=== PATIENT | female | born 1945 | race Two or more races ===

== ENCOUNTER 2018-03-06 02:01 | Emergency (ER) | payer OTHER ==
[~2018-03-06] VITALS: Ht 149.9 cm; Wt 125.6 kg
[2018-03-06] MEDS ORDERED: methylPREDNISolone SOD SUCC 125 MG/2 ML VL IV ONE (02:45)
[2018-03-06 04:08] LABS: Hematocrit 28.1 % (36.0-46.0); Hemoglobin 9.5 g/dL (12.2-16.2); Mean Corpuscular Hemoglobin 33.8 pg (28.0-32.0); Mean Corpuscular Hgb Conc. 33.9 g/dL (32.0-36.0); Mean Corpuscular Volume 99.7 fL (80.0-100.0); Platelet Count (auto) 49 10^3/uL (140-450); Red Blood Cells 2.82 10^6/uL (4.0-5.20); Red Cell Distribution Width 13.8 % (11.8-14.3)
[2018-03-06 04:20] LABS: White Blood Cell 1.6 10^3/uL (4.4-10.8)
[2018-03-06 04:21] LABS: Band Neutrophils % (manual) 0; Basophils % (manual) 0 (0.0-2.0); Blast Cells 0; Metamyelocytes % 0; Monocytes % (manual) 0 (0-12); Myelocytes % 0; Promyelocytes % 0; Reactive Lymphocytes 0
[2018-03-06 04:30] LABS: Albumin 3.2 g/dL (3.4-5.0); Potassium 4.5 mmol/L (3.5-5.1)
[2018-03-06 04:33] LABS: BUN/Creatinine Ratio 22.9; Bilirubin, Total 0.5 mg/dL (0.2-1.0); Total Protein 6.4 g/dL (6.4-8.2)
[2018-03-06 05:47] VITALS: BP 160/60
[2018-03-06 06:51] LABS: Eosinophils % (manual) 4 (0-7); Lymphocytes % (manual) 85 (10.0-50.0)
== END 2018-03-06 05:34 | disposition home or self-care (01) ==
LOC: ER 02:01
DX: K12.0 Recurrent oral aphthae (principal); B37.9 Candidiasis, unspecified; Z88.6 Allergy status to analgesic agent
CPT/HCPCS: 36415; 80053; 85007; 85027; 96374; 99283; J2930

== ENCOUNTER → 2019-10-23 | Emergency (ER) | payer OTHER ==
[~2019-10-23] VITALS: Ht 157.5 cm; Wt 81.6 kg
[~2019-10-23] MED LIST: CYANOCOBALAMIN (B-12) 1000 MCG/1 ML VIAL IM ONE; DEXTROSE (25%) 10 ML SYRG IV ONE; LORazepam 2MG/ML-1ML VIAL IV ONE
[2019-10-23 14:34] LABS: Eosinophils # (auto) 0.2 10 ^3/uL (0-0.8); Hemoglobin 12.3 g/dL (12.2-16.2); Lymphocytes # (auto) 2.3 10 ^3/uL (0.4-5.4); Monocytes # (auto) 0.7 10 ^3/uL (0-1.3); Red Blood Cells 3.67 10^6/uL (4.0-5.20); White Blood Cell 8.6 10^3/uL (4.4-10.8)
[2019-10-23 14:36] LABS: Basophils # (auto) 0 10 ^3/uL (0-0.2); Basophils % (auto) 0.6 % (0.0-2.0); Eosinophils % (auto) 2.6 % (0.0-7.0); Hematocrit 38.1 % (36.0-46.0); Lymphocytes % (auto) 26.6 % (10.0-50.0); Mean Corpuscular Hemoglobin 33.5 pg (28.0-32.0); Mean Corpuscular Hgb Conc. 32.2 g/dL (32.0-36.0); Monocytes % (auto) 8.7 % (0.0-12.0); Neutrophils # (auto) 5.3 10 ^3/uL (1.6-8.6); Neutrophils % (auto) 61.5 % (37.0-80.0); Platelet Count (auto) 234 10^3/uL (140-450); Red Cell Distribution Width 16.5 % (11.8-14.3)
[2019-10-23 14:48] LABS: Albumin 3.1 g/dL (3.4-5.0); Anion Gap 8 (5-15); BUN/Creatinine Ratio 8.9; Blood Urea Nitrogen 51 mg/dL (7-18); Carbon Dioxide 26 mmol/L (21-32); Chloride 105 mmol/L (98-107); GFR African American 9 mL/min; GFR Non-African American 8 mL/min; Glucose 73 mg/dL (74-106); Magnesium 2.5 mg/dL (1.6-2.6); Potassium 4.1 mmol/L (3.5-5.1); Sodium 139 mmol/L (136-145)
[2019-10-23 14:50] LABS: INR 1.05 (0.9-1.15); Partial Thromboplastin Time 29.6 sec (23.0-31.2)
[2019-10-23 14:52] LABS: Calcium 8.6 mg/dL (8.5-10.1)
[2019-10-23 14:54] LABS: Alanine Aminotransferase 9 U/L (13-56); Alkaline Phosphatase 95 U/L (45-117); Aspartate Aminotransferase 18 U/L (15-37); Bilirubin, Total 0.2 mg/dL (0.2-1.0); Total Protein 6.4 g/dL (6.4-8.2)
[2019-10-23 17:22] VITALS: BP 138/71
[2019-10-23 17:24] LABS: Urine Bacteria NONE SEEN /hpf (None Seen); Urine Blood Negative /uL (Negative); Urine Specific Gravity 1.005 (1.001-1.035); Urine WBC 2 /hpf (0 - 5)
[2019-10-23 17:30] LABS: Alcohol, Urine < 3.0 mg/dL (0-10); Amphetamine Screen, Urine NEGATIVE (NEGATIVE); Barbiturate Scree,Urine NEGATIVE (NEGATIVE); Benzodiazephine Screen, Urine NEGATIVE (NEGATIVE); Cannabinoid Screen, Urine POSITIVE (NEGATIVE); Cocaine Screen, Urine NEGATIVE (NEGATIVE); Opiate Scree,Urine NEGATIVE (NEGATIVE); Phencyclidine Screen, Urine NEGATIVE (NEGATIVE)
== END | disposition home or self-care (01) ==
LOC: EDUNIT# 12:22 → ER 12:23 → EDBD 12:23
DX: I12.0 Hypertensive chronic kidney disease with stage 5 chronic kidney disease or end stage renal disease (principal); N18.6 End stage renal disease; Z99.2 Dependence on renal dialysis; D75.89 Other specified diseases of blood and blood-forming organs; G25.9 Extrapyramidal and movement disorder, unspecified; E44.1 Mild protein-calorie malnutrition; F41.9 Anxiety disorder, unspecified; N39.0 Urinary tract infection, site not specified; Z88.5 Allergy status to narcotic agent
CPT/HCPCS: 36415; 70450; 71045; 80053; 80307; 80320; 81001; 82962; 83605; 83735; 84484; 85025; 85610; 85730; 87040; 93005; 96374; 96375; 99285; J2060

== ENCOUNTER 2020-03-07 19:07 | Inpatient (IN) | payer OTHER ==
[~2020-03-07] VITALS: Ht 144.8 cm; Wt 76.2 kg
[2020-03-07] MEDS ORDERED: PIPERACILLIN-TAZOB 3.375GM 100 ML IV ONE (20:15)
[2020-03-07] MEDS ORDERED: VANCOMYCIN 1GM/250ML 250 ML IV ONE (20:15)
[2020-03-07 22:27] LABS: Platelet Count (auto) 187 10^3/uL (140-450)
[2020-03-07 22:29] LABS: Hematocrit 31.1 % (36.0-46.0); Hemoglobin 10.9 g/dL (12.2-16.2); Mean Corpuscular Hemoglobin 37.1 pg (28.0-32.0); Mean Corpuscular Hgb Conc. 34.9 g/dL (32.0-36.0); Mean Corpuscular Volume 106.3 fL (80.0-100.0); Red Blood Cells 2.93 10^6/uL (4.0-5.20); White Blood Cell 8.4 10^3/uL (4.4-10.8)
[2020-03-07 22:41] LABS: Basophils % (manual) 0 (0.0-2.0); Blast Cells 0; Metamyelocytes % 0; Myelocytes % 0; Promyelocytes % 0; Reactive Lymphocytes 0
[2020-03-07 22:46] LABS: Albumin 2.4 g/dL (3.4-5.0); Calcium 7.1 mg/dL (8.5-10.1); Potassium 4.2 mmol/L (3.5-5.1)
[2020-03-07 22:54] LABS: INR 1.09 (0.9-1.15); Partial Thromboplastin Time 32.4 sec (23.0-31.2)
[2020-03-07 22:56] LABS: BUN/Creatinine Ratio 8.4; Bilirubin, Total 0.3 mg/dL (0.2-1.0); Total Protein 6.5 g/dL (6.4-8.2)
[2020-03-08] VITALS (7 sets, daily range): BP systolic 106–127; BP diastolic 51–60
[2020-03-08 00:49] LABS: Band Neutrophils % (manual) 3; Eosinophils % (manual) 2 (0-7); Lymphocytes % (manual) 14 (10.0-50.0); Monocytes % (manual) 6 (0-12)
[2020-03-08] MEDS ORDERED: ACETAMINOPHEN 325 MG TAB PO PRN (02:30)
[2020-03-08] MEDS ORDERED: MORPHINE SULF INJ 2 MG/ML SYRINGE 1ML IV PRN (02:30)
[2020-03-08] MEDS ORDERED: cloNIDine HCL 0.1 MG TAB PO PRN (02:30)
[2020-03-08] MEDS ORDERED: ONDANSETRON HCL 4 MG/2 ML VIAL IV PRN (02:30)
[2020-03-08] MEDS ORDERED: NITROGLYCERIN 0.4 MG SL TAB SL PRN (02:30)
[2020-03-08] MEDS: DexAMETHasone SOD PHOS 10MG/1ML VIAL INJ IV SCH (04:02)
[2020-03-08] MEDS: GABAPENTIN 100 MG CAP PO SCH ×3 (06:20→22:20)
[2020-03-08] MEDS: ENOXAPARIN SOD 40 MG/0.4 ML SYRINGE SC SCH (09:10)
[2020-03-08] MEDS: ZINC SULFATE 220mg CAP or TAB PO SCH (09:10)
[2020-03-08] MEDS: CHOLECALCIFEROL (VITD3) 2,000 UNIT CAP PO SCH (09:10)
[2020-03-08] MEDS: ASCORBIC ACID 1,000 MG TAB PO SCH (09:11)
[2020-03-08] MEDS: amLODIPine BESYLATE 5 MG TAB PO SCH (09:11)
[2020-03-08] MEDS: cefTRIAXone 1GM/50ML D5W 50 ML IV SCH (09:11)
[2020-03-08 09:51] LABS: Magnesium 2.4 mg/dL (1.6-2.6)
[2020-03-08 09:59] LABS: Lactate Dehydrogenase 428 U/L (84-246)
[2020-03-08 10:00] LABS: CRP High Sensitivity > 19.0 mg/dL (< 0.3)
[2020-03-08] MEDS ORDERED: ZINC SULFATE 220mg CAP or TAB PO SCH (10:00)
[2020-03-08] MEDS ORDERED: REMDESIVIR PER PHARMACY 0 ML IV SCH (11:45)
[2020-03-08] MEDS ORDERED: AMLO-496 PO (12:19)
[2020-03-08] MEDS ORDERED: ROPI0.254 PO (12:19)
[2020-03-08] MEDS ORDERED: ALBU108A5 INH (12:19)
[2020-03-08 12:22] LABS: Albumin 2.3 g/dL (3.4-5.0); Calcium 7.4 mg/dL (8.5-10.1); Potassium 4.5 mmol/L (3.5-5.1)
[2020-03-08] MEDS: AZITHROMYCIN 500MG/ 250ML 250 ML IV SCH (12:24)
[2020-03-08 12:25] LABS: BUN/Creatinine Ratio 8.8; Bilirubin, Total 0.4 mg/dL (0.2-1.0); Total Protein 6.3 g/dL (6.4-8.2)
[2020-03-08] MEDS ORDERED: REMDESIVIR 200 MG in NS 210ml LOADING DOSE ADULT IV ONE (15:00)
[2020-03-08] MEDS: ATORVASTATIN 20 MG TAB PO SCH (22:20)
[2020-03-09] VITALS: BP 124/64
[2020-03-09] MEDS: GABAPENTIN 100 MG CAP PO SCH ×3 (06:28→23:05)
[2020-03-09 08:00] VITALS: BP 127/62
[2020-03-09 08:08] LABS: Basophils # (auto) 0 10 ^3/uL (0-0.2); Basophils % (auto) 0.1 % (0.0-2.0); Eosinophils # (auto) 0 10 ^3/uL (0-0.8); Hemoglobin 10.4 g/dL (12.2-16.2); Monocytes # (auto) 0.4 10 ^3/uL (0-1.3); Neutrophils # (auto) 7.6 10 ^3/uL (1.6-8.6); White Blood Cell 8.6 10^3/uL (4.4-10.8)
[2020-03-09 08:10] LABS: Hematocrit 29.8 % (36.0-46.0); Lymphocytes # (auto) 0.7 10 ^3/uL (0.4-5.4); Lymphocytes % (auto) 8.1 % (10.0-50.0); Mean Corpuscular Hemoglobin 35.9 pg (28.0-32.0); Mean Corpuscular Hgb Conc. 34.8 g/dL (32.0-36.0); Mean Corpuscular Volume 103.3 fL (80.0-100.0); Monocytes % (auto) 4.1 % (0.0-12.0); Neutrophils % (auto) 87.7 % (37.0-80.0); Nucleated Red Blood Cells % 0.2 %; Platelet Count (auto) 218 10^3/uL (140-450); Red Blood Cells 2.88 10^6/uL (4.0-5.20); Red Cell Distribution Width 12.7 % (11.8-14.3)
[2020-03-09 08:14] LABS: Albumin 2.4 g/dL (3.4-5.0); Calcium 7.4 mg/dL (8.5-10.1); Potassium 4.5 mmol/L (3.5-5.1)
[2020-03-09 08:19] LABS: BUN/Creatinine Ratio 10.3; Bilirubin, Total 0.3 mg/dL (0.2-1.0); Total Protein 6.7 g/dL (6.4-8.2)
[2020-03-09] MEDS: cefTRIAXone 1GM/50ML D5W 50 ML IV SCH (09:15)
[2020-03-09] MEDS: ENOXAPARIN SOD 40 MG/0.4 ML SYRINGE SC SCH (09:15)
[2020-03-09] MEDS: CHOLECALCIFEROL (VITD3) 2,000 UNIT CAP PO SCH (09:16)
[2020-03-09] MEDS: ZINC SULFATE 220mg CAP or TAB PO SCH (09:16)
[2020-03-09] MEDS: DexAMETHasone SOD PHOS 10MG/1ML VIAL INJ IV SCH (09:16)
[2020-03-09] MEDS: ASCORBIC ACID 1,000 MG TAB PO SCH (09:16)
[2020-03-09 09:37] LABS: Urine Bacteria FEW /hpf (None Seen); Urine Blood Negative /uL (Negative); Urine Specific Gravity 1.014 (1.001-1.035); Urine WBC 5 /hpf (0 - 5)
[2020-03-09] MEDS: amLODIPine BESYLATE 5 MG TAB PO SCH (10:00)
[2020-03-09] MEDS: AZITHROMYCIN 500MG/ 250ML 250 ML IV SCH (10:46)
[2020-03-09] MEDS ORDERED: DOCUSATE SOD 100 MG CAP PO PRN (12:15)
[2020-03-09] MEDS ORDERED: SODIUM CHL 0.9% 1000 ML BAG XX ONE (12:45)
[2020-03-09 16:12] VITALS: BP 124/76
[2020-03-09] MEDS: REMDESIVIR 100mg 100 MG in SODIUM CHL 0.9% 230 ML IV SCH (16:57)
[2020-03-09] MEDS: ALBUTEROL SULF HFA 90MCG INH 200DOSE IN PRN (20:22)
[2020-03-09] MEDS: DOCUSATE SOD 100 MG CAP PO PRN (23:04)
[2020-03-09] MEDS: ATORVASTATIN 20 MG TAB PO SCH (23:05)
[2020-03-10 00:26] VITALS: BP 141/61
[2020-03-10] MEDS: TEMAZEPAM 15 MG CAP PO PRN (01:16)
[2020-03-10] MEDS: GABAPENTIN 100 MG CAP PO SCH ×2 (06:00→13:51)
[2020-03-10 08:00] VITALS: BP 135/63
[2020-03-10 08:25] LABS: Albumin 2.3 g/dL (3.4-5.0); Calcium 7.1 mg/dL (8.5-10.1); Potassium 3.8 mmol/L (3.5-5.1)
[2020-03-10 08:28] LABS: BUN/Creatinine Ratio 10.5; Bilirubin, Total 0.2 mg/dL (0.2-1.0)
[2020-03-10] MEDS: cefTRIAXone 1GM/50ML D5W 50 ML IV SCH (10:09)
[2020-03-10] MEDS: ZINC SULFATE 220mg CAP or TAB PO SCH (10:09)
[2020-03-10] MEDS: DexAMETHasone SOD PHOS 10MG/1ML VIAL INJ IV SCH (10:09)
[2020-03-10] MEDS: amLODIPine BESYLATE 5 MG TAB PO SCH (10:10)
[2020-03-10] MEDS: CHOLECALCIFEROL (VITD3) 2,000 UNIT CAP PO SCH (10:10)
[2020-03-10] MEDS: ASCORBIC ACID 1,000 MG TAB PO SCH (10:10)
[2020-03-10] MEDS: DOCUSATE SOD 100 MG CAP PO PRN ×2 (10:11→23:34)
[2020-03-10] MEDS: ENOXAPARIN SOD 40 MG/0.4 ML SYRINGE SC SCH (10:11)
[2020-03-10] MEDS: AZITHROMYCIN 500MG/ 250ML 250 ML IV SCH (10:32)
[2020-03-10] MEDS: REMDESIVIR 100mg 100 MG in SODIUM CHL 0.9% 230 ML IV SCH (15:42)
[2020-03-10 16:00] VITALS: BP 125/58
[2020-03-10] MEDS: ALBUTEROL SULF HFA 90MCG INH 200DOSE IN PRN (19:18)
[2020-03-11] VITALS: BP 118/59
[2020-03-11] MEDS: ATORVASTATIN 20 MG TAB PO SCH ×2 (01:06→22:12)
[2020-03-11] MEDS: GABAPENTIN 100 MG CAP PO SCH ×4 (01:06→22:12)
[2020-03-11] MEDS: TEMAZEPAM 15 MG CAP PO PRN (01:07)
[2020-03-11 07:23] LABS: Potassium 3.8 mmol/L (3.5-5.1)
[2020-03-11 07:35] LABS: Albumin 2.3 g/dL (3.4-5.0); BUN/Creatinine Ratio 12.5; Bilirubin, Total 0.2 mg/dL (0.2-1.0); Calcium 6.8 mg/dL (8.5-10.1); Total Protein 5.8 g/dL (6.4-8.2)
[2020-03-11 08:00] VITALS: BP 126/47
[2020-03-11] MEDS: ALBUTEROL SULF HFA 90MCG INH 200DOSE IN PRN ×2 (10:18→22:53)
[2020-03-11] MEDS: DexAMETHasone SOD PHOS 10MG/1ML VIAL INJ IV SCH (10:32)
[2020-03-11] MEDS: DOCUSATE SOD 100 MG CAP PO PRN (10:32)
[2020-03-11] MEDS: amLODIPine BESYLATE 5 MG TAB PO SCH (10:33)
[2020-03-11] MEDS: ASCORBIC ACID 1,000 MG TAB PO SCH (10:33)
[2020-03-11] MEDS: cefTRIAXone 1GM/50ML D5W 50 ML IV SCH (10:33)
[2020-03-11] MEDS: ZINC SULFATE 220mg CAP or TAB PO SCH (10:33)
[2020-03-11] MEDS: ENOXAPARIN SOD 40 MG/0.4 ML SYRINGE SC SCH (10:34)
[2020-03-11] MEDS: CHOLECALCIFEROL (VITD3) 2,000 UNIT CAP PO SCH (10:34)
[2020-03-11] MEDS ORDERED: LACTULOSE 20Gm/30ML SOLN PO ONE (11:15)
[2020-03-11] MEDS: AZITHROMYCIN 500MG/ 250ML 250 ML IV SCH (12:09)
[2020-03-11] MEDS: SODIUM CHLORIDE 0.9% 1,000 ML IV SCH (12:19)
[2020-03-11] MEDS: REMDESIVIR 100mg 100 MG in SODIUM CHL 0.9% 230 ML IV SCH (15:48)
[2020-03-11 16:00] VITALS: BP 137/56
[2020-03-11] MEDS: LACTULOSE 20Gm/30ML SOLN PO SCH (22:11)
[2020-03-12] VITALS: BP 141/68
[2020-03-12] MEDS: TEMAZEPAM 15 MG CAP PO PRN ×2 (00:45→22:29)
[2020-03-12] MEDS: GABAPENTIN 100 MG CAP PO SCH ×3 (05:17→22:29)
[2020-03-12 06:26] LABS: Basophils # (auto) 0 10 ^3/uL (0-0.2); Basophils % (auto) 0.1 % (0.0-2.0); Eosinophils # (auto) 0 10 ^3/uL (0-0.8); Hemoglobin 9.7 g/dL (12.2-16.2)
[2020-03-12 06:27] LABS: Hematocrit 27.9 % (36.0-46.0); Lymphocytes # (auto) 0.8 10 ^3/uL (0.4-5.4); Lymphocytes % (auto) 7.7 % (10.0-50.0); Mean Corpuscular Hemoglobin 36.2 pg (28.0-32.0); Mean Corpuscular Hgb Conc. 34.7 g/dL (32.0-36.0); Mean Corpuscular Volume 104.3 fL (80.0-100.0); Monocytes # (auto) 0.6 10 ^3/uL (0-1.3); Monocytes % (auto) 5.6 % (0.0-12.0); Neutrophils # (auto) 8.6 10 ^3/uL (1.6-8.6); Neutrophils % (auto) 86.6 % (37.0-80.0); Platelet Count (auto) 229 10^3/uL (140-450); Red Blood Cells 2.68 10^6/uL (4.0-5.20); Red Cell Distribution Width 13.3 % (11.8-14.3)
[2020-03-12 06:37] LABS: Potassium 4.1 mmol/L (3.5-5.1)
[2020-03-12 06:52] LABS: Albumin 2.4 g/dL (3.4-5.0); BUN/Creatinine Ratio 14.3; Bilirubin, Total 0.2 mg/dL (0.2-1.0); CRP High Sensitivity 5.09 mg/dL (< 0.3); Calcium 6.7 mg/dL (8.5-10.1); Total Protein 5.9 g/dL (6.4-8.2)
[2020-03-12] MEDS ORDERED: SODIUM CHL 0.9% 1000 ML BAG XX ONE (07:00)
[2020-03-12] MEDS: SODIUM CHLORIDE 0.9% 1,000 ML IV SCH (07:15)
[2020-03-12 08:00] VITALS: BP 122/59
[2020-03-12] MEDS: ENOXAPARIN SOD 40 MG/0.4 ML SYRINGE SC SCH (10:13)
[2020-03-12] MEDS: LACTULOSE 20Gm/30ML SOLN PO SCH ×3 (10:13→22:00)
[2020-03-12] MEDS: amLODIPine BESYLATE 5 MG TAB PO SCH (10:14)
[2020-03-12] MEDS: ZINC SULFATE 220mg CAP or TAB PO SCH (10:14)
[2020-03-12] MEDS: DOCUSATE SOD 100 MG CAP PO PRN ×2 (10:14→22:29)
[2020-03-12] MEDS: cefTRIAXone 1GM/50ML D5W 50 ML IV SCH (10:14)
[2020-03-12] MEDS: ASCORBIC ACID 1,000 MG TAB PO SCH (10:14)
[2020-03-12] MEDS: DexAMETHasone SOD PHOS 10MG/1ML VIAL INJ IV SCH (10:14)
[2020-03-12] MEDS: CHOLECALCIFEROL (VITD3) 2,000 UNIT CAP PO SCH (10:15)
[2020-03-12] MEDS: ALBUTEROL SULF HFA 90MCG INH 200DOSE IN PRN ×2 (10:29→19:18)
[2020-03-12] MEDS: AZITHROMYCIN 500MG/ 250ML 250 ML IV SCH (11:38)
[2020-03-12] MEDS ORDERED: ERGOCALCIFEROL 50,000 UNIT(1.25MG) CAP PO SCH (15:15)
[2020-03-12] MEDS ORDERED: ASPirin 81 mg TAB PO ONE (15:30)
[2020-03-12 16:00] VITALS: BP 119/44
[2020-03-12] MEDS: REMDESIVIR 100mg 100 MG in SODIUM CHL 0.9% 230 ML IV SCH (16:44)
[2020-03-12] MEDS: ATORVASTATIN 20 MG TAB PO SCH (22:28)
[2020-03-12] MEDS: AMOXICILLIN TRIHYDRATE 250 MG CAP PO SCH (22:28)
[2020-03-13] VITALS: BP 135/59
[2020-03-13] MEDS: GABAPENTIN 100 MG CAP PO SCH ×3 (06:19→22:22)
[2020-03-13] MEDS: AMOXICILLIN TRIHYDRATE 250 MG CAP PO SCH ×3 (06:19→22:22)
[2020-03-13] MEDS ORDERED: SODIUM CHL 0.9% 1000 ML BAG XX ONE (07:00)
[2020-03-13 07:12] LABS: Basophils # (auto) 0 10 ^3/uL (0-0.2); Eosinophils # (auto) 0 10 ^3/uL (0-0.8); Hematocrit 26.5 % (36.0-46.0); Hemoglobin 9.3 g/dL (12.2-16.2); Lymphocytes # (auto) 0.8 10 ^3/uL (0.4-5.4); Lymphocytes % (auto) 9.4 % (10.0-50.0)
[2020-03-13 07:15] LABS: Mean Corpuscular Hemoglobin 36.2 pg (28.0-32.0); Mean Corpuscular Volume 103.3 fL (80.0-100.0); Monocytes # (auto) 0.5 10 ^3/uL (0-1.3); Monocytes % (auto) 5.9 % (0.0-12.0); Neutrophils # (auto) 6.8 10 ^3/uL (1.6-8.6); Neutrophils % (auto) 84.7 % (37.0-80.0); Platelet Count (auto) 207 10^3/uL (140-450); Red Blood Cells 2.57 10^6/uL (4.0-5.20)
[2020-03-13 07:29] LABS: Potassium 4.1 mmol/L (3.5-5.1)
[2020-03-13 07:46] LABS: Albumin 2.2 g/dL (3.4-5.0); BUN/Creatinine Ratio 16.4; Bilirubin, Total 0.2 mg/dL (0.2-1.0); CRP High Sensitivity 4.2 mg/dL (< 0.3); Calcium 7.2 mg/dL (8.5-10.1); Total Protein 5.5 g/dL (6.4-8.2)
[2020-03-13 08:00] VITALS: BP 146/77
[2020-03-13] MEDS ORDERED: levoFLOXacin 250 MG TAB PO SCH (10:00)
[2020-03-13] MEDS: ENOXAPARIN SOD 40 MG/0.4 ML SYRINGE SC SCH (10:04)
[2020-03-13] MEDS: ASPirin 81 mg TAB PO SCH (10:04)
[2020-03-13] MEDS: DOCUSATE SOD 100 MG CAP PO PRN ×2 (10:04→22:23)
[2020-03-13] MEDS: ASCORBIC ACID 1,000 MG TAB PO SCH (10:04)
[2020-03-13] MEDS: ZINC SULFATE 220mg CAP or TAB PO SCH (10:04)
[2020-03-13] MEDS: DexAMETHasone SOD PHOS 10MG/1ML VIAL INJ IV SCH (10:04)
[2020-03-13] MEDS: CHOLECALCIFEROL (VITD3) 2,000 UNIT CAP PO SCH (10:05)
[2020-03-13] MEDS: amLODIPine BESYLATE 5 MG TAB PO SCH (10:05)
[2020-03-13 12:52] VITALS: BP 139/63
[2020-03-13 16:00] VITALS: BP 132/56
[2020-03-13] MEDS: LACTULOSE 20Gm/30ML SOLN PO SCH ×2 (17:40→22:00)
[2020-03-13] MEDS ORDERED: EPOETIN ALFA 4,000 UNIT/ML VL SC ONE (21:00)
[2020-03-13] MEDS: ATORVASTATIN 20 MG TAB PO SCH (22:22)
[2020-03-13] MEDS: TEMAZEPAM 15 MG CAP PO PRN (22:23)
[2020-03-13] MEDS ORDERED: LORazepam 0.5 MG TAB PO PRN (22:45)
[2020-03-14] VITALS: BP 153/56
[2020-03-14] MEDS: AMOXICILLIN TRIHYDRATE 250 MG CAP PO SCH ×2 (06:25→14:33)
[2020-03-14] MEDS: GABAPENTIN 100 MG CAP PO SCH ×2 (06:25→14:00)
[2020-03-14 08:00] VITALS: BP 121/54
[2020-03-14] MEDS: amLODIPine BESYLATE 5 MG TAB PO SCH (10:00)
[2020-03-14] MEDS: ZINC SULFATE 220mg CAP or TAB PO SCH (10:00)
[2020-03-14] MEDS: DexAMETHasone SOD PHOS 10MG/1ML VIAL INJ IV SCH (10:26)
[2020-03-14] MEDS: ENOXAPARIN SOD 40 MG/0.4 ML SYRINGE SC SCH (10:27)
[2020-03-14] MEDS: ASPirin 81 mg TAB PO SCH (10:27)
[2020-03-14] MEDS: LACTULOSE 20Gm/30ML SOLN PO SCH (10:27)
[2020-03-14] MEDS: CHOLECALCIFEROL (VITD3) 2,000 UNIT CAP PO SCH (10:30)
[2020-03-14] MEDS: ASCORBIC ACID 1,000 MG TAB PO SCH (10:30)
[2020-03-14] MEDS ORDERED: AMOX250C3 PO (15:33)
[2020-03-14] MEDS ORDERED: ATOR20TA50 PO (15:33)
[2020-03-14] MEDS ORDERED: CHOL1CAP47 PO (15:33)
[2020-03-14 16:00] VITALS: BP 150/58
[2020-03-14] MEDS: ALBUTEROL SULF HFA 90MCG INH 200DOSE IN PRN (19:43)
[2020-03-15] MEDS ORDERED: SODIUM CHL 0.9% 1000 ML BAG XX ONE (07:00)
[2020-03-15] MEDS ORDERED: EPOETIN ALFA 4,000 UNIT/ML VL SC ONE (21:00)
== END 2020-03-14 21:00 | disposition home or self-care (01) | DRG 871 ==
LOC: EDSEX 19:07 → EDBD 19:07 → ER 19:08 → TELE 19:09 → TELE-WESTW 03-08 05:35
PROVIDERS: ADMIT Nurse Practitioner; ATTEND Internal Medicine Nephrology
PROC: XW13325 Transfusion of Convalescent Plasma (Nonautologous) into Peripheral Vein, Percutaneous Approach, New Technology Group 5 (ICD-10-PCS; principal; 2020-03-08)
PROC: XW033E5 Introduction of Remdesivir Anti-infective into Peripheral Vein, Percutaneous Approach, New Technology Group 5 (ICD-10-PCS; 2020-03-08)
PROC: 5A1D70Z Performance of Urinary Filtration, Intermittent, Less than 6 Hours Per Day (ICD-10-PCS; 2020-03-08)
PROC: 5A1D70Z Performance of Urinary Filtration, Intermittent, Less than 6 Hours Per Day (ICD-10-PCS; 2020-03-13)
DX: A41.89 Other specified sepsis (principal); U07.1 COVID-19; J12.82 Pneumonia due to coronavirus disease 2019; J96.01 Acute respiratory failure with hypoxia; N18.6 End stage renal disease; E43 Unspecified severe protein-calorie malnutrition; I12.0 Hypertensive chronic kidney disease with stage 5 chronic kidney disease or end stage renal disease; J98.11 Atelectasis; F03.90 Unspecified dementia, unspecified severity, without behavioral disturbance, psychotic disturbance, mood disturbance, and anxiety; I25.10 Atherosclerotic heart disease of native coronary artery without angina pectoris; D63.8 Anemia in other chronic diseases classified elsewhere; Z99.2 Dependence on renal dialysis; E78.5 Hyperlipidemia, unspecified; K57.30 Diverticulosis of large intestine without perforation or abscess without bleeding; Z68.36 Body mass index [BMI] 36.0-36.9, adult; D63.1 Anemia in chronic kidney disease; E11.22 Type 2 diabetes mellitus with diabetic chronic kidney disease; E11.65 Type 2 diabetes mellitus with hyperglycemia; E55.9 Vitamin D deficiency, unspecified; E66.9 Obesity, unspecified; F17.200 Nicotine dependence, unspecified, uncomplicated; F41.9 Anxiety disorder, unspecified; K59.00 Constipation, unspecified; R56.9 Unspecified convulsions; R65.20 Severe sepsis without septic shock; Z79.4 Long term (current) use of insulin; Z79.82 Long term (current) use of aspirin; Z79.899 Other long term (current) drug therapy; Z83.3 Family history of diabetes mellitus; Z86.73 Personal history of transient ischemic attack (TIA), and cerebral infarction without residual deficits; Z88.5 Allergy status to narcotic agent
CPT/HCPCS: 36415; 36600; 70450; 71045; 71250; 74176; 80053; 80320; 81001; 82306; 82550; 82728; 82805; 82962; 83605; 83615; 83735; 84443; 84484; 85007; 85025; 85027; 85379; 85384; 85610; 85730; 86141; 86850; 86900; 86901; 87040; 87086; 87088; 87186; 87426; 90935; 93005; 94640; 96365; 96366; 96367; 96375; G0378; J0696; J1100; J1642; J2543

== ENCOUNTER → 2020-04-19 | Outpatient (CLI) | payer OTHER ==
[~2020-04-19] MED LIST changes: +ALBU108A5 INH; +AMLO-496 PO; +AMOX250C3 PO; +ATOR20TA50 PO; +CHOL1CAP47 PO; -CYANOCOBALAMIN (B-12) 1000 MCG/1 ML VIAL IM ONE; -DEXTROSE (25%) 10 ML SYRG IV ONE; -LORazepam 2MG/ML-1ML VIAL IV ONE; +ROPI0.254 PO
[2020-04-19 11:02] LABS: Eosinophils # (auto) 0.2 10 ^3/uL (0-0.8); Hemoglobin 10.8 g/dL (12.2-16.2); Lymphocytes # (auto) 1.4 10 ^3/uL (0.4-5.4); Neutrophils # (auto) 4.1 10 ^3/uL (1.6-8.6)
[2020-04-19 11:04] LABS: Basophils # (auto) 0.1 10 ^3/uL (0-0.2); Basophils % (auto) 1.3 % (0.0-2.0); Eosinophils % (auto) 3.9 % (0.0-7.0); Hematocrit 31.2 % (36.0-46.0); Lymphocytes % (auto) 21.4 % (10.0-50.0); Mean Corpuscular Hemoglobin 36.6 pg (28.0-32.0); Mean Corpuscular Hgb Conc. 34.5 g/dL (32.0-36.0); Mean Corpuscular Volume 106.2 fL (80.0-100.0); Monocytes # (auto) 0.5 10 ^3/uL (0-1.3); Monocytes % (auto) 8.4 % (0.0-12.0); Platelet Count (auto) 226 10^3/uL (140-450); Red Blood Cells 2.94 10^6/uL (4.0-5.20); Red Cell Distribution Width 14.3 % (11.8-14.3); White Blood Cell 6.4 10^3/uL (4.4-10.8)
[2020-04-19 11:34] LABS: Albumin 3.3 g/dL (3.4-5.0); Potassium 3.9 mmol/L (3.5-5.1)
[2020-04-19 11:41] LABS: Bilirubin, Total 0.4 mg/dL (0.2-1.0); Calcium 8.7 mg/dL (8.5-10.1)
== END | disposition home or self-care (01) ==
LOC: LAB 10:49
PROVIDERS: ATTEND Student in an Organized Health Care Education/Training Program
DX: I12.0 Hypertensive chronic kidney disease with stage 5 chronic kidney disease or end stage renal disease (principal); N18.6 End stage renal disease; R73.9 Hyperglycemia, unspecified
CPT/HCPCS: 36415; 80053; 80061; 83036; 84443; 85025

== ENCOUNTER 2020-05-04 13:20 | Emergency (ER) | payer OTHER ==
[~2020-05-04] VITALS: Ht 149.9 cm; Wt 70.3 kg
[2020-05-04] MEDS ORDERED: LORazepam 2MG/ML-1ML VIAL IV ONE (14:30)
[2020-05-04 14:32] LABS: Basophils # (auto) 0.1 10 ^3/uL (0-0.2); Eosinophils # (auto) 0.2 10 ^3/uL (0-0.8)
[2020-05-04 14:34] LABS: Basophils % (auto) 1.2 % (0.0-2.0); Eosinophils % (auto) 2.7 % (0.0-7.0); Hematocrit 31.4 % (36.0-46.0); Hemoglobin 10.7 g/dL (12.2-16.2); Lymphocytes # (auto) 1.7 10 ^3/uL (0.4-5.4); Lymphocytes % (auto) 25.1 % (10.0-50.0); Mean Corpuscular Hemoglobin 36.9 pg (28.0-32.0); Mean Corpuscular Hgb Conc. 34.1 g/dL (32.0-36.0); Mean Corpuscular Volume 108.4 fL (80.0-100.0); Monocytes # (auto) 0.6 10 ^3/uL (0-1.3); Monocytes % (auto) 8.9 % (0.0-12.0); Neutrophils # (auto) 4.1 10 ^3/uL (1.6-8.6); Neutrophils % (auto) 62.1 % (37.0-80.0); Platelet Count (auto) 224 10^3/uL (140-450); Red Cell Distribution Width 14.3 % (11.8-14.3); White Blood Cell 6.6 10^3/uL (4.4-10.8)
[2020-05-04 14:48] LABS: Albumin 3.4 g/dL (3.4-5.0); Anion Gap 11 (5-15); Blood Urea Nitrogen 32 mg/dL (7-18); Calcium 8.2 mg/dL (8.5-10.1); Carbon Dioxide 24 mmol/L (21-32); Chloride 106 mmol/L (98-107); Glucose 103 mg/dL (74-106); Potassium 4.1 mmol/L (3.5-5.1); Sodium 141 mmol/L (136-145)
[2020-05-04 14:50] LABS: GFR African American 14 mL/min; GFR Non-African American 12 mL/min
[2020-05-04 14:55] LABS: Alanine Aminotransferase 14 U/L (13-56); Alkaline Phosphatase 94 U/L (45-117); Aspartate Aminotransferase 17 U/L (15-37); Bilirubin, Total 0.3 mg/dL (0.2-1.0)
[2020-05-04 17:23] VITALS: BP 139/54
== END 2020-05-04 17:49 | disposition home or self-care (01) ==
LOC: ER 13:20
DX: F41.9 Anxiety disorder, unspecified (principal); R42 Dizziness and giddiness
CPT/HCPCS: 36415; 70450; 80053; 84484; 85025; 96374; 99284; J2060; 93005

== ENCOUNTER → 2020-06-14 | Outpatient (CLI) | payer OTHER | END | disposition home or self-care (01) | LOC: XYW 10:14 | PROVIDERS: ATTEND Student in an Organized Health Care Education/Training Program | DX: I67.82 Cerebral ischemia (principal); R42 Dizziness and giddiness; R41.0 Disorientation, unspecified; F98.4 Stereotyped movement disorders | CPT/HCPCS: 70551 ==

== ENCOUNTER → 2020-06-26 | Outpatient (CLI) | payer OTHER | END | disposition home or self-care (01) | LOC: XY 09:11 | PROVIDERS: ATTEND Student in an Organized Health Care Education/Training Program | DX: I77.0 Arteriovenous fistula, acquired (principal) ==

== ENCOUNTER 2020-08-23 07:13 | Day surgery (SDC) | payer OTHER ==
[2020-08-22 15:11] LABS: Basophils # (auto) 0.1 10 ^3/uL (0-0.2); Eosinophils # (auto) 0.2 10 ^3/uL (0-0.8); Hemoglobin 10.8 g/dL (12.2-16.2); Mean Corpuscular Volume 101.3 fL (80.0-100.0); Monocytes # (auto) 0.7 10 ^3/uL (0-1.3); Monocytes % (auto) 8.7 % (0.0-12.0); Neutrophils # (auto) 3.9 10 ^3/uL (1.6-8.6)
[2020-08-22 15:12] LABS: Basophils % (auto) 0.7 % (0.0-2.0); Eosinophils % (auto) 2.6 % (0.0-7.0); Hematocrit 30.4 % (36.0-46.0); Lymphocytes # (auto) 2.7 10 ^3/uL (0.4-5.4); Lymphocytes % (auto) 36.2 % (10.0-50.0); Mean Corpuscular Hemoglobin 35.9 pg (28.0-32.0); Mean Corpuscular Hgb Conc. 35.4 g/dL (32.0-36.0); Neutrophils % (auto) 51.8 % (37.0-80.0); Red Cell Distribution Width 13.9 % (11.8-14.3); White Blood Cell 7.5 10^3/uL (4.4-10.8)
[2020-08-22 15:20] LABS: Urine Bacteria NONE SEEN /hpf (None Seen); Urine Blood Negative /uL (Negative); Urine Specific Gravity 1.008 (1.001-1.035); Urine WBC 52 /hpf (0 - 5)
[2020-08-22 16:01] LABS: Albumin 3.3 g/dL (3.4-5.0); Calcium 7.7 mg/dL (8.5-10.1); Potassium 3.5 mmol/L (3.5-5.1)
[2020-08-22 16:03] LABS: BUN/Creatinine Ratio 8.2
[2020-08-22 16:05] LABS: Bilirubin, Total 0.2 mg/dL (0.2-1.0); Total Protein 6.7 g/dL (6.4-8.2)
[~2020-08-23] VITALS: Ht 149.9 cm; Wt 72.1 kg
[~2020-08-23 07:13] MED LIST changes: -ALBU108A5 INH; +GABA100C9 PO; +LEVO25TA6 PO; +OMEP-434 PO; -ROPI0.254 PO; +SEVE800T8 PO; +TRAZ100T3 PO
[2020-08-23] MEDS ORDERED: METOCLOPRAMIDE HCL 5MG/ml INJ 2ml VIAL IV PRN ×2 (07:30→09:30)
[2020-08-23] MEDS ORDERED: MORPHINE SULFATE 4 MG/ML SYR/VIAL IV PRN ×2 (07:30→09:30)
[2020-08-23] MEDS ORDERED: HYDROmorphone HCL 2 MG/ML VL IV PRN ×2 (07:30→09:30)
[2020-08-23] MEDS ORDERED: fentaNYL CITRATE 100 MCG/2 ML VL ONE (08:50)
[2020-08-23] MEDS ORDERED: SODIUM CHLORIDE LOCK 10 ML ONE (08:50)
[2020-08-23] MEDS ORDERED: ONDANSETRON HCL 4 MG/2 ML VIAL ONE (08:50)
[2020-08-23] MEDS ORDERED: MIDAZOLAM HCL 1MG/1ML-2 ML VIAL ONE (08:50)
[2020-08-23] MEDS ORDERED: PROPOFOL 10 MG/ML 20 ML IV ONE (08:50)
[2020-08-23] MEDS ORDERED: diphenhdrAMINE HCL 50 MG/1 ML VL IV ONE (11:15)
[2020-08-23] MEDS ORDERED: diphenhdrAMINE HCL 50 MG/1 ML VL ONE (11:16)
[2020-08-23 11:30] VITALS: BP 143/48
== END 2020-08-23 12:00 | disposition home or self-care (01) ==
LOC: SUR 07:13
PROVIDERS: ATTEND Otolaryngology
DX: H65.91 Unspecified nonsuppurative otitis media, right ear (principal); E66.01 Morbid (severe) obesity due to excess calories; I25.10 Atherosclerotic heart disease of native coronary artery without angina pectoris; D64.9 Anemia, unspecified; E78.00 Pure hypercholesterolemia, unspecified; E11.22 Type 2 diabetes mellitus with diabetic chronic kidney disease; I12.0 Hypertensive chronic kidney disease with stage 5 chronic kidney disease or end stage renal disease; N18.6 End stage renal disease; Z20.822 Contact with and (suspected) exposure to COVID-19; Z88.5 Allergy status to narcotic agent; Z90.710 Acquired absence of both cervix and uterus; Z68.37 Body mass index [BMI] 37.0-37.9, adult; Z99.2 Dependence on renal dialysis
CPT/HCPCS: 36415; 69436; 80053; 81001; 85025; 85049; 88300; J1200; J2250; J2405; J2704; J3010; U0003

== ENCOUNTER 2020-11-23 15:01 | Inpatient (IN) | payer OTHER ==
[~2020-11-23] VITALS: Ht 149.9 cm; Wt 78.9 kg
[2020-11-23] MEDS: SODIUM CHLOR 0.9% PF (SALINE LOCK) 10ML VIAL/SYR IV SCH (03:30)
[2020-11-23 15:59] LABS: Basophils # (auto) 0 10 ^3/uL (0-0.2); Eosinophils # (auto) 0.1 10 ^3/uL (0-0.8); Hemoglobin 11.5 g/dL (12.2-16.2); Lymphocytes # (auto) 1.9 10 ^3/uL (0.4-5.4); Monocytes # (auto) 0.8 10 ^3/uL (0-1.3); White Blood Cell 6.8 10^3/uL (4.4-10.8)
[2020-11-23 16:02] LABS: Basophils % (auto) 0.5 % (0.0-2.0); Eosinophils % (auto) 2.1 % (0.0-7.0); Hematocrit 34.1 % (36.0-46.0); INR 1.12 (0.9-1.15); Lymphocytes % (auto) 27.8 % (10.0-50.0); Mean Corpuscular Hemoglobin 34.4 pg (28.0-32.0); Mean Corpuscular Hgb Conc. 33.7 g/dL (32.0-36.0); Mean Corpuscular Volume 102.2 fL (80.0-100.0); Neutrophils # (auto) 3.9 10 ^3/uL (1.6-8.6); Neutrophils % (auto) 57.6 % (37.0-80.0); Partial Thromboplastin Time 30.5 sec (23.6-33.0); Red Blood Cells 3.33 10^6/uL (4.0-5.20); Red Cell Distribution Width 13.8 % (11.8-14.3)
[2020-11-23 16:06] LABS: Albumin 3.2 g/dL (3.4-5.0); Anion Gap 7 (5-15); Blood Urea Nitrogen 11 mg/dL (7-18); Carbon Dioxide 31 mmol/L (21-32); Chloride 103 mmol/L (98-107); Glucose 113 mg/dL (74-106); Potassium 3.2 mmol/L (3.5-5.1); Sodium 141 mmol/L (136-145)
[2020-11-23 16:10] LABS: Alanine Aminotransferase 17 U/L (13-56); Aspartate Aminotransferase 18 U/L (15-37); BUN/Creatinine Ratio 4.7; GFR African American 26 mL/min; GFR Non-African American 22 mL/min
[2020-11-23 16:25] LABS: Alkaline Phosphatase 150 U/L (45-117); Bilirubin, Total 0.3 mg/dL (0.2-1.0)
[2020-11-23 18:38] LABS: Urine Bacteria FEW /hpf (None Seen); Urine Blood TRACE /uL (Negative); Urine Budding Yeast MODERATE /hpf (None Seen); Urine Specific Gravity 1.013 (1.001-1.035); Urine WBC 42 /hpf (0 - 5); Urine WBC Clumps PRESENT /hpf (None Seen)
[2020-11-23] MEDS ORDERED: hydrALAZINE HCL 20 MG/ML VL IV PRN (21:15)
[2020-11-23] MEDS ORDERED: ACETAMINOPHEN 325 MG TAB PO PRN (21:15)
[2020-11-23] MEDS ORDERED: ONDANSETRON HCL 4 MG/2 ML VIAL IV PRN (21:15)
[2020-11-23] MEDS ORDERED: POTASSIUM CHL 20MEQ/100ML 100 ML IV ONE (21:15)
[2020-11-24] MEDS ORDERED: MORPHINE SULFATE INJECTION 2 MG/ML SYRG IV PRN (00:45)
[2020-11-24] MEDS ORDERED: NITROGLYCERIN 0.4 MG SL TAB SL PRN (00:45)
[2020-11-24] MEDS: FAMOTIDINE (10MG/ML) 2ML VL IV SCH ×2 (03:30→10:01)
[2020-11-24] MEDS: cefTRIAXone 1GM/50ML D5W 50 ML IV SCH ×2 (03:30→04:30)
[2020-11-24] MEDS: SODIUM CHLOR 0.9% PF (SALINE LOCK) 10ML VIAL/SYR IV SCH ×3 (06:27→22:34)
[2020-11-24 07:34] LABS: Basophils # (auto) 0.1 10 ^3/uL (0-0.2); Basophils % (auto) 0.9 % (0.0-2.0); Eosinophils # (auto) 0.1 10 ^3/uL (0-0.8); Eosinophils % (auto) 2.5 % (0.0-7.0); Hematocrit 31.8 % (36.0-46.0); Hemoglobin 10.8 g/dL (12.2-16.2); Lymphocytes # (auto) 2.3 10 ^3/uL (0.4-5.4); Lymphocytes % (auto) 37.3 % (10.0-50.0); Mean Corpuscular Volume 102.9 fL (80.0-100.0); Monocytes # (auto) 0.5 10 ^3/uL (0-1.3); Monocytes % (auto) 8.7 % (0.0-12.0); Neutrophils % (auto) 50.6 % (37.0-80.0); Nucleated Red Blood Cells % 0.1 %; Red Blood Cells 3.09 10^6/uL (4.0-5.20); Red Cell Distribution Width 13.9 % (11.8-14.3)
[2020-11-24 07:45] LABS: Albumin 2.9 g/dL (3.4-5.0); Potassium 3.5 mmol/L (3.5-5.1)
[2020-11-24 07:49] LABS: BUN/Creatinine Ratio 6.2; Bilirubin, Total 0.3 mg/dL (0.2-1.0)
[2020-11-24] MEDS: AZITHROMYCIN 500MG/ 250ML 250 ML IV SCH (10:05)
[2020-11-24 12:04] LABS: Hematocrit 34.5 % (36.0-46.0); Hemoglobin 11.6 g/dL (12.2-16.2)
[2020-11-24 17:00] VITALS: BP 137/59
[2020-11-24 17:55] LABS: Hematocrit 32.6 % (36.0-46.0); Hemoglobin 11.3 g/dL (12.2-16.2)
[2020-11-24] MEDS ORDERED: LINA145C PO (18:32)
[2020-11-24] MEDS ORDERED: GABA300C10 PO (18:32)
[2020-11-24] MEDS ORDERED: ONDA-155 PO (18:32)
[2020-11-24] MEDS ORDERED: ESCI-28 PO (18:32)
[2020-11-24] MEDS ORDERED: [UNRECOGNIZED DRUG - CODE] PO (18:32)
[2020-11-24] MEDS ORDERED: DOCU1CAP46 PO (18:32)
[2020-11-24 22:00] VITALS: BP 142/57
[2020-11-24 23:33] LABS: Hematocrit 31.3 % (36.0-46.0); Hemoglobin 10.7 g/dL (12.2-16.2)
[2020-11-25 05:00] VITALS: BP 143/57
[2020-11-25] MEDS: SODIUM CHLOR 0.9% PF (SALINE LOCK) 10ML VIAL/SYR IV SCH ×3 (06:25→22:00)
[2020-11-25 06:29] LABS: Basophils # (auto) 0.1 10 ^3/uL (0-0.2); Eosinophils # (auto) 0.3 10 ^3/uL (0-0.8); Hemoglobin 11.5 g/dL (12.2-16.2); Lymphocytes # (auto) 1.9 10 ^3/uL (0.4-5.4); Monocytes # (auto) 0.5 10 ^3/uL (0-1.3); Neutrophils # (auto) 3.8 10 ^3/uL (1.6-8.6); White Blood Cell 6.6 10^3/uL (4.4-10.8)
[2020-11-25 06:31] LABS: Basophils % (auto) 0.8 % (0.0-2.0); Eosinophils % (auto) 4.5 % (0.0-7.0); Hematocrit 34.3 % (36.0-46.0); Lymphocytes % (auto) 29.1 % (10.0-50.0); Mean Corpuscular Hemoglobin 34.6 pg (28.0-32.0); Mean Corpuscular Hgb Conc. 33.5 g/dL (32.0-36.0); Mean Corpuscular Volume 103.3 fL (80.0-100.0); Monocytes % (auto) 7.7 % (0.0-12.0); Neutrophils % (auto) 57.9 % (37.0-80.0); Red Blood Cells 3.32 10^6/uL (4.0-5.20)
[2020-11-25 09:00] VITALS: BP 131/58
[2020-11-25] MEDS ORDERED: SODIUM CHLORIDE LOCK 10 ML ONE (09:39)
[2020-11-25] MEDS ORDERED: diphenhdrAMINE HCL 50 MG/1 ML VL ONE (09:40)
[2020-11-25] MEDS ORDERED: LIDOCAINE VISCOUS 2% 15ML UD ONE (09:40)
[2020-11-25] MEDS: fentaNYL CITRATE 100 MCG/2 ML VL ONE ×2 (13:36→13:39)
[2020-11-25] MEDS: MIDAZOLAM HCL 5 MG/ML-1ML VIAL ONE ×2 (13:36→13:39)
[2020-11-25] MEDS: AZITHROMYCIN 500MG/ 250ML 250 ML IV SCH (17:45)
[2020-11-25 22:00] VITALS: BP 133/48
[2020-11-26 05:35] VITALS: BP 130/50
[2020-11-26] MEDS: SODIUM CHLOR 0.9% PF (SALINE LOCK) 10ML VIAL/SYR IV SCH ×2 (05:42→13:51)
[2020-11-26 09:00] VITALS: BP 145/73
[2020-11-26] MEDS ORDERED: cefTRIAXone 1GM/50ML D5W 50 ML IV SCH (09:00)
[2020-11-26] MEDS: AZITHROMYCIN 500MG/ 250ML 250 ML IV SCH (09:47)
[2020-11-26] MEDS ORDERED: FAMOTIDINE (10MG/ML) 2ML VL IV SCH (10:00)
[2020-11-26 10:08] LABS: Basophils # (auto) 0.1 10 ^3/uL (0-0.2); Basophils % (auto) 0.9 % (0.0-2.0); Eosinophils # (auto) 0.3 10 ^3/uL (0-0.8); Hematocrit 35.4 % (36.0-46.0); Hemoglobin 11.8 g/dL (12.2-16.2); Lymphocytes # (auto) 1.7 10 ^3/uL (0.4-5.4); Lymphocytes % (auto) 23.8 % (10.0-50.0); Mean Corpuscular Hemoglobin 34.2 pg (28.0-32.0); Mean Corpuscular Hgb Conc. 33.4 g/dL (32.0-36.0); Mean Corpuscular Volume 102.5 fL (80.0-100.0); Monocytes # (auto) 0.4 10 ^3/uL (0-1.3); Monocytes % (auto) 5.4 % (0.0-12.0); Neutrophils # (auto) 4.7 10 ^3/uL (1.6-8.6); Neutrophils % (auto) 65.9 % (37.0-80.0); Red Blood Cells 3.46 10^6/uL (4.0-5.20); Red Cell Distribution Width 13.9 % (11.8-14.3); White Blood Cell 7.1 10^3/uL (4.4-10.8)
[2020-11-26 10:09] LABS: Folate (Folic Acid) 16.29 ng/mL (5.38-24)
[2020-11-26 10:29] LABS: Potassium 3.9 mmol/L (3.5-5.1)
[2020-11-26 10:38] LABS: Albumin 3.4 g/dL (3.4-5.0); BUN/Creatinine Ratio 8.4; Bilirubin, Total 0.3 mg/dL (0.2-1.0); Calcium 8.6 mg/dL (8.5-10.1); Total Protein 6.8 g/dL (6.4-8.2)
[2020-11-26] MEDS ORDERED: CYANOCOBALAMIN (B-12) 1000 MCG/1 ML VIAL SUBCUT ONE (12:00)
[2020-11-26 13:00] VITALS: BP 144/58
== END 2020-11-26 15:00 | disposition home or self-care (01) | DRG 377 ==
LOC: ER 15:01 → OVERFLOW 11-24 00:35 → WEST WING 11-24 14:34
PROVIDERS: ADMIT Nurse Practitioner Family; ATTEND Internal Medicine
PROC: 0DB68ZX Excision of Stomach, Via Natural or Artificial Opening Endoscopic, Diagnostic (ICD-10-PCS; 2020-11-25)
PROC: 0DB98ZX Excision of Duodenum, Via Natural or Artificial Opening Endoscopic, Diagnostic (ICD-10-PCS; principal; 2020-11-25 13:30)
DX: K57.31 Diverticulosis of large intestine without perforation or abscess with bleeding (principal); N18.6 End stage renal disease; N39.0 Urinary tract infection, site not specified; I13.11 Hypertensive heart and chronic kidney disease without heart failure, with stage 5 chronic kidney disease, or end stage renal disease; K22.11 Ulcer of esophagus with bleeding; K29.71 Gastritis, unspecified, with bleeding; E78.5 Hyperlipidemia, unspecified; D75.89 Other specified diseases of blood and blood-forming organs; F41.9 Anxiety disorder, unspecified; M10.9 Gout, unspecified; R55 Syncope and collapse; K22.2 Esophageal obstruction; E53.8 Deficiency of other specified B group vitamins; I70.90 Unspecified atherosclerosis; Z20.822 Contact with and (suspected) exposure to COVID-19; K44.9 Diaphragmatic hernia without obstruction or gangrene; Z88.5 Allergy status to narcotic agent; Z83.3 Family history of diabetes mellitus; Z86.73 Personal history of transient ischemic attack (TIA), and cerebral infarction without residual deficits; Z90.49 Acquired absence of other specified parts of digestive tract; Z99.2 Dependence on renal dialysis
CPT/HCPCS: 36415; 43239; 71045; 74176; 80053; 81001; 82607; 82746; 83036; 84443; 84484; 85014; 85018; 85025; 85610; 85730; 87081; 87086; 87426; 93005; 96361; 96365; 96375; 96376; G0378; J0696; J2250; J3480; J3490

== ENCOUNTER → 2021-02-06 | Day surgery (SDC) | payer OTHER ==
[2021-02-05 09:04] LABS: Basophils # (auto) 0.1 10 ^3/uL (0-0.2); Eosinophils # (auto) 0.2 10 ^3/uL (0-0.8); Eosinophils % (auto) 3.1 % (0.0-7.0); Hematocrit 30.6 % (36.0-46.0); Hemoglobin 10.1 g/dL (12.2-16.2); Lymphocytes # (auto) 2.2 10 ^3/uL (0.4-5.4); Lymphocytes % (auto) 31.8 % (10.0-50.0); Mean Corpuscular Hemoglobin 33.4 pg (28.0-32.0); Mean Corpuscular Hgb Conc. 33.1 g/dL (32.0-36.0); Mean Corpuscular Volume 100.9 fL (80.0-100.0); Monocytes # (auto) 0.5 10 ^3/uL (0-1.3); Monocytes % (auto) 7.5 % (0.0-12.0); Neutrophils # (auto) 3.9 10 ^3/uL (1.6-8.6); Neutrophils % (auto) 56.6 % (37.0-80.0); Red Blood Cells 3.03 10^6/uL (4.0-5.20); Red Cell Distribution Width 14.1 % (11.8-14.3); White Blood Cell 6.9 10^3/uL (4.4-10.8)
[2021-02-05 09:11] LABS: Urine Bacteria FEW /hpf (None Seen); Urine Blood TRACE /uL (Negative); Urine Specific Gravity 1.007 (1.001-1.035); Urine WBC 4 /hpf (0 - 5)
[2021-02-05 09:13] LABS: Potassium 4.9 mmol/L (3.5-5.1)
[2021-02-05 09:20] LABS: Albumin 3.6 g/dL (3.4-5.0); BUN/Creatinine Ratio 14.7; Bilirubin, Total 0.3 mg/dL (0.2-1.0); Calcium 8.7 mg/dL (8.5-10.1); Total Protein 6.5 g/dL (6.4-8.2)
[~2021-02-06] VITALS: Ht 152.4 cm; Wt 72.6 kg
[~2021-02-06] MED LIST changes: +BUPIVACAINE W/ EPINEPH 0.25% INJ 50ML MDV ONE; +DOCU1CAP46 PO; +DexAMETHasone SOD PHOS 10MG/1ML VIAL INJ ONE; +ESCI-28 PO; -GABA100C9 PO; +GABA300C10 PO; +HYDR-3682 PO; +HYDROmorphone HCL 2 MG/ML VL IV PRN; +LABETALOL HCL 5 MG/ML 4ML SYRINGE IV PRN; -LEVO25TA6 PO; +LINA145C PO; +MIDAZOLAM HCL 2MG/2ML 2ml VIAL (1mg/ml) IV PRN; +MIDAZOLAM HCL 2MG/2ML 2ml VIAL (1mg/ml) ONE; +MORPHINE SULFATE 4 MG/ML SYR/VIAL IV PRN; +ONDA-155 PO; +ONDANSETRON HCL 4 MG/2 ML VIAL IV PRN; +PROPOFOL 10 MG/ML 20 ML IV ONE; +[UNRECOGNIZED DRUG - CODE] PO; +ceFAZolin 1GM/50ML 0 ML IV ONE; +ePHEDrine SULFATE 50 MG/ML AMP IV PRN; +fentaNYL CITRATE 100 MCG/2 ML VL ONE
[2021-02-06 12:50] VITALS: BP 165/53
== END | disposition home or self-care (01) ==
LOC: SUR 09:58
PROVIDERS: ATTEND Surgery
DX: Z49.01 Encounter for fitting and adjustment of extracorporeal dialysis catheter (principal); T82.41XA Breakdown (mechanical) of vascular dialysis catheter, initial encounter; I12.9 Hypertensive chronic kidney disease with stage 1 through stage 4 chronic kidney disease, or unspecified chronic kidney disease; N18.6 End stage renal disease; E03.9 Hypothyroidism, unspecified; F41.9 Anxiety disorder, unspecified; E78.5 Hyperlipidemia, unspecified; Z90.49 Acquired absence of other specified parts of digestive tract; Z86.2 Personal history of diseases of the blood and blood-forming organs and certain disorders involving the immune mechanism; Z83.3 Family history of diabetes mellitus; Z86.73 Personal history of transient ischemic attack (TIA), and cerebral infarction without residual deficits; Z88.5 Allergy status to narcotic agent; Z20.822 Contact with and (suspected) exposure to COVID-19; Y82.8 Other medical devices associated with adverse incidents
CPT/HCPCS: 36415; 36589; 80053; 81001; 85025; J1100; J2250; J2704; J3010; U0003; J0690

== ENCOUNTER → 2021-06-04 | Outpatient (CLI) | payer OTHER ==
[~2021-06-04] MED LIST changes: +ALPR0.5T PO; -BUPIVACAINE W/ EPINEPH 0.25% INJ 50ML MDV ONE; -DexAMETHasone SOD PHOS 10MG/1ML VIAL INJ ONE; -HYDROmorphone HCL 2 MG/ML VL IV PRN; -LABETALOL HCL 5 MG/ML 4ML SYRINGE IV PRN; -MIDAZOLAM HCL 2MG/2ML 2ml VIAL (1mg/ml) IV PRN; -MIDAZOLAM HCL 2MG/2ML 2ml VIAL (1mg/ml) ONE; -MORPHINE SULFATE 4 MG/ML SYR/VIAL IV PRN; -ONDANSETRON HCL 4 MG/2 ML VIAL IV PRN; -PROPOFOL 10 MG/ML 20 ML IV ONE; -ceFAZolin 1GM/50ML 0 ML IV ONE; -ePHEDrine SULFATE 50 MG/ML AMP IV PRN; -fentaNYL CITRATE 100 MCG/2 ML VL ONE
== END | disposition home or self-care (01) ==
LOC: Rad HDHVI 14:59
PROVIDERS: ATTEND Internal Medicine Cardiovascular Disease
DX: I34.0 Nonrheumatic mitral (valve) insufficiency (principal); I10 Essential (primary) hypertension; R42 Dizziness and giddiness
CPT/HCPCS: 93306

== ENCOUNTER 2021-06-06 13:48 | Emergency (ER) | payer OTHER ==
[~2021-06-06] VITALS: Ht 149.9 cm; Wt 72.6 kg
[~2021-06-06 13:48] MED LIST changes: -ALPR0.5T PO
[2021-06-06 14:28] LABS: Basophils # (auto) 0.1 10 ^3/uL (0-0.2); Basophils % (auto) 0.9 % (0.0-2.0); Eosinophils # (auto) 0.2 10 ^3/uL (0-0.8); Eosinophils % (auto) 2.5 % (0.0-7.0); Hematocrit 36.3 % (36.0-46.0); Lymphocytes # (auto) 1.9 10 ^3/uL (0.4-5.4); Lymphocytes % (auto) 27.3 % (10.0-50.0); Mean Corpuscular Hemoglobin 33.3 pg (28.0-32.0); Mean Corpuscular Hgb Conc. 33.1 g/dL (32.0-36.0); Mean Corpuscular Volume 100.6 fL (80.0-100.0); Monocytes # (auto) 0.6 10 ^3/uL (0-1.3); Monocytes % (auto) 8.2 % (0.0-12.0); Neutrophils # (auto) 4.2 10 ^3/uL (1.6-8.6); Neutrophils % (auto) 61.1 % (37.0-80.0); Nucleated Red Blood Cells % 0.1 %; Red Blood Cells 3.61 10^6/uL (4.0-5.20); Red Cell Distribution Width 14.2 % (11.8-14.3); White Blood Cell 6.8 10^3/uL (4.4-10.8)
[2021-06-06 14:41] LABS: Albumin 3.8 g/dL (3.4-5.0); BUN/Creatinine Ratio 8.6; Calcium 8.6 mg/dL (8.5-10.1); Potassium 4.3 mmol/L (3.5-5.1)
[2021-06-06 14:44] LABS: Bilirubin, Total 0.2 mg/dL (0.2-1.0); Total Protein 6.6 g/dL (6.4-8.2)
[2021-06-06] MEDS ORDERED: ALPR0.5T PO (15:43)
[2021-06-06] MEDS ORDERED: ALPRAZolam 0.5 MG TAB PO ONE (15:45)
[2021-06-06 16:01] VITALS: BP 158/57
== END 2021-06-06 16:26 | disposition home or self-care (01) ==
LOC: ER 13:48
DX: F41.1 Generalized anxiety disorder (principal); E78.5 Hyperlipidemia, unspecified; I12.0 Hypertensive chronic kidney disease with stage 5 chronic kidney disease or end stage renal disease; N18.6 End stage renal disease; Z88.6 Allergy status to analgesic agent
CPT/HCPCS: 36415; 70450; 71045; 80053; 84443; 84484; 85025

== ENCOUNTER → 2021-06-06 | Outpatient (CLI) | payer OTHER ==
[2021-06-06 14:19] LABS: Albumin 3.5 g/dL (3.4-5.0); Calcium 8.7 mg/dL (8.5-10.1); Potassium 4.3 mmol/L (3.5-5.1)
[2021-06-06 14:23] LABS: Bilirubin, Total 0.2 mg/dL (0.2-1.0); Total Protein 6.8 g/dL (6.4-8.2)
== END | disposition home or self-care (01) ==
LOC: LAB 13:26
PROVIDERS: ATTEND Student in an Organized Health Care Education/Training Program
DX: I10 Essential (primary) hypertension (principal); E07.81 Sick-euthyroid syndrome
CPT/HCPCS: 36415; 80053; 80061

== ENCOUNTER 2021-09-11 19:31 | Inpatient (IN) | payer OTHER ==
[~2021-09-11] VITALS: Ht 152.4 cm; Wt 77.0 kg
[~2021-09-11 19:31] MED LIST changes: +ALPR0.5T PO
[2021-09-11 22:02] LABS: Hemoglobin 10.8 g/dL (12.2-16.2)
[2021-09-11 22:06] LABS: Basophils # (auto) 0 10 ^3/uL (0-0.2); Basophils % (auto) 0.3 % (0.0-2.0); Eosinophils # (auto) 0.1 10 ^3/uL (0-0.8); Eosinophils % (auto) 1.2 % (0.0-7.0); Hematocrit 32.8 % (36.0-46.0); Lymphocytes # (auto) 2.6 10 ^3/uL (0.4-5.4); Mean Corpuscular Hemoglobin 33.8 pg (28.0-32.0); Mean Corpuscular Hgb Conc. 33.1 g/dL (32.0-36.0); Mean Corpuscular Volume 102.1 fL (80.0-100.0); Monocytes # (auto) 0.6 10 ^3/uL (0-1.3); Monocytes % (auto) 6.4 % (0.0-12.0); Neutrophils % (auto) 64.1 % (37.0-80.0); Red Blood Cells 3.21 10^6/uL (4.0-5.20); Red Cell Distribution Width 14.3 % (11.8-14.3); White Blood Cell 9.4 10^3/uL (4.4-10.8)
[2021-09-11 22:25] LABS: Albumin 3.9 g/dL (3.4-5.0); Calcium 8.9 mg/dL (8.5-10.1); Magnesium 1.9 mg/dL (1.6-2.6); Potassium 4.3 mmol/L (3.5-5.1)
[2021-09-11 22:28] LABS: BUN/Creatinine Ratio 5.8; Bilirubin, Total 0.5 mg/dL (0.2-1.0); Total Protein 6.6 g/dL (6.4-8.2)
[2021-09-12] MEDS ORDERED: ONDANSETRON HCL 4 MG/2 ML VIAL IV PRN (03:00)
[2021-09-12] MEDS ORDERED: NITROGLYCERIN 0.4 MG SL TAB SL PRN (03:00)
[2021-09-12] MEDS ORDERED: MORPHINE SULFATE INJ 2 MG/ml SYRG IV PRN (03:00)
[2021-09-12] MEDS ORDERED: ACETAMINOPHEN 325 MG TAB PO PRN (03:00)
[2021-09-12 06:08] LABS: Urine Bacteria NONE SEEN /hpf (None Seen); Urine Blood 1+ /uL (Negative); Urine Specific Gravity 1.006 (1.001-1.035); Urine WBC 2 /hpf (0 - 5)
[2021-09-12] MEDS ORDERED: LEVOTHYROXINE SODIUM 50 MCG TAB PO SCH (07:00)
[2021-09-12] MEDS ORDERED: cefTRIAXone 1GM/50ML D5W 50 ML IV ONE (07:30)
[2021-09-12] MEDS ORDERED: SEVELAMER 800 MG TAB PO SCH (08:00)
[2021-09-12] MEDS ORDERED: SACUBITRIL-VALSARTAN 24mg/26mg TAB PO SCH (10:00)
[2021-09-12] MEDS ORDERED: PANTOPRAZOLE 40 MG TAB PO SCH (10:00)
[2021-09-12] MEDS ORDERED: amLODIPine BESYLATE 5 MG TAB PO SCH (10:00)
[2021-09-12] MEDS ORDERED: AZITHROMYCIN 500MG/ 250ML 250 ML IV SCH (10:00)
[2021-09-12] MEDS ORDERED: LEVO500T31 PO (10:30)
[2021-09-12 17:00] VITALS: BP 165/60
[2021-09-12] MEDS ORDERED: ATORVASTATIN 20 MG TAB PO SCH (22:00)
[2021-09-13] MEDS ORDERED: cefTRIAXone 1GM/50ML D5W 50 ML IV SCH (09:00)
== END 2021-09-12 17:20 | disposition home or self-care (01) | DRG 70 ==
LOC: EDBD 19:31 → ER 19:31 → TELE 09-12 03:00
PROVIDERS: ADMIT Nurse Practitioner; ATTEND Internal Medicine
DX: G93.41 Metabolic encephalopathy (principal); N18.6 End stage renal disease; I12.0 Hypertensive chronic kidney disease with stage 5 chronic kidney disease or end stage renal disease; N39.0 Urinary tract infection, site not specified; D63.1 Anemia in chronic kidney disease; Z20.822 Contact with and (suspected) exposure to COVID-19; E78.5 Hyperlipidemia, unspecified; Z99.2 Dependence on renal dialysis; Z88.5 Allergy status to narcotic agent
CPT/HCPCS: 36415; 70450; 71045; 80053; 80320; 81001; 82140; 82306; 82607; 83605; 83735; 84443; 84484; 85025; 96365; 96367; G0378; J0696

== ENCOUNTER → 2021-10-01 | Outpatient (CLI) | payer OTHER ==
[~2021-10-01] MED LIST changes: +LEVO500T31 PO; +SACU1TAB7 PO
[2021-10-01 11:33] VITALS: BP 137/76
[2021-10-01 12:01] VITALS: BP 145/65
[2021-10-01 12:19] LABS: Basophils # (auto) 0 10 ^3/uL (0-0.2); Eosinophils # (auto) 0.1 10 ^3/uL (0-0.8); Hemoglobin 9.8 g/dL (12.2-16.2); Lymphocytes # (auto) 1.4 10 ^3/uL (0.4-5.4); Mean Corpuscular Volume 104.8 fL (80.0-100.0)
[2021-10-01 12:25] LABS: Basophils % (auto) 0.6 % (0.0-2.0); Eosinophils % (auto) 1.8 % (0.0-7.0); Hematocrit 29.7 % (36.0-46.0); Lymphocytes % (auto) 21.3 % (10.0-50.0); Mean Corpuscular Hemoglobin 34.7 pg (28.0-32.0); Mean Corpuscular Hgb Conc. 33.1 g/dL (32.0-36.0); Monocytes # (auto) 0.4 10 ^3/uL (0-1.3); Monocytes % (auto) 6.3 % (0.0-12.0); Neutrophils # (auto) 4.5 10 ^3/uL (1.6-8.6); Red Blood Cells 2.83 10^6/uL (4.0-5.20); Red Cell Distribution Width 14.4 % (11.8-14.3); White Blood Cell 6.5 10^3/uL (4.4-10.8)
[2021-10-01 12:26] LABS: Calcium 8.5 mg/dL (8.5-10.1); Potassium 4.4 mmol/L (3.5-5.1)
[2021-10-01 12:29] LABS: BUN/Creatinine Ratio 8.1
[2021-10-01 12:37] LABS: INR 1.04 (0.9-1.15); Partial Thromboplastin Time 35.8 sec (24.6-33.4)
== END | disposition home or self-care (01) ==
LOC: Rad HDHVI 11:13
PROVIDERS: ATTEND Internal Medicine Cardiovascular Disease
DX: Z01.812 Encounter for preprocedural laboratory examination (principal); I34.1 Nonrheumatic mitral (valve) prolapse; R00.1 Bradycardia, unspecified; R42 Dizziness and giddiness; R06.02 Shortness of breath
CPT/HCPCS: 36415; 71046; 80048; 85025; 85610; 85730; 93005; G0463

== ENCOUNTER 2021-10-03 08:52 | Day surgery (SDC) | payer OTHER ==
[~2021-10-03] VITALS: Ht 149.9 cm; Wt 70.8 kg
[~2021-10-03 08:52] MED LIST changes: -ALPR0.5T PO; -AMLO-496 PO; -AMOX250C3 PO; -CHOL1CAP47 PO; -ESCI-28 PO; -GABA300C10 PO; -HYDR-3682 PO; -LEVO500T31 PO; -OMEP-434 PO; -TRAZ100T3 PO
[2021-10-03] MEDS ORDERED: LIDOCAINE 2%HCL (LOCAL ANESTH.) INJ 20ML MDV ONE ×2 (10:31→11:13)
[2021-10-03] MEDS ORDERED: IOHEXOL 350 MG/ML 100ML IJ ONE (10:34)
[2021-10-03] MEDS ORDERED: VANCOMYCIN HCL 1000 MG VL ONE (10:45)
[2021-10-03] MEDS ORDERED: fentaNYL CITRATE 100 MCG/2 ML VL ONE (10:45)
[2021-10-03] MEDS ORDERED: VANCOMYCIN 1GM/250ML 250 ML IV ONE (10:46)
[2021-10-03] MEDS ORDERED: MIDAZOLAM HCL 2MG/2ML 2ml VIAL (1mg/ml) ONE (10:46)
[2021-10-03] MEDS ORDERED: ATROPINE SULF 1 MG/10ml SYR ONE (11:21)
[2021-10-03] MEDS ORDERED: cloNIDine HCL 0.1 MG TAB PO ONE (12:15)
== END 2021-10-03 14:14 | disposition home or self-care (01) ==
LOC: CATH 08:52
PROVIDERS: ATTEND Internal Medicine Cardiovascular Disease
DX: I44.7 Left bundle-branch block, unspecified (principal); I49.5 Sick sinus syndrome; F41.9 Anxiety disorder, unspecified; Z83.3 Family history of diabetes mellitus; Z20.822 Contact with and (suspected) exposure to COVID-19
CPT/HCPCS: 33208; 71045; 93005; C1769; C1785; C1892; C1898; J2250; J3010; J3370; Q9967; U0003; 99152; 99153

== ENCOUNTER → 2021-10-04 | Outpatient (CLI) | payer OTHER | END | disposition home or self-care (01) | LOC: Rad HDHVI 08:25 | PROVIDERS: ATTEND Internal Medicine Cardiovascular Disease | DX: R09.89 Other specified symptoms and signs involving the circulatory and respiratory systems (principal); I70.0 Atherosclerosis of aorta; M47.814 Spondylosis without myelopathy or radiculopathy, thoracic region; Z95.0 Presence of cardiac pacemaker | CPT/HCPCS: 71046 ==

== ENCOUNTER → 2021-12-03 | Outpatient (CLI) | payer OTHER | END | disposition home or self-care (01) | LOC: Rad HDHVI 12:53 | PROVIDERS: ATTEND Internal Medicine Cardiovascular Disease | DX: I08.3 Combined rheumatic disorders of mitral, aortic and tricuspid valves (principal); I11.9 Hypertensive heart disease without heart failure; E78.2 Mixed hyperlipidemia | CPT/HCPCS: 93306 ==

== ENCOUNTER → 2022-02-24 | Outpatient (CLI) | payer OTHER ==
[2022-02-24 09:22] LABS: Basophils # (auto) 0.1 10 ^3/uL (0-0.2); Eosinophils # (auto) 0.2 10 ^3/uL (0-0.8); Eosinophils % (auto) 2.8 % (0.0-7.0); Neutrophils # (auto) 3.5 10 ^3/uL (1.6-8.6)
[2022-02-24 09:24] LABS: Basophils % (auto) 1.3 % (0.0-2.0); Hematocrit 31.7 % (36.0-46.0); Lymphocytes % (auto) 32.1 % (10.0-50.0); Mean Corpuscular Hemoglobin 34.7 pg (28.0-32.0); Mean Corpuscular Hgb Conc. 34.6 g/dL (32.0-36.0); Mean Corpuscular Volume 100.2 fL (80.0-100.0); Monocytes # (auto) 0.5 10 ^3/uL (0-1.3); Monocytes % (auto) 7.4 % (0.0-12.0); Neutrophils % (auto) 56.4 % (37.0-80.0); Nucleated Red Blood Cells % 0.1 %; Red Blood Cells 3.16 10^6/uL (4.0-5.20); White Blood Cell 6.2 10^3/uL (4.4-10.8)
[2022-02-24 09:50] LABS: Albumin 3.7 g/dL (3.4-5.0); Calcium 8.5 mg/dL (8.5-10.1); Potassium 4.3 mmol/L (3.5-5.1)
[2022-02-24 09:58] LABS: BUN/Creatinine Ratio 7.3; Bilirubin, Total 0.6 mg/dL (0.2-1.0); Total Protein 6.5 g/dL (6.4-8.2)
[2022-02-24 10:50] LABS: Urine Bacteria FEW /hpf (None Seen); Urine Blood TRACE /uL (Negative); Urine Specific Gravity 1.011 (1.001-1.035); Urine WBC 22 /hpf (0 - 5)
== END | disposition home or self-care (01) ==
LOC: LAB 08:37
PROVIDERS: ATTEND Student in an Organized Health Care Education/Training Program
DX: I10 Essential (primary) hypertension (principal); R73.9 Hyperglycemia, unspecified; N39.0 Urinary tract infection, site not specified; R03.0 Elevated blood-pressure reading, without diagnosis of hypertension; E03.8 Other specified hypothyroidism
CPT/HCPCS: 36415; 80053; 80061; 81001; 83036; 84439; 84443; 85025; 87086

== ENCOUNTER 2023-04-07 15:04 | Inpatient (IN) | payer OTHER ==
[~2023-04-07] VITALS: Ht 149.9 cm; Wt 71.8 kg
[2023-04-07 16:47] LABS: Basophils # (auto) 0 10 ^3/uL (0-0.2); Basophils % (auto) 0.6 % (0.0-2.0); Eosinophils # (auto) 0.1 10 ^3/uL (0-0.8); Eosinophils % (auto) 1.5 % (0.0-7.0); Hematocrit 35.4 % (36.0-46.0); Hemoglobin 11.2 g/dL (12.2-16.2); Lymphocytes # (auto) 1.8 10 ^3/uL (0.4-5.4); Lymphocytes % (auto) 24.9 % (10.0-50.0); Mean Corpuscular Hemoglobin 32.5 pg (28.0-32.0); Mean Corpuscular Hgb Conc. 31.7 g/dL (32.0-36.0); Mean Corpuscular Volume 102.4 fL (80.0-100.0); Monocytes # (auto) 0.5 10 ^3/uL (0-1.3); Monocytes % (auto) 6.6 % (0.0-12.0); Neutrophils # (auto) 4.7 10 ^3/uL (1.6-8.6); Neutrophils % (auto) 66.4 % (37.0-80.0); Red Blood Cells 3.46 10^6/uL (4.0-5.20); Red Cell Distribution Width 16.3 % (11.8-14.3); White Blood Cell 7.1 10^3/uL (4.4-10.8)
[2023-04-07 17:02] LABS: INR 1.12 (0.9-1.15); Prothrombin Time 11.7 sec (9.3-11.8)
[2023-04-07 17:06] LABS: Chloride 112 mmol/L (98-107); Sodium 143 mmol/L (136-145)
[2023-04-07 17:07] LABS: Anion Gap 11 (5-15); Calcium 8.6 mg/dL (8.7-10.4); Carbon Dioxide 20 mmol/L (20-30)
[2023-04-07 17:12] LABS: BUN/Creatinine Ratio 16.2 (10.0-20.0); Glucose 65 mg/dL (74-106)
[2023-04-07 17:20] LABS: Blood Urea Nitrogen 102 mg/dL (9-23); Potassium 5.6 mmol/L (3.5-5.1)
[2023-04-07] MEDS: CALCIUM GLUC 1,000mg/50ml-NS 50 ML IV ONE ×2 (17:30→20:52)
[2023-04-07] MEDS: DEXTROSE (50%) 50ML SYRG IV ONE ×2 (17:30→20:52)
[2023-04-07] MEDS: InsuLIN REG 1unit/0.01ml Soln (100units/ml) IV ONE ×2 (17:30→20:51)
[2023-04-07] MEDS: FUROSEMIDE 40 MG/4 ML VIAL IV ONE (17:30)
[2023-04-07] MEDS: ALBUTEROL SULF 2.5 MG/0.5ML(0.5%) NEB SOLN ONE (17:49)
[2023-04-07] MEDS: ALBUTEROL SULF 2.5 MG/0.5ML(0.5%) NEB SOLN NEB ONE (18:04)
[2023-04-07] MEDS: SODIUM ZIRCONIUM CYCL 10 GM PAK PO ONE ×2 (18:15→20:51)
[2023-04-07] MEDS: SODIUM BICARB 8.4% 50Meq/50ml SYR INJ IV ONE (18:30)
[2023-04-07] MEDS ORDERED: MORPHINE SULFATE INJ 2 MG/ml SYRG IV PRN (18:45)
[2023-04-07] MEDS ORDERED: DOCUSATE SOD 100 MG CAP PO PRN (18:45)
[2023-04-07] MEDS ORDERED: NITROGLYCERIN 0.4 MG SL TAB SL PRN (18:45)
[2023-04-07] MEDS ORDERED: ONDANSETRON HCL 4 MG/2 ML VIAL IV PRN (18:45)
[2023-04-07] MEDS ORDERED: LOS25T PO (18:46)
[2023-04-07] MEDS ORDERED: LEVO50TA7 PO (18:46)
[2023-04-07] MEDS ORDERED: SEVE800T10 PO (18:46)
[2023-04-07 19:08] LABS: Magnesium 2.5 mg/dL (1.6-2.6)
[2023-04-07 19:09] LABS: Phosphorus 8.3 mg/dL (2.4-5.1)
[2023-04-07 19:35] VITALS: PULSE 81; RESP 16; O2SAT 96
[2023-04-07 19:47] LABS: Urine Bacteria FEW /hpf (None Seen); Urine Blood 1+ /uL (Negative); Urine Clarity Clear (Clear); Urine Color Colorless (Yellow); Urine Protein, UAD 1+ (Negative); Urine Specific Gravity 1.011 (1.001-1.035); Urine Urobilinogen Normal (Negative); Urine WBC 2 /hpf (0 - 5); Urine pH 6.5 (5.0-8.0)
[2023-04-07] MEDS: FUROSEMIDE 100 MG/10ML VIAL IV ONE (20:44)
[2023-04-07] MEDS: SODIUM BICARB 8.4% 50Meq/50ml SYR Vial IV ONE (20:45)
[2023-04-07] MEDS: Sacubitril-Valsartan (Entresto 49-51 mg) 1 TAB PO SCH (22:00)
[2023-04-07] MEDS: SEVELAMER 800 MG TAB PO SCH (22:06)
[2023-04-07] MEDS: ATORVASTATIN 20 MG TAB PO SCH (22:06)
[2023-04-07] MEDS: LORazepam 0.5 MG TAB PO ONE ×2 (23:29→23:30)
[2023-04-08] VITALS (12 sets, daily range): BP systolic 119–171; BP diastolic 28–81; PULSE 65–95; RESP 12–20; TEMP 98.1–98.5; O2SAT 91–100
[2023-04-08 06:36] LABS: Albumin 3.8 g/dL (3.2-4.8); Alkaline Phosphatase 90 U/L (46-116); Aspartate Aminotransferase 15 U/L (13-40); BUN/Creatinine Ratio 14.8 (10.0-20.0); Calcium 8.5 mg/dL (8.5-10.1); Chloride 110 mmol/L (98-107); Glucose 73 mg/dL (74-106); Sodium 142 mmol/L (136-145)
[2023-04-08 06:37] LABS: Bilirubin, Total 0.3 mg/dL (0.2-1.0); Total Protein 5.6 g/dL (5.7-8.2)
[2023-04-08 06:43] LABS: Carbon Dioxide 17 mmol/L (20-30)
[2023-04-08 06:50] LABS: Alanine Aminotransferase < 9 U/L (7-40)
[2023-04-08 06:52] LABS: Blood Urea Nitrogen 94 mg/dL (9-23)
[2023-04-08 06:56] LABS: Basophils # (auto) 0 10 ^3/uL (0-0.2); Basophils % (auto) 0.4 % (0.0-2.0); Eosinophils # (auto) 0 10 ^3/uL (0-0.8); Eosinophils % (auto) 0.5 % (0.0-7.0); Hematocrit 29.5 % (36.0-46.0); Hemoglobin 9.4 g/dL (12.2-16.2); Lymphocytes # (auto) 1.8 10 ^3/uL (0.4-5.4); Lymphocytes % (auto) 21.2 % (10.0-50.0); Mean Corpuscular Hemoglobin 32.8 pg (28.0-32.0); Mean Corpuscular Hgb Conc. 31.9 g/dL (32.0-36.0); Mean Corpuscular Volume 102.6 fL (80.0-100.0); Monocytes # (auto) 0.4 10 ^3/uL (0-1.3); Monocytes % (auto) 5.2 % (0.0-12.0); Neutrophils # (auto) 6.1 10 ^3/uL (1.6-8.6); Neutrophils % (auto) 72.7 % (37.0-80.0); Red Blood Cells 2.87 10^6/uL (4.0-5.20); Red Cell Distribution Width 16.4 % (11.8-14.3); White Blood Cell 8.4 10^3/uL (4.4-10.8)
[2023-04-08] MEDS ORDERED: SODIUM CHL 0.9% 1000 ML BAG XX ONE (07:00)
[2023-04-08] MEDS: LEVOTHYROXINE SODIUM 50 MCG TAB PO SCH (07:00)
[2023-04-08 07:21] LABS: Anion Gap 15 (5-15)
[2023-04-08] MEDS ORDERED: NYS15PW TOP (11:08)
[2023-04-08] MEDS ORDERED: DIGO0.12 PO (11:08)
[2023-04-08] MEDS: MIDAZOLAM HCL 2MG/2ML 2ml VIAL (1mg/ml) ONE ×2 (15:13→17:14)
[2023-04-08] MEDS: fentaNYL CITRATE 100 MCG/2 ML VL ONE ×2 (15:13→17:13)
[2023-04-08] MEDS: IODIXANOL 320MG/ML 100ML BTL IV ONE (15:18)
[2023-04-08] MEDS: LIDOCAINE 2%HCL (LOCAL ANESTH.) INJ 20ML MDV ONE (15:19)
[2023-04-08] MEDS: ceFAZolin 1GM/50ML 50 ML IV ONE (16:40)
[2023-04-08] MEDS: HEPARIN SODIUM (PORCINE) 5000 UNITS/ML 1ML VIAL ONE (17:20)
[2023-04-08] MEDS: ACETAMINOPHEN 325 MG TAB PO PRN (18:17)
[2023-04-08] MEDS ORDERED: HYDROcodone-ACET 7.5/325MG TAB PO ONE (22:15)
[2023-04-09 05:13] VITALS: BP 162/74; PULSE 71; RESP 18; TEMP 98.2; O2SAT 96
[2023-04-09] MEDS ORDERED: cloNIDine HCL 0.1 MG TAB PO ONE (06:00)
[2023-04-09 06:33] LABS: Chloride 113 mmol/L (98-107); Potassium 5.5 mmol/L (3.5-5.1); Sodium 141 mmol/L (136-145)
[2023-04-09 06:34] LABS: Anion Gap 14 (5-15); Carbon Dioxide 14 mmol/L (20-30)
[2023-04-09 06:35] LABS: Calcium 8.6 mg/dL (8.5-10.1)
[2023-04-09 06:39] LABS: BUN/Creatinine Ratio 12.8 (10.0-20.0); Glucose 61 mg/dL (74-106)
[2023-04-09 06:49] LABS: Blood Urea Nitrogen 77 mg/dL (9-23)
[2023-04-09 08:00] VITALS: PULSE 70; PULSE 76; RESP 18
[2023-04-09] MEDS: FUROSEMIDE 40 MG/4 ML VIAL IV SCH (08:58)
[2023-04-09 09:02] VITALS: BP 170/64; PULSE 72; RESP 16; TEMP 97.6; O2SAT 95
[2023-04-09] MEDS ORDERED: SODIUM CHL 0.9% 1000 ML BAG XX ONE (09:30)
[2023-04-09 13:02] VITALS: BP 174/79; PULSE 66; RESP 16; TEMP 97.9; O2SAT 99
[2023-04-09] MEDS: diphenhdrAMINE HCL 50 MG/1 ML VL IV ONE (13:15)
[2023-04-09 17:09] VITALS: BP 115/73; PULSE 73; RESP 16; TEMP 98.3; O2SAT 98
[2023-04-09] MEDS ORDERED: EPOETIN ALFA-EPBX 10,000 UNIT/1ML VIAL SC ONE (21:00)
== END 2023-04-09 18:30 | disposition home or self-care (01) | DRG 314 ==
LOC: ER 15:04 → TELE 18:44 → TELE-WESTW 22:44
PROVIDERS: ADMIT Nurse Practitioner Family; ATTEND Internal Medicine
PROC: B549ZZA Ultrasonography of Inferior Vena Cava, Guidance (ICD-10-PCS; principal; 2023-04-09)
PROC: B5191ZA Fluoroscopy of Inferior Vena Cava using Low Osmolar Contrast, Guidance (ICD-10-PCS; 2023-04-09)
PROC: 5A1D70Z Performance of Urinary Filtration, Intermittent, Less than 6 Hours Per Day (ICD-10-PCS; 2023-04-09)
DX: T82.818A Embolism due to vascular prosthetic devices, implants and grafts, initial encounter (principal); I50.23 Acute on chronic systolic (congestive) heart failure; N18.6 End stage renal disease; I13.2 Hypertensive heart and chronic kidney disease with heart failure and with stage 5 chronic kidney disease, or end stage renal disease; D63.1 Anemia in chronic kidney disease; E87.5 Hyperkalemia; E03.9 Hypothyroidism, unspecified; E11.22 Type 2 diabetes mellitus with diabetic chronic kidney disease; Y83.8 Other surgical procedures as the cause of abnormal reaction of the patient, or of later complication, without mention of misadventure at the time of the procedure; Z95.0 Presence of cardiac pacemaker; Z99.2 Dependence on renal dialysis; Z88.5 Allergy status to narcotic agent; Z79.899 Other long term (current) drug therapy; Y92.89 Other specified places as the place of occurrence of the external cause
CPT/HCPCS: 36415; 71045; 76942; 80048; 80053; 81001; 82306; 82962; 83735; 83880; 83970; 84100; 84484; 85025; 85610; 87340; 90935; 93005; 94640; 96365; 96375; 99152; 99153; 99291; C1894; G0378; J1815; J2250; Q9967

== ENCOUNTER → 2023-06-04 | Outpatient (CLI) | payer OTHER ==
[~2023-06-04] MED LIST changes: +DIGO0.12 PO; +LOS25T PO; +NYS15PW TOP; +SEVE800T10 PO; -SEVE800T8 PO
== END | disposition home or self-care (01) ==
LOC: Rad HDHVI 13:01
PROVIDERS: ATTEND Internal Medicine Cardiovascular Disease
DX: I08.3 Combined rheumatic disorders of mitral, aortic and tricuspid valves (principal); R06.02 Shortness of breath; I10 Essential (primary) hypertension
CPT/HCPCS: 93306

== ENCOUNTER → 2023-06-05 | Outpatient (CLI) | payer OTHER ==
[2023-06-05 08:20] LABS: Basophils # (auto) 0.1 10 ^3/uL (0-0.2); Eosinophils # (auto) 0.2 10 ^3/uL (0-0.8); Hemoglobin 11.2 g/dL (12.2-16.2)
[2023-06-05 08:24] LABS: Basophils % (auto) 0.8 % (0.0-2.0); Eosinophils % (auto) 1.9 % (0.0-7.0); Lymphocytes # (auto) 2.4 10 ^3/uL (0.4-5.4); Lymphocytes % (auto) 27.8 % (10.0-50.0); Mean Corpuscular Hemoglobin 33.9 pg (28.0-32.0); Mean Corpuscular Volume 102.5 fL (80.0-100.0); Monocytes # (auto) 0.7 10 ^3/uL (0-1.3); Monocytes % (auto) 7.6 % (0.0-12.0); Neutrophils # (auto) 5.3 10 ^3/uL (1.6-8.6); Neutrophils % (auto) 61.9 % (37.0-80.0); Red Blood Cells 3.31 10^6/uL (4.0-5.20); Red Cell Distribution Width 14.4 % (11.8-14.3); White Blood Cell 8.6 10^3/uL (4.4-10.8)
[2023-06-05 08:36] LABS: Urine Bacteria FEW /hpf (None Seen); Urine Blood TRACE /uL (Negative); Urine Clarity Clear (Clear); Urine Protein, UAD 1+ (Negative); Urine Specific Gravity 1.007 (1.001-1.035); Urine Urobilinogen Normal (Negative); Urine WBC 7 /hpf (0 - 5); Urine pH 7.5 (5.0-9.0)
[2023-06-05 08:37] LABS: Urine Color Yellow (Yellow)
[2023-06-05 09:04] LABS: Albumin 4.3 g/dL (3.2-4.8); Alkaline Phosphatase 120 U/L (46-116); Anion Gap 14 (5-15); Aspartate Aminotransferase 17 U/L (13-40); Blood Urea Nitrogen 45 mg/dL (9-23); Calcium 9.2 mg/dL (8.5-10.1); Carbon Dioxide 21 mmol/L (20-30); Chloride 105 mmol/L (98-107); Glucose 82 mg/dL (74-106); LDL Cholesterol 54 mg/dL (< 100); Potassium 4.5 mmol/L (3.5-5.1); Sodium 140 mmol/L (136-145); Triglycerides 78 mg/dL (< 150)
[2023-06-05 09:05] LABS: Alanine Aminotransferase < 9 U/L (7-40); Bilirubin, Total 0.3 mg/dL (0.2-1.0); Cholesterol 124 mg/dL (< 200); HDL Cholesterol 51 mg/dL (40-59)
[2023-06-05 09:06] LABS: Total Protein 6.3 g/dL (5.7-8.2)
== END | disposition home or self-care (01) ==
LOC: LAB 07:36
PROVIDERS: ATTEND Student in an Organized Health Care Education/Training Program
DX: I10 Essential (primary) hypertension (principal); E11.9 Type 2 diabetes mellitus without complications
CPT/HCPCS: 36415; 80053; 80061; 81001; 83036; 84443; 85025

== ENCOUNTER → 2023-07-07 | Outpatient (CLI) | payer OTHER ==
[~2023-07-07] VITALS: Ht 149.9 cm; Wt 69.4 kg
[~2023-07-07] MED LIST changes: +ADENOSINE 58 MG in GIVE UN-DILUTED 0 ML IV ONE; +ADENOSINE 90 MG/30 ML INJ IV ONE; +ONDANSETRON HCL 4 MG/2 ML VIAL ONE
== END | disposition home or self-care (01) ==
LOC: Rad HDHVI 14:16
PROVIDERS: ATTEND Internal Medicine Cardiovascular Disease
DX: Z01.810 Encounter for preprocedural cardiovascular examination (principal); I42.9 Cardiomyopathy, unspecified; E78.5 Hyperlipidemia, unspecified; I49.5 Sick sinus syndrome; I12.0 Hypertensive chronic kidney disease with stage 5 chronic kidney disease or end stage renal disease; E11.21 Type 2 diabetes mellitus with diabetic nephropathy; N18.6 End stage renal disease; Z95.0 Presence of cardiac pacemaker
CPT/HCPCS: 78452; 93005; 96374; 96375; A9500; J0153; J2405

== ENCOUNTER → 2023-08-11 | Outpatient (CLI) | payer OTHER ==
[~2023-08-11] MED LIST changes: -ADENOSINE 58 MG in GIVE UN-DILUTED 0 ML IV ONE; -ADENOSINE 90 MG/30 ML INJ IV ONE; +CLON0.5T3 PO; -ONDANSETRON HCL 4 MG/2 ML VIAL ONE
[2023-08-11 10:30] VITALS: BP 122/84; PULSE 76; RESP 18; O2SAT 96
[2023-08-11 10:40] VITALS: BP 148/66; PULSE 69; RESP 18; O2SAT 96
== END | disposition home or self-care (01) ==
LOC: Rad HDHVI 10:10
PROVIDERS: ATTEND Internal Medicine Cardiovascular Disease
DX: Z01.818 Encounter for other preprocedural examination (principal); I42.0 Dilated cardiomyopathy; I44.7 Left bundle-branch block, unspecified
CPT/HCPCS: 71046; 93005; G0463

== ENCOUNTER 2023-08-18 11:05 | Day surgery (SDC) | payer OTHER ==
[2023-08-11 13:17] LABS: Basophils # (auto) 0 10 ^3/uL (0-0.2); Eosinophils # (auto) 0.1 10 ^3/uL (0-0.8); Hemoglobin 11.2 g/dL (12.2-16.2); Lymphocytes # (auto) 1.9 10 ^3/uL (0.4-5.4); Red Cell Distribution Width 15.2 % (11.8-14.3)
[2023-08-11 13:19] LABS: Basophils % (auto) 0.6 % (0.0-2.0); Eosinophils % (auto) 1.5 % (0.0-7.0); Hematocrit 33.8 % (36.0-46.0); Lymphocytes % (auto) 25.3 % (10.0-50.0); Mean Corpuscular Hgb Conc. 33.3 g/dL (32.0-36.0); Mean Corpuscular Volume 102.3 fL (80.0-100.0); Monocytes # (auto) 0.6 10 ^3/uL (0-1.3); Monocytes % (auto) 7.4 % (0.0-12.0); Neutrophils % (auto) 65.2 % (37.0-80.0); White Blood Cell 7.7 10^3/uL (4.4-10.8)
[2023-08-11 13:36] LABS: Chloride 106 mmol/L (98-107); Potassium 5.2 mmol/L (3.5-5.1); Sodium 139 mmol/L (136-145)
[2023-08-11 13:37] LABS: Anion Gap 8 (5-15); Carbon Dioxide 25 mmol/L (20-30)
[2023-08-11 13:38] LABS: Calcium 9.4 mg/dL (8.5-10.1)
[2023-08-11 13:42] LABS: BUN/Creatinine Ratio 7.7 (10.0-20.0); Blood Urea Nitrogen 42 mg/dL (9-23); Glucose 70 mg/dL (74-106)
[2023-08-11 13:43] LABS: INR 1.1 (0.9-1.15); Partial Thromboplastin Time 32.5 SEC (24.5-34.5); Prothrombin Time 11.6 sec (9.3-11.8)
[~2023-08-18] VITALS: Ht 149.9 cm; Wt 68.0 kg
[2023-08-18] VITALS (7 sets, daily range): BP systolic 153–175; BP diastolic 59–83; PULSE 74–82; RESP 15–19; TEMP 98.2; O2SAT 95–100
[~2023-08-18 11:05] MED LIST changes: -DIGO0.12 PO; -SACU1TAB7 PO
[2023-08-18] MEDS ORDERED: ANGIOMAX 250 MG VIAL IV ONE (12:20)
[2023-08-18] MEDS ORDERED: fentaNYL CITRATE 100 MCG/2 ML VL ONE (12:21)
[2023-08-18] MEDS ORDERED: LIDOCAINE 2%HCL (LOCAL ANESTH.) INJ 20ML MDV ONE (12:21)
[2023-08-18] MEDS ORDERED: MIDAZOLAM HCL 2MG/2ML 2ml VIAL (1mg/ml) ONE (12:21)
[2023-08-18] MEDS ORDERED: SODIUM CHL 0.9% 50 ML ONE (12:21)
[2023-08-18] MEDS ORDERED: IODIXANOL 320MG/ML 100ML BTL IV ONE (12:49)
[2023-08-18] MEDS ORDERED: CLOPIDOGREL BISULFATE 75 MG TAB ONE (13:02)
[2023-08-18] MEDS ORDERED: ASPirin 325 MG TAB ONE (13:02)
[2023-08-18] MEDS ORDERED: ATOR20TA PO (14:08)
[2023-08-18] MEDS ORDERED: CLOP75TA28 PO (15:52)
== END 2023-08-18 15:45 | disposition home or self-care (01) ==
LOC: CATH 11:05
PROVIDERS: ATTEND Internal Medicine Cardiovascular Disease
DX: I42.0 Dilated cardiomyopathy (principal); I25.10 Atherosclerotic heart disease of native coronary artery without angina pectoris; N18.6 End stage renal disease; Z99.2 Dependence on renal dialysis
CPT/HCPCS: 36415; 80048; 85025; 85610; 85730; 92978; 93458; 93571; C1760; C1769; C1874; C1887; C1894; C9600; J0583; J1644; J2250; J3010; J7030; Q9967; 99152; 99153

== ENCOUNTER → 2023-09-28 | Outpatient (CLI) | payer OTHER ==
[~2023-09-28] MED LIST changes: +ATOR20TA PO; -ATOR20TA50 PO; +CLOP75TA28 PO
[2023-09-28 12:09] LABS: Basophils # (auto) 0.1 10 ^3/uL (0-0.2); Hemoglobin 10.5 g/dL (12.2-16.2); Lymphocytes # (auto) 1.6 10 ^3/uL (0.4-5.4); Monocytes # (auto) 0.5 10 ^3/uL (0-1.3)
[2023-09-28 12:11] LABS: Basophils % (auto) 0.7 % (0.0-2.0); Eosinophils # (auto) 0.3 10 ^3/uL (0-0.8); Eosinophils % (auto) 3.3 % (0.0-7.0); Hematocrit 32.6 % (36.0-46.0); Lymphocytes % (auto) 20.9 % (10.0-50.0); Mean Corpuscular Hgb Conc. 32.2 g/dL (32.0-36.0); Mean Corpuscular Volume 102.6 fL (80.0-100.0); Monocytes % (auto) 6.7 % (0.0-12.0); Neutrophils # (auto) 5.2 10 ^3/uL (1.6-8.6); Neutrophils % (auto) 68.4 % (37.0-80.0); Red Blood Cells 3.18 10^6/uL (4.0-5.20); Red Cell Distribution Width 15.8 % (11.8-14.3); White Blood Cell 7.7 10^3/uL (4.4-10.8)
[2023-09-28 12:34] LABS: Alkaline Phosphatase 107 U/L (46-116); Anion Gap 9 (5-15); Aspartate Aminotransferase 9 U/L (13-40); Blood Urea Nitrogen 76 mg/dL (9-23); Calcium 8.9 mg/dL (8.7-10.4); Carbon Dioxide 23 mmol/L (20-30); Chloride 109 mmol/L (98-107); Glucose 77 mg/dL (74-106); Sodium 141 mmol/L (136-145)
[2023-09-28 12:35] LABS: Bilirubin, Total 0.5 mg/dL (0.2-1.0); Total Protein 6.1 g/dL (5.7-8.2)
[2023-09-28 13:08] LABS: Alanine Aminotransferase < 9 U/L (7-40)
[2023-09-28 13:10] LABS: Potassium 5.9 mmol/L (3.5-5.1)
== END | disposition home or self-care (01) ==
LOC: LAB 11:53
PROVIDERS: ATTEND Student in an Organized Health Care Education/Training Program
DX: I10 Essential (primary) hypertension (principal); E11.9 Type 2 diabetes mellitus without complications; E03.8 Other specified hypothyroidism; E55.9 Vitamin D deficiency, unspecified
CPT/HCPCS: 36415; 80053; 82306; 83036; 84439; 84443; 85025

== ENCOUNTER 2023-10-08 14:37 | Inpatient (IN) | payer OTHER ==
[~2023-10-08] VITALS: Ht 149.9 cm; Wt 71.2 kg
[2023-10-08 15:52] LABS: Basophils # (auto) 0 10 ^3/uL (0-0.2); Eosinophils # (auto) 0.3 10 ^3/uL (0-0.8); Lymphocytes # (auto) 1.6 10 ^3/uL (0.4-5.4); Mean Corpuscular Hemoglobin 33.1 pg (28.0-32.0); Monocytes # (auto) 0.5 10 ^3/uL (0-1.3); Monocytes % (auto) 7.8 % (0.0-12.0); Red Cell Distribution Width 15.4 % (11.8-14.3); White Blood Cell 6.5 10^3/uL (4.4-10.8)
[2023-10-08 15:53] LABS: Chloride 107 mmol/L (98-107); Potassium 5.2 mmol/L (3.5-5.1); Sodium 140 mmol/L (136-145)
[2023-10-08 15:54] LABS: Anion Gap 6 (5-15); Basophils % (auto) 0.7 % (0.0-2.0); Calcium 9.2 mg/dL (8.7-10.4); Carbon Dioxide 27 mmol/L (20-30); Eosinophils % (auto) 4.5 % (0.0-7.0); Hematocrit 31.3 % (36.0-46.0); Hemoglobin 10.1 g/dL (12.2-16.2); Lymphocytes % (auto) 24.4 % (10.0-50.0); Mean Corpuscular Hgb Conc. 32.3 g/dL (32.0-36.0); Mean Corpuscular Volume 102.4 fL (80.0-100.0); Neutrophils # (auto) 4.1 10 ^3/uL (1.6-8.6); Neutrophils % (auto) 62.6 % (37.0-80.0); Platelet Count (auto) 148 10^3/uL (140-450); Red Blood Cells 3.06 10^6/uL (4.0-5.20)
[2023-10-08 15:59] LABS: BUN/Creatinine Ratio 7.4 (10.0-20.0); Blood Urea Nitrogen 40 mg/dL (9-23); Glucose 89 mg/dL (74-106)
[2023-10-08 16:18] LABS: INR 1.13 (0.9-1.15); Partial Thromboplastin Time 31.6 SEC (24.5-34.5); Prothrombin Time 11.9 sec (9.3-11.8)
[2023-10-08] MEDS: SODIUM ZIRCONIUM CYCL 10 GM PAK PO ONE (17:22)
[2023-10-08 17:23] VITALS: PULSE 87; RESP 19; O2SAT 97
[2023-10-08] MEDS ORDERED: HYDROmorphone HCL 2 MG/ML VL/or syr IV PRN (18:45)
[2023-10-08] MEDS ORDERED: ONDANSETRON HCL 4 MG/2 ML VIAL IV PRN (18:45)
[2023-10-08] MEDS ORDERED: HYDROcodone-ACET 5/325MG TAB PO PRN (18:45)
[2023-10-08 19:30] VITALS: PULSE 85; RESP 11; O2SAT 96
[2023-10-08 22:41] VITALS: PULSE 79; RESP 18; O2SAT 97
[2023-10-08] MEDS: SODIUM CHLOR 0.9% PF (SALINE LOCK) 10ML VIAL/SYR IV SCH (22:57)
[2023-10-08 23:41] VITALS: PULSE 79; RESP 18; O2SAT 97
[2023-10-09] VITALS (8 sets, daily range): BP systolic 139–165; BP diastolic 55–76; PULSE 71–85; RESP 13–18; TEMP 96.9–97.9; O2SAT 94–98
[2023-10-09] MEDS: ACETAMINOPHEN 325 MG TAB PO PRN (00:53)
[2023-10-09] MEDS ORDERED: SODIUM CHL 0.9% 1000 ML BAG XX ONE (07:00)
[2023-10-09 07:17] LABS: Basophils # (auto) 0 10 ^3/uL (0-0.2); Lymphocytes # (auto) 2.2 10 ^3/uL (0.4-5.4); Neutrophils # (auto) 3.3 10 ^3/uL (1.6-8.6); Nucleated Red Blood Cells % 0.1 %
[2023-10-09 07:20] LABS: Albumin 3.6 g/dL (3.2-4.8); Alkaline Phosphatase 105 U/L (46-116); Calcium 8.9 mg/dL (8.7-10.4); Carbon Dioxide 21 mmol/L (20-30); Chloride 107 mmol/L (98-107)
[2023-10-09 07:21] LABS: Alanine Aminotransferase < 9 U/L (7-40); Anion Gap 11 (5-15); Aspartate Aminotransferase 12 U/L (13-40); BUN/Creatinine Ratio 8.8 (10.0-20.0); Basophils % (auto) 0.6 % (0.0-2.0); Bilirubin, Total 0.3 mg/dL (0.2-1.0); Blood Urea Nitrogen 52 mg/dL (9-23); Eosinophils # (auto) 0.3 10 ^3/uL (0-0.8); Eosinophils % (auto) 5.3 % (0.0-7.0); Glucose 66 mg/dL (74-106); Hematocrit 30.1 % (36.0-46.0); Lymphocytes % (auto) 34.2 % (10.0-50.0); Mean Corpuscular Hemoglobin 33.9 pg (28.0-32.0); Mean Corpuscular Hgb Conc. 33.1 g/dL (32.0-36.0); Mean Corpuscular Volume 102.4 fL (80.0-100.0); Monocytes # (auto) 0.5 10 ^3/uL (0-1.3); Monocytes % (auto) 8.1 % (0.0-12.0); Neutrophils % (auto) 51.8 % (37.0-80.0); Platelet Count (auto) 169 10^3/uL (140-450); Potassium 5.1 mmol/L (3.5-5.1); Red Blood Cells 2.94 10^6/uL (4.0-5.20); Red Cell Distribution Width 15.4 % (11.8-14.3); Sodium 139 mmol/L (136-145); Total Protein 5.9 g/dL (5.7-8.2); White Blood Cell 6.4 10^3/uL (4.4-10.8)
[2023-10-09] MEDS ORDERED: DOCUSATE SOD 100 MG CAP PO PRN (09:30)
[2023-10-09] MEDS: LACTULOSE 20Gm/30ML SOLN PO SCH (10:00)
[2023-10-09] MEDS: LORazepam 0.5 MG TAB PO PRN (11:49)
[2023-10-09] MEDS: HEPARIN SODIUM (PORCINE) 5000 UNITS/ML 1ML VIAL ONE ×2 (11:58→13:15)
[2023-10-09] MEDS: LIDOCAINE 2%HCL (LOCAL ANESTH.) INJ 20ML MDV ONE ×2 (11:59→13:16)
[2023-10-09] MEDS: MIDAZOLAM HCL 2MG/2ML 2ml VIAL (1mg/ml) ONE ×2 (11:59→13:16)
[2023-10-09] MEDS: fentaNYL CITRATE 100 MCG/2 ML VL ONE ×2 (11:59→13:15)
[2023-10-09] MEDS ORDERED: TRAZ-227 PO (17:33)
[2023-10-09] MEDS ORDERED: OMEP-448 PO (17:33)
[2023-10-09] MEDS: EPOETIN ALFA-EPBX 10,000 UNIT/1ML VIAL SC ONE (20:31)
[2023-10-09] MEDS ORDERED: EPOETIN ALFA-EPBX 10,000 UNIT/1ML VIAL SC ONE (21:00)
== END 2023-10-09 20:23 | disposition home or self-care (01) | DRG 673 ==
LOC: ER 14:37 → EAST 18:34 → OVERFLOW 18:34 → EAST 22:20
PROVIDERS: ADMIT Internal Medicine; ATTEND Internal Medicine
PROC: 0JPTXXZ Removal of Tunneled Vascular Access Device from Trunk Subcutaneous Tissue and Fascia, External Approach (ICD-10-PCS; principal; 2023-10-09)
PROC: 0JH63XZ Insertion of Tunneled Vascular Access Device into Chest Subcutaneous Tissue and Fascia, Percutaneous Approach (ICD-10-PCS; 2023-10-09)
PROC: 06PYX3Z Removal of Infusion Device from Lower Vein, External Approach (ICD-10-PCS; 2023-10-09)
PROC: 02H633Z Insertion of Infusion Device into Right Atrium, Percutaneous Approach (ICD-10-PCS; 2023-10-09)
PROC: B5181ZA Fluoroscopy of Superior Vena Cava using Low Osmolar Contrast, Guidance (ICD-10-PCS; 2023-10-09)
DX: T82.42XA Displacement of vascular dialysis catheter, initial encounter (principal); N18.6 End stage renal disease; I12.0 Hypertensive chronic kidney disease with stage 5 chronic kidney disease or end stage renal disease; E87.5 Hyperkalemia; D63.1 Anemia in chronic kidney disease; Y83.8 Other surgical procedures as the cause of abnormal reaction of the patient, or of later complication, without mention of misadventure at the time of the procedure; E78.5 Hyperlipidemia, unspecified; E11.22 Type 2 diabetes mellitus with diabetic chronic kidney disease; Z88.5 Allergy status to narcotic agent; Y92.89 Other specified places as the place of occurrence of the external cause; Z83.3 Family history of diabetes mellitus; Z99.2 Dependence on renal dialysis
CPT/HCPCS: 36415; 36558; 71045; 77001; 80048; 80053; 85025; 85610; 85730; 99152; G0378; J2250

== ENCOUNTER 2023-10-26 23:16 | Emergency (ER) | payer OTHER ==
[~2023-10-26] VITALS: Ht 149.9 cm; Wt 68.8 kg
[~2023-10-26 23:16] MED LIST changes: -LINA145C PO; +OMEP-448 PO; -ONDA-155 PO; +TRAZ-227 PO
[2023-10-26 23:47] LABS: Basophils # (auto) 0 10 ^3/uL (0-0.2); Basophils % (auto) 0.8 % (0.0-2.0); Eosinophils # (auto) 0.3 10 ^3/uL (0-0.8); Eosinophils % (auto) 4.6 % (0.0-7.0); Hematocrit 31.5 % (36.0-46.0); Hemoglobin 10.5 g/dL (12.2-16.2); Lymphocytes # (auto) 1.5 10 ^3/uL (0.4-5.4); Mean Corpuscular Hemoglobin 33.6 pg (28.0-32.0); Mean Corpuscular Hgb Conc. 33.4 g/dL (32.0-36.0); Mean Corpuscular Volume 100.4 fL (80.0-100.0); Monocytes # (auto) 0.6 10 ^3/uL (0-1.3); Monocytes % (auto) 9.2 % (0.0-12.0); Neutrophils # (auto) 3.7 10 ^3/uL (1.6-8.6); Neutrophils % (auto) 60.4 % (37.0-80.0); Platelet Count (auto) 200 10^3/uL (140-450); Red Blood Cells 3.14 10^6/uL (4.0-5.20); Red Cell Distribution Width 15.5 % (11.8-14.3); White Blood Cell 6.2 10^3/uL (4.4-10.8)
[2023-10-27 00:02] LABS: Alanine Aminotransferase 12 U/L (7-40); Albumin 4.4 g/dL (3.2-4.8); Alkaline Phosphatase 169 U/L (46-116); Anion Gap 9 (5-15); Aspartate Aminotransferase 15 U/L (13-40); BUN/Creatinine Ratio 9.2 (10.0-20.0); Bilirubin, Total 0.2 mg/dL (0.2-1.0); Blood Urea Nitrogen 43 mg/dL (9-23); Calcium 9.1 mg/dL (8.7-10.4); Carbon Dioxide 25 mmol/L (20-30); Chloride 106 mmol/L (98-107); Glucose 98 mg/dL (74-106); Potassium 4.4 mmol/L (3.5-5.1); Sodium 140 mmol/L (136-145); Total Protein 6.7 g/dL (5.7-8.2)
[2023-10-27] MEDS: ALBUTEROL SULF 2.5 MG/0.5ML(0.5%) NEB SOLN NEB ONE (01:28)
[2023-10-27] MEDS: IPRATROPIUM BROM 0.5 MG/2.5ML INH SOL NEB ONE (01:29)
[2023-10-27] MEDS: MAALOX PLUS or MAALOX 30 ML PO ONE (02:55)
[2023-10-27 03:21] LABS: COVID19 ANTIGEN SOFIA FIA NEGATIVE (NEGATIVE)
[2023-10-27 03:39] VITALS: TEMP 97.6
[2023-10-27 04:00] VITALS: BP 134/65; PULSE 88; RESP 14; O2SAT 97
== END 2023-10-27 04:00 | disposition home or self-care (01) ==
LOC: ER 23:16
DX: F41.9 Anxiety disorder, unspecified (principal); E78.5 Hyperlipidemia, unspecified; I10 Essential (primary) hypertension; Z79.899 Other long term (current) drug therapy; Z88.5 Allergy status to narcotic agent; Z98.890 Other specified postprocedural states; Z20.822 Contact with and (suspected) exposure to COVID-19
CPT/HCPCS: 36415; 71045; 80053; 83880; 84484; 85025; 87426; 93005; 94640

== ENCOUNTER → 2023-12-31 | Outpatient (CLI) | payer OTHER | END | disposition home or self-care (01) | LOC: Rad HDHVI 14:29 | PROVIDERS: ATTEND Internal Medicine Cardiovascular Disease | DX: I10 Essential (primary) hypertension (principal); I25.5 Ischemic cardiomyopathy | CPT/HCPCS: 93306 ==

== ENCOUNTER 2024-03-01 14:25 | Emergency (ER) | payer OTHER ==
[~2024-03-01] VITALS: Ht 149.9 cm; Wt 69.4 kg
--- NOTE | 2024-03-01 15:22 | ED.PDOC ---
History of Present Illness HPI Comments 78 year old female presents to the ED with chief complaint of catheter replacement. Patient reports that she has a tunnel catheter to her chest that she uses for dialysis, however, when being dialyzed yesterday, it was malfunctioning. Patient relays that she is here today to have her catheter changed, being advised by her Director Of Pediatric Rehabilitation Dr. Martin to do so. Patient is dialyzed M/W/F. Patient denies any chest pain, SOB, N/V/D, abdominal pain, weakness, dizziness, or headache. Chief Complaint: Tube Replacement Time Seen by MD: 15:16 Primary Care Provider: unknown Reviewed Notes: Nurses Notes, Medications, Allergies Allergies: Coded Allergies: Codeine (Verified Allergy, Unknown, 10/01/21) Home Meds Reported Medications Trazodone Hcl (Trazodone Hcl) 50 Mg Tab, 50 MG PO HS, MG 10/09/23 Omeprazole (Omeprazole Dr) 40 Mg Cap, 40 MG PO DAILY, CAP 10/09/23 Clopidogrel Bisulfate (Plavix) 75 Mg Tab, 1 TAB PO DAILY for CAD, #90 TAB 1 Refill Start taking TOMORROW 08/19/23. 08/18/23 Atorvastatin Calcium (Lipitor) 20 Mg Tab, 1 TAB PO HS for HIGH CHOLESTEROL 08/18/23 Clonazepam (KlonoPIN TABLET) 0.5 Mg Tb, 1 TAB PO DAILY for SEIZURES 08/11/23 Nystatin (Mycostatin) 1 Applic Ap, 1 APPLIC TOP BID PRN for RASH Apply powder topically to affected area twice daily 04/08/23 Sevelamer Carbonate (Sevelamer Carbonate) 800 Mg Tab, 1 TAB PO TID for RENAL SUPPLEMENT 04/07/23 Losartan Potassium (Losartan Potassium) 25 Mg Tab, 1 TAB PO DAILY for HYPERTENSION 04/07/23 Docusate Sodium (DOCQLACE) 100 Mg Cap, 1 CAP PO BID PRN for FOR CONSTIPATION 11/24/20 Levothyroxine Sodium (Euthyrox) 50 Mcg Tab, 1 TAB PO DAILY for HYPOTHYROIDISM 11/24/20 Information Source: Patient Mode of Arrival: Ambulatory Severity: Moderate Timing: Hours Duration: Since onset Prehospital treatment: None Past Medical History PAST MEDICAL HISTORY: Anxiety, ESRD, High Lipids, HTN Surgical History: Pacemaker, PTCA GAS DISPATCHER History: Denies all GAS DISPATCHER Hx Family History Family History: Reviewed,noncontributory to illness Social History Smoker: Non-Smoker Alcohol: Denies ETOH Use Drugs: Denies Drug Use Lives In: Home Constitutional: denies: chills, diaphoresis, fatigue, fever, malaise, sweats, weakness, others EENTM: denies: blurred vision, double vision, ear bleeding, ear discharge, ear drainage, ear pain, ear ringing, eye pain, eye redness, hearing loss, mouth pain, mouth swelling, nasal discharge, nose bleeding, nose congestion, nose pain, photophobia, tearing, throat pain, throat swelling, voice changes, others Respiratory: denies: cough, hemoptysis, orthopnea, SOB at rest, shortness of breath, SOB with excertion, stridor, wheezing, others Cardiovascular: denies: chest pain, dizzy spells, diaphoresis, Dyspnea on exertion, edema, irregular heart beat, left arm pain, lightheadedness, palpitations, PND, syncope, others Gastrointestinal: denies: abdomen distended, abdominal pain, blood streaked bowels, constipated, diarrhea, dysphagia, difficulty swallowing, hematemesis, melena, nausea, poor appetite, poor fluid intake, rectal bleeding, rectal pain, vomiting, others Genitourinary: denies: abnormal vagina bleeding, burning, dyspareunia, dysuria, flank pain, frequency, hematuria, incontinence, pain, , vagina discharge, urgency, others Neurological: denies: dizziness, fainting, headache, left sided numbness, left sided weakness, numbness, paresthesia, pre-existing deficit, right sided numbness, right sided weakness, seizure, speech problems, tingling, tremors, wea kness, others Musculoskeletal: denies: back pain, gout, joint pain, joint swelling, muscle pain, muscle stiffness, neck pain, others Integumetry: denies: bruises, change in color, change in hair/nails, dryness, l aceration, lesions, lumps, rash, wounds, others Allergic/Immunocompromised: denies: Difficulty Healing, Frequent Infections, Hives, Itching, others Hematologic/Lymphatic: denies: anemia, blood clots, easy bleeding, easy bruising, swollen glands, others Endocrine: denies: excessive hunger, excessive sweating, excessive thirst, excessive urination, flushing, intolerance to cold, intolerance to heat, unexplained weight gain, unexplained weight loss, others Psychiatric: denies: anxiety, bipolar disorder, depression, hopeless, panic disorder, schizophrenia, sleepless, suicidal, others All Other Systems: Reviewed and Negative Physical Exam General Appearance: Moderate Distress, Normal HEENT: Normal ENT Inspection, PERRL/EOMI Neck: Full Range of Motion, Non-Tender, Normal, Normal Inspection Respiratory: Chest Non-Tender, Lungs Clear, No Accessory Muscle Use, No Respiratory Distress, Normal Breath Sounds Cardiovascular: No Edema, No JVD, No Murmur, No Gallop, Normal Peripheral Pulses, Regular Rate/Rhythm Breast Exam: Deferred Gastrointestinal: No Organomegaly, Non Tender, No Pulsatile Mass, Normal Bowel Sounds, Soft Genitalia: Deferred Pelvic: Deferred Rectal: Deferred Extremities: No calf tenderness, Normal capillary refill, Normal inspection, Normal range of motion, Non-tender, No pedal edema Musculoskeletal : Apperance: Normal Neurologic: Alert, surgical sales representative II-XII nml as Tested, No Motor Deficits, Normal Affect, Normal Mood, No Sensory Deficits Cerebellar Function: NOT DONE Reflexes: NOT DONE Skin: Dry, Pallor, Warm Peripheral Pulses: 3+ Radial (R), 3+ Radial (L) Lymphatic: No Adenopathy Was a procedure done? Was a procedure done?: No Differential Dx Considerations may include: Anemia Chronic kidney disease X-Ray, Labs, Meds, VS Vital Signs Date Time Temp Pulse Resp B/P (MAP) Pulse Ox O2 Delivery O2 Flow Rate FiO2 03/01/24 14:56 99.0 73 16 156/58 (90) 96 Lab Test 03/01/24 15:15 Range/Units White Blood Count 5.9 4.4-10.8 10^3/uL Red Blood Count 2.81 L 4.0-5.20 10^6/uL Hemoglobin 9.6 L 12.2-16.2 g/dL Hematocrit 29.0 L 36.0-46.0 % Mean Corpuscular Volume 103.0 H 80.0-100.0 fL Mean Corpuscular Hemoglobin 34.1 H 28.0-32.0 pg Mean Corpuscular Hemoglobin Concent 33.1 32.0-36.0 g/dL Red Cell Distribution Width 14.2 11.8-14.3 % Platelet Count 171 140-450 10^3/uL Mean Platelet Volume 8.7 6.9-10.8 fL Neutrophils (%) (Auto) 66.5 37.0-80.0 % Lymphocytes (%) (Auto) 20.6 10.0-50.0 % Monocytes (%) (Auto) 10.4 0.0-12.0 % Eosinophils (%) (Auto) 1.9 0.0-7.0 % Basophils (%) (Auto) 0.6 0.0-2.0 % Neutrophils # (Auto) 3.9 1.6-8.6 10 ^3/uL Lymphocytes # (Auto) 1.2 0.4-5.4 10 ^3/uL Monocytes # (Auto) 0.6 0-1.3 10 ^3/uL Eosinophils # (Auto) 0.1 0-0.8 10 ^3/uL Basophils # (Auto) 0 0-0.2 10 ^3/uL Nucleated Red Blood Cells 0.0 % Prothrombin Time 11.8 9.3-11.8 sec Prothrombin Time INR 1.13 0.9-1.15 Activated Partial Thromboplast Time 34.9 H 24.5-34.5 SEC Sodium Level 143 136-145 mmol/L Potassium Level 5.0 3.5-5.1 mmol/L Chloride Level 108 H 98-107 mmol/L Carbon Dioxide Level 24 20-31 mmol/L Anion Gap 11 5-15 Blood Urea Nitrogen 62 H 9-23 mg/dL Creatinine 5.70 H 0.550-1.02 mg/dL Glomerular Filtration Rate Calc 7 >90 mL/min BUN/Creatinine Ratio 10.9 10.0-20.0 Serum Glucose 91 74-106 mg/dL Calcium Level 9.0 8.7-10.4 mg/dL Patient alert. She is on dialysis. Her dialysis catheter is not working. Vitals stable. Director Of Pediatric Rehabilitation has sent the patient for new catheter. Reviewed her previous visit. Explained to the patient. Has anemia. Explained to the patient. Time of 1ST Reevaluation: 16:16 Reevaluation 1ST: Unchanged Patient Education/Counseling: Diagnosis, Treatment Family Education/Counseling: No Family Present Additional Information I reviewed the following notes from patient's past medical encounters: 12/26/23 for anxiety The following tests were ordered, and results were reviewed by me: BMP, CBC, PTPTT Additional Information was gathered from interviewing the following independent historians: None I reviewed and agreed with the following test results read by other providers: None I discussed treatment and results with medical personnel. Departure 1 Departure Time of Disposition: 16:27 Impression: Primary Impression: End stage renal disease Additional Impression: Severe anemia Disposition: ADMITTED INPATIENT Admit to: Med Surg Condition: Guarded Critical Care Note Critical Care Time?: No Stability Stability form required: No Heart Score Heart Score: Heart Score Response (Comments) Value History N/A 0 EKG N/A 0 Age N/A 0 Risk Factors N/A 0 Troponin N/A 0 Total 0 I personally scribed for ERROL MONTES DE OCA MD ([email or web address]) on 03/01/24 at 15:22. Electronically submitted by Donavon Rust ([email or web address]). ERROL MONTES DE OCA MD Mar 01, 2024 15:22
[2024-03-01 15:35] LABS: Basophils # (auto) 0 10 ^3/uL (0-0.2); Eosinophils # (auto) 0.1 10 ^3/uL (0-0.8); Eosinophils % (auto) 1.9 % (0.0-7.0); Lymphocytes # (auto) 1.2 10 ^3/uL (0.4-5.4); Monocytes # (auto) 0.6 10 ^3/uL (0-1.3); Neutrophils # (auto) 3.9 10 ^3/uL (1.6-8.6); White Blood Cell 5.9 10^3/uL (4.4-10.8)
[2024-03-01 15:37] LABS: Basophils % (auto) 0.6 % (0.0-2.0); Hemoglobin 9.6 g/dL (12.2-16.2); Lymphocytes % (auto) 20.6 % (10.0-50.0); Mean Corpuscular Hemoglobin 34.1 pg (28.0-32.0); Mean Corpuscular Hgb Conc. 33.1 g/dL (32.0-36.0); Monocytes % (auto) 10.4 % (0.0-12.0); Neutrophils % (auto) 66.5 % (37.0-80.0); Platelet Count (auto) 171 10^3/uL (140-450); Red Blood Cells 2.81 10^6/uL (4.0-5.20); Red Cell Distribution Width 14.2 % (11.8-14.3)
[2024-03-01 15:45] LABS: Sodium 143 mmol/L (136-145)
[2024-03-01 15:46] LABS: Anion Gap 11 (5-15); Carbon Dioxide 24 mmol/L (20-31)
[2024-03-01 15:52] LABS: BUN/Creatinine Ratio 10.9 (10.0-20.0); Glucose 91 mg/dL (74-106); INR 1.13 (0.9-1.15); Partial Thromboplastin Time 34.9 SEC (24.5-34.5); Prothrombin Time 11.8 sec (9.3-11.8)
[2024-03-01 16:04] LABS: Blood Urea Nitrogen 62 mg/dL (9-23); Chloride 108 mmol/L (98-107)
[2024-03-01 17:39] VITALS: BP 166/75; PULSE 90; RESP 20; TEMP 98.5; O2SAT 98
[2024-03-02] MEDS ORDERED: ACET1CAP14 PO ×2 (14:57)
== END 2024-03-01 21:45 | disposition left against medical advice (07) ==
LOC: ER 14:25
DX: N18.6 End stage renal disease (principal); D64.9 Anemia, unspecified; F41.9 Anxiety disorder, unspecified; I10 Essential (primary) hypertension; Z79.899 Other long term (current) drug therapy; Z46.6 Encounter for fitting and adjustment of urinary device; Z88.5 Allergy status to narcotic agent; Z95.0 Presence of cardiac pacemaker; Z99.2 Dependence on renal dialysis
CPT/HCPCS: 36415; 80048; 85025; 85610; 85730

== ENCOUNTER 2024-03-02 08:25 | Inpatient (IN) | payer OTHER ==
[~2024-03-02] VITALS: Ht 149.9 cm; Wt 69.4 kg
[2024-03-02] VITALS (12 sets, daily range): BP systolic 136–179; BP diastolic 50–77; PULSE 65–88; RESP 12–23; TEMP 98–98.4; O2SAT 93–100
--- NOTE | 2024-03-02 08:50 | ED.PDOC ---
History of Present Illness HPI Comments 78 year old female presents to the ED with chief complaint of catheter replacement. Patient reports that she was seen yesterday for the same complaint and was advised to come in today for her catheter replacement by Dr. Martin. Patient notes that she has a tunnel catheter to her chest that she uses for dial ysis, however, when being dialyzed two days ago, it was malfunctioning. Patient is dialyzed M/W/F. Patient denies any N/V/D, chest pain, dizziness, SOB, fever, or chills. Chief Complaint: Tube Replacement Time Seen by MD: 08:47 [place] [facility] [place] Notes: Nurses Notes, Medications, Allergies Allergies: Coded Allergies: Codeine (Verified Allergy, Unknown, 10/01/21) Home Meds Reported Medications Trazodone Hcl (Trazodone Hcl) 50 Mg Tab, 50 MG PO HS, MG 10/09/23 Omeprazole (Omeprazole Dr) 40 Mg Cap, 40 MG PO DAILY, CAP 10/09/23 Clopidogrel Bisulfate (Plavix) 75 Mg Tab, 1 TAB PO DAILY for CAD, #90 TAB 1 Refill Start taking TOMORROW 08/19/23. 08/18/23 Atorvastatin Calcium (Lipitor) 20 Mg Tab, 1 TAB PO HS for HIGH CHOLESTEROL 08/18/23 Clonazepam (KlonoPIN TABLET) 0.5 Mg Tb, 1 TAB PO DAILY for SEIZURES 08/11/23 Nystatin (Mycostatin) 1 Applic Ap, 1 APPLIC TOP BID PRN for RASH Apply powder topically to affected area twice daily 04/08/23 Sevelamer Carbonate (Sevelamer Carbonate) 800 Mg Tab, 1 TAB PO TID for RENAL SUPPLEMENT 04/07/23 Losartan Potassium (Losartan Potassium) 25 Mg Tab, 1 TAB PO DAILY for HYPERTENSION 04/07/23 Docusate Sodium (DOCQLACE) 100 Mg Cap, 1 CAP PO BID PRN for FOR CONSTIPATION 11/24/20 Levothyroxine Sodium (Euthyrox) 50 Mcg Tab, 1 TAB PO DAILY for HYPOTHYROIDISM 11/24/20 Information Source: Patient Mode of Arrival: Ambulatory Severity: Moderate Timing: Days Duration: Since onset Prehospital treatment: None Past Medical History PAST MEDICAL HISTORY: Anxiety, ESRD, High Lipids, HTN Surgical History: Pacemaker, PTCA CHARTING CLERK History: Denies all CHARTING CLERK Hx Family History Family History: Reviewed,noncontributory to illness Social History Smoker: Non-Smoker Alcohol: Denies ETOH Use Drugs: Denies Drug Use Lives In: Home Constitutional: denies: chills, diaphoresis, fatigue, fever, malaise, sweats, weakness, others EENTM: denies: blurred vision, double vision, ear bleeding, ear discharge, ear drainage, ear pain, ear ringing, eye pain, eye redness, hearing loss, mouth pain, mouth swelling, nasal discharge, nose bleeding, nose congestion, nose pain , photophobia, tearing, throat pain, throat swelling, voice changes, others Respiratory: denies: cough, hemoptysis, orthopnea, SOB at rest, shortness of breath, SOB with excertion, stridor, wheezing, others Cardiovascular: denies: chest pain, dizzy spells, diaphoresis, Dyspnea on exertion, edema, irregular heart beat, left arm pain, lightheadedness, palpitations, PND, syncope, others Gastrointestinal: denies: abdomen distended, abdominal pain, blood streaked bowels, constipated, diarrhea, dysphagia, difficulty swallowing, hematemesis, melena, nausea, poor appetite, poor fluid intake, rectal bleeding, rectal pain, vomiting, others Genitourinary: denies: abnormal vagina bleeding, burning, dyspareunia, dysuria, flank pain, frequency, hematuria, incontinence, pain, , vagina discharge, urgency, others Neurological: denies: dizziness, fainting, headache, left sided numbness, left sided weakness, numbness, paresthesia, pre-existing deficit, right sided numbness, right sided weakness, seizure, speech problems, tingling, tremors, weakness, others Musculoskeletal: denies: back pain, gout, joint pain, joint swelling, muscle pain, muscle stiffness, neck pain, others Integumetry: denies: bruises, change in color, change in hair/nails, dryness, laceration, lesions, lumps, rash, wounds, others Allergic/Immunocompromised: denies: Difficulty Healing, Frequent Infections, Hives, Itching, others Hematologic/Lymphatic: denies: anemia, blood clots, easy bleeding, easy bruising, swollen glands, others Endocrine: denies: excessive hunger, excessive sweating, excessive thirst, excessive urination, flushing, intolerance to cold, intolerance to heat, unexplained weight gain, unexplained weight loss, others Psychiatric: denies: anxiety, bipolar disorder, depression, hopeless, panic disorder, schizophrenia, sleepless, suicidal, others All Other Systems: Reviewed and Negative Physical Exam General Appearance: Moderate Distress, Normal HEENT: Normal ENT Inspection, PERRL/EOMI Neck: Full Range of Motion, Non-Tender, Normal, Normal Inspection Respiratory: Chest Non-Tender, Lungs Clear, No Accessory Muscle Use, No Respiratory Distress, Normal Breath Sounds Cardiovascular: No Edema, No JVD, No Murmur, No Gallop, Normal Peripheral Pulses, Regular Rate/Rhythm Breast Exam: Deferred Gastrointestinal: No Organomegaly, Non Tender, No Pulsatile Mass, Normal Bowel Sounds, Soft Genitalia: Deferred Pelvic: Deferred Rectal: Deferred Extremities: No calf tenderness, Normal capillary refill, Normal inspection, Normal range of motion, Non-tender, No pedal edema Musculoskeletal : Apperance: Normal Neurologic: Alert, insulation applicator II-XII nml as Tested, No Motor Deficits, Normal Affect, Normal Mood, No Sensory Deficits Cerebellar Function: Normal Reflexes: Normal Skin: Dry, Normal Color, Warm Peripheral Pulses: 3+ Radial (R), 3+ Radial (L) Lymphatic: No Adenopathy Was a procedure done? Was a procedure done?: No Differential Dx Considerations may include: Chronic kidney disease Electrolyte imbalance X-Ray, Labs, Meds, VS Vital Signs Date Time Temp Pulse Resp B/P (MAP) Pulse Ox O2 Delivery O2 Flow Rate FiO2 03/02/24 08:30 98.1 74 18 156/92 (113) 97 Patient alert. Chronic kidney disease. Her tunneled catheter is not working. Vitals stable. Sent from her chief of production. She was here yesterday. Reviewed her previous visit. Explained to the patient. Continue cardiac monitoring. Time of 1ST Reevaluation: 09:47 Reevaluation 1ST: Unchanged Patient Education/Counseling: Diagnosis, Treatment Family Education/Counseling: No Family Present Additional Information I reviewed the following notes from patient's past medical encounters: 03/01/24 for tube replacement The following tests were ordered, and results were reviewed by me: None Additional Information was gathered from interviewing the following independent historians: None I reviewed and agreed with the following test results read by other providers: None I discussed treatment and results with medical personnel. Departure 1 Departure Time of Disposition: 08:58 Impression: Primary Impression: End stage renal disease on dialysis Additional Impression: HTN (hypertension) Qualified Codes: I10 - Essential (primary) hypertension Disposition: ADMITTED INPATIENT Admit to: Med Surg Condition: Guarded Critical Care Note Critical Care Time?: No Stability Stability form required: No Heart Score Heart Score: Heart Score Response (Comments) Value History N/A 0 EKG N/A 0 Age N/A 0 Risk Factors N/A 0 Troponin N/A 0 Total 0 I personally scribed for ERROL MONTES DE OCA MD ([email or web address]) on 03/02/24 at 08:50. Electronically submitted by Miguelito Alanis ([email or web address]). ERROL MONTES DE OCA MD Mar 02, 2024 08:50
[2024-03-02] MEDS: fentaNYL CITRATE 100 MCG/2 ML VL ONE (12:40)
[2024-03-02] MEDS: HEPARIN SODIUM (PORCINE) 5000 UNITS/ML 1ML VIAL ONE (12:40)
[2024-03-02] MEDS: MIDAZOLAM HCL 2MG/2ML 2ml VIAL (1mg/ml) ONE (12:41)
[2024-03-02] MEDS: LIDOCAINE 2%HCL (LOCAL ANESTH.) INJ 20ML MDV ONE (12:41)
[2024-03-02] MEDS: IODIXANOL 320MG/ML 100ML BTL IV ONE ×2 (12:41→13:34)
[2024-03-02] MEDS: ceFAZolin 1GM/50ML 50 ML IV ONE (13:34)
--- NOTE | 2024-03-02 14:03 | DVH ---
XY Insertion of Venous Cath, HISTORY: HD CATH PL PROCEDURE: Informed consent was obtained. The patient was placed supine on the interventional table. 1 gram of Ancef was given. The left upper chest and neck base were prepped with chlorhexidine which was allowed to dry and draped in the usual sterile fashion. Time out was performed. Contrast was inje cted into the catheter. A stiff glide wire was placed through the old tunneled hemodialysis catheter into the IVC. 1% lidocaine injected into skin site at the tunneled hemodialysis catheter . It was hung ed with blunt dissection and the cuff was free. The old catheter was removed. A new 14.5 Fr x 23 cm t unneled hemodialysis catheter was advanced over the wire in the right atrium. Good flow was shown wit h aspiration. It was sutured to the skin. Then sterile dressings applied. A post procedure image was obtained. No immediate complication was identified. DAP 72 FLUOROSCOPY TIME: 1.2 minutes. SEDATION: Dr. Ian Martinez was personally responsible for the administration of moderate sedation during the procedure performed, including the use of an independent trained observer who had no other duties during the procedure. The drugs utilized were IV fentanyl and versed (see nursing log for details). The total time of supervision by the attending physician was approximately 30 minutes. FINDINGS: Contrast injection shows the old tunneled hemodialysis catheter was retracted into the SVC . New tunneled hemodialysis catheter placed into the right atrium. IMPRESSION: Exchange and repositioning of the left 14.5 Fr x 23 cm tunneled hemodialysis catheter into the right atrium.
[2024-03-02] MEDS ORDERED: HYDROcodone-ACET 5/325MG TAB PO PRN (14:45)
[2024-03-02] MEDS ORDERED: ACET1CAP14 PO ×2 (14:57)
--- NOTE | 2024-03-02 14:58 | DVHDSRES ---
Discharge Summary Date of Admission Mar 02, 2024 at 14:09 Date of Discharge: Mar 02, 2024 Final Diagnosis/Problems List s/p dialysis cath replacement ESRD Discharge Disposition: Home Discharge Instruct/Medications Diet: Cardiac 2g Na,low cholest, Renal Activity: Light activity Follow Up/Referral: patient had appt with [facility] at 11: 45 am 03/03/[address] Rodriguez Medications: resume home meds except plavix, confirm tomorrow when to restart Discharge Statement: "Patient was advised to return to the ER or call 911 if any headaches, dizziness, shortness of breath, chest pain, abdominal pain, bleeding, fevers, or worsening of medical condition. Patient was counseled about treatment plan, medications, possible side effects, patientverbalized understanding. All questions were answered to the best of my ability. This discharge took greater then 30 minutes in planning, reviewing docu mentation, counseling the patient, and discussing with other team members." ASSESSMENT ASSESSMENT Assessment s/p dialysis cath replacement ESRD CHACE KING RESIDENT Mar 02, 2024 14:58
--- NOTE | 2024-03-02 14:58 | DVHHPRES ---
History of Present Illness Resident Creating Document: CHACE KING RESIDENT Reason for Visit: malfunction dialysis cath History of Present Illness A 78 year old female presents to the ED with chief complaint of catheter replacement. Patient reports that she was seen yesterday for the same complaint and was advised to come in today for her catheter replacement by Dr. Martin. Patient notes that she has a tunnel catheter to her chest that she uses for dialysis, however, when being dialyzed two days ago, it was malfunctioning. Patient is dialyzed M/W/F. Patient denies any N/V/D, chest pain, dizziness, SOB, fever, or chills. Patient underwent for change of the perm cath and after the recovery of the procedure, the puncture site bled. Patient is admitted for observation of the bleeding. Patient has a chair time tomorrow at [facility] at 11 45 am Pt has history of CAD s/p stent Aug 2023 on plavix, ramus, CHF EF 35%, clotted previous AVF, HTN, Hyperkalemia, previous stroke Cardiovascular: CAD, CHF Renal/: Chronic renal insuff Review of Systems Constitutional: No: Fever, Chills, Sweats, Weakness, Malaise, Other Eyes: No: Pain, Vision change, Conjunctivae inflammation, Eyelid inflammation, Other, Redness ENT: No: Ear pain, Ear discharge, Nose pain, Nose discharge, Nose congestion, Mouth pain, Mouth swelling, Throat pain, Throat swelling, Other Respiratory: No: Cough, Dry, Shortness of breath, SOB with excertion, Wheezing, Hemoptysis, Pleuritic Pain, Sputum, Wheezing, Other Cardiovascular: No: Chest Pain, Palpitations, Orthopnea, Paroxysmal Noc. Dyspnea, Edema, Lt Headedness, Other Gastrointestinal: No: Nausea, Vomiting, Abdominal Pain, Diarrhea, Constipation, Melena, Hematochezia, Other Genitourinary: No Dysuria, No Frequency, No Incontinence, No Hematuria, No Retention, No Other Musculoskeletal: No: other, neck pain, shoulder pain, arm pain, back pain, hand pain, leg pain, foot pain Skin: No: Rash, Lesions, Jaundice, Bruising, Other Neurological: No: Weakness, Numbness, Incoordination, Change in speech, Confusion, Seizures, Other Allergies: Coded Allergies: Codeine (Verified Allergy, Unknown, 10/01/21) Medications Current Medications Medications Dose Ordered Sig/[place] Route Start Time Stop Time Status Last Admin Dose Admin Acetaminophen/ Hydrocodone Bitart 1 tab Q4HPRN PRN PO 03/02/24 14:45 UNV Exam Vital Signs Vital Signs Date Time Temp Pulse Resp B/P (MAP) Pulse Ox O2 Delivery O2 Flow Rate FiO2 03/02/24 14:15 80 18 172/75 (107) 96 03/02/24 10:52 97.9 97.9 General Appearance: Alert, Oriented X3, Cooperative HEENT: Atraumatic, PERRLA, EOMI Respiratory: Clear to auscultation, Other (cath with mild hematoma, mild bleeding, oozing ) Cardiovascular: Normal S1, Normal S2 Abdominal: Normal bowel sounds Extremities: No clubbing Skin: No rashes Neuro: Normal gait, Normal speech Psych/Mental Status: Mental status NL, Mood NL Assessment/Plan Assessment/Plan #s/p dialysis cath placement #mild postop hematoma #ESRD dialysis: MWF #Chronic systolic heart failure #Coronary artery disease sp stent #HTN #Mild hyperkalemia Admit the patient Med/surg Hold on DC due to hematoma Monitor hematoma Probably DC tomorrow morning Hold on plavix Resume home meds Lokelma Tylenol for pain Pt allergic to codeine Case discussed with Dr Melchor Time spent on care 23 min Full code Plan discussed with: Patient, Other (rn) My Orders Orders - CHACE KING RESIDENT Procedure Category Date Status Time Admit ADMIT 03/02/24 Transmitted 14:09 Code Status CODE 03/02/24 Transmitted 14:09 Vital Signs LEFTY 03/02/24 In Process 14:09 Review Orders With LEFTY 03/02/24 In Process Adm. 14:09 Notify Of Changes LEFTY 03/02/24 In Process From Base 14:09 Advance Directive LEFTY 03/02/24 In Process 14:09 Patient Condition ORDERS 03/02/24 Transmitted 14:09 Allergies LEFTY 03/02/24 In Process 14:09 *Dr. Sprague [facility] CONS 03/02/24 Transmitted -[place] 14:13 Hydrocodone-Acet PHA 03/02/24 Logged 5/325mg Tab ([place] 14:45 Sodium Zirconium PHA 03/02/24 In Process Cyclosilicate 15:00 Discharge DISCHARGE 03/02/24 Transmitted 14:53 Date of Service: Mar 02, 2024 Billing Provider: VIKAS MELCHOR MD Common Visit Codes: [id number] INP/OBS CARE (HIGH) CHACE KING RESIDENT Mar 02, 2024 14:58 VIKAS MELCHOR MD Mar 03, 2024 15:15
[2024-03-02] MEDS: ACETAMINOPHEN 325 MG TAB PO ONE ×2 (15:34→16:12)
[2024-03-02] MEDS: LEVOTHYROXINE SODIUM 50 MCG TAB PO ONE (16:12)
[2024-03-02] MEDS: LOSARTAN POTASSIUM 25 MG TAB PO ONE (16:13)
[2024-03-02] MEDS: SODIUM ZIRCONIUM CYCL 10 GM PAK PO ONE (16:14)
[2024-03-02] MEDS: hydrALAZINE HCL 20 MG/ML VL IV ONE (22:10)
[2024-03-03 01:00] VITALS: BP 141/58; PULSE 73; RESP 18; TEMP 98.2; O2SAT 98
[2024-03-03 02:58] LABS: Basophils # (auto) 0 10 ^3/uL (0-0.2); Basophils % (auto) 0.5 % (0.0-2.0); Eosinophils # (auto) 0.1 10 ^3/uL (0-0.8); Eosinophils % (auto) 1.5 % (0.0-7.0); Lymphocytes # (auto) 1.7 10 ^3/uL (0.4-5.4); Lymphocytes % (auto) 17.5 % (10.0-50.0); Mean Corpuscular Hemoglobin 34.3 pg (28.0-32.0); Mean Corpuscular Hgb Conc. 33.2 g/dL (32.0-36.0); Mean Corpuscular Volume 103.6 fL (80.0-100.0); Monocytes # (auto) 0.7 10 ^3/uL (0-1.3); Monocytes % (auto) 6.9 % (0.0-12.0); Neutrophils % (auto) 73.6 % (37.0-80.0); Platelet Count (auto) 182 10^3/uL (140-450); Red Blood Cells 2.32 10^6/uL (4.0-5.20); Red Cell Distribution Width 14.4 % (11.8-14.3); White Blood Cell 9.5 10^3/uL (4.4-10.8)
[2024-03-03 05:00] VITALS: BP 129/49; PULSE 77; RESP 17; TEMP 98.2; O2SAT 96
[2024-03-03] MEDS: LEVOTHYROXINE SODIUM 50 MCG TAB PO SCH (06:03)
[2024-03-03] MEDS: HEPARIN 1,000 UNITS/ml 1ML VIAL IV ONE ×2 (09:00→09:45)
[2024-03-03 09:03] VITALS: BP 137/48; PULSE 78; RESP 17; TEMP 98.3; O2SAT 98
[2024-03-03] MEDS: HEPARIN 1,000 UNITS/ml 1ML VIAL ONE (09:44)
[2024-03-03] MEDS: LOSARTAN POTASSIUM 50 MG TAB PO SCH (09:45)
[2024-03-03] MEDS ORDERED: SODIUM ZIRCONIUM CYCL 10 GM PAK PO ONE (10:00)
[2024-03-03 11:13] LABS: Basophils # (auto) 0 10 ^3/uL (0-0.2); Basophils % (auto) 0.4 % (0.0-2.0); Eosinophils # (auto) 0 10 ^3/uL (0-0.8); Eosinophils % (auto) 0.4 % (0.0-7.0); Hemoglobin 7.5 g/dL (12.2-16.2); Lymphocytes % (auto) 11.7 % (10.0-50.0); Mean Corpuscular Hemoglobin 33.6 pg (28.0-32.0); Mean Corpuscular Hgb Conc. 32.5 g/dL (32.0-36.0); Mean Corpuscular Volume 103.5 fL (80.0-100.0); Monocytes # (auto) 0.3 10 ^3/uL (0-1.3); Neutrophils # (auto) 7.1 10 ^3/uL (1.6-8.6); Neutrophils % (auto) 83.5 % (37.0-80.0); Platelet Count (auto) 171 10^3/uL (140-450); Red Blood Cells 2.22 10^6/uL (4.0-5.20); Red Cell Distribution Width 14.2 % (11.8-14.3); White Blood Cell 8.5 10^3/uL (4.4-10.8)
[2024-03-03 11:35] LABS: Albumin 3.8 g/dL (3.2-4.8); Alkaline Phosphatase 108 U/L (46-116); Anion Gap 13 (5-15); Aspartate Aminotransferase 13 U/L (13-40); BUN/Creatinine Ratio 12.2 (10.0-20.0); Potassium 4.8 mmol/L (3.5-5.1); Sodium 139 mmol/L (136-145)
[2024-03-03 11:36] LABS: Alanine Aminotransferase < 9 U/L (7-40); Bilirubin, Total 0.3 mg/dL (0.2-1.0); Carbon Dioxide 17 mmol/L (20-31); Chloride 109 mmol/L (98-107); Glucose 136 mg/dL (74-106); Total Protein 5.6 g/dL (5.7-8.2)
[2024-03-03 11:38] LABS: Blood Urea Nitrogen 83 mg/dL (9-23)
[2024-03-03 11:43] LABS: INR 1.32 (0.9-1.15); Prothrombin Time 13.6 sec (9.3-11.8)
[2024-03-03 12:09] LABS: Partial Thromboplastin Time > 139.0 SEC (24.5-34.5)
[2024-03-03 12:26] VITALS: BP 136/49; PULSE 73; RESP 17; TEMP 98.4; O2SAT 100
[2024-03-03] MEDS: ACETAMINOPHEN 325 MG TAB PO PRN (13:30)
--- NOTE | 2024-03-03 15:02 | DVHDS2 ---
Discharge Summary Date of Admission Mar 02, 2024 at 14:09 Date of Discharge: Mar 02, 2024 Labs/Diagnostic Data: Laboratory Results Test 03/03/24 10:25 White Blood Count 8.5 10^3/uL (4.4-10.8) Red Blood Count 2.22 10^6/uL (4.0-5.20) Hemoglobin 7.5 g/dL (12.2-16.2) Hematocrit 23.0 % (36.0-46.0) Mean Corpuscular Volume 103.5 fL (80.0-100.0) Mean Corpuscular Hemoglobin 33.6 pg (28.0-32.0) Mean Corpuscular Hemoglobin Concent 32.5 g/dL (32.0-36.0) Red Cell Distribution Width 14.2 % (11.8-14.3) Platelet Count 171 10^3/uL (140-450) Mean Platelet Volume 9.0 fL (6.9-10.8) Neutrophils (%) (Auto) 83.5 % (37.0-80.0) Lymphocytes (%) (Auto) 11.7 % (10.0-50.0) Monocytes (%) (Auto) 4.0 % (0.0-12.0) Eosinophils (%) (Auto) 0.4 % (0.0-7.0) Basophils (%) (Auto) 0.4 % (0.0-2.0) Neutrophils # (Auto) 7.1 10 ^3/uL (1.6-8.6) Lymphocytes # (Auto) 1.0 10 ^3/uL (0.4-5.4) Monocytes # (Auto) 0.3 10 ^3/uL (0-1.3) Eosinophils # (Auto) 0 10 ^3/uL (0-0.8) Basophils # (Auto) 0 10 ^3/uL (0-0.2) Nucleated Red Blood Cells 0.0 % Prothrombin Time 13.6 sec (9.3-11.8) Prothrombin Time INR 1.32 (0.9-1.15) Activated Partial Thromboplast Time > 139.0 SEC (24.5-34.5) Sodium Level 139 mmol/L (136-145) Potassium Level 4.8 mmol/L (3.5-5.1) Chloride Level 109 mmol/L (98-107) Carbon Dioxide Level 17 mmol/L (20-31) Anion Gap 13 (5-15) Blood Urea Nitrogen 83 mg/dL (9-23) Creatinine 6.81 mg/dL (0.550-1.02) Glomerular Filtration Rate Calc 6 mL/min (>90) BUN/Creatinine Ratio 12.2 (10.0-20.0) Serum Glucose 136 mg/dL (74-106) Calcium Level 9.0 mg/dL (8.7-10.4) Total Bilirubin 0.3 mg/dL (0.2-1.0) Aspartate Amino Transferase (AST) 13 U/L (13-40) Alanine Aminotransferase (ALT) < 9 U/L (7-40) Alkaline Phosphatase 108 U/L (46-116) Total Protein 5.6 g/dL (5.7-8.2) Albumin 3.8 g/dL (3.2-4.8) Other Laboratory Tests 03/03/24 10:25 Brief Hx & Hospital Course: A 78 year old female presents to the ED with chief complaint of catheter replacement. Patient reports that she was seen yesterday for the same complaint and was advised to come in today for her catheter replacement by Dr. Martin. Patient notes that she has a tunnel catheter to her chest that she uses for dialysis, however, when being dialyzed two days ago, it was malfunctioning. Patient is dialyzed M/W/F. Patient denies any N/V/D, chest pain, dizziness, SOB, fever, or chills. Patient underwent for change of the perm cath and after the recovery of the procedure. Patient will be discharged to have dialysis tomorrow. Condition at Discharge: Poor Final Diagnosis/Problems List s/p TD Cath placement MILD HEMATOMA Discharge Disposition: Home Discharge Instruct/Medications Diet: Renal Activity: Light activity Follow Up/Referral: F/U with crusher machine operator for dyalisis Medications: resume home meds except plavix, confirm tomorrow when to restart Discharge Statement: "Patient was advised to return to the ER or call 911 if any headaches, dizziness, shortness of breath, chest pain, abdominal pain, bleeding, fevers, or worsening of medical condition. Patient was counseled about treatment plan, medications, possible side effects, patientverbalized understanding. All questions were answered to the best of my ability. This discharge took greater then 30 minutes in planning, reviewing documentation, counseling the patient, and discussing with other team members." ASSESSMENT ASSESSMENT Assessment s/p TD Cath placement MILD HEMATOMA Date of Service: Mar 03, 2024 Billing Provider: DEL BUNCH MD Common Visit Codes: 24587-RLS/OBS DISCH DAY <30MIN DEL BUNCH MD Mar 03, 2024 15:01
== END 2024-03-03 13:50 | disposition home or self-care (01) | DRG 919 ==
LOC: ER 08:25 → OVERFLOW 14:09 → CENTRAL 18:34
PROVIDERS: ATTEND Internal Medicine
PROC: 0JPTXXZ Removal of Tunneled Vascular Access Device from Trunk Subcutaneous Tissue and Fascia, External Approach (ICD-10-PCS; principal; 2024-03-02)
PROC: 0JH63XZ Insertion of Tunneled Vascular Access Device into Chest Subcutaneous Tissue and Fascia, Percutaneous Approach (ICD-10-PCS; 2024-03-02)
PROC: 02PYX3Z Removal of Infusion Device from Great Vessel, External Approach (ICD-10-PCS; 2024-03-02)
PROC: 02H633Z Insertion of Infusion Device into Right Atrium, Percutaneous Approach (ICD-10-PCS; 2024-03-02)
PROC: B5181ZA Fluoroscopy of Superior Vena Cava using Low Osmolar Contrast, Guidance (ICD-10-PCS; 2024-03-02)
PROC: B548ZZA Ultrasonography of Superior Vena Cava, Guidance (ICD-10-PCS; 2024-03-02)
DX: L76.32 Postprocedural hematoma of skin and subcutaneous tissue following other procedure (principal); N18.6 End stage renal disease; I13.2 Hypertensive heart and chronic kidney disease with heart failure and with stage 5 chronic kidney disease, or end stage renal disease; I50.22 Chronic systolic (congestive) heart failure; F41.9 Anxiety disorder, unspecified; E78.5 Hyperlipidemia, unspecified; I25.10 Atherosclerotic heart disease of native coronary artery without angina pectoris; E87.5 Hyperkalemia; Z88.5 Allergy status to narcotic agent; Z95.0 Presence of cardiac pacemaker; Z95.5 Presence of coronary angioplasty implant and graft; Z86.73 Personal history of transient ischemic attack (TIA), and cerebral infarction without residual deficits; Z99.2 Dependence on renal dialysis; Z79.899 Other long term (current) drug therapy
CPT/HCPCS: 36415; 36558; 77001; 80048; 80053; 85025; 85610; 85730; 99152; G0378; J2250; Q9967

== ENCOUNTER 2024-04-18 12:24 | Emergency (ER) | payer OTHER ==
[~2024-04-18] VITALS: Ht 149.9 cm; Wt 65.2 kg
[~2024-04-18 12:24] MED LIST changes: +ACET1CAP14 PO; -CLOP75TA28 PO
[2024-04-18 14:03] VITALS: BP 148/59; PULSE 86; RESP 16; TEMP 98.6; O2SAT 98
[2024-04-18] MEDS ORDERED: TRIA0.1P12 MT (14:19)
[2024-04-18] MEDS ORDERED: NYS5LQ MT (14:19)
[2024-04-18] MEDS ORDERED: LIDO2SOL26 MT (14:19)
--- NOTE | 2024-04-18 14:19 | ED.PDOC ---
Eye-HPI HPI Comments 78 year old F with hx of just of heart failure, coronary stent, hyperchole steremia, hypertension, bronchitis, pneumonia, anxiety presents for sore throat x 5 days. Was dx with strep and was rx ABx. Denies chest pain shortness of breath Denies inability to move neck, history of meningitis Denies difficulty swallowing nor persistent salivation Denies fevers chills night sweats Denies persistent cough, runny nose, congestion Denies loss of appetite, unintentional weight loss over the past 3 months Denies voice changes Denies history of asthma or seasonal allergies Chief Complaint: Sore Throat Time Seen by MD: 13:17 Primary Care Provider: [facility] Reviewed Notes: Nurses Notes, Medications, Allergies Allergies: Coded Allergies: Codeine (Verified Allergy, Unknown, 10/01/21) Home Meds Active Scripts Nystatin (Mouth-Throat) (Mycostatin (Mouth-Throat)) 500,000 Units/5 Ml Ss, 5 ML MT QID for 10 Days, #200 ML 0 Refills Prov:ARCHIE CHINCHILLA PELT DROPPER 04/18/24 Lidocaine HCl (Mouth-Throat) (Lidocaine HCl Viscous) 2 % Kristyn, 15 ML MT TIDPRN PRN for 2 Days, #200 ML 0 Refills Prov:ARCHIE CHINCHILLA PELT DROPPER 04/18/24 Triamcinolone Acetonide (Triamcinolone In Orabase) 0.1 % Pst, 1 APPLIC MT BID for 7 Days, #5 GRAMS 0 Refills Prov:ARCHIE CHINCHILLA PELT DROPPER 04/18/24 Acetaminophen (Tylenol) 325 Mg Cap, 325 MG PO Q6HR for 10 Days, #20 CAP Prov:CHACE KING RESIDENT 03/02/24 Reported Medications Trazodone Hcl (Trazodone Hcl) 50 Mg Tab, 50 MG PO HS, MG 10/09/23 Omeprazole (Omeprazole Dr) 40 Mg Cap, 40 MG PO DAILY, CAP 10/09/23 Atorvastatin Calcium (Lipitor) 20 Mg Tab, 1 TAB PO HS for HIGH CHOLESTEROL 08/18/23 Clonazepam (KlonoPIN TABLET) 0.5 Mg Tb, 1 TAB PO DAILY for SEIZURES 08/11/23 Nystatin (Mycostatin) 1 Applic Ap, 1 APPLIC TOP BID PRN for RASH Apply powder topically to affected area twice daily 04/08/23 Sevelamer Carbonate (Sevelamer Carbonate) 800 Mg Tab, 1 TAB PO TID for RENAL SUPPLEMENT 04/07/23 Losartan Potassium (Losartan Potassium) 25 Mg Tab, 1 TAB PO DAILY for HYPERTENSION 04/07/23 Docusate Sodium (DOCQLACE) 100 Mg Cap, 1 CAP PO BID PRN for FOR CONSTIPATION 11/24/20 Levothyroxine Sodium (Euthyrox) 50 Mcg Tab, 1 TAB PO DAILY for HYPOTHYROIDISM 11/24/20 Information Source: Patient Mode of Arrival: Ambulatory Past Medical History PAST MEDICAL HISTORY: Anxiety, ESRD, High Lipids, HTN Surgical History: Pacemaker, PTCA CHALKER SOLES History: Denies all CHALKER SOLES Hx Family History Family History: Reviewed,noncontributory to illness Social History Smoker: Non-Smoker Alcohol: Denies ETOH Use Drugs: Denies Drug Use Lives In: Home All Other Systems: Reviewed and Negative (per hpi) Physical Exam General Appearance: No Apparent Distress, Normal HEENT: Normal ENT Inspection, Pharynx Normal, TMs Normal Neck: Full Range of Motion, Non-Tender, Normal, Normal Inspection Respiratory: Chest Non-Tender, Lungs Clear, No Accessory Muscle Use, No Respiratory Distress, Normal Breath Sounds Cardiovascular: No Murmur, No Gallop, Regular Rate/Rhythm Breast Exam: Deferred Gastrointestinal: No Organomegaly, Non Tender, No Pulsatile Mass, Normal Bowel Sounds, Soft Genitalia: Deferred Pelvic: Deferred Rectal: Deferred Extremities: No calf tenderness, Normal capillary refill, Normal inspection, Normal range of motion, Non-tender, No pedal edema Musculoskeletal : Apperance: Normal Neurologic: Alert, global professional II-XII nml as Tested, No Motor Deficits, Normal Affect, Normal Mood, No Sensory Deficits Cerebellar Function: Normal Reflexes: Normal Skin: Dry, Normal Color, Warm Lymphatic: No Adenopathy Was a procedure done? Was a procedure done?: No EENT DIFF Eye: Other X-Ray, Labs, Meds, VS Vital Signs Date Time Temp Pulse Resp B/P (MAP) Pulse Ox O2 Delivery O2 Flow Rate FiO2 04/18/24 14:03 98.6 86 16 148/59 (88) 98 98.6 04/18/24 14:03 86 16 98 Room Air 04/18/24 12:54 98.6 86 16 148/59 (88) 98 X-Ray, Labs, Meds, VS Comment Presentation consistent with aphthous ulcer. No evidence of Kt's Angina, large abscess pocket, or other complications. Provided med for symtpoms. Advised on supportive cares. Patient informed to follow up with local provider if symptoms continue. Return to UC or go to ED if pain uncontrolled, drainage, high fevers, trouble swallowing, or other concerns. Advised Pt on supportive therapies, including avoidance of salty or sugary foods/coffee/citrus, refraining from biting inner cheeks, applidation of ice to lesions, gentle use of soft-bristle toothbrushes Instructed Pt to f/up w/ PCP or ETC should symptoms worsen or not improve. Pt verbally expressed understanding and all questions were addressed to Pt's satisfaction. Patient is stable for discharge at this time. External notes reviewed. Test results and diagnostic imaging interpreted. All diagnostic findings, discharge care, education and instructions provided Follow-up with PCP in 2 to 3 days Patient verbalized understanding and agreed to treatment plan Vital signs stable, afebrile, no acute distress noted Patient ambulatory with strong steady gait Advised to return precautions for any new or worsening symptoms, return to ER immediately for re-evaluation Patient is aware that the purpose of this visit was for an acute medical emergency requiring emergent stabilization. Chronic conditions, including malignancies have not been ruled out. Patient is instructed to follow up with PCP as directed and discharge instructions for continued care and workup. If unable to arrange follow-up, patient is to return to the emergency department for reassessment. Patient (parent or legal guardian if applicable) was given verbal and written discharge instructions and acknowledges understanding. Time of 1ST Reevaluation: 14:00 Reevaluation 1ST: Improved Patient Education/Counseling: Diagnosis, Treatment Family Education/Counseling: Diagnosis, Treatment Departure 1 Departure Time of Disposition: 14:15 Impression: Primary Impression: Oral thrush Additional Impression: Aphthous stomatitis Disposition: HOME / SELF CARE / HOMELESS Condition: Stable e-Prescriptions Nystatin (Mouth-Throat) (Mycostatin (Mouth-Throat)) 500,000 Units/5 Ml Ss 5 ML MT QID for 10 Days, #200 ML 0 Refills Prov: ARCHIE CHINCHILLA PELT DROPPER 04/18/24 Lidocaine HCl (Mouth-Throat) (Lidocaine HCl Viscous) 2 % Kristyn 15 ML MT TIDPRN PRN for 2 Days, #200 ML 0 Refills Prov: ARCHIE CHINCHILLA PELT DROPPER 04/18/24 Triamcinolone Acetonide (Triamcinolone In Orabase) 0.1 % Pst 1 APPLIC MT BID for 7 Days, #5 GRAMS 0 Refills Prov: ARCHIE CHINCHILLA NP 04/18/24 Critical Care Note Critical Care Time?: No Stability Stability form required: No Heart Score Heart Score: Heart Score Response (Comments) Value History N/A 0 EKG N/A 0 Age N/A 0 Risk Factors N/A 0 Troponin N/A 0 Total 0 ARCHIE CHINCHILLA NP Apr 18, 2024 14:19
== END 2024-04-18 14:24 | disposition home or self-care (01) ==
LOC: ER 12:24
DX: B37.0 Candidal stomatitis (principal); K12.0 Recurrent oral aphthae; I12.0 Hypertensive chronic kidney disease with stage 5 chronic kidney disease or end stage renal disease; N18.6 End stage renal disease; E78.00 Pure hypercholesterolemia, unspecified; F41.9 Anxiety disorder, unspecified; Z79.899 Other long term (current) drug therapy; Z95.5 Presence of coronary angioplasty implant and graft; Z95.0 Presence of cardiac pacemaker; Z88.5 Allergy status to narcotic agent

== ENCOUNTER 2024-04-22 13:01 | Emergency (ER) | payer OTHER ==
[~2024-04-22] VITALS: Ht 157.5 cm; Wt 64.0 kg
[~2024-04-22 13:01] MED LIST changes: +LIDO2SOL26 MT; +NYS5LQ MT; +TRIA0.1P12 MT
[2024-04-22 13:49] VITALS: BP 131/57; PULSE 89; RESP 20; TEMP 98.4; O2SAT 100
--- NOTE | 2024-04-22 14:15 | ED.PDOC ---
Eye-HPI HPI Comments A 78 YEAR OLD FEMALE PRESENTS TO THE ED WITH COMPLAINT OF SORE THROAT AND ORAL THRUSH. PATIENT STATES SHE HAS BEEN EXPERIENCING A SORE THROAT FOR THE PAST 1 WEEK AND ORAL THRUSH FOR THE PAST 4 DAYS. PATIENT REPORTS SHE WENT TO AN URGENT CARE 4 DAYS AGO WHERE THEY TOLD HER SHE HAD STREP THROAT AND WAS SENT TO THE ED FOR EVALUATION. PATIENT STATES SHE CAME TO THIS ED 4 DAYS AGO WHERE SHE ONLY RECEIVE A PRESCRIPTION FOR NYSTATIN, ORAL TRIAMCINOLONE, TYLENOL, AND 2% VISCOUS LIDOCAINE, BUT NOTES THERE HAS BEEN NO IMPROVEMENT IN HER SYMPTOMS. PATIENT DENIES FEVER, CHILLS, SHORTNESS OF BREATH, CHEST PAIN, ABDOMINAL PAIN, NAUSEA, VOMITING, HEADACHE, OR OTHER COMPLAINTS. NO OTHER SYMPTOMS OR MODIFYING FACTORS AT THIS TIME. PATIENT IS ALERT, ORIENTED X 4, AND HAS STEADY GAIT. Chief Complaint: Thrush Time Seen by MD: 13:35 Primary Care Provider: [facility] Reviewed Notes: Nurses Notes, Medications, Allergies Allergies: Coded Allergies: Codeine (Verified Allergy, Unknown, 10/01/21) Home Meds Active Scripts Ondansetron Odt 4MG Tab (ZOFRAN PO) 4 Mg Tb, 4 MG PO BID, #20 TAB ODT TAB-DISSOLVE IN MOUTH, THEN SWALLOW Prov:LETICIA BRO 04/22/24 Azithromycin (Azithromycin) 500 Mg Tab, 1 TAB PO DAILY, #5 TAB Prov:LETICIA BRO 04/22/24 Nystatin (Mouth-Throat) (Mycostatin (Mouth-Throat)) 500,000 Units/5 Ml Ss, 5 ML MT QID for 10 Days, #200 ML 0 Refills Prov:ARCHIE CHINCHILLA GAS ADJUSTER 04/18/24 Lidocaine HCl (Mouth-Throat) (Lidocaine HCl Viscous) 2 % Kristyn, 15 ML MT TIDPRN PRN for 2 Days, #200 ML 0 Refills Prov:ARCHIE CHINCHILLA GAS ADJUSTER 04/18/24 Triamcinolone Acetonide (Triamcinolone In Orabase) 0.1 % Pst, 1 APPLIC MT BID for 7 Days, #5 GRAMS 0 Refills Prov:ARCHIE CHINCHILLA GAS ADJUSTER 04/18/24 Acetaminophen (Tylenol) 325 Mg Cap, 325 MG PO Q6HR for 10 Days, #20 CAP Prov:CHACE KING RESIDENT 03/02/24 Reported Medications Trazodone Hcl (Trazodone Hcl) 50 Mg Tab, 50 MG PO HS, MG 10/09/23 Omeprazole (Omeprazole Dr) 40 Mg Cap, 40 MG PO DAILY, CAP 10/09/23 Atorvastatin Calcium (Lipitor) 20 Mg Tab, 1 TAB PO HS for HIGH CHOLESTEROL 08/18/23 Clonazepam (KlonoPIN TABLET) 0.5 Mg Tb, 1 TAB PO DAILY for SEIZURES 08/11/23 Nystatin (Mycostatin) 1 Applic Ap, 1 APPLIC TOP BID PRN for RASH Apply powder topically to affected area twice daily 04/08/23 Sevelamer Carbonate (Sevelamer Carbonate) 800 Mg Tab, 1 TAB PO TID for RENAL SUPPLEMENT 04/07/23 Losartan Potassium (Losartan Potassium) 25 Mg Tab, 1 TAB PO DAILY for HYPERTENSION 04/07/23 Docusate Sodium (DOCQLACE) 100 Mg Cap, 1 CAP PO BID PRN for FOR CONSTIPATION 11/24/20 Levothyroxine Sodium (Euthyrox) 50 Mcg Tab, 1 TAB PO DAILY for HYPOTHYROIDISM 11/24/20 Information Source: Patient Mode of Arrival: Ambulatory Timing: Days Duration: Since onset, Days Prehospital treatment: None Quality: Pain, Red Lids: Normal Conjunctiva: Normal Cornea: Normal Pupils: Normal EOM: Normal Fundus: Normal Slit lamp exam: Normal Anterior chamber: Normal Mouth Location: Tongue Mouth: Normal ENT Ear Exam: Normal, Normal, Normal Nose: Normal Sinuses: Normal Oropharynx: Normal Onset: Spontaneous Throat Exposed to: None History of: None Last Tetanus: Unknown Modifying factors: Nothing Associated signs and symptoms: Sore Throat Past Medical History PAST MEDICAL HISTORY: Anxiety, ESRD, High Lipids, HTN Surgical History: Pacemaker, PTCA CONTRACT SERVICEMAN History: Denies all CONTRACT SERVICEMAN Hx Family History Family History: Reviewed,noncontributory to illness Social History Smoker: Non-Smoker Alcohol: Denies ETOH Use Drugs: Denies Drug Use Lives In: Home Constitutional: denies: chills, diaphoresis, fatigue, fever, malaise, sweats, weakness, others EENTM: reports: throat pain, throat swelling, others (ORAL THRUSH); denies: blurred vision, double vision, ear bleeding, ear discharge, ear drainage, ear pain, ear ringing, eye pain, eye redness, hearing loss, mouth pain, mouth swelling, nasal discharge, nose bleeding, nose congestion, nose pain, photophobia, tearing, voice changes Respiratory: denies: cough, hemoptysis, orthopnea, SOB at rest, shortness of breath, SOB with excertion, stridor, wheezing, others Cardiovascular: denies: chest pain, dizzy spells, diaphoresis, Dyspnea on exertion, edema, irregular heart beat, left arm pain, lightheadedness, palpitations, PND, syncope, others Gastrointestinal: denies: abdomen distended, abdominal pain, blood streaked bowels, constipated, diarrhea, dysphagia, difficulty swallowing, hematemesis, melena, nausea, poor appetite, poor fluid intake, rectal bleeding, rectal pain, vomiting, others Genitourinary: denies: abnormal vagina bleeding, burning, dyspareunia, dysuria, flank pain, frequency, hematuria, incontinence, pain, , vagina discharge, urgency, others Neurological: denies: dizziness, fainting, headache, left sided numbness, left sided weakness, numbness, paresthesia, pre-existing deficit, right sided numbness, right sided weakness, seizure, speech problems, tingling, tremors, weakness, others Musculoskeletal: denies: back pain, gout, joint pain, joint swelling, muscle pain, muscle stiffness, neck pain, others Integumetry: denies: bruises, change in color, change in hair/nails, dryness, laceration, lesions, lumps, rash, wounds, others Allergic/Immunocompromised: denies: Difficulty Healing, Frequent Infections, Hives, Itching, others Hematologic/Lymphatic: denies: anemia, blood clots, easy bleeding, easy bruising, swollen glands, others Endocrine: denies: excessive hunger, excessive sweating, excessive thirst, excessive urination, flushing, intolerance to cold, intolerance to heat, unexplained weight gain, unexplained weight loss, others Psychiatric: denies: anxiety, bipolar disorder, depression, hopeless, panic disorder, schizophrenia, sleepless, suicidal, others All Other Systems: Reviewed and Negative Physical Exam General Appearance: No Apparent Distress, Normal HEENT: PERRL/EOMI, Pharyngeal Erythema (MILD ERYTHEMA AND SWELLING ON TONSILIS, NO EXUDATE. WHITE THICKING THRUSH ON THE TONGUE. ), TMs Normal Neck: Full Range of Motion, Non-Tender, Normal, Normal Inspection Respiratory: Chest Non-Tender, Lungs Clear, No Accessory Muscle Use, No Respiratory Distress, Normal Breath Sounds Cardiovascular: No Edema, No JVD, No Murmur, No Gallop, Normal Peripheral Pulses, Regular Rate/Rhythm Breast Exam: Deferred Gastrointestinal: No Organomegaly, Non Tender, No Pulsatile Mass, Normal Bowel Sounds, Soft Genitalia: Deferred Pelvic: Deferred Rectal: Deferred Extremities: No calf tenderness, Normal capillary refill, Normal inspection, Normal range of motion, Non-tender, No pedal edema Musculoskeletal : Apperance: Normal Neurologic: Alert, digital measurement advisor II-XII nml as Tested, No Motor Deficits, Normal Affect, Normal Mood, No Sensory Deficits Cerebellar Function: Normal Reflexes: Normal Skin: Dry, Normal Color, Warm Peripheral Pulses: 2+ carotid (R), 2+ carotid (L) Lymphatic: No Adenopathy Was a procedure done? Was a procedure done?: No EENT DIFF Eye: N/A Ear: Otitis Media, Pharyngitis, N/A Nose: N/A Mouth: Thrush Sore Throat: Pharyngitis, Streptococcal, Viral Pharyngitis, URI X-Ray, Labs, Meds, VS Vital Signs Date Time Temp Pulse Resp B/P (MAP) Pulse Ox O2 Delivery O2 Flow Rate FiO2 04/22/24 13:49 98.4 89 20 131/57 (81) 100 98.4 04/22/24 13:49 89 20 100 Room Air 04/22/24 13:07 98.4 89 20 131/57 (81) 100 Lab Test 04/22/24 14:14 Range/Units Group A Streptococcus Rapid Negative Current Medications Medications (Trade) Dose Ordered Sig/Abbey Route Start Time Stop Time Status Last Admin Ceftriaxone Sodium (Rocephin) 1,000 mg ONCE ONCE IM 04/22/24 14:15 04/22/24 14:16 DC 04/22/24 14:43 X-Ray, Labs, Meds, VS Comment EXTERNAL MEDICAL RECORDS REVIEWED: [NONE] INDEPENDENT HISTORIANS: [NONE] SOCIAL DETERMINANTS OF HEALTH: [NONE] LABS ORDERED: STREP A RAPID REVIEWED AND INTERPRETED RESULTS: NEGATIVE IMAGING ORDERED: NONE TREATMENTS ORDERED: ROCEPHIN 1 G IM PROCEDURES PERFORMED: NONE CRITICAL CARE TIME: NONE I HAVE DISCUSSED THE PATIENT WITH THE ATTENDING PHYSICIAN DR. AL AND HE AGREES WITH THE PATIENT'S PLAN OF CARE AND DISPOSITION. BASED ON HISTORY OF PRESENT ILLNESS, AND PHYSICAL EXAM, PATIENT WILL BE DISCHARGED HOME. SHARED DECISION MAKING: PATIENT INSTRUCTED TO FOLLOW UP WITH PRIMARY CARE PROVIDER IN 1-2 DAYS FOR RE-EVALUATION OF SYMPTOMS. PATIENT VERBALIZES UNDERSTANDING TO RETURN TO ED FOR NEW OR WORSENING SYMPTOMS OR IF FOLLOW UP WITH PCP CANNOT BE OBTAINED. PATIENT FEELS COMFORTABLE GOING HOME AT THIS TIME. ALL QUESTIONS ADDRESSED AT TIME OF DISCHARGE. Time of 1ST Reevaluation: 15:21 Reevaluation 1ST: Improved Patient Education/Counseling: Diagnosis, Treatment, Need For Follow Up Family Education/Counseling: Diagnosis, Treatment, Need For Follow Up Medical Screening: No EMC Exist At This Time Departure 1 Departure Time of Disposition: 15:21 Impression: Primary Impression: Acute tonsillitis Qualified Codes: J03.90 - Acute tonsillitis, unspecified Additional Impression: Oral candidiasis Disposition: HOME / SELF CARE / HOMELESS Condition: Stable Additional Instructions: FOLLOW-UP WITH PCP IN 1 TO 2 DAYS. TAKE MEDICATIONS PRESCRIBED. RETURN TO ED FOR ANY NEW OR WORSENING SYMPTOMS. e-Prescriptions Ondansetron Odt 4MG Tab (ZOFRAN PO) 4 Mg Tb 4 MG PO BID, #20 TAB ODT TAB-DISSOLVE IN MOUTH, THEN SWALLOW Prov: LETICIA BRO 04/22/24 Azithromycin (Azithromycin) 500 Mg Tab 1 TAB PO DAILY, #5 TAB Prov: LETICIA BRO 04/22/24 Discharged With: Self Critical Care Note Critical Care Time?: No Stability Stability form required: No I personally scribed for LETICIA BRO ([email or web address]) on 04/22/24 at 14:15. Electronically submitted by Harpal Rodriguez ([email or web address]). I personally scribed for LETICIA BRO ([email or web address]) on 04/22/24 at 15:02. Electronically submitted by Harpal Rodriguez ([email or web address]). LETICIA BRO Apr 22, 2024 14:15
[2024-04-22] MEDS: cefTRIAXone SOD 1,000 MG VL IM ONE (14:43)
[2024-04-22 14:44] LABS: Rapid Strep A Screen-Throat Negative
[2024-04-22] MEDS: LIDOCAINE 1% HCL (LOCAL ANESTH.) INJ 20ML MDV ONE (14:47)
[2024-04-22] MEDS ORDERED: AZIT500T66 PO (15:11)
[2024-04-22] MEDS ORDERED: ZOFR4T PO (15:11)
== END 2024-04-22 15:20 | disposition home or self-care (01) ==
LOC: ER 13:01
DX: J03.90 Acute tonsillitis, unspecified (principal); B37.0 Candidal stomatitis; I12.0 Hypertensive chronic kidney disease with stage 5 chronic kidney disease or end stage renal disease; N18.6 End stage renal disease; F41.9 Anxiety disorder, unspecified; Z79.899 Other long term (current) drug therapy; Z95.0 Presence of cardiac pacemaker; Z98.890 Other specified postprocedural states; Z88.5 Allergy status to narcotic agent
CPT/HCPCS: 87070; 87880; 96372; 99283; J0696; J2003

== ENCOUNTER → 2024-04-26 | Outpatient (CLI) | payer OTHER ==
[~2024-04-26] MED LIST changes: +AZIT500T66 PO; +ZOFR4T PO
[2024-04-26 12:41] LABS: Albumin 4.2 g/dL (3.2-4.8); Alkaline Phosphatase 73 U/L (46-116); Anion Gap 13 (5-15); Aspartate Aminotransferase 15 U/L (13-40); Bilirubin, Total 0.3 mg/dL (0.2-1.0); Calcium 9.2 mg/dL (8.7-10.4); Carbon Dioxide 25 mmol/L (20-31); Chloride 101 mmol/L (98-107); Glucose 77 mg/dL (74-106); Potassium 4.6 mmol/L (3.5-5.1); Sodium 139 mmol/L (136-145); Total Protein 6.2 g/dL (5.7-8.2)
[2024-04-26 12:58] LABS: Alanine Aminotransferase < 9 U/L (7-40); Blood Urea Nitrogen 50 mg/dL (9-23)
== END | disposition home or self-care (01) ==
LOC: LAB 11:31
PROVIDERS: ATTEND Student in an Organized Health Care Education/Training Program
DX: I11.0 Hypertensive heart disease with heart failure (principal); I50.9 Heart failure, unspecified; E11.9 Type 2 diabetes mellitus without complications; E03.8 Other specified hypothyroidism
CPT/HCPCS: 36415; 80053; 84439; 84443

== ENCOUNTER 2024-04-29 15:51 | Inpatient (IN) | payer OTHER ==
[~2024-04-29] VITALS: Ht 149.9 cm; Wt 66.0 kg
[2024-04-29 17:48] LABS: Hematocrit 32.2 % (36.0-46.0); Hemoglobin 10.6 g/dL (12.2-16.2); Mean Corpuscular Hemoglobin 35.6 pg (28.0-32.0); Mean Corpuscular Hgb Conc. 32.9 g/dL (32.0-36.0); Platelet Count (auto) 52 10^3/uL (140-450); Red Blood Cells 2.98 10^6/uL (4.0-5.20); Red Cell Distribution Width 15.2 % (11.8-14.3)
[2024-04-29 17:52] LABS: Band Neutrophils % (manual) 0; Basophils % (manual) 0 (0.0-2.0); Blast Cells 0; Metamyelocytes % 0; Myelocytes % 0; Promyelocytes % 0; White Blood Cell 1.8 10^3/uL (4.4-10.8)
[2024-04-29 18:00] LABS: Chloride 102 mmol/L (98-107); Potassium 4.2 mmol/L (3.5-5.1); Sodium 137 mmol/L (136-145)
[2024-04-29 18:01] LABS: Anion Gap 8 (5-15); Calcium 8.8 mg/dL (8.7-10.4); Carbon Dioxide 27 mmol/L (20-31)
[2024-04-29 18:06] LABS: BUN/Creatinine Ratio 4.7 (10.0-20.0); Blood Urea Nitrogen 18 mg/dL (9-23); Glucose 85 mg/dL (74-106)
[2024-04-29 18:43] LABS: Eosinophils % (manual) 3 (0-7); Lymphocytes % (manual) 73 (10.0-50.0); Monocytes % (manual) 5 (0-12); Reactive Lymphocytes 1
[2024-04-29 18:44] LABS: Large Platelets FEW; Macrocytosis Moderate; Platelet Estimate Decreased
--- NOTE | 2024-04-29 19:21 | ED.PDOC ---
Eye-HPI HPI Comments Patient is a 70-year-old female who arrives the ED today for evaluation of continued and ongoing tooth and mouth pain concerns. Patient has multiple ulcerations on her lips in with the in her mouth. Patient states she has been at this facility multiple times and sent home with antibacterial mouthwashes and antibiotics, but states that nothing has been effective. Patient denies any fever nausea or vomiting. Patient has not followed up with the primary care provider and states that she may not have one. Vital signs were stable on arrival. Chief Complaint: Tooth Pain Time Seen by MD: 16:23 Primary Care Provider: STEPHANIE Reviewed Notes: Nurses Notes Allergies: Coded Allergies: Codeine (Verified Allergy, Unknown, 10/01/21) Home Meds Active Scripts Ondansetron Odt 4MG Tab (ZOFRAN PO) 4 Mg Tb, 4 MG PO BID, #20 TAB ODT TAB-DISSOLVE IN MOUTH, THEN SWALLOW Prov:LETICIA BRO 04/22/24 Azithromycin (Azithromycin) 500 Mg Tab, 1 TAB PO DAILY, #5 TAB Prov:LETICIA BRO 04/22/24 Nystatin (Mouth-Throat) (Mycostatin (Mouth-Throat)) 500,000 Units/5 Ml Ss, 5 ML MT QID for 10 Days, #200 ML 0 Refills Prov:ARCHIE CHINCHILLA NP 04/18/24 Lidocaine HCl (Mouth-Throat) (Lidocaine HCl Viscous) 2 % Kristyn, 15 ML MT TIDPRN PRN for 2 Days, #200 ML 0 Refills Prov:ARCHIE CHINCHILLA BUSINESS PLANNING ANALYST 04/18/24 Triamcinolone Acetonide (Triamcinolone In Orabase) 0.1 % Pst, 1 APPLIC MT BID for 7 Days, #5 GRAMS 0 Refills Prov:ARCHIE CHINCHILLA BUSINESS PLANNING ANALYST 04/18/24 Acetaminophen (Tylenol) 325 Mg Cap, 325 MG PO Q6HR for 10 Days, #20 CAP Prov:CHACE KING RESIDENT 03/02/24 Reported Medications Trazodone Hcl (Trazodone Hcl) 50 Mg Tab, 50 MG PO HS, MG 10/09/23 Omeprazole (Omeprazole Dr) 40 Mg Cap, 40 MG PO DAILY, CAP 10/09/23 Atorvastatin Calcium (Lipitor) 20 Mg Tab, 1 TAB PO HS for HIGH CHOLESTEROL 08/18/23 Clonazepam (KlonoPIN TABLET) 0.5 Mg Tb, 1 TAB PO DAILY for SEIZURES 08/11/23 Nystatin (Mycostatin) 1 Applic Ap, 1 APPLIC TOP BID PRN for RASH Apply powder topically to affected area twice daily 04/08/23 Sevelamer Carbonate (Sevelamer Carbonate) 800 Mg Tab, 1 TAB PO TID for RENAL SUPPLEMENT 04/07/23 Losartan Potassium (Losartan Potassium) 25 Mg Tab, 1 TAB PO DAILY for HYPERTENSION 04/07/23 Docusate Sodium (DOCQLACE) 100 Mg Cap, 1 CAP PO BID PRN for FOR CONSTIPATION 11/24/20 Levothyroxine Sodium (Euthyrox) 50 Mcg Tab, 1 TAB PO DAILY for HYPOTHYROIDISM 11/24/20 Information Source: Patient Mode of Arrival: Ambulatory Timing: Weeks Duration: Since onset Prehospital treatment: Treatment Quality: Pain, Red Mouth Location: Upper, Lower, Gums, Lips, Buccal membranes Onset: Spontaneous Past Medical History PAST MEDICAL HISTORY: Anxiety, ESRD, High Lipids, HTN Surgical History: Pacemaker, PTCA PLANT OPERATIONS MANAGER History: Denies all PLANT OPERATIONS MANAGER Hx Family History Family History: Reviewed,noncontributory to illness Social History Smoker: Non-Smoker Alcohol: Denies ETOH Use Drugs: Denies Drug Use Lives In: Home Constitutional: denies: chills, diaphoresis, fatigue, fever, malaise, sweats, weakness, others EENTM: reports: others (Multiple oral lesions); denies: blurred vision, double vision, ear bleeding, ear discharge, ear drainage, ear pain, ear ringing, eye pain, eye redness, hearing loss, mouth pain, mouth swelling, nasal discharge, nose bleeding, nose congestion, nose pain, photophobia, tearing, throat pain, throat swelling, voice changes Respiratory: denies: cough, hemoptysis, orthopnea, SOB at rest, shortness of breath, SOB with excertion, stridor, wheezing, others Cardiovascular: denies: chest pain, dizzy spells, diaphoresis, Dyspnea on exertion, edema, irregular heart beat, left arm pain, lightheadedness, palpitations, PND, syncope, others Gastrointestinal: denies: abdomen distended, abdominal pain, blood streaked bowels, constipated, diarrhea, dysphagia, difficulty swallowing, hematemesis, melena, nausea, poor appetite, poor fluid intake, rectal bleeding, rectal pain, vomiting, others Genitourinary: denies: abnormal vagina bleeding, burning, dyspareunia, dysuria, flank pain, frequency, hematuria, incontinence, pain, , vagina discharge, urgency, others Neurological: denies: dizziness, fainting, headache, left sided numbness, left sided weakness, numbness, paresthesia, pre-existing deficit, right sided numbn ess, right sided weakness, seizure, speech problems, tingling, tremors, weakness, others Musculoskeletal: denies: back pain, gout, joint pain, joint swelling, muscle pain, muscle stiffness, neck pain, others Integumetry: denies: bruises, change in color, change in hair/nails, dryness, laceration, lesions, lumps, rash, wounds, others Allergic/Immunocompromised: denies: Difficulty Healing, Frequent Infections, Hives, Itching, others Hematologic/Lymphatic: denies: anemia, blood clots, easy bleeding, easy bruising, swollen glands, others Endocrine: denies: excessive hunger, excessive sweating, excessive thirst, excessive urination, flushing, intolerance to cold, intolerance to heat, unexplained weight gain, unexplained weight loss, others Psychiatric: denies: anxiety, bipolar disorder, depression, hopeless, panic disorder, schizophrenia, sleepless, suicidal, others Physical Exam General Appearance: Mild Distress ( anxiety related to continued oral ulcer concerns.), Normal HEENT: TMs Normal, Other ( Patient has multiple ulcerations noted to upper and lower lip as well as gingiva and buccal mucosa. Varying levels of development.) Neck: Full Range of Motion, Non-Tender, Normal, Normal Inspection Respiratory: Chest Non-Tender, Lungs Clear, No Accessory Muscle Use, No Respiratory Distress, Normal Breath Sounds Cardiovascular: No Edema, No JVD, No Murmur, No Gallop, Normal Peripheral Pulses, Regular Rate/Rhythm Breast Exam: Deferred Gastrointestinal: No Organomegaly, Non Tender, No Pulsatile Mass, Normal Bowel Sounds, Soft Genitalia: Deferred Pelvic: Deferred Rectal: Deferred Extremities: No calf tenderness, Normal capillary refill, Normal inspection, Normal range of motion, Non-tender, No pedal edema Neurologic: Alert, No Motor Deficits, Normal Affect, Normal Mood, No Sensory Deficits Cerebellar Function: Normal Reflexes: Normal Skin: Dry, Normal Color, Warm Lymphatic: No Adenopathy Was a procedure done? Was a procedure done?: No EENT DIFF Eye: Allergic, Bacterial, Viral Mouth: Esophageal candidiasis, Immunodeficiency X-Ray, Labs, Meds, VS Vital Signs Date Time Temp Pulse Resp B/P (MAP) Pulse Ox O2 Delivery O2 Flow Rate FiO2 04/29/24 16:59 97.8 80 18 130/55 (80) 97 97.8 Lab Test 04/29/24 17:33 Range/Units White Blood Count 1.8 *L 4.4-10.8 10^3/uL Red Blood Count 2.98 L 4.0-5.20 10^6/uL Hemoglobin 10.6 L 12.2-16.2 g/dL Hematocrit 32.2 L 36.0-46.0 % Mean Corpuscular Volume 108.0 H 80.0-100.0 fL Mean Corpuscular Hemoglobin 35.6 H 28.0-32.0 pg Mean Corpuscular Hemoglobin Concent 32.9 32.0-36.0 g/dL Red Cell Distribution Width 15.2 H 11.8-14.3 % Platelet Count 52 L 140-450 10^3/uL Mean Platelet Volume 10.9 H 6.9-10.8 fL Neutrophils (%) (Auto) 37.0-80.0 % Lymphocytes (%) (Auto) 10.0-50.0 % Monocytes (%) (Auto) 0.0-12.0 % Basophils (%) (Auto) 0.0-2.0 % Neutrophils # (Auto) 1.6-8.6 10 ^3/uL Lymphocytes # (Auto) 0.4-5.4 10 ^3/uL Monocytes # (Auto) 0-1.3 10 ^3/uL Differential Total Cells Counted 100.0 100 Neutrophils % (Manual) 18 L 37.0-80.0 Band Neutrophils % (Manual) 0 Lymphocytes % (Manual) 73 H 10.0-50.0 Monocytes % (Manual) 5 0-12 Eosinophils % (Manual) 3 0-7 Basophils % (Manual) 0 0.0-2.0 Metamyelocytes % (manual) 0 Myelocytes % (Manual) 0 Promyelocytes % (Manual) 0 Blast Cells % (Manual) 0 Nucleated Red Blood Cells 2.0 % Reactive Lymphocytes 1 Platelet Estimate Decreased Large Platelets Few Macrocytosis Moderate Sodium Level 137 136-145 mmol/L Potassium Level 4.2 3.5-5.1 mmol/L Chloride Level 102 98-107 mmol/L Carbon Dioxide Level 27 20-31 mmol/L Anion Gap 8 5-15 Blood Urea Nitrogen 18 9-23 mg/dL Creatinine 3.84 #H 0.550-1.02 mg/dL Glomerular Filtration Rate Calc 11 >90 mL/min BUN/Creatinine Ratio 4.7 L 10.0-20.0 Serum Glucose 85 74-106 mg/dL Lactic Acid Level 1.2 0.4-2.0 mmol/L Calcium Level 8.8 8.7-10.4 mg/dL X-Ray, Labs, Meds, VS Comment All studies performed the ED were evaluated by me personally.Patient's laboratories revealed an anemia, elevated creatinine as well as a critical leukopenia. Patient may have kidney disease and should be evaluated by Nephrology as well as Infectious Disease to assess her poor response to outpatient oral antibiotics. Time of 1ST Reevaluation: 19:19 Reevaluation 1ST: Unchanged Consultation: PCP Patient Education/Counseling: Diagnosis, Treatment Family Education/Counseling: Diagnosis, Treatment Departure 1 Departure Time of Disposition: 19:19 Impression: Primary Impression: Leukopenia Additional Impressions: Acute renal disease Anemia Disposition: 09 ADMITTED INPATIENT Condition: Stable Discharged With: Self Critical Care Note Critical Care Time?: No Stability Stability form required: No Heart Score Heart Score: Heart Score Response (Comments) Value History N/A 0 EKG N/A 0 Age N/A 0 Risk Factors N/A 0 Troponin N/A 0 Total 0 JERRICA GORE [facility] Apr 29, 2024 19:21
[2024-04-29] MEDS: ONDANSETRON HCL 4 MG/2 ML VIAL IV ONE (20:33)
[2024-04-29] MEDS: MORPHINE SULFATE 4 MG/ML SYR/VIAL IV ONE (20:39)
[2024-04-29] MEDS ORDERED: HYDROcodone-ACET 5/325MG TAB PO PRN (20:45)
[2024-04-29] MEDS ORDERED: hydrALAZINE HCL 20 MG/ML VL IV PRN (20:45)
[2024-04-29] MEDS ORDERED: MORPHINE SULFATE INJ 2 MG/ml SYRG IV PRN (21:30)
[2024-04-29] MEDS ORDERED: NITROGLYCERIN 0.4 MG SL TAB SL PRN (21:30)
--- NOTE | 2024-04-29 21:57 | DVHHP2 ---
History of Present Illness Reason for Visit: Pancytopenia History of Present Illness The patient is a 70-year-old female with multiple past medical history including ESRD on hemodialysis, thyroid disease, hyperlipidemia, and hypertension presented to [facility] ED with complaint of oral lesions with kun re pain. Patient reports having multiple ulceration on her lips, mouth, feeling nauseated, getting worse that prompted this visit. Patient reports seen here at this facility multiple times and sent home with antibacterial mouthwashes and antibiotics, but nothing has been effective. Patient was seen and evaluated in the ED, laboratory data shows WBC 1.8, hemoglobin 10.6, hematocrit 32.2, platelets 84726, sodium 137, potassium 4.2, BUN 18, creatinine 3.84, GFR 11, glucose 85. Patient was given morphine sulfate 4 mg IV x1, please see medication orders section in the computer. On my assessment, patient denied chest pain, no headache, no dizziness, no shortness of breath, no nausea, no vomiting, no fever, no chills. Patient was admitted for further evaluation and medical management. Past Medical History Anxiety, ESRD, High Lipids, HTN, Thyroid, CAD, CHF Past Surgical History Pacemaker, PTCA Family History Reviewed, noncontributory to the management of this case. Past Social History The patient lives at home, denies smoking, alcohol or illicit drugs abuse. Review of Systems Constitutional: Yes: Weakness; No: Fever, Chills, Sweats, Malaise, Other Eyes: No: Pain, Vision change, Conjunctivae inflammation, Eyelid inflammation, Other, Redness ENT: Mouth pain, Other (Multiple oral lesions); No: Ear pain, Ear discharge, Nose pain, Nose discharge, Nose congestion, Mouth swelling, Throat pain, Throat swelling Respiratory: No: Cough, Dry, Shortness of breath, SOB with excertion, Wheezing, Hemoptysis, Pleuritic Pain, Sputum, Wheezing, Other Cardiovascular: Other (Right chest Port-A-Cath for hemodialysis); No: Chest Pain, Palpitations, Orthopnea, Paroxysmal Noc. Dyspnea, Edema, Lt Headedness Gastrointestinal: Nausea; No: Vomiting, Abdominal Pain, Diarrhea, Constipation, Melena, Hematochezia, Other Genitourinary: No Dysuria, No Frequency, No Incontinence, No Hematuria, No Retention, No Other Musculoskeletal: No: other, neck pain, shoulder pain, arm pain, back pain, hand pain, leg pain, foot pain Skin: No: Rash, Lesions, Jaundice, Bruising, Other Neurological: No: Weakness, Numbness, Incoordination, Change in speech, Confusion, Seizures, Other Allergies: Coded Allergies: Codeine (Verified Allergy, Unknown, 10/01/21) Medications Current Medications Medications Dose Ordered Sig/Abbey Route Start Time Stop Time Status Last Admin Dose Admin Levothyroxine Sodium 50 mcg QAM@0600 PO 04/30/24 06:00 UNV Amlodipine Besylate 5 mg DAILY PO 04/30/24 10:00 UNV Hydralazine HCl 10 mg Q6HP PRN IV 04/29/24 20:45 UNV Multivit/Ca Carb/ B Cmplx/FA/Prenat 1 tab DAILY PO 04/30/24 10:00 UNV Sevelamer HCl 800 mg TIDWM PO 04/30/24 08:00 UNV Famotidine 20 mg Q12HR IV 04/29/24 22:00 UNV Atorvastatin Calcium 10 mg HS PO 04/29/24 22:00 UNV Sodium Chloride 10 ml Q8HR IV 04/29/24 22:00 UNV Acetaminophen/ Hydrocodone Bitart 1 tab Q4HP PRN PO 04/29/24 20:45 UNV Ondansetron HCl 4 mg Q4HP PRN IV 04/29/24 20:45 UNV Docusate Sodium 100 mg BIDPRN PRN PO 04/29/24 20:45 UNV Acetaminophen 650 mg Q6HP PRN PO 04/29/24 20:45 UNV Exam Vital Signs Vital Signs Date Time Temp Pulse Resp B/P (MAP) Pulse Ox O2 Delivery O2 Flow Rate FiO2 04/29/24 21:00 81 14 101/50 04/29/24 20:00 98.3 96 98.3 04/29/24 19:50 Room Air* 0 21 General Appearance: Alert, Oriented X3, Cooperative, No acute distress HEENT: Atraumatic, PERRLA, EOMI, Mucous membr. moist/pink Respiratory: Clear to auscultation, Normal air movement Cardiovascular: Regular rate, Normal S1, Normal S2, No murmurs, Other (Pacemaker in place) Abdominal: Normal bowel sounds, Soft, No tenderness, No hepatospenomegaly, No masses Extremities: No clubbing, No cyanosis, No edema, Normal pulses, No tenderness/swelling Skin: No rashes, No breakdown, No significant lesion Neuro: Normal speech, Normal tone, Sensation intact, Cranial nerves 3-12 NL, Reflexes 2+, Other (Generalized weakness) Psych/Mental Status: Mental status NL, Mood NL Labs/Xrays Labs Test 04/29/24 17:33 Range/Units White Blood Count 1.8 *L 4.4-10.8 10^3/uL Red Blood Count 2.98 L 4.0-5.20 10^6/uL Hemoglobin 10.6 L 12.2-16.2 g/dL Hematocrit 32.2 L 36.0-46.0 % Mean Corpuscular Volume 108.0 H 80.0-100.0 fL Mean Corpuscular Hemoglobin 35.6 H 28.0-32.0 pg Mean Corpuscular Hemoglobin Concent 32.9 32.0-36.0 g/dL Red Cell Distribution Width 15.2 H 11.8-14.3 % Platelet Count 52 L 140-450 10^3/uL Mean Platelet Volume 10.9 H 6.9-10.8 fL Neutrophils (%) (Auto) 37.0-80.0 % Lymphocytes (%) (Auto) 10.0-50.0 % Monocytes (%) (Auto) 0.0-12.0 % Basophils (%) (Auto) 0.0-2.0 % Neutrophils # (Auto) 1.6-8.6 10 ^3/uL Lymphocytes # (Auto) 0.4-5.4 10 ^3/uL Monocytes # (Auto) 0-1.3 10 ^3/uL Differential Total Cells Counted 100.0 100 Neutrophils % (Manual) 18 L 37.0-80.0 Band Neutrophils % (Manual) 0 Lymphocytes % (Manual) 73 H 10.0-50.0 Monocytes % (Manual) 5 0-12 Eosinophils % (Manual) 3 0-7 Basophils % (Manual) 0 0.0-2.0 Metamyelocytes % (manual) 0 Myelocytes % (Manual) 0 Promyelocytes % (Manual) 0 Blast Cells % (Manual) 0 Nucleated Red Blood Cells 2.0 % Reactive Lymphocytes 1 Platelet Estimate Decreased Large Platelets Few Macrocytosis Moderate Sodium Level 137 136-145 mmol/L Potassium Level 4.2 3.5-5.1 mmol/L Chloride Level 102 98-107 mmol/L Carbon Dioxide Level 27 20-31 mmol/L Anion Gap 8 5-15 Blood Urea Nitrogen 18 9-23 mg/dL Creatinine 3.84 #H 0.550-1.02 mg/dL Glomerular Filtration Rate Calc 11 >90 mL/min BUN/Creatinine Ratio 4.7 L 10.0-20.0 Serum Glucose 85 74-106 mg/dL Lactic Acid Level 1.2 0.4-2.0 mmol/L Calcium Level 8.8 8.7-10.4 mg/dL Assessment/Plan Assessment/Plan Pancytopenia Anemia, unspecified Generalized weakness Anemia of chronic disease End-stage renal disease on hemodialysis Plan 1. Admit to telemetry unit 2. Breathing treatment 3. Pain control management 4. Management of fluids and electrolytes 5. Consultation for hematology/oncology/nephrology 6. Diagnostic tests chest x-ray 7. DVT prophylaxis-on SCDs 8. Repeat labs CBC, CMP in a.m. 9. Continue with current medical management 10. Treatment plan discussed with patient and RN. Patient verbalized understanding. Plan discussed with: Patient, Other (RN) My Orders Orders - HERBERT ROJO DNP Procedure Category Date Status Time Levothyroxine Tablet PHA 04/30/24 Logged (Synthroid Tablet) 06:00 Thyroid Stimulating LAB 04/29/24 In Process Hormone 20:44 Amlodipine Tablet PHA 04/30/24 Logged (Norvasc Tablet) 10:00 Hydralazine Injection PHA 04/29/24 Logged (Apresoline Inject 20:45 B-Complex W/ C & PHA 04/30/24 Logged Folic Tablet 10:00 Sevelamer (Renagel) PHA 04/30/24 Logged 08:00 Famotidine Injection PHA 04/29/24 Logged (Pepcid Injection) 22:00 *[facility] CONS 04/29/24 Transmitted -[place] 20:44 * Hematology/Oncology CONS 04/29/24 Transmitted Consult 20:44 B-Type Natriuretic LAB 04/29/24 In Process Peptide 20:44 Atorvastatin (Lipitor) PHA 04/29/24 Logged 22:00 Allergies LEFTY 04/29/24 In Process 20:44 Code Status CODE 04/29/24 Transmitted 20:44 Renal DIET 04/30/24 Transmitted Standard(2gna,3gk,Lopho) Breakfast Sodium Chloride Lock PHA 04/29/24 Logged (Saline Lock Ns) 22:00 Oxygen Per Hour RT 04/29/24 Transmitted 20:44 Hydrocodone-Acet PHA 04/29/24 Logged 5/325mg Tab (Max 20:45 Ondansetron Hcl PHA 04/29/24 Logged (Zofran) 20:45 Docusate Sodium PHA 04/29/24 Logged Capsule (Colace 20:45 Complete Blood Count LAB 04/30/24 Verified 04:00 Comprehensive LAB 04/30/24 Verified Metabolic Panel 04:00 Condition: Serious LEFTY 04/29/24 In Process 20:44 Acetaminophen Tablet PHA 04/29/24 Logged (Tylenol Tablet) 20:45 Bedrest With Bathroom LEFTY 04/29/24 In Process Privileg 20:44 Sequential LEFTY 04/29/24 In Process Compression Device Admit ADMIT 04/29/24 Verified 21:21 Nitroglycerin [facility] 04/29/24 Verified Sublingual (Ntrostat 21:30 Morphine Sulfate PHA 04/29/24 Verified Injection 21:30 Stat Ekg For Chest [facility] 04/29/24 Verified Pain 21:21 Notify Md Of Changes [facility] 04/29/24 Verified From Base 21:21 Gate Supervisor For [facility] 04/29/24 Verified 24 Hours 21:21 Emergency Dysrhythmia [facility] 04/29/24 Verified Protocol 21:21 Rhythm Strips Once [facility] 04/29/24 Verified Every Shift 21:21 Oxygen By Nasal RT 04/29/24 Verified Cannula 21:21 Type And Screen BBK 04/29/24 Verified 21:21 Problem List: (1) Pancytopenia (2) Anemia of chronic disease (3) Generalized weakness (4) Anemia, unspecified (5) End stage renal disease on dialysis Date of Service: Apr 29, 2024 Billing Provider: HERBERT ROJO DNP Common Visit Codes: 32922-[id number] INP/OBS CARE (HIGH) HERBERT ROJO DNP Apr 29, 2024 21:57
[2024-04-29] MEDS: SODIUM CHLOR 0.9% PF (SALINE LOCK) 10ML VIAL/SYR IV SCH (22:00)
[2024-04-29] MEDS: ATORVASTATIN 20 MG TAB PO SCH (22:09)
[2024-04-29 23:12] VITALS: BP 141/62; PULSE 74; RESP 16; RESP 17; TEMP 97.4; O2SAT 98
[2024-04-30] VITALS (9 sets, daily range): BP systolic 97–187; BP diastolic 43–86; PULSE 63–102; RESP 16–17; TEMP 96.8–98.1; O2SAT 96–99
[2024-04-30] MEDS: ONDANSETRON HCL 4 MG/2 ML VIAL IV PRN (05:31)
[2024-04-30] MEDS: LEVOTHYROXINE SODIUM 50 MCG TAB PO SCH (05:54)
[2024-04-30 08:23] LABS: Hemoglobin 10.2 g/dL (12.2-16.2); Mean Corpuscular Volume 107.7 fL (80.0-100.0)
[2024-04-30 08:25] LABS: Hematocrit 29.6 % (36.0-46.0); Mean Corpuscular Hgb Conc. 34.3 g/dL (32.0-36.0); Platelet Count (auto) 89 10^3/uL (140-450); Red Blood Cells 2.75 10^6/uL (4.0-5.20); Red Cell Distribution Width 14.8 % (11.8-14.3); White Blood Cell 3.7 10^3/uL (4.4-10.8)
[2024-04-30 08:34] LABS: Basophils % (manual) 0 (0.0-2.0); Blast Cells 0; Metamyelocytes % 0; Myelocytes % 0; Promyelocytes % 0; Reactive Lymphocytes 0
[2024-04-30 08:43] LABS: Alanine Aminotransferase 10 U/L (7-40); Albumin 4.1 g/dL (3.2-4.8); Alkaline Phosphatase 76 U/L (46-116); Anion Gap 12 (5-15); Aspartate Aminotransferase 19 U/L (13-40); BUN/Creatinine Ratio 4.2 (10.0-20.0); Blood Urea Nitrogen 20 mg/dL (9-23); Calcium 9.1 mg/dL (8.7-10.4); Carbon Dioxide 26 mmol/L (20-31); Chloride 101 mmol/L (98-107); Glucose 74 mg/dL (74-106); Potassium 4.3 mmol/L (3.5-5.1); Sodium 139 mmol/L (136-145); Total Protein 6.2 g/dL (5.7-8.2)
[2024-04-30 08:44] LABS: Bilirubin, Total 0.3 mg/dL (0.2-1.0)
[2024-04-30] MEDS: SEVELAMER 800 MG TAB PO SCH (08:56)
[2024-04-30] MEDS: B-COMPLEX W/ C & FOLIC ACID(NEPHROVITE TAB) PO SCH (08:56)
[2024-04-30] MEDS: FAMOTIDINE (10MG/ML) 2ML VL IV SCH (08:57)
[2024-04-30] MEDS: DOCUSATE SOD 100 MG CAP PO PRN (08:57)
[2024-04-30] MEDS: amLODIPine BESYLATE 5 MG TAB PO SCH (08:57)
[2024-04-30 09:27] LABS: Band Neutrophils % (manual) 2; Eosinophils % (manual) 3 (0-7); Lymphocytes % (manual) 75 (10.0-50.0); Monocytes % (manual) 6 (0-12)
[2024-04-30 09:28] LABS: Large Platelets FEW; Platelet Estimate Decrea
--- NOTE | 2024-04-30 15:23 | DVHINCON2 ---
Date of service: Apr 30, [address] Sweet Reason for Consultation Dysphagia oral ulcers History of Present Illness This 70-year-old female with a history of end-stage renal disease on hemodialysis thyroid problems hyperlipidemia hypertension presented to the emergency room with a oral lesions with severe pain unable to keep any food down because of severe dysphagia. And odynophagia Past Medical History Patient has history of renal failure patient has been at this hospital for multiple times with similar problems and has been given antibiotics antimicrobial mouthwashes etc. but has been having persistent symptoms denied an y hematemesis melena. Past Surgical History Pacemaker PTCa Family History: Diabetes mellitus 19 CHILD 19 CHILD Family History Noncontributory Social History Denies smoking or drinking Allergies: Coded Allergies: Codeine (Verified Allergy, Unknown, 10/01/21) Home Meds Active Scripts Ondansetron Odt 4MG Tab (ZOFRAN PO) 4 Mg Tb, 4 MG PO BID, #20 TAB ODT TAB-DISSOLVE IN MOUTH, THEN SWALLOW Prov:LETICIA BRO 04/22/24 Nystatin (Mouth-Throat) (Mycostatin (Mouth-Throat)) 500,000 Units/5 Ml Ss, 5 ML MT QID for 10 Days, #200 ML 0 Refills Prov:ARCHIE CHINCHILLA [facility] 04/18/24 Lidocaine HCl (Mouth-Throat) (Lidocaine HCl Viscous) 2 % Kristyn, 15 ML MT TIDPRN PRN for 2 Days, #200 ML 0 Refills Prov:ARCHIE CHINCHILLA [facility] 04/18/24 Triamcinolone Acetonide (Triamcinolone In Orabase) 0.1 % Pst, 1 APPLIC MT BID for 7 Days, #5 GRAMS 0 Refills Prov:ARCHIE CHINCHILLA [facility] 04/18/24 Acetaminophen (Tylenol) 325 Mg Cap, 325 MG PO Q6HR for 10 Days, #20 CAP Prov:CHACE KING RESIDENT 03/02/24 Reported Medications Atorvastatin Calcium (Lipitor) 20 Mg Tab, 1 TAB PO HS for HIGH CHOLESTEROL 08/18/23 Clonazepam (KlonoPIN TABLET) 0.5 Mg Tb, 1 TAB PO DAILY for SEIZURES 08/11/23 Nystatin (Mycostatin) 1 Applic Ap, 1 APPLIC TOP BID PRN for RASH Apply powder topically to affected area twice daily 04/08/23 Sevelamer Carbonate (Sevelamer Carbonate) 800 Mg Tab, 1 TAB PO TID for RENAL SUPPLEMENT 04/07/23 Losartan Potassium (Losartan Potassium) 25 Mg Tab, 1 TAB PO DAILY for HYPERTENSION 04/07/23 Docusate Sodium (DOCQLACE) 100 Mg Cap, 1 CAP PO BID PRN for FOR CONSTIPATION 11/24/20 Levothyroxine Sodium (Euthyrox) 50 Mcg Tab, 1 TAB PO DAILY for HYPOTHYROIDISM 11/24/20 Current Medications Current Medications Medications (Trade) Dose Ordered Sig/Abbey Route PRN Reason Start Time Stop Time Status Last Admin Levothyroxine Sodium (Synthroid Tablet) 50 mcg QAM@0600 PO 04/30/24 06:00 04/30/24 05:54 Amlodipine Besylate (Norvasc Tablet) 5 mg DAILY PO 04/30/24 10:00 04/30/24 08:57 Hydralazine HCl (Apresoline Injection) 10 mg Q6HP PRN IV SBP>150 04/29/24 20:45 Multivit/Ca Carb/ B Cmplx/FA/Prenat (Nephro-Adam Tablet) 1 tab DAILY PO 04/30/24 10:00 04/30/24 08:56 Sevelamer HCl (Renagel) 800 mg TIDWM PO 04/30/24 08:00 04/30/24 08:56 Famotidine (Pepcid Injection) 20 mg DAILY IV 04/30/24 10:00 04/30/24 08:57 Atorvastatin Calcium (Lipitor) 10 mg HS PO 04/29/24 22:00 04/29/24 22:09 Sodium Chloride (Saline Lock Ns) 10 ml Q8HR IV 04/29/24 22:00 04/30/24 13:31 Acetaminophen/ Hydrocodone Bitart ([place] 5/325MG Tab) 1 tab Q4HP PRN PO MODERATE PAIN (4-6 PAIN SCALE) 04/29/24 20:45 Ondansetron HCl (Zofran) 4 mg Q4HP PRN IV NAUSEA / VOMITING 04/29/24 20:45 04/30/24 10:08 Docusate Sodium (Colace Capsule) 100 mg BIDPRN PRN PO FOR CONSTIPATION 04/29/24 20:45 04/30/24 08:57 Acetaminophen (Tylenol Tablet) 650 mg Q6HP PRN PO PAIN SCALE 1-3 OR TEMP>100.4 04/29/24 20:45 Nitroglycerin (Ntrostat Sublingual) 0.4 mg Q5MINP PRN SL FOR CHEST PAIN 04/29/24 21:30 Morphine Sulfate 2 mg Q30M PRN IV FOR CHEST PAIN 04/29/24 21:30 Review of Systems Noncontributory Vital Signs Vital Signs Date Time Temp Pulse Resp B/P (MAP) Pulse Ox O2 Delivery O2 Flow Rate FiO2 04/30/24 12:48 97.8 86 17 115/45 (68) 96 97.8 04/30/24 08:00 Room Air* 0 21 Physical Exam Averagely built and nourished female in no acute distress vital signs stable HEENT examination no pallor or icterus, unable to see any obvious lesions now but patient has lot of food undigested in the mouth also saw unable to see at this time properly Lungs clear Cardiovascular unremarkable Abdomen soft no tenderness no rigidity no guarding slightly obese Bowel sounds normal no mass Extremities no edema Neuro grossly intact Labs/Diagnostic Data Labs Test 04/30/24 05:30 04/29/24 17:33 Range/Units White Blood Count 3.7 #L 4.4-10.8 10^3/uL Red Blood Count 2.75 L 4.0-5.20 10^6/uL Hemoglobin 10.2 L 12.2-16.2 g/dL Hematocrit 29.6 L 36.0-46.0 % Mean Corpuscular Volume 107.7 H 80.0-100.0 fL Mean Corpuscular Hemoglobin 37.0 H 28.0-32.0 pg Mean Corpuscular Hemoglobin Concent 34.3 32.0-36.0 g/dL Red Cell Distribution Width 14.8 H 11.8-14.3 % Platelet Count 89 L 140-450 10^3/uL Mean Platelet Volume 10.7 6.9-10.8 fL Neutrophils (%) (Auto) 37.0-80.0 % Lymphocytes (%) (Auto) 10.0-50.0 % Monocytes (%) (Auto) 0.0-12.0 % Basophils (%) (Auto) 0.0-2.0 % Neutrophils # (Auto) 1.6-8.6 10 ^3/uL Lymphocytes # (Auto) 0.4-5.4 10 ^3/uL Monocytes # (Auto) 0-1.3 10 ^3/uL Differential Total Cells Counted 100.0 100 Neutrophils % (Manual) 14 L 37.0-80.0 Band Neutrophils % (Manual) 2 Lymphocytes % (Manual) 75 H 10.0-50.0 Monocytes % (Manual) 6 0-12 Eosinophils % (Manual) 3 0-7 Basophils % (Manual) 0 0.0-2.0 Metamyelocytes % (manual) 0 Myelocytes % (Manual) 0 Promyelocytes % (Manual) 0 Blast Cells % (Manual) 0 Reactive Lymphocytes 0 Platelet Estimate Decrea Large Platelets Few Sodium Level 139 136-145 mmol/L Potassium Level 4.3 3.5-5.1 mmol/L Chloride Level 101 98-107 mmol/L Carbon Dioxide Level 26 20-31 mmol/L Anion Gap 12 5-15 Blood Urea Nitrogen 20 9-23 mg/dL Creatinine 4.74 H 0.550-1.02 mg/dL Glomerular Filtration Rate Calc 9 >90 mL/min BUN/Creatinine Ratio 4.2 L 10.0-20.0 Serum Glucose 74 74-106 mg/dL Calcium Level 9.1 8.7-10.4 mg/dL Total Bilirubin 0.3 0.2-1.0 mg/dL Aspartate Amino Transferase (AST) 19 13-40 U/L Alanine Aminotransferase (ALT) 10 7-40 U/L Alkaline Phosphatase 76 46-116 U/L Total Protein 6.2 5.7-8.2 g/dL Albumin 4.1 3.2-4.8 g/dL Nucleated Red Blood Cells 2.0 % Macrocytosis Moderate Lactic Acid Level 1.2 0.4-2.0 mmol/L B-Type Natriuretic Peptide 186.86 0-100 pg/mL Thyroid Stimulating Hormone (TSH) 5.31 H 0.55-4.78 uIU/mL Assessment 70-year-old female with a history of end-stage renal disease on dialysis thyroid problems hyperlipidemia hypertension came with oral lesions and severe aphasia as well as dysphagia and oral pain patient has multiple ulcerations in the lips mouth with nausea and dysphagia. Patient has been at this facility for multiple problems like these in the past she has got pancy[place] [address] formalin was about 10 Clinical impression oral lesions in mouth lesions possible herpetic lesions Other etiologies like CMV or even atypical Tiffany not be excluded Plan/Recommendation will recommend EGD evaluation and further workup and treatment accordingly Procedure risks benefits alternatives explained to the patient and agreeable for the same Thank you Dr. Willoughby Plan discussed with: Patient SHEELA WILLOUGHBY MD Apr 30, 2024 15:23
--- NOTE | 2024-04-30 15:28 | DVHPN2 ---
Subjective Seen and examined at bedside, spouse at bedside. Patient c/o oral vesicles and in her throat causing Odonophagia. Changes from previous H/P or p: No Changes Eyes: No Pain, No Vision change, No Conjunctivae inflammation, No Eyelid inflammation, No Other, No Redness ENT: No Ear pain, No Ear discharge, No Nose pain, No Nose discharge, No Nose congestion; Mouth pain; No Mouth swelling, No Throat pain, No Throat swelling; O ther (Multiple oral lesions) Cardiovascular: No Chest Pain, No Palpitations, No Orthopnea, No Paroxysmal Noc. Dyspnea, No Edema, No Lt Headedness; Other (Right chest Port-A-Cath for hemodialysis) Respiratory: No Cough, No Dry, No Shortness of breath, No SOB with excertion, No Wheezing, No Hemoptysis, No Pleuritic Pain, No Sputum, No Other Gastrointestinal: Nausea; No Vomiting, No Abdominal Pain, No Diarrhea, No Constipation, No Melena, No Hematochezia, No Other Genitourinary: No Dysuria, No Frequency, No Incontinence, No Hematuria, No Retention, No Other Musculoskeletal: No other, No neck pain, No shoulder pain, No arm pain, No back pain, No hand pain, No leg pain, No foot pain Skin: No Rash, No Lesions, No Jaundice, No Bruising, No Other Objective Vitals Vital Signs Date Time Temp Pulse Resp B/P (MAP) Pulse Ox O2 Delivery O2 Flow Rate FiO2 04/30/24 12:48 97.8 86 17 115/45 (68) 96 97.8 04/30/24 08:00 Room Air* 0 21 Intake/Output Intake and Output 04/30/24 07:00 Intake Total 400 ml Output Total 150 ml Balance 250 ml Intake Oral 400 ml Output Urine Total 150 ml Stool Total 0 ml Exam Gen: in bed NAD Chest: Left Dialysis Catheter Cvs: N S1/S2, RRR Resp: BLAE Abd: Soft, NT Rn Flight: AAO x 4 Medications Current Medications Medications Dose Ordered Sig/Abbey Route Start Time Stop Time Status Last Admin Dose Admin Levothyroxine Sodium 50 mcg QAM@0600 PO 04/30/24 06:00 04/30/24 05:54 50 MCG Amlodipine Besylate 5 mg DAILY PO 04/30/24 10:00 04/30/24 08:57 5 MG Hydralazine HCl 10 mg Q6HP PRN IV 04/29/24 20:45 Multivit/Ca Carb/ B Cmplx/FA/Prenat 1 tab DAILY PO 04/30/24 10:00 04/30/24 08:56 1 TAB Sevelamer HCl 800 mg TIDWM PO 04/30/24 08:00 04/30/24 08:56 800 MG Atorvastatin Calcium 10 mg HS PO 04/29/24 22:00 04/29/24 22:09 10 MG Sodium Chloride 10 ml Q8HR IV 04/29/24 22:00 04/30/24 13:31 10 ML Acetaminophen/ Hydrocodone Bitart 1 tab Q4HP PRN PO 04/29/24 20:45 Ondansetron HCl 4 mg Q4HP PRN IV 04/29/24 20:45 04/30/24 10:08 4 MG Docusate Sodium 100 mg BIDPRN PRN PO 04/29/24 20:45 04/30/24 08:57 100 MG Acetaminophen 650 mg Q6HP PRN PO 04/29/24 20:45 Nitroglycerin 0.4 mg Q5MINP PRN SL 04/29/24 21:30 Morphine Sulfate 2 mg Q30M PRN IV 04/29/24 21:30 Famotidine 40 mg DAILY IV 05/01/24 10:00 UNV Laboratory Results Laboratory Tests 04/30/24 05:30 Chemistry Test 04/29/24 17:33 04/30/24 05:30 Calcium Level 8.8 mg/dL (8.7-10.4) 9.1 mg/dL (8.7-10.4) Albumin 4.1 g/dL (3.2-4.8) Total Protein 6.2 g/dL (5.7-8.2) Cardiac Markers Test 04/29/24 17:33 B-Type Natriuretic Peptide 186.86 pg/mL (0-100) LFT Test 04/30/24 05:30 Alanine Aminotransferase (ALT) 10 U/L (7-40) Alkaline Phosphatase 76 U/L (46-116) Aspartate Amino Transferase (AST) 19 U/L (13-40) Total Bilirubin 0.3 mg/dL (0.2-1.0) HgA1c, TSH Test 04/29/24 17:33 Thyroid Stimulating Hormone (TSH) 5.31 uIU/mL (0.55-4.78) H Assessment/Plan Assessment/Plan Pancytopenia- Monitor, Check Hep Panel Anemia, unspecified- Monitor Odonophagia- EGD in AM Anemia of chronic disease End-stage renal disease on hemodialysis Goals of care discussion >17 mins FULL CODE Plan discussed with: Patient, Spouse My Orders Orders - DEL BUCNH MD Procedure Category Date Status Time Famotidine Injection PHA 05/01/24 Logged (Pepcid Injection) 10:00 * Gi Dvh Rejector CONS 04/30/24 Transmitted 15:18 Complete Blood Count LAB 05/01/24 Verified 04:00 Prothrombin Time W/ LAB 05/01/24 Verified INR 04:00 Partial LAB 05/01/24 Verified Thromboplastin Time 04:00 Clear Liq Diet DIET 04/30/24 Transmitted Dinner Npo After Midnight ORDERS 04/30/24 Transmitted Npo (Nothing By DIET 05/01/24 Transmitted Mouth) Diet Breakfast Comprehensive LAB 04/30/24 Logged Hepatitis Panel 15:18 Magic Mouthwash PHA 04/30/24 Logged Suspension (Majic 18:00 Discontinue Tele LEFTY 04/30/24 Verified 15:21 Date of Service: Apr 30, 2024 Billing Provider: DEL BUNCH MD Common Visit Codes: [id number] INP/OBS CARE(HIGH) Secondary Visit Codes: [id number] CARE PLAN 30 MINUTES DEL BUNCH MD Apr 30, 2024 15:28
[2024-04-30] MEDS: MAGIC MOUTHWASH 55 ML SUSP MT SCH (17:40)
[2024-04-30] MEDS: ACETAMINOPHEN 325 MG TAB PO PRN (23:44)
[2024-05-01] VITALS (8 sets, daily range): BP systolic 106–129; BP diastolic 44–50; PULSE 68–83; RESP 12–18; TEMP 97.6–98.4; O2SAT 94–100
[2024-05-01 06:08] LABS: Mean Corpuscular Hemoglobin 35.8 pg (28.0-32.0)
[2024-05-01 06:10] LABS: Hematocrit 29.7 % (36.0-46.0); Hemoglobin 9.7 g/dL (12.2-16.2); Mean Corpuscular Hgb Conc. 32.6 g/dL (32.0-36.0); Mean Corpuscular Volume 109.8 fL (80.0-100.0); Platelet Count (auto) 161 10^3/uL (140-450); Red Blood Cells 2.71 10^6/uL (4.0-5.20); Red Cell Distribution Width 15.6 % (11.8-14.3); White Blood Cell 2.8 10^3/uL (4.4-10.8)
[2024-05-01 06:41] LABS: Band Neutrophils % (manual) 0; Basophils % (manual) 0 (0.0-2.0); Blast Cells 0; Metamyelocytes % 0; Myelocytes % 0; Promyelocytes % 0; Reactive Lymphocytes 0
[2024-05-01 06:45] LABS: INR 1.31 (0.9-1.15); Partial Thromboplastin Time 39.2 SEC (24.5-34.5); Prothrombin Time 13.5 sec (9.3-11.8)
[2024-05-01] MEDS ORDERED: NALOXONE HCL 0.4 MG/ML VIAL ONE (07:05)
[2024-05-01] MEDS ORDERED: SODIUM CHLORIDE LOCK 10 ML ONE (07:06)
[2024-05-01] MEDS ORDERED: FLUMAZENIL 0.1 MG/ML INJ 10ML MDV IV ONE (07:06)
[2024-05-01 08:42] LABS: Eosinophils % (manual) 4 (0-7); Lymphocytes % (manual) 75 (10.0-50.0); Monocytes % (manual) 6 (0-12); Platelet Estimate Adequate
[2024-05-01] MEDS: LIDOCAINE VISCOUS 2% 15ML UD ONE (09:49)
[2024-05-01] MEDS: MIDAZOLAM HCL 5 MG/ML-1ML VIAL ONE (09:55)
[2024-05-01] MEDS: diphenhdrAMINE HCL 50 MG/1 ML VL ONE (09:55)
[2024-05-01] MEDS: fentaNYL CITRATE 100 MCG/2 ML VL ONE (09:55)
[2024-05-01] MEDS: FAMOTIDINE (10MG/ML) 2ML VL IV SCH (10:00)
--- NOTE | 2024-05-01 10:10 | DVHINCON2 ---
Date of service: May 01, [address] Sweet Reason for Consultation ESRD History of Present Illness Mrs. Mcnulty is a 70-year-old female history of ESRD on maintenance hemodialysis presented further evaluation and management of significant odynophagia was related to oral ulcers. Since hospital admission she has had symptomatic management of oral pain and gastroenterology consultation. Past Medical History ESRD Hypertension Anemia Secondary hyperparathyroidism Allergies: Coded Allergies: Codeine (Verified Allergy, Unknown, 10/01/21) Home Meds Active Scripts Ondansetron Odt 4MG Tab (ZOFRAN PO) 4 Mg Tb, 4 MG PO BID, #20 TAB ODT TAB-DISSOLVE IN MOUTH, THEN SWALLOW Prov:LETICIA BRO 04/22/24 Nystatin (Mouth-Throat) (Mycostatin (Mouth-Throat)) 500,000 Units/5 Ml Ss, 5 ML MT QID for 10 Days, #200 ML 0 Refills Prov:ARCHIE CHINCHILLA IN [employer] 04/18/24 Lidocaine HCl (Mouth-Throat) (Lidocaine HCl Viscous) 2 % Kristyn, 15 ML MT TIDPRN PRN for 2 Days, #200 ML 0 Refills Prov:ARCHIE CHINCHILLA IN [employer]OL S[employer]ENS[employer] AIDE 04/18/24 Triamcinolone Acetonide (Triamcinolone In Orabase) 0.1 % Pst, 1 APPLIC MT BID for 7 Days, #5 GRAMS 0 Refills Prov:ARCHIE CHINCHILLA IN [employer]OL SUSPENS[employer] AIDE 04/18/24 Acetaminophen (Tylenol) 325 Mg Cap, 325 MG PO Q6HR for 10 Days, #20 CAP Prov:CHACE KING RESIDENT 03/02/24 Reported Medications Atorvastatin Calcium (Lipitor) 20 Mg Tab, 1 TAB PO HS for HIGH CHOLESTEROL 08/18/23 Clonazepam (KlonoPIN TABLET) 0.5 Mg Tb, 1 TAB PO DAILY for SEIZURES 08/11/23 Nystatin (Mycostatin) 1 Applic Ap, 1 APPLIC TOP BID PRN for RASH Apply powder topically to affected area twice daily 04/08/23 Sevelamer Carbonate (Sevelamer Carbonate) 800 Mg Tab, 1 TAB PO TID for RENAL SUPPLEMENT 04/07/23 Losartan Potassium (Losartan Potassium) 25 Mg Tab, 1 TAB PO DAILY for HYPERTENSION 04/07/23 Docusate Sodium (DOCQLACE) 100 Mg Cap, 1 CAP PO BID PRN for FOR CONSTIPATION 11/24/20 Levothyroxine Sodium (Euthyrox) 50 Mcg Tab, 1 TAB PO DAILY for HYPOTHYROIDISM 11/24/20 Current Medications Current Medications Medications (Trade) Dose Ordered Sig/Abbey Route PRN Reason Start Time Stop Time Status Last Admin Famotidine (Pepcid Injection) 40 mg DAILY IV 05/01/24 10:00 Al Hydrox/Mg Hydrox/Simethicone (Majic Mouthwash) 5 ml QID MT 04/30/24 18:00 05/01/24 05:38 Family History: Diabetes mellitus 19 CHILD 19 CHILD Review of Systems Denies fever, hematochezia, skin rash H&P Exam Vital Signs/I&O Vital Sign Date Time Temp Pulse Resp B/P (MAP) Pulse Ox O2 Delivery O2 Flow Rate FiO2 05/01/24 09:00 97.8 68 16 129/50 (76) 94 97.8 04/30/24 20:00 Room Air* 0 21 Intake and Output 04/30/24 05/01/24 19:00 07:00 Intake Total 240 ml 200 ml Balance 240 ml 200 ml Intake Oral 240 ml 200 ml # Voids 1 1 Physical Exam Gen: nad, appears stated age heent: nc/at, mmm lungs: cta anteriorly cvs: no rub abd: soft, bowel sounds audible ext: no edema skin: no rash neuro: alert and oriented Labs/Diagnostic Data Labs/Diagnostic Data Laboratory Tests Test 05/01/24 05:38 04/30/24 05:30 04/29/24 17:33 Range/Units White Blood Count 2.8 L 3.7 #L 1.8 *L 4.4-10.8 10^3/uL Red Blood Count 2.71 L 2.75 L 2.98 L 4.0-5.20 10^6/uL Hemoglobin 9.7 L 10.2 L 10.6 L 12.2-16.2 g/dL Hematocrit 29.7 L 29.6 L 32.2 L 36.0-46.0 % Mean Corpuscular Volume 109.8 H 107.7 H 108.0 H 80.0-100.0 fL Mean Corpuscular Hemoglobin 35.8 H 37.0 H 35.6 H 28.0-32.0 pg Mean Corpuscular Hemoglobin Concent 32.6 34.3 32.9 32.0-36.0 g/dL Red Cell Distribution Width 15.6 H 14.8 H 15.2 H 11.8-14.3 % Platelet Count 161 89 L 52 L 140-450 10^3/uL Mean Platelet Volume 9.5 10.7 10.9 H 6.9-10.8 fL Neutrophils (%) (Auto) 37.0-80.0 % Lymphocytes (%) (Auto) 10.0-50.0 % Monocytes (%) (Auto) 0.0-12.0 % Basophils (%) (Auto) 0.0-2.0 % Neutrophils # (Auto) 1.6-8.6 10 ^3/uL Lymphocytes # (Auto) 0.4-5.4 10 ^3/uL Monocytes # (Auto) 0-1.3 10 ^3/uL Differential Total Cells Counted 100.0 100.0 100.0 100 Neutrophils % (Manual) 15 L 14 L 18 L 37.0-80.0 Band Neutrophils % (Manual) 0 2 0 Lymphocytes % (Manual) 75 H 75 H 73 H 10.0-50.0 Monocytes % (Manual) 6 6 5 0-12 Eosinophils % (Manual) 4 3 3 0-7 Basophils % (Manual) 0 0 0 0.0-2.0 Metamyelocytes % (manual) 0 0 0 Myelocytes % (Manual) 0 0 0 Promyelocytes % (Manual) 0 0 0 Blast Cells % (Manual) 0 0 0 Nucleated Red Blood Cells 1.0 2.0 % Reactive Lymphocytes 0 0 1 Platelet Estimate Adequate Decrea Decreased Prothrombin Time 13.5 H 9.3-11.8 sec Prothrombin Time INR 1.31 H 0.9-1.15 Activated Partial Thromboplast Time 39.2 H 24.5-34.5 SEC Large Platelets Few Few Sodium Level 139 137 136-145 mmol/L Potassium Level 4.3 4.2 3.5-5.1 mmol/L Chloride Level 101 102 98-107 mmol/L Carbon Dioxide Level 26 27 20-31 mmol/L Anion Gap 12 8 5-15 Blood Urea Nitrogen 20 18 9-23 mg/dL Creatinine 4.74 H 3.84 #H 0.550-1.02 mg/dL Glomerular Filtration Rate Calc 9 11 >90 mL/min BUN/Creatinine Ratio 4.2 L 4.7 L 10.0-20.0 Serum Glucose 74 85 74-106 mg/dL Calcium Level 9.1 8.8 8.7-10.4 mg/dL Total Bilirubin 0.3 0.2-1.0 mg/dL Aspartate Amino Transferase (AST) 19 13-40 U/L Alanine Aminotransferase (ALT) 10 7-40 U/L Alkaline Phosphatase 76 46-116 U/L Total Protein 6.2 5.7-8.2 g/dL Albumin 4.1 3.2-4.8 g/dL Macrocytosis Moderate Lactic Acid Level 1.2 0.4-2.0 mmol/L B-Type Natriuretic Peptide 186.86 0-100 pg/mL Thyroid Stimulating Hormone (TSH) 5.31 H 0.55-4.78 uIU/mL Microbiology Date/Time Source Procedure Growth Status 04/30/24 01:06 Nose MRSA Screen - Final Complete Assessment IMP: 1) ESRD on dialysis 2) odynophagia related to oral ulcerations ? aphous ulcers 3) anemia 4) secondary hyperparathyroidism 5) hypertension REC: - tentatively for hemodialysis on May 02 - [facility] - BMP, CBC in a.m. - we will continue to follow for dialysis needs as inpatient. Thank you for the consultation. Plan discussed with: Other CHRISTINE GONZALEZ MD May 01, 2024 10:10
--- NOTE | 2024-05-01 10:42 | DVHOP2 ---
Operative Report DATE OF PROCEDURE: 05/01/24 INDICATIONS FOR THE PROCEDURE: Dysphagia, oral lesions unable to eat anything because of dysphagia PROCEDURE PERFORMED: 1. Esophagogastroduodenoscopy and biopsy with cold biopsy forceps POSTOPERATIVE DIAGNOSIS: 1 cm hiatal hernia Mild esophagitis in the distal esophagus close to the GE junction LA classification B no ulcers no bleeding no stricture biopsies taken with cold biopsy forceps No evidence of any lesions suggestive of HSV Tiffany or CMV, no evidence of eosinophilic esophagitis Mild antral gastritis with two tiny erosions biopsies taken with cold biopsy forceps Minimal duodenitis biopsies taken with cold biopsy forceps no ulcer seen no bleeding seen INFORMED CONSENT: The risks and benefits and alternatives were explained to the patient and informed consent was obtained. PROCEDURE IN DETAIL: The patient was kept NPO after midnight. In the endoscopy room, she was given IV fentanyl 50 mcg and Versed 4 mg, titrated slowly to get her sedated. Olympus gastroscope was passed through the oropharynx into the stomach and the duodenum, and the findings were as follows. Vocal cords: within normal without any ulcerations seen Esophagus: Hiatal hernia 1 cm with mild esophagitis LA classification B possibly from reflux biopsies taken with cold biopsy forceps No Esophageal ulcers suggestive of HSV Tiffany or CMV or any evidence of any eosinophilic esophagitis No Esophageal stricture Stomach: Fundus: Normal Body and antrum Erythematous streaks with couple of small tiny erosions suggestive of gastritis biopsies taken to ensure there is no H pylori or other pathology with cold biopsy forceps Pylorus normal Duodenum Mild nonspecific duodenitis biopsies taken with cold biopsy forceps to ensure no other pathology Endoscopic impression 1 cm hiatal hernia LA classification B esophagitis biopsies taken with cold biopsy forceps Level of any ulcerations in the esophagus was suggestive of HSV Tiffany or CMV or other pathology Mild antral gastritis with some tiny erosions biopsies taken with cold biopsy for to ensure there is no H pylori Mild nonspecific duodenitis biopsies taken with cold biopsy forceps Suggestions Await the biopsy results Symptomatic treatment with PPIs and mouth washes etc. Thank you for asking me to take part in the care of this pleasant patient SHEELA Campuzano MD May 01, 2024 10:41
--- NOTE | 2024-05-01 11:41 | DVHINCON2 ---
Date of service: May 01, [address] Sweet Reason for Consultation Pancytopenia History of Present Illness 78 years old female who has a history of end-stage renal disease and has been on dialysis, hypothyroidism, hyperlipidemia, hypertension, history of coronary artery disease and congestive heart failure. She has a pacemaker. She has not been feeling well for the last three weeks and has lost 10 lb of weight. She developed some sores in the mouth and had some difficulty swallowing with a feeling of nausea.. She has tried mouth washes and antibiotics at home. When she came to the hospital her white count was 1.8 hemoglobin 10.6 platelets 02168 creatinine 3.84 GFR 11 No difficulty breathing. No blood in the stools. No nausea vomiting. Her CBC from today showed a white count of 2.8 hemoglobin 9.7 platelets 161 15 some neutrophils 75% lymphocytes confirmed on the blood smear. MCV 109.8 She was taking Zofran, azithromycin, nystatin lidocaine and triamcinolone mouthwash. She has taken trazodone omeprazole atorvastatin clonazepam losartan levothyroxine at home She had an EGD today which showed 1 cm hiatal hernia, esophagitis classification B biopsies taken. Mild antral gastritis with some tiny erosions. Mild specific duodenitis no evidence of infection Past Medical History ESRD, hyperlipidemia, hypertension, congestive heart failure, coronary artery disease, pacemaker, hypothyroidism Family History: Diabetes mellitus 19 CHILD 19 CHILD Family History Unremarkable for malignancy or hematological disorders Social History No smoking, drinking or drugs Allergies: Coded Allergies: Codeine (Verified Allergy, Unknown, 10/01/21) Home Meds Active Scripts Ondansetron Odt 4MG Tab (ZOFRAN PO) 4 Mg Tb, 4 MG PO BID, #20 TAB ODT TAB-DISSOLVE IN MOUTH, THEN SWALLOW Prov:LETICIA BRO 04/22/24 Nystatin (Mouth-Throat) (Mycostatin (Mouth-Throat)) 500,000 Units/5 Ml Ss, 5 ML MT QID for 10 Days, #200 ML 0 Refills Prov:ARCHIE CHINCHILLA NP 04/18/24 Lidocaine HCl (Mouth-Throat) (Lidocaine HCl Viscous) 2 % Kristyn, 15 ML MT TIDPRN PRN for 2 Days, #200 ML 0 Refills Prov:ARCHIE CHINCHILLA NP 04/18/24 Triamcinolone Acetonide (Triamcinolone In Orabase) 0.1 % Pst, 1 APPLIC MT BID for 7 Days, #5 GRAMS 0 Refills Prov:RENÉEARCHIE F REDUCING SYSTEM OPERATOR 04/18/24 Acetaminophen (Tylenol) 325 Mg Cap, 325 MG PO Q6HR for 10 Days, #20 CAP Prov:CHACE KING RESIDENT 03/02/24 Reported Medications Atorvastatin Calcium (Lipitor) 20 Mg Tab, 1 TAB PO HS for HIGH CHOLESTEROL 08/18/23 Clonazepam (KlonoPIN TABLET) 0.5 Mg Tb, 1 TAB PO DAILY for SEIZURES 08/11/23 Nystatin (Mycostatin) 1 Applic Ap, 1 APPLIC TOP BID PRN for RASH Apply powder topically to affected area twice daily 04/08/23 Sevelamer Carbonate (Sevelamer Carbonate) 800 Mg Tab, 1 TAB PO TID for RENAL SUPPLEMENT 04/07/23 Losartan Potassium (Losartan Potassium) 25 Mg Tab, 1 TAB PO DAILY for HYPERTENSION 04/07/23 Docusate Sodium (DOCQLACE) 100 Mg Cap, 1 CAP PO BID PRN for FOR CONSTIPATION 11/24/20 Levothyroxine Sodium (Euthyrox) 50 Mcg Tab, 1 TAB PO DAILY for HYPOTHYROIDISM 11/24/20 Current Medications Current Medications Medications (Trade) Dose Ordered Sig/Abbey Route PRN Reason Start Time Stop Time Status Last Admin Famotidine (Pepcid Injection) 40 mg DAILY IV 05/01/24 10:00 Al Hydrox/Mg Hydrox/Simethicone (Majic Mouthwash) 5 ml QID MT 04/30/24 18:00 05/01/24 05:38 Vital Signs Vital Signs Date Time Temp Pulse Resp B/P (MAP) Pulse Ox O2 Delivery O2 Flow Rate FiO2 05/01/24 10:45 87 12 105/42 (63) 100 05/01/24 10:30 Room Air 0 100 05/01/24 10:20 98.4 98.4 Physical Exam Moderately built and nourished, in no acute distress, alert and oriented. No jaundice Head and neck: Unremarkable for any masses or neck nodes. She has one sore on the back of left palate No conjunctival or mucosal hemorrhage Lungs: Clear Cardiovascular: S1-S2 heard well Abdomen: No organomegaly, tenderness or ascites. Bowel sounds are present. Extremities: No clubbing edema cyanosis or calf tenderness. Skin: Unremarkable for petechia purpura ecchymosis Lymphadenopathy: None Neurological exam: No focal deficit Labs/Diagnostic Data Labs Test 05/01/24 05:38 04/30/24 05:30 04/29/24 17:33 Range/Units White Blood Count 2.8 L 4.4-10.8 10^3/uL Red Blood Count 2.71 L 4.0-5.20 10^6/uL Hemoglobin 9.7 L 12.2-16.2 g/dL Hematocrit 29.7 L 36.0-46.0 % Mean Corpuscular Volume 109.8 H 80.0-100.0 fL Mean Corpuscular Hemoglobin 35.8 H 28.0-32.0 pg Mean Corpuscular Hemoglobin Concent 32.6 32.0-36.0 g/dL Red Cell Distribution Width 15.6 H 11.8-14.3 % Platelet Count 161 140-450 10^3/uL Mean Platelet Volume 9.5 6.9-10.8 fL Neutrophils (%) (Auto) 37.0-80.0 % Lymphocytes (%) (Auto) 10.0-50.0 % Monocytes (%) (Auto) 0.0-12.0 % Basophils (%) (Auto) 0.0-2.0 % Neutrophils # (Auto) 1.6-8.6 10 ^3/uL Lymphocytes # (Auto) 0.4-5.4 10 ^3/uL Monocytes # (Auto) 0-1.3 10 ^3/uL Differential Total Cells Counted 100.0 100 Neutrophils % (Manual) 15 L 37.0-80.0 Band Neutrophils % (Manual) 0 Lymphocytes % (Manual) 75 H 10.0-50.0 Monocytes % (Manual) 6 0-12 Eosinophils % (Manual) 4 0-7 Basophils % (Manual) 0 0.0-2.0 Metamyelocytes % (manual) 0 Myelocytes % (Manual) 0 Promyelocytes % (Manual) 0 Blast Cells % (Manual) 0 Nucleated Red Blood Cells 1.0 % Reactive Lymphocytes 0 Platelet Estimate Adequate Prothrombin Time 13.5 H 9.3-11.8 sec Prothrombin Time INR 1.31 H 0.9-1.15 Activated Partial Thromboplast Time 39.2 H 24.5-34.5 SEC Large Platelets Few Sodium Level 139 136-145 mmol/L Potassium Level 4.3 3.5-5.1 mmol/L Chloride Level 101 98-107 mmol/L Carbon Dioxide Level 26 20-31 mmol/L Anion Gap 12 5-15 Blood Urea Nitrogen 20 9-23 mg/dL Creatinine 4.74 H 0.550-1.02 mg/dL Glomerular Filtration Rate Calc 9 >90 mL/min BUN/Creatinine Ratio 4.2 L 10.0-20.0 Serum Glucose 74 74-106 mg/dL Calcium Level 9.1 8.7-10.4 mg/dL Total Bilirubin 0.3 0.2-1.0 mg/dL Aspartate Amino Transferase (AST) 19 13-40 U/L Alanine Aminotransferase (ALT) 10 7-40 U/L Alkaline Phosphatase 76 46-116 U/L Total Protein 6.2 5.7-8.2 g/dL Albumin 4.1 3.2-4.8 g/dL Macrocytosis Moderate Lactic Acid Level 1.2 0.4-2.0 mmol/L B-Type Natriuretic Peptide 186.86 0-100 pg/mL Thyroid Stimulating Hormone (TSH) 5.31 H 0.55-4.78 uIU/mL Microbiology Date/Time Source Procedure Growth Status 04/30/24 01:06 Nose MRSA Screen - Final Complete Assessment 1. Pancytopenia with a history of renal failure on hemodialysis sores and dysphagia and weight loss of 10 lb, may rule out some viral infection herpetic infections, lack of B12 iron deficiency or folate deficiency, systemic lupus, HIV The patient had EGD and was found to have no clinical infection Patient does not give any history of alcohol May rule out the possibility of a bone marrow suppression. The patient's plate let count is improving and the hemoglobin is stable around 10 2. Renal failure on hemodialysis Three hypothyroidism 4. Hyperlipidemia 5. Hypertension 6. Coronary artery disease and congestive heart failure and a pacemaker Plan/Recommendation We will check for DARIO double-stranded DNA, leg B12 folate herpes simplex virus Continue his supportive care Plan discussed with: Patient CEASAR ALARCON MD May 01, 2024 11:41
[2024-05-01] MEDS ORDERED: SUCR1SUS26 PO (12:47)
[2024-05-01] MEDS ORDERED: PANT40TA2 PO (12:47)
[2024-05-01] MEDS ORDERED: MAGIC MT (12:47)
--- NOTE | 2024-05-01 12:52 | DVHDS2 ---
Discharge Summary Date of Admission Apr 29, 2024 at 21:21 Date of Discharge: May 01, 2024 Admitting Diagnosis Esophagitis Labs/Diagnostic Data: Laboratory Results Test 05/01/24 05:38 04/30/24 05:30 04/29/24 17:33 White Blood Count 2.8 10^3/uL (4.4-10.8) Red Blood Count 2.71 10^6/uL (4.0-5.20) Hemoglobin 9.7 g/dL (12.2-16.2) Hematocrit 29.7 % (36.0-46.0) Mean Corpuscular Volume 109.8 fL (80.0-100.0) Mean Corpuscular Hemoglobin 35.8 pg (28.0-32.0) Mean Corpuscular Hemoglobin Concent 32.6 g/dL (32.0-36.0) Red Cell Distribution Width 15.6 % (11.8-14.3) Platelet Count 161 10^3/uL (140-450) Mean Platelet Volume 9.5 fL (6.9-10.8) Neutrophils (%) (Auto) % (37.0-80.0) Lymphocytes (%) (Auto) % (10.0-50.0) Monocytes (%) (Auto) % (0.0-12.0) Basophils (%) (Auto) % (0.0-2.0) Neutrophils # (Auto) 10 ^3/uL (1.6-8.6) Lymphocytes # (Auto) 10 ^3/uL (0.4-5.4) Monocytes # (Auto) 10 ^3/uL (0-1.3) Differential Total Cells Counted 100.0 (100) Neutrophils % (Manual) 15 (37.0-80.0) Band Neutrophils % (Manual) 0 Lymphocytes % (Manual) 75 (10.0-50.0) Monocytes % (Manual) 6 (0-12) Eosinophils % (Manual) 4 (0-7) Basophils % (Manual) 0 (0.0-2.0) Metamyelocytes % (manual) 0 Myelocytes % (Manual) 0 Promyelocytes % (Manual) 0 Blast Cells % (Manual) 0 Nucleated Red Blood Cells 1.0 % Reactive Lymphocytes 0 Platelet Estimate Adequate Prothrombin Time 13.5 sec (9.3-11.8) Prothrombin Time INR 1.31 (0.9-1.15) Activated Partial Thromboplast Time 39.2 SEC (24.5-34.5) Large Platelets Few Sodium Level 139 mmol/L (136-145) Potassium Level 4.3 mmol/L (3.5-5.1) Chloride Level 101 mmol/L (98-107) Carbon Dioxide Level 26 mmol/L (20-31) Anion Gap 12 (5-15) Blood Urea Nitrogen 20 mg/dL (9-23) Creatinine 4.74 mg/dL (0.550-1.02) Glomerular Filtration Rate Calc 9 mL/min (>90) BUN/Creatinine Ratio 4.2 (10.0-20.0) Serum Glucose 74 mg/dL (74-106) Calcium Level 9.1 mg/dL (8.7-10.4) Total Bilirubin 0.3 mg/dL (0.2-1.0) Aspartate Amino Transferase (AST) 19 U/L (13-40) Alanine Aminotransferase (ALT) 10 U/L (7-40) Alkaline Phosphatase 76 U/L (46-116) Total Protein 6.2 g/dL (5.7-8.2) Albumin 4.1 g/dL (3.2-4.8) Macrocytosis Moderate Lactic Acid Level 1.2 mmol/L (0.4-2.0) B-Type Natriuretic Peptide 186.86 pg/mL (0-100) Thyroid Stimulating Hormone (TSH) 5.31 uIU/mL (0.55-4.78) Other Laboratory Tests 05/01/24 05:38 04/30/24 05:30 Brief Hx & Hospital Course: This 70-year-old female with a history of end-stage renal disease on hemodialysis thyroid problems hyperlipidemia hypertension presented to the emergency room with a oral lesions with severe pain unable to keep any food down because of severe dysphagia. And odynophagia Patient has history of renal failure patient has been at this hospital for multiple times with similar problems and has been given antibiotics antimicrobial mouthwashes etc. but has been having persistent symptoms denied any hematemesis melena. Patient underwent EGD, see report below. Patient will be discharged with Protonix, Carafate, and Magic Mouth Wash. Operations or Procedures Patient Name: Sonali Mcnulty Unit Number: [id number] Date of : 1945 Patient Status: Admitted Inpatient Attending Doctor: Olegario Valle Dnp Operative Report Operative Report DATE OF PROCEDURE: 05/01/24 INDICATIONS FOR THE PROCEDURE: Dysphagia, oral lesions unable to eat anything because of dysphagia PROCEDURE PERFORMED: 1. Esophagogastroduodenoscopy and biopsy with cold biopsy forceps POSTOPERATIVE DIAGNOSIS: 1 cm hiatal hernia Mild esophagitis in the distal esophagus close to the GE junction LA classification B no ulcers no bleeding no stricture biopsies taken with cold biopsy forceps No evidence of any lesions suggestive of HSV Tiffany or CMV, no evidence of eosinophilic esophagitis Mild antral gastritis with two tiny erosions biopsies taken with cold biopsy forceps Minimal duodenitis biopsies taken with cold biopsy forceps no ulcer seen no bleeding seen INFORMED CONSENT: The risks and benefits and alternatives were explained to the patient and informed consent was obtained. PROCEDURE IN DETAIL: The patient was kept NPO after midnight. In the endoscopy room, she was given IV fentanyl 50 mcg and Versed 4 mg, titrated slowly to get her sedated. Olympus gastroscope was passed through the oropharynx into the stomach and the duodenum, and the findings were as follows. Vocal cords: within normal without any ulcerations seen Esophagus: Hiatal hernia 1 cm with mild esophagitis LA classification B possibly from reflux biopsies taken with cold biopsy forceps No Esophageal ulcers suggestive of HSV Tiffany or CMV or any evidence of any eosinophilic esophagitis No Esophageal stricture Stomach: Fundus: Normal Body and antrum Erythematous streaks with couple of small tiny erosions suggestive of gastritis biopsies taken to ensure there is no H pylori or other pathology with cold biopsy forceps Pylorus normal Duodenum Mild nonspecific duodenitis biopsies taken with cold biopsy forceps to ensure no other pathology Endoscopic impression 1 cm hiatal hernia LA classification B esophagitis biopsies taken with cold biopsy forceps Level of any ulcerations in the esophagus was suggestive of HSV Tiffany or CMV or other pathology Mild antral gastritis with some tiny erosions biopsies taken with cold biopsy for to ensure there is no H pylori Mild nonspecific duodenitis biopsies taken with cold biopsy forceps Suggestions Await the biopsy results Symptomatic treatment with PPIs and mouth washes etc. Thank you for asking me to take part in the care of this pleasant patient Dr. Willoughby Condition at Discharge: Poor Final Diagnosis/Problems List Esophagitis ESRD on HD Pancytopenia- resolving Discharge Disposition: Home Discharge Instruct/Medications Diet: Renal Activity: Light activity Follow Up/Referral: Dr. Fartun GI for biopsy results Medications: See [facility] Discharge Statement: "Patient was advised to return to the ER or call 911 if any headaches, dizziness, shortness of breath, chest pain, abdominal pain, bleeding, fevers, or worsening of medical condition. Patient was counseled about treatment plan, medications, possible side effects, patientverbalized understanding. All questions were answered to the best of my ability. This discharge took greater then 30 minutes in planning, reviewing documentation, counseling the patient, and discussing with other team members." ASSESSMENT ASSESSMENT Assessment Date of Service: May 01, 2024 Billing Provider: DEL BUNCH MD Common Visit Codes: 19439-YHE/OBS DISCH DAY >30min DEL BUNCH MD May 01, 2024 12:52
[2024-05-02] MEDS ORDERED: SODIUM CHL 0.9% 1000 ML BAG XX ONE (07:00)
[2024-05-02 08:50] LABS: Hepatitis B Core Total AB Negative (Negative)
[2024-05-02 10:21] LABS: Hepatitis A Total Antibody Positive (Negative); Hepatitis B Surface Antibody Positive (Negative); Hepatitis B Surface Antigen Negative (Negative); Hepatitis C Antibody Negative (Negative)
== END 2024-05-01 15:07 | disposition home or self-care (01) | DRG 391 ==
LOC: ER 15:51 → OVERFLOW 21:21 → TELE-CENTR 22:42 → CENTRAL 04-30 15:40
PROVIDERS: ADMIT Internal Medicine; ATTEND Internal Medicine
PROC: 0DB78ZX Excision of Stomach, Pylorus, Via Natural or Artificial Opening Endoscopic, Diagnostic (ICD-10-PCS; 2024-05-01)
PROC: 0DB58ZX Excision of Esophagus, Via Natural or Artificial Opening Endoscopic, Diagnostic (ICD-10-PCS; 2024-05-01)
PROC: 0DB98ZX Excision of Duodenum, Via Natural or Artificial Opening Endoscopic, Diagnostic (ICD-10-PCS; principal; 2024-05-01 09:48)
DX: K20.90 Esophagitis, unspecified without bleeding (principal); N18.6 End stage renal disease; D61.818 Other pancytopenia; R47.01 Aphasia; I13.2 Hypertensive heart and chronic kidney disease with heart failure and with stage 5 chronic kidney disease, or end stage renal disease; K29.80 Duodenitis without bleeding; K25.9 Gastric ulcer, unspecified as acute or chronic, without hemorrhage or perforation; K29.70 Gastritis, unspecified, without bleeding; K44.9 Diaphragmatic hernia without obstruction or gangrene; D63.1 Anemia in chronic kidney disease; E03.9 Hypothyroidism, unspecified; E78.5 Hyperlipidemia, unspecified; E21.1 Secondary hyperparathyroidism, not elsewhere classified; R13.11 Dysphagia, oral phase; I50.9 Heart failure, unspecified; F41.9 Anxiety disorder, unspecified; I25.10 Atherosclerotic heart disease of native coronary artery without angina pectoris; Z88.5 Allergy status to narcotic agent; Z79.1 Long term (current) use of non-steroidal anti-inflammatories (NSAID); Z79.899 Other long term (current) drug therapy; Z99.2 Dependence on renal dialysis; Z83.3 Family history of diabetes mellitus; Z95.0 Presence of cardiac pacemaker
CPT/HCPCS: 36415; 43239; 80048; 80053; 83605; 83880; 84443; 85007; 85027; 85610; 85730; 86704; 86706; 86708; 86803; 86850; 86900; 86901; 87081; 87340; 96374; 96375; G0378; J2250; J2405; J3490

== ENCOUNTER 2024-06-28 05:12 | Emergency (ER) | payer OTHER ==
[~2024-06-28] VITALS: Ht 149.9 cm; Wt 66.1 kg
[~2024-06-28 05:12] MED LIST changes: -AZIT500T66 PO; -LIDO2SOL26 MT; +MAGIC MT; -NYS15PW TOP; -NYS5LQ MT; -OMEP-448 PO; +PANT40TA2 PO; +SUCR1SUS26 PO; -TRAZ-227 PO; -TRIA0.1P12 MT; -ZOFR4T PO
[2024-06-28] MEDS: FUROSEMIDE 40 MG/4 ML VIAL IV ONE (06:45)
--- NOTE | 2024-06-28 06:58 | ED.PDOC ---
History of Present Illness HPI Comments 78-year-old female with PMHx ESRD on Dialysis, HTN, Anxiety presents with a chief complaint of SOB at rest and with exertion x 2 days. Patient states that she receives dialysis Mondays, Wednesdays, and Fridays, and last had a full session yesterday. Patient mentions that for the past 2 days she has been feel ing increasingly SOB and is made worse with exertion (walking). Patient denies any chest pain, history of DVT, or other respiratory illnesses. Patient was informed that due to her current presentation, she would be staying with us in the hospital. Chief Complaint: Shortness of Breath Time Seen by MD: 06:27 Primary Care Provider: STEPHANIE Reviewed Notes: Medications, Allergies Allergies: Coded Allergies: Codeine (Verified Allergy, Unknown, 10/01/21) Home Meds Active Scripts Sucralfate (CARAFATE SUSP) 1 Gm/10 Ml Ss, 10 ML PO QID, #1200 ML 3 Refills Prov:DEL BUNCH MD 05/01/24 Pantoprazole Sodium Sesquihydr (Protonix) 40 Mg Tab, 40 MG PO BID for 30 Days, #60 TAB Prov:DEL BUNCH MD 05/01/24 Alum & Mag Hydrox-Simethicone (Magic Mouthwash) 80 Ml Ss, 5 ML MT QID for 14 Days, #120 ML Prov:DEL BUNCH MD 05/01/24 Acetaminophen (Tylenol) 325 Mg Cap, 325 MG PO Q6HR for 10 Days, #20 CAP Prov:CHACE KING RESIDENT 03/02/24 Reported Medications Atorvastatin Calcium (Lipitor) 20 Mg Tab, 1 TAB PO HS for HIGH CHOLESTEROL 08/18/23 Clonazepam (KlonoPIN TABLET) 0.5 Mg Tb, 1 TAB PO DAILY for SEIZURES 08/11/23 Sevelamer Carbonate (Sevelamer Carbonate) 800 Mg Tab, 1 TAB PO TID for RENAL SUPPLEMENT 04/07/23 Losartan Potassium (Losartan Potassium) 25 Mg Tab, 1 TAB PO DAILY for HYPERTENSION 04/07/23 Docusate Sodium (DOCQLACE) 100 Mg Cap, 1 CAP PO BID PRN for FOR CONSTIPATION 11/24/20 Levothyroxine Sodium (Euthyrox) 50 Mcg Tab, 1 TAB PO DAILY for HYPOTHYROIDISM 10/9/21 Information Source: Patient Mode of Arrival: Wheelchair Severity: Moderate Timing: Days Duration: Since onset Prehospital treatment: None Past Medical History PAST MEDICAL HISTORY: Anxiety, ESRD, High Lipids, HTN Surgical History: Pacemaker, [employer] DIRECTOR OF SALES MARKETING History: Denies all DIRECTOR OF SALES MARKETING Hx Family History Family History: Reviewed,noncontributory to illness Social History Smoker: Non-Smoker Alcohol: Denies ETOH Use Drugs: Denies Drug Use Lives In: Home Constitutional: denies: chills, diaphoresis, fatigue, fever, malaise, sweats, weakness, others EENTM: denies: blurred vision, double vision, ear bleeding, ear discharge, ear drainage, ear pain, ear ringing, eye pain, eye redness, hearing loss, mouth pain, mouth swelling, nasal discharge, nose bleeding, nose congestion, nose pain, photophobia, tearing, throat pain, throat swelling, voice changes, others Respiratory: reports: SOB at rest, shortness of breath, SOB with excertion; denies: cough, hemoptysis, orthopnea, stridor, wheezing, others Cardiovascular: denies: chest pain, dizzy spells, diaphoresis, Dyspnea on exertion, edema, irregular heart beat, left arm pain, lightheadedness, palpita tions, PND, syncope, others Gastrointestinal: denies: abdomen distended, abdominal pain, blood streaked edilberto wels, constipated, diarrhea, dysphagia, difficulty swallowing, hematemesis, melena, nausea, poor appetite, poor fluid intake, rectal bleeding, rectal pain, vomiting, others Genitourinary: denies: abnormal vagina bleeding, burning, dyspareunia, dysuria, flank pain, frequency, hematuria, incontinence, pain, , vagina discharge, urgency, others Neurological: denies: dizziness, fainting, headache, left sided numbness, left sided weakness, numbness, paresthesia, pre-existing deficit, right sided numbness, right sided weakness, seizure, speech problems, tingling, tremors, weakness, others Musculoskeletal: denies: back pain, gout, joint pain, joint swelling, muscle pain, muscle stiffness, neck pain, others Integumetry: denies: bruises, change in color, change in hair/nails, dryness, laceration, lesions, lumps, rash, wounds, others Allergic/Immunocompromised: denies: Difficulty Healing, Frequent Infections, Hives, Itching, others Hematologic/Lymphatic: denies: anemia, blood clots, easy bleeding, easy bruis ing, swollen glands, others Endocrine: denies: excessive hunger, excessive sweating, excessive thirst, exc essive urination, flushing, intolerance to cold, intolerance to heat, unexplained weight gain, unexplained weight loss, others Psychiatric: denies: anxiety, bipolar disorder, depression, hopeless, panic disorder, schizophrenia, sleepless, suicidal, others All Other Systems: Reviewed and Negative Physical Exam General Appearance: Moderate Distress, Normal HEENT: Normal ENT Inspection, Pharynx Normal, TMs Normal Neck: Full Range of Motion, Non-Tender, Normal, Normal Inspection Respiratory: Chest Non-Tender, Lungs Clear, No Accessory Muscle Use, No Respiratory Distress, Normal Breath Sounds Cardiovascular: No Edema, No JVD, No Murmur, No Gallop, Normal Peripheral Pulses, Regular Rate/Rhythm Breast Exam: Deferred Gastrointestinal: No Organomegaly, Non Tender, No Pulsatile Mass, Normal Bowel Sounds, Soft Genitalia: Deferred Pelvic: Deferred Rectal: Deferred Extremities: No calf tenderness, Normal capillary refill, Normal inspection, Normal range of motion, Non-tender, No pedal edema Musculoskeletal : Apperance: Normal Neurologic: Alert, assault amphibious vehicle officer II-XII nml as Tested, No Motor Deficits, Normal Affect, Normal Mood, No Sensory Deficits Cerebellar Function: NOT DONE Reflexes: NOT DONE Skin: Dry, Normal Color, Warm Peripheral Pulses: 3+ Radial (R), 3+ Radial (L) Lymphatic: No Adenopathy Was a procedure done? Was a procedure done?: No Differential Dx Considerations may include: Anemia Electrolyte imbalance X-Ray, Labs, Meds, VS Vital Signs Date Time Temp Pulse Resp B/P (MAP) Pulse Ox O2 Delivery O2 Flow Rate FiO2 06/28/24 08:44 97.9 85 18 167/76 (106) 95 97.9 06/28/24 07:02 98.5 79 18 160/73 (102) 93 98.5 06/28/24 05:47 98.2 80 16 160/70 (100) 96 98.2 Lab Test 06/28/24 07:07 Range/Units White Blood Count 5.6 4.4-10.8 10^3/uL Red Blood Count 3.44 L 4.0-5.20 10^6/uL Hemoglobin 11.8 L 12.2-16.2 g/dL Hematocrit 35.7 L 36.0-46.0 % Mean Corpuscular Volume 103.9 H 80.0-100.0 fL Mean Corpuscular Hemoglobin 34.4 H 28.0-32.0 pg Mean Corpuscular Hemoglobin Concent 33.1 32.0-36.0 g/dL Red Cell Distribution Width 15.7 H 11.8-14.3 % Platelet Count 131 L 140-450 10^3/uL Mean Platelet Volume 9.3 6.9-10.8 fL Neutrophils (%) (Auto) 65.0 37.0-80.0 % Lymphocytes (%) (Auto) 21.6 10.0-50.0 % Monocytes (%) (Auto) 9.2 0.0-12.0 % Eosinophils (%) (Auto) 3.4 0.0-7.0 % Basophils (%) (Auto) 0.8 0.0-2.0 % Neutrophils # (Auto) 3.6 1.6-8.6 10 ^3/uL Lymphocytes # (Auto) 1.2 0.4-5.4 10 ^3/uL Monocytes # (Auto) 0.5 0-1.3 10 ^3/uL Eosinophils # (Auto) 0.2 0-0.8 10 ^3/uL Basophils # (Auto) 0 0-0.2 10 ^3/uL Nucleated Red Blood Cells 0.0 % Sodium Level 141 136-145 mmol/L Potassium Level 4.6 3.5-5.1 mmol/L Chloride Level 106 98-107 mmol/L Carbon Dioxide Level 25 20-31 mmol/L Anion Gap 10 5-15 Blood Urea Nitrogen 47 H 9-23 mg/dL Creatinine 3.99 H 0.550-1.02 mg/dL Glomerular Filtration Rate Calc 11 >90 mL/min BUN/Creatinine Ratio 11.8 10.0-20.0 Serum Glucose 77 74-106 mg/dL Calcium Level 9.5 8.7-10.4 mg/dL Patient alert. Came in because of shortness a breath. Heart rate within normal limits. Saturation pristine on room air. Blood pressure slightly elevated. No leg swelling. She is on dialysis. Thursday. Was given clonidine for her blood pressure. No sign of distress. Reviewed her previous visit. Explained to the patient that she will need to follow up with her dialysis continue taking her medication. Was told to follow up with her primary care physician. Was told to come back if there is any problem. Time of 1ST Reevaluation: 06:27 (EXPLAINED TO THE PATIENT THAT THEY WILL BE STAYING WITH US IN THE HOSPITAL DUE TO CURRENT PRESENTATION. ) Reevaluation 1ST: Unchanged Time of 2ND Reevaluation: 06:57 Reevaluation 2ND: Improved Patient Education/Counseling: Diagnosis, Treatment Family Education/Counseling: No Family Present Departure 1 Departure Time of Disposition: 07:13 Impression: Primary Impression: Chronic kidney disease with end stage renal failure on dialysis Additional Impression: HTN (hypertension) Qualified Codes: I10 - Essential (primary) hypertension Disposition: HOME / SELF CARE / HOMELESS Condition: Good e-Prescriptions Clonidine Hydrochloride (Clonidine Hcl) 0.1 Mg Tab 1 TAB PO QPM for 5 Days, #5 TAB 2 Refills Prov: ERROL MONTES DE OCA MD 06/28/24 Discharged With: Self Comments 09:10 - SPOKE WITH PATIENT AND SPOUSE ABOUT FINDINGS/RESULTS AND THAT SINCE PATIENT IS NOT CURRENTLY SOB AND IS SATING WELL ON ROOM AIR, SHE WILL BE DISCHARGED HOME TO FOLLOW UP WITH HER PRIMARY CARE PROVIDER. PATIENT AND SPOUSE ARE IN AGREEMENT WITH THE PLAN. PATIENT WILL BE GIVEN ONE DOSE OF CLONIDINE PRIOR TO DISCHARGE. Critical Care Note Critical Care Time?: No Stability Stability form required: No Heart Score Heart Score: Heart Score Response (Comments) Value History N/A 0 EKG N/A 0 Age N/A 0 Risk Factors N/A 0 Troponin N/A 0 Total 0 I personally scribed for ERROL MONTES DE OCA MD ([email or web address]) on 06/28/24 at 06:58. Electronically submitted by Brennen Nova ([email or web address]). I personally scribed for ERROL MONTES DE OCA MD ([email or web address]) on 06/28/24 at 09:17. Electronically submitted by Brennen Nova ([email or web address]). ERROL MONTES DE OCA MD June 28, 2024 06:58
[2024-06-28 07:48] LABS: Basophils # (auto) 0 10 ^3/uL (0-0.2); Basophils % (auto) 0.8 % (0.0-2.0); Eosinophils # (auto) 0.2 10 ^3/uL (0-0.8); Eosinophils % (auto) 3.4 % (0.0-7.0); Hematocrit 35.7 % (36.0-46.0); Hemoglobin 11.8 g/dL (12.2-16.2); Lymphocytes # (auto) 1.2 10 ^3/uL (0.4-5.4); Lymphocytes % (auto) 21.6 % (10.0-50.0); Mean Corpuscular Hemoglobin 34.4 pg (28.0-32.0); Mean Corpuscular Hgb Conc. 33.1 g/dL (32.0-36.0); Mean Corpuscular Volume 103.9 fL (80.0-100.0); Monocytes # (auto) 0.5 10 ^3/uL (0-1.3); Monocytes % (auto) 9.2 % (0.0-12.0); Neutrophils # (auto) 3.6 10 ^3/uL (1.6-8.6); Platelet Count (auto) 131 10^3/uL (140-450); Red Blood Cells 3.44 10^6/uL (4.0-5.20); Red Cell Distribution Width 15.7 % (11.8-14.3); White Blood Cell 5.6 10^3/uL (4.4-10.8)
[2024-06-28 07:58] LABS: Chloride 106 mmol/L (98-107); Potassium 4.6 mmol/L (3.5-5.1); Sodium 141 mmol/L (136-145)
[2024-06-28 07:59] LABS: Anion Gap 10 (5-15); Calcium 9.5 mg/dL (8.7-10.4); Carbon Dioxide 25 mmol/L (20-31)
[2024-06-28 08:04] LABS: BUN/Creatinine Ratio 11.8 (10.0-20.0); Blood Urea Nitrogen 47 mg/dL (9-23); Glucose 77 mg/dL (74-106)
--- NOTE | 2024-06-28 08:23 | DVH ---
CHEST RADIOGRAPH Indication: sob Technique: Single frontal view of the chest was obtained Comparison: XY CHEST PORTABLE on DOS: 10/26/23 FINDINGS: Lines and Tubes: There is a left central venous catheter with its tip terminating in the right atrium . Dual-chamber pacemaker with right atrial and ventricular leads. Lungs: Bilateral interstitial prominence. Pleura: No effusion. No pneumothorax. Cardiomediastinal contours: Unremarkable Bones: No acute osseous abnormality. IMPRESSION: 1. Pulmonary congestion.
[2024-06-28] MEDS ORDERED: CLON0.1T PO (09:18)
[2024-06-28] MEDS: cloNIDine HCL 0.1 MG TAB PO ONE (09:29)
[2024-06-28 09:30] VITALS: BP 154/73; PULSE 75; RESP 16; TEMP 98; O2SAT 95
== END 2024-06-28 09:30 | disposition home or self-care (01) ==
LOC: ER 05:12
DX: I12.0 Hypertensive chronic kidney disease with stage 5 chronic kidney disease or end stage renal disease (principal); N18.6 End stage renal disease; F41.9 Anxiety disorder, unspecified; E78.5 Hyperlipidemia, unspecified; Z99.2 Dependence on renal dialysis; Z95.0 Presence of cardiac pacemaker; Z79.899 Other long term (current) drug therapy; Z88.5 Allergy status to narcotic agent
CPT/HCPCS: 36415; 71045; 80048; 85025

== ENCOUNTER 2024-07-02 12:13 | Inpatient (IN) | payer OTHER ==
[~2024-07-02] VITALS: Ht 149.9 cm; Wt 70.7 kg
[~2024-07-02 12:13] MED LIST changes: +CLON0.1T PO
--- NOTE | 2024-07-02 12:33 | ECG ---
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
--- NOTE | 2024-07-02 12:48 | ED.PDOC ---
SOB-HPI HPI Comments 78 year old female presents to the ED with chief complaint of SOB. Patient reports that she has been experiencing SOB since her last [facility] visit on 06/28/24. Patient relays that she was prescribed clonidine for her BP problems, but notes they have made her very drowsy and hallucinate when taking them. Patient denies any chest pain, headache, dizziness, N/V, cough, congestion, fever, or chills. Chief Complaint: Shortness of Breath Time Seen by MD: 12:26 Primary Care Provider: BROWN Reviewed notes: Nurses Notes, Medications, Allergies Information Source: Patient Mode of Arrival: Ambulatory Severity: Moderate Timing: Days Duration: Since onset Context: At Rest PE Risk Factors: None History of: None Prehospital treatment: None Modifying Factors: Nothing Associated Signs and Symptoms: None Past Medical History PAST MEDICAL HISTORY: Anxiety, ESRD, High Lipids, HTN Surgical History: Pacemaker, PTCA Surgical History (Other): AV Fistula in left arm MENTAL RETARDATION AIDE History: Denies all MENTAL RETARDATION AIDE Hx Family History Family History: Reviewed,noncontributory to illness Social History Smoker: Non-Smoker Alcohol: Denies ETOH Use Drugs: Denies Drug Use Lives In: Home Constitutional: denies: chills, diaphoresis, fatigue, fever, malaise, sweats, weakness, others EENTM: denies: blurred vision, double vision, ear bleeding, ear discharge, ear drainage, ear pain, ear ringing, eye pain, eye redness, hearing loss, mouth pain, mouth swelling, nasal discharge, nose bleeding, nose congestion, nose pain, photophobia, tearing, throat pain, throat swelling, voice changes, others Respiratory: reports: shortness of breath; denies: cough, hemoptysis, orthopnea, SOB at rest, SOB with excertion, stridor, wheezing, others Cardiovascular: denies: chest pain, dizzy spells, diaphoresis, Dyspnea on exertion, edema, irregular heart beat, left arm pain, lightheadedness, palpitations, PND, syncope, others Gastrointestinal: denies: abdomen distended, abdominal pain, blood streaked bowels, constipated, diarrhea, dysphagia, difficulty swallowing, hematemesis, melena, nausea, poor appetite, poor fluid intake, rectal bleeding, rectal pain, vomiting, others Genitourinary: denies: abnormal vagina bleeding, burning, dyspareunia, dysuria, flank pain, frequency, hematuria, incontinence, pain, , vagina discharge, urgency, others Neurological: denies: dizziness, fainting, headache, left sided numbness, left sided weakness, numbness, paresthesia, pre-existing deficit, right sided numbness, right sided weakness, seizure, speech problems, tingling, tremors, weakness, others Musculoskeletal: denies: back pain, gout, joint pain, joint swelling, muscle pain, muscle stiffness, neck pain, others Integumetry: denies: bruises, change in color, change in hair/nails, dryness, laceration, lesions, lumps, rash, wounds, others Allergic/Immunocompromised: denies: Difficulty Healing, Frequent Infections, Hives, Itching, others Hematologic/Lymphatic: denies: anemia, blood clots, easy bleeding, easy bruising, swollen glands, others Endocrine: denies: excessive hunger, excessive sweating, excessive thirst, excessive urination, flushing, intolerance to cold, intolerance to heat, unexplained weight gain, unexplained weight loss, others Psychiatric: denies: anxiety, bipolar disorder, depression, hopeless, panic disorder, schizophrenia, sleepless, suicidal, others All Other Systems: Reviewed and Negative Physical Exam General Appearance: Mild Distress, Moderate Distress, Obese HEENT: Normal ENT Inspection, PERRL/EOMI, Pharynx Normal, TMs Normal Neck: Full Range of Motion, Non-Tender, Normal, Normal Inspection Respiratory: Chest Non-Tender, Lungs Clear, No Accessory Muscle Use, No Respiratory Distress, Normal Breath Sounds Cardiovascular: No Edema, No JVD, No Murmur, No Gallop, Normal Peripheral Pulses, Regular Rate/Rhythm Breast Exam: Deferred Gastrointestinal: No Organomegaly, Non Tender, No Pulsatile Mass, Normal Bowel Sounds, Soft Genitalia: Deferred Pelvic: Deferred Rectal: Deferred Extremities: No calf tenderness, Normal capillary refill, Normal inspection, Normal range of motion, Non-tender, No pedal edema Musculoskeletal : Apperance: Normal 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 Was a procedure done?: No Differential Dx Differential Diagnosis: Anxiety, Bronchitis, CHF, COPD, Dysrhythmia, Hyponatrem ia, Myocardial infarction, Pneumonia, Pulmonary Embolism, URI X-Ray, Labs, Meds, VS Vital Signs Date Time Temp Pulse Resp B/P (MAP) Pulse Ox O2 Delivery O2 Flow Rate FiO2 07/02/24 16:47 72 16 98 Room Air 07/02/24 16:47 97.6 72 16 164/77 (106) 98 97.6 07/02/24 13:47 84 20 99 Room Air* 0 21 07/02/24 13:47 98.2 86 18 137/74 (95) 99 98.2 07/02/24 13:04 69 07/02/24 12:37 20 96 Room Air* 0 21 07/02/24 12:34 97.9 79 20 149/70 (96) 96 97.9 07/02/24 12:26 69 Lab Test 07/02/24 12:52 Range/Units White Blood Count 4.5 4.4-10.8 10^3/uL Red Blood Count 3.21 L 4.0-5.20 10^6/uL Hemoglobin 11.1 L 12.2-16.2 g/dL Hematocrit 33.5 L 36.0-46.0 % Mean Corpuscular Volume 104.3 H 80.0-100.0 fL Mean Corpuscular Hemoglobin 34.4 H 28.0-32.0 pg Mean Corpuscular Hemoglobin Concent 33.0 32.0-36.0 g/dL Red Cell Distribution Width 15.8 H 11.8-14.3 % Platelet Count 144 140-450 10^3/uL Mean Platelet Volume 9.0 6.9-10.8 fL Neutrophils (%) (Auto) 69.6 37.0-80.0 % Lymphocytes (%) (Auto) 20.2 10.0-50.0 % Monocytes (%) (Auto) 7.6 0.0-12.0 % Eosinophils (%) (Auto) 2.0 0.0-7.0 % Basophils (%) (Auto) 0.6 0.0-2.0 % Neutrophils # (Auto) 3.1 1.6-8.6 10 ^3/uL Lymphocytes # (Auto) 0.9 0.4-5.4 10 ^3/uL Monocytes # (Auto) 0.3 0-1.3 10 ^3/uL Eosinophils # (Auto) 0.1 0-0.8 10 ^3/uL Basophils # (Auto) 0 0-0.2 10 ^3/uL Nucleated Red Blood Cells 0.1 % D-Dimer, Quantitative 1.31 H 0.0-0.49 mg/L FEU Sodium Level 142 136-145 mmol/L Potassium Level 4.5 3.5-5.1 mmol/L Chloride Level 106 98-107 mmol/L Carbon Dioxide Level 27 20-31 mmol/L Anion Gap 9 5-15 Blood Urea Nitrogen 36 H 9-23 mg/dL Creatinine 3.64 H 0.550-1.02 mg/dL Glomerular Filtration Rate Calc 12 >90 mL/min BUN/Creatinine Ratio 9.9 L 10.0-20.0 Serum Glucose 82 74-106 mg/dL Calcium Level 9.2 8.7-10.4 mg/dL Magnesium Level 2.0 1.6-2.6 mg/dL Troponin I High Sensitivity 23 </=34 ng/L B-Type Natriuretic Peptide 893.19 0-100 pg/mL Thyroid Stimulating Hormone (TSH) 6.76 H 0.55-4.78 uIU/mL Chest XR:FINDINGS: Findings:. The heart and mediastinal contours are grossly unremarkable. There is a right-sided pacemaker with lead in right atrium and right ventricle. There is a left-sided hemodialysis catheter with tip in superior vena cava. There is no evidence of pleural disease. The lungs are clear. The bony structures of the chest are intact without fracture. IMPRESSION: 1. No evidence of acute disease. X-Ray, Labs, Meds, VS Comment COURSE IN THE EMERGENCY DEPARTMENT EVENTFUL PATIENT CAME IN BECAUSE OF SHORTNESS OF BREATH WAS SEEN IN THE HOSPITAL ON THURSDAY FEW DAYS AGO SHE IS 78 YEARS OLD AND HAVE MULTIPLE ISSUES INCLUDING HYPOTHYROIDISM HYPERTENSION RENAL FAILURE ON DIALYSIS AND HIGH CHOLESTEROL THE CHEST X-RAY IS NORMAL THE EKG SHOWS PACED AT 69 WITH LEFT BUNDLE-BRANCH BLOCK CBC 4500 WITH 69.6% NEUTROPHILS H&H 11 AND 33 THE MACROCYTOSIS D-DIMER ELEVATED AT 1.31 BNP GFR OF 12 MAGNESIUM 2.0 TROPONIN 23 TSH 6.76 BNP 893.19 PATIENT WILL BE ADMITTED FOR FURTHER CARE Images Reviewed?: Images reviewed and evaluated by me Time of 1ST Reevaluation: 13:26 Reevaluation 1ST: Unchanged Time of 2ND Reevaluation: 16:54 Reevaluation 2ND: Unchanged Patient Education/Counseling: Diagnosis, Treatment, Prognosis Family Education/Counseling: Diagnosis, Treatment, Prognosis, No Family Present Departure 1 Departure Time of Disposition: 16:56 Impression: Primary Impression: Generalized weakness Additional Impressions: Chronic kidney disease with end stage renal failure on dialysis Shortness of breath Macrocytosis Anemia of chronic disease CHF (congestive heart failure) Elevated d-dimer Disposition: ADMITTED INPATIENT Admit to: Tele Condition: Serious Critical Care Note Critical Care Time?: No Stability Stability form required: Yes Unstable for transfer: Telemetry monitoring (Telemetry monitoring required), Requires medication (Requires Med for stabilization) Heart Score Heart Score: Heart Score Response (Comments) Value History Slightly Suspicious 0 EKG Repolarization Disturb 1 Age >65 2 Risk Factors >3 or Hx ASHD 2 Troponin Normal limit 0 Total 5 I personally scribed for NEIDA BUSTOS MD ([email or web address]) on 07/02/24 at 12:48. Electronically submitted by Donavon Rust ([email or web address]). I personally scribed for NEIDA BUSTOS MD ([email or web address]) on 07/02/24 at 14:17. Electronically submitted by Donavon Rust ([email or web address]). NEIDA BUSTOS MD July 02, 2024 12:48
--- NOTE | 2024-07-02 13:31 | DVH ---
INDICATION: Shortness of breath TECHNIQUE: Frontal view of the chest. COMPARISON: XY CHEST PORTABLE on DOS: 06/28/24, XY CHEST PORTABLE on DOS: 10/26/23, XY CHEST PORTABLE on DOS: 10/08/23, XY CHEST XRAY 1 VIEW on DOS: 04/07/23, CHEST PORTABLE on DOS: 10/03/21 FINDINGS: Findings:. The heart and mediastinal contours are grossly unremarkable. There is a right-sided pacema ker with lead in right atrium and right ventricle. There is a left-sided hemodialysis catheter with t ip in superior vena cava. There is no evidence of pleural disease. The lungs are clear. The bony s tructures of the chest are intact without fracture. IMPRESSION: 1. No evidence of acute disease.
[2024-07-02 13:36] LABS: Basophils # (auto) 0 10 ^3/uL (0-0.2); Basophils % (auto) 0.6 % (0.0-2.0); Eosinophils # (auto) 0.1 10 ^3/uL (0-0.8); Hematocrit 33.5 % (36.0-46.0); Hemoglobin 11.1 g/dL (12.2-16.2); Lymphocytes # (auto) 0.9 10 ^3/uL (0.4-5.4); Lymphocytes % (auto) 20.2 % (10.0-50.0); Mean Corpuscular Hemoglobin 34.4 pg (28.0-32.0); Mean Corpuscular Volume 104.3 fL (80.0-100.0); Monocytes # (auto) 0.3 10 ^3/uL (0-1.3); Monocytes % (auto) 7.6 % (0.0-12.0); Neutrophils # (auto) 3.1 10 ^3/uL (1.6-8.6); Neutrophils % (auto) 69.6 % (37.0-80.0); Nucleated Red Blood Cells % 0.1 %; Platelet Count (auto) 144 10^3/uL (140-450); Red Blood Cells 3.21 10^6/uL (4.0-5.20); Red Cell Distribution Width 15.8 % (11.8-14.3); White Blood Cell 4.5 10^3/uL (4.4-10.8)
[2024-07-02 13:43] LABS: Chloride 106 mmol/L (98-107); Potassium 4.5 mmol/L (3.5-5.1); Sodium 142 mmol/L (136-145)
[2024-07-02 13:44] LABS: Anion Gap 9 (5-15); Carbon Dioxide 27 mmol/L (20-31)
[2024-07-02 13:45] LABS: Calcium 9.2 mg/dL (8.7-10.4)
[2024-07-02 13:47] VITALS: PULSE 84; RESP 20; O2SAT 99
[2024-07-02 13:49] LABS: BUN/Creatinine Ratio 9.9 (10.0-20.0); Glucose 82 mg/dL (74-106)
[2024-07-02 13:51] LABS: Blood Urea Nitrogen 36 mg/dL (9-23)
[2024-07-02] MEDS: SODIUM CHLORIDE 0.9% 1,000 ML IVB ONE (13:56)
[2024-07-02 17:45] VITALS: PULSE 80; RESP 16; O2SAT 99
[2024-07-02] MEDS ORDERED: ALBUTEROL SULF 2.5 MG/0.5ML(0.5%) NEB SOLN NEB PRN (17:45)
[2024-07-02] MEDS ORDERED: MORPHINE SULFATE INJ 2 MG/ml SYRG IV PRN (17:45)
[2024-07-02] MEDS ORDERED: NITROGLYCERIN 0.4 MG SL TAB SL PRN (17:45)
[2024-07-02 17:57] VITALS: O2SAT 97
--- NOTE | 2024-07-02 18:11 | DVH ---
Bilateral lower extremity venous duplex Clinical History: R/O DVT Comparison: None Technique: Duplex Doppler evaluation of the deep venous systems of both lower extremities from the common femora l veins to the popliteal veins including color Doppler and spectral/pulsed waveform analysis was perf ormed. Findings: RIGHT SIDE: The common femoral vein demonstrates appropriate compressibility and waveform variability. There is compressibility/patency of the great saphenous vein at the proximal thigh. The femoral vein demonstrates appropriate compressibility and waveform variability. The deep femoral vein demonstrates appropriate compressibility and waveform variability. The popliteal vein demonstrates appropriate compressibility and waveform variability. There is normal compressibility at the tibioperoneal trunk. LEFT SIDE: The common femoral vein demonstrates appropriate compressibility and waveform variability. There is compressibility/patency of the great saphenous vein at the proximal thigh. The femoral vein demonstrates appropriate compressibility and waveform variability. The deep femoral vein demonstrates appropriate compressibility and waveform variability. The popliteal vein demonstrates appropriate compressibility and waveform variability. There is normal compressibility at the tibioperoneal trunk. Impression: 1. No right or left femoropopliteal venous thrombosis.
--- NOTE | 2024-07-02 18:27 | DVHHP2 ---
History of Present Illness Reason for Visit: Shortness of breaths rule out PE History of Present Illness This is a 78 year old female with history of pacemaker, PTCA, ESRD, hyperlipidemia, hypertension, and anxiety presents to the ED with chief complaint of SOB. Patient reports that she has been experiencing SOB since her last [facility] visit on 06/28/24. Patient relays that she was prescribed clonidine for her BP problems, but notes they have made her very drowsy and hallucinate when taking them. The patient is concerned about her shortness of breath and would like to be further evaluated and treated. The patient will be admitted under hospitalist care to the telemetry unit for continuous monitoring. The patient denies headache, fever, cough, chills, blurred vision, chest pain, headache, dizziness, N/V, diarrhea, constipation and other associated symptoms. The plan has been discussed with the patient and primary RN in which all questions concerns have been addressed. Cardiovascular: HTN, hyperipidemia Psych: Anxiety Renal/: Chronic renal failure Past Surgical History PTCA Pacemaker Av fistula in left arm Temporary dialysis cath left upper chest Family History: None Smoke: No ALCOHOL: none Drugs: None Lives: with Family Domestic Violence: Neg Review of Systems Respiratory: Shortness of breath Other Drowsy Allergies: Coded Allergies: Codeine (Verified Allergy, Unknown, 10/01/21) Medications Current Medications Medications Dose Ordered Sig/[place]bey Route Start Time Stop Time Status Last Admin Dose Admin Acetaminophen 650 mg Q6HP PRN PO 07/02/24 17:45 Nitroglycerin 0.4 mg Q5MINP PRN SL 07/02/24 17:45 Morphine Sulfate 2 mg Q30M PRN IV 07/02/24 17:45 Albuterol 2.5 mg Q2HPRN PRN NEB 07/02/24 17:45 Heparin Sodium (Porcine) 5,000 units Q12HR SC 07/02/24 22:00 Exam Vital Signs Vital Signs Date Time Temp Pulse Resp B/P (MAP) Pulse Ox O2 Delivery O2 Flow Rate FiO2 07/02/24 17:57 97 Room Air* 0 21 07/02/24 16:47 72 16 07/02/24 16:47 97.6 164/77 (106) 97.6 General Appearance: Alert, Oriented X3, Cooperative, No acute distress HEENT: Atraumatic, PERRLA, Mucous membr. moist/pink Respiratory: Clear to auscultation, Normal air movement Cardiovascular: Normal S1, Normal S2, No murmurs, Other (Paced rhythm) Abdominal: Normal bowel sounds, Soft, No tenderness, No hepatospenomegaly, No masses Extremities: No clubbing, No cyanosis, No edema, Normal pulses, No tenderness/swelling Skin: No rashes, No breakdown Neuro: Normal gait, Normal speech, Strength at 5/5 X4 ext, Normal tone, Sensation intact, Cranial nerves 3-12 NL, Reflexes 2+ Psych/Mental Status: Mental status NL, Mood NL Labs/Xrays Labs Test 07/02/24 12:52 Range/Units White Blood Count 4.5 4.4-10.8 10^3/uL Red Blood Count 3.21 L 4.0-5.20 10^6/uL Hemoglobin 11.1 L 12.2-16.2 g/dL Hematocrit 33.5 L 36.0-46.0 % Mean Corpuscular Volume 104.3 H 80.0-100.0 fL Mean Corpuscular Hemoglobin 34.4 H 28.0-32.0 pg Mean Corpuscular Hemoglobin Concent 33.0 32.0-36.0 g/dL Red Cell Distribution Width 15.8 H 11.8-14.3 % Platelet Count 144 140-450 10^3/uL Mean Platelet Volume 9.0 6.9-10.8 fL Neutrophils (%) (Auto) 69.6 37.0-80.0 % Lymphocytes (%) (Auto) 20.2 10.0-50.0 % Monocytes (%) (Auto) 7.6 0.0-12.0 % Eosinophils (%) (Auto) 2.0 0.0-7.0 % Basophils (%) (Auto) 0.6 0.0-2.0 % Neutrophils # (Auto) 3.1 1.6-8.6 10 ^3/uL Lymphocytes # (Auto) 0.9 0.4-5.4 10 ^3/uL Monocytes # (Auto) 0.3 0-1.3 10 ^3/uL Eosinophils # (Auto) 0.1 0-0.8 10 ^3/uL Basophils # (Auto) 0 0-0.2 10 ^3/uL Nucleated Red Blood Cells 0.1 % D-Dimer, Quantitative 1.31 H 0.0-0.49 mg/L FEU Sodium Level 142 136-145 mmol/L Potassium Level 4.5 3.5-5.1 mmol/L Chloride Level 106 98-107 mmol/L Carbon Dioxide Level 27 20-31 mmol/L Anion Gap 9 5-15 Blood Urea Nitrogen 36 H 9-23 mg/dL Creatinine 3.64 H 0.550-1.02 mg/dL Glomerular Filtration Rate Calc 12 >90 mL/min BUN/Creatinine Ratio 9.9 L 10.0-20.0 Serum Glucose 82 74-106 mg/dL Calcium Level 9.2 8.7-10.4 mg/dL Magnesium Level 2.0 1.6-2.6 mg/dL Troponin I High Sensitivity 23 </=34 ng/L B-Type Natriuretic Peptide 893.19 0-100 pg/mL Thyroid Stimulating Hormone (TSH) 6.76 H 0.55-4.78 uIU/mL ORDERING PHYSICIAN: NEIDA BUSTOS MD PROCEDURE(s): CXRP - CHEST PORTABLE REASON: Shortness of breath ORDER NUMBER(s): [id number], ACCESSION NUMBER(s): [id number] INDICATION: Shortness of breath TECHNIQUE: Frontal view of the chest. COMPARISON: XY CHEST PORTABLE on DOS: 06/28/24, XY CHEST PORTABLE on DOS: 10/26/23, XY CHEST PORTABLE on DOS: 10/08/23, XY CHEST XRAY 1 VIEW on DOS: 04/07/23, CHEST PORTABLE on DOS: 10/03/21 FINDINGS: Findings:. The heart and mediastinal contours are grossly unremarkable. There is a right-sided pacemaker with lead in right atrium and right ventricle. There is a left-sided hemodialysis catheter with tip in superior vena cava. There is no evidence of pleural disease. The lungs are clear. The bony structures of the chest are intact without fracture. IMPRESSION: 1. No evidence of acute disease. ATED BY: DANIEL OSBORNE MD DICTATED DATE/TIME: 07/02/241328 SIGNED BY: DANIEL OSBORNE MD SIGNED DATE/TIME: 07/02/241328 CC: Assessment/Plan Assessment/Plan Shortness of breaths rule out PE--patient presents to ED with chief complaint of shortness of breaths since her last [facility] visit on 06/28/2024 ESRD dialysis M, W, F Admit to telemetry unit for continuous monitoring Reviewed CBC which is normal Reviewed BMP Reviewed D-dimer 1.31 Reviewed chest x-ray which is normal Ordered V/Q scan pending Ordered bilateral Doppler study pending Albuterol q.2h p.r.n. shortness of breath Heparin b.i.d. and SCD ESRD Consult Dr. Britton for hemodialysis arrangement Hypertension Resume BP medication Hold clonidine for now as patient states it made her very drowsy and hallucinate after taking them Continue to monitor Hyperlipidemia Continue atorvastatin Hypothyroidism TSH elevated at 6.76 Ordered free T3 and T4 pending Continue levothyroxine as prescribed-we will need to consider increasing dose ? CHF Reviewed BNP [address] Ellis senior project manager engineering as this is his patient Reconcile home medication DVT prophylaxis PUD prophylaxis continue Protonix p.o. Labs in a.m. Discussed plan of care with the patient and spouse at the bedside in which all questions concerns have been addressed Plan discussed with: Patient My Orders Orders - ABRIL HAGAN PER DIEM Procedure Category Date Status Time Free T3 LAB 07/02/24 In Process 17:33 Free T4 (Free LAB 07/02/24 In Process Thyroxine) 17:33 Nm Vq Scan NM 07/02/24 Logged 17:33 Bilat Lower Dvt US 07/02/24 Taken 17:33 Admit ADMIT 07/02/24 Transmitted 17:33 Renal DIET 07/02/24 Transmitted Standard(2gna,3gk,Lopho) Dinner Complete Blood Count LAB 07/03/24 Verified 04:00 Comprehensive LAB 07/03/24 Verified Metabolic Panel 04:00 Echo 2d Mode Cardiac US 07/02/24 Logged DOP 17:33 Condition: Fair LEFTY 07/02/24 In Process 17:33 Acetaminophen Tablet PHA 07/02/24 In Process (Tylenol Tablet) 17:45 Bedrest With Bathroom LEFTY 07/02/24 In Process Privileg 17:33 Sequential LEFTY 07/02/24 In Process Compression Device Nitroglycerin PHA 07/02/24 In Process Sublingual (Ntrostat 17:45 Morphine Sulfate PHA 07/02/24 In Process Injection 17:45 Stat Ekg For Chest LEFTY 07/02/24 In Process Pain 17:33 Notify Of Changes LEFTY 07/02/24 In Process From Base 17:33 Machine Sizer For LEFTY 07/02/24 In Process 24 Hours 17:33 Emergency Dysrhythmia LEFTY 07/02/24 In Process Protocol 17:33 Rhythm Strips Once LEFTY 07/02/24 In Process Every Shift 17:33 Oxygen By Nasal RT 07/02/24 Transmitted Cannula 17:33 Albuterol Medneb PHA 07/02/24 In Process (Ventolin Medneb) 17:45 Heparin Sodium PHA 07/02/24 In Process (Porcine) 22:00 Date of Service: July 02, 2024 Billing Provider: ABRIL HAGAN Common Visit Codes: [id number] INP/OBS CARE (HIGH) ABRIL HAGAN July 02, 2024 18:27
[2024-07-02] MEDS ORDERED: DOCUSATE SOD 100 MG CAP PO PRN (18:30)
[2024-07-02 19:10] VITALS: BP 142/70; PULSE 81; RESP 10; TEMP 97.6; O2SAT 97
[2024-07-02 19:44] VITALS: BP 140/46; PULSE 70; RESP 18; TEMP 98.9; O2SAT 97
[2024-07-02] MEDS ORDERED: ROPI5TAB20 PO (20:38)
[2024-07-02] MEDS: SUCRALFATE 1 GM/10 ML ORAL SUSP PO SCH (22:38)
[2024-07-02] MEDS: ATORVASTATIN 20 MG TAB PO SCH (22:41)
[2024-07-02] MEDS: PANTOPRAZOLE 40 MG TAB PO SCH (22:42)
[2024-07-02] MEDS: HEPARIN SODIUM (PORCINE) 5000 UNITS/ML 1ML VIAL SC SCH (22:46)
[2024-07-02] MEDS: hydrALAZINE HCL 20 MG/ML VL IV PRN (23:22)
[2024-07-03] VITALS (10 sets, daily range): BP systolic 140–171; BP diastolic 56–75; PULSE 67–85; RESP 16–20; TEMP 97.6–98.4; O2SAT 96–98
[2024-07-03] MEDS: ACETAMINOPHEN 325 MG TAB PO PRN (00:28)
[2024-07-03] MEDS: diphenhdrAMINE HCL 50 MG/1 ML VL IV ONE (04:29)
[2024-07-03] MEDS: LEVOTHYROXINE SODIUM 50 MCG TAB PO SCH (05:43)
[2024-07-03 07:46] LABS: Basophils # (auto) 0 10 ^3/uL (0-0.2); Basophils % (auto) 0.6 % (0.0-2.0); Eosinophils # (auto) 0.2 10 ^3/uL (0-0.8); Hemoglobin 11.5 g/dL (12.2-16.2); Lymphocytes # (auto) 1.6 10 ^3/uL (0.4-5.4); Monocytes # (auto) 0.4 10 ^3/uL (0-1.3); Neutrophils # (auto) 2.8 10 ^3/uL (1.6-8.6); Nucleated Red Blood Cells % 0.1 %
[2024-07-03 07:48] LABS: Eosinophils % (auto) 3.5 % (0.0-7.0); Hematocrit 33.9 % (36.0-46.0); Lymphocytes % (auto) 32.4 % (10.0-50.0); Mean Corpuscular Hemoglobin 34.9 pg (28.0-32.0); Mean Corpuscular Volume 102.7 fL (80.0-100.0); Monocytes % (auto) 7.6 % (0.0-12.0); Neutrophils % (auto) 55.9 % (37.0-80.0); Platelet Count (auto) 164 10^3/uL (140-450); Red Cell Distribution Width 16.1 % (11.8-14.3)
[2024-07-03 07:56] LABS: Alanine Aminotransferase 16 U/L (7-40); Albumin 4.4 g/dL (3.2-4.8); Anion Gap 11 (5-15); Aspartate Aminotransferase 20 U/L (13-40); BUN/Creatinine Ratio 11.1 (10.0-20.0); Calcium 9.7 mg/dL (8.7-10.4); Carbon Dioxide 24 mmol/L (20-31); Chloride 107 mmol/L (98-107); Potassium 4.3 mmol/L (3.5-5.1); Sodium 142 mmol/L (136-145); Total Protein 6.4 g/dL (5.7-8.2)
[2024-07-03 07:57] LABS: Bilirubin, Total 0.4 mg/dL (0.2-1.0)
[2024-07-03 07:59] LABS: Alkaline Phosphatase 143 U/L (46-116); Blood Urea Nitrogen 49 mg/dL (9-23); Glucose 73 mg/dL (74-106)
[2024-07-03] MEDS: SEVELAMER 800 MG TAB PO SCH (08:28)
[2024-07-03] MEDS: SODIUM CHL 0.9% 1000 ML BAG XX ONE (09:45)
[2024-07-03] MEDS: LOSARTAN POTASSIUM 25 MG TAB PO SCH (09:51)
--- NOTE | 2024-07-03 13:50 | DVHPN2 ---
Reviewed: Care Plan, H&P, Labs, Medications, Previous Orders, Radiology Changes from previous H/P or p: No Changes Respiratory: Shortness of breath Objective Vitals Vital Signs Date Time Temp Pulse Resp B/P (MAP) Pulse Ox O2 Delivery O2 Flow Rate FiO2 07/03/24 13:10 159/70 07/03/24 12:49 97.7 77 20 98 97.7 07/03/24 12:11 Room Air* 0 21 Intake/Output Intake and Output 07/03/24 07:00 Intake Total 400 ml Balance 400 ml Intake Oral 400 ml # Voids 1 Medications Current Medications Medications Dose Ordered Sig/[place] Route Start Time Stop Time Status Last Admin Dose Admin Acetaminophen 650 mg Q6HP PRN PO 07/02/24 17:45 07/03/24 13:11 650 MG Nitroglycerin 0.4 mg Q5MINP PRN SL 07/02/24 17:45 Morphine Sulfate 2 mg Q30M PRN IV 07/02/24 17:45 Albuterol 2.5 mg Q2HPRN PRN NEB 07/02/24 17:45 Heparin Sodium (Porcine) 5,000 units Q12HR SC 07/02/24 22:00 07/03/24 13:14 5,000 UNITS Atorvastatin Calcium 20 mg HS PO 07/02/24 22:00 07/02/24 22:41 20 MG Clonazepam 0.5 mg HS PO 07/03/24 22:00 Docusate Sodium 100 mg BID PRN PO 07/02/24 18:30 Levothyroxine Sodium 50 mcg QAM PO 07/03/24 07:00 07/03/24 05:43 50 MCG Losartan Potassium 25 mg DAILY PO 07/03/24 10:00 07/03/24 13:10 25 MG Pantoprazole Sodium 40 mg BID PO 07/02/24 22:00 07/03/24 13:10 40 MG Sucralfate 1 gm ACHS PO 07/02/24 22:00 07/03/24 13:10 1 GM Sevelamer HCl 800 mg TIDWM PO 07/03/24 08:00 07/03/24 13:10 800 MG Hydralazine HCl 10 mg Q6HP PRN IV 07/02/24 23:00 07/03/24 08:29 10 MG Laboratory Results Laboratory Tests 07/03/24 06:37 Chemistry Test 07/03/24 06:37 Albumin 4.4 g/dL (3.2-4.8) Calcium Level 9.7 mg/dL (8.7-10.4) Total Protein 6.4 g/dL (5.7-8.2) LFT Test 07/03/24 06:37 Alanine Aminotransferase (ALT) 16 U/L (7-40) Alkaline Phosphatase 143 U/L (46-116) H Aspartate Amino Transferase (AST) 20 U/L (13-40) Total Bilirubin 0.4 mg/dL (0.2-1.0) Labs and/or images reviewed: Labs reviewed by me, Image(s) reviewed by me Assessment/Plan Assessment/Plan Acute respiratory failure oxygen by nasal cannula: Chest x-ray negative: 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
--- NOTE | 2024-07-03 14:12 | DVHINCON2 ---
Date of service: July 03, 2024 Referring Physician jerman Reason for Consultation esrd History of Present Illness 78 years old female with past medical history of ESRD on dialysis, status post pacemaker, congestive heart failure, hypertension, dyslipidemia presented with chief complaints of shortness breath Last dialysis was on Thursday Patient currently on room air Past Medical History per hpi Past Surgical History per hpi Allergies: Coded Allergies: Clonidine (Verified Allergy, Severe, drowsy, hallucination, 07/02/24) Methotrexate (Verified Allergy, Severe, rash, 07/03/24) Codeine (Verified Allergy, Unknown, 10/01/21) Home Meds Active Scripts Clonidine Hydrochloride (Clonidine Hcl) 0.1 Mg Tab, 1 TAB PO QPM for 5 Days, #5 TAB 2 Refills Prov:ERROL MONTES DE OCA MD 06/28/24 Alum & Mag Hydrox-Simethicone (Magic Mouthwash) 80 Ml Ss, 5 ML MT QID for 14 Days, #120 ML Prov:DEL BUNCH MD 05/01/24 Acetaminophen (Tylenol) 325 Mg Cap, 325 MG PO Q6HR for 10 Days, #20 CAP Prov:CHACE KING 03/02/24 Reported Medications Ropinirole Hydrochloride (Ropinirole Hcl) 0.25 Mg Tab, 0.25 MG PO, TAB 07/02/24 Atorvastatin Calcium (Lipitor) 20 Mg Tab, 1 TAB PO HS for HIGH CHOLESTEROL 08/18/23 Clonazepam (KlonoPIN TABLET) 0.5 Mg Tb, 1 TAB PO DAILY for SEIZURES 08/11/23 Sevelamer Carbonate (Sevelamer Carbonate) 800 Mg Tab, 1 TAB PO TID for RENAL SUPPLEMENT 04/07/23 Losartan Potassium (Losartan Potassium) 25 Mg Tab, 1 TAB PO DAILY for HYP ERTENSION 04/07/23 Docusate Sodium (DOCQLACE) 100 Mg Cap, 1 CAP PO BID PRN for FOR CONSTIPATION 11/24/20 Levothyroxine Sodium (Euthyrox) 50 Mcg Tab, 1 TAB PO DAILY for HYPOTHYROIDISM 11/24/20 Current Medications Current Medications Medications (Trade) Dose Ordered Sig/Abbey Route PRN Reason Start Time Stop Time Status Last Admin Acetaminophen (Tylenol Tablet) 650 mg Q6HP PRN PO PAIN SCALE 1-3 OR TEMP>100.4 07/02/24 17:45 07/03/24 13:11 Nitroglycerin (Ntrostat Sublingual) 0.4 mg Q5MINP PRN SL FOR CHEST PAIN 07/02/24 17:45 Morphine Sulfate 2 mg Q30M PRN IV FOR CHEST PAIN 07/02/24 17:45 Albuterol (Ventolin Medneb) 2.5 mg Q2HPRN PRN NEB SHORTNESS OF BREATH 07/02/24 17:45 Heparin Sodium (Porcine) 5,000 units Q12HR SC 07/02/24 22:00 07/03/24 13:14 Atorvastatin Calcium (Lipitor) 20 mg HS PO 07/02/24 22:00 07/02/24 22:41 Clonazepam (KlonoPIN TABLET) 0.5 mg HS PO 07/03/24 22:00 Docusate Sodium (Colace Capsule) 100 mg BID PRN PO FOR CONSTIPATION 07/02/24 18:30 Levothyroxine Sodium (Synthroid Tablet) 50 mcg QAM PO 07/03/24 07:00 07/03/24 05:43 Losartan Potassium (Cozaar Tablet) 25 mg DAILY PO 07/03/24 10:00 07/03/24 13:10 Pantoprazole Sodium (Protonix Tablet) 40 mg BID PO 07/02/24 22:00 07/03/24 13:10 Sucralfate (Carafate Susp) 1 gm ACHS PO 07/02/24 22:00 07/03/24 13:10 Sevelamer HCl (Renagel) 800 mg TIDWM PO 07/03/24 08:00 07/03/24 13:10 Hydralazine HCl (Apresoline Injection) 10 mg Q6HP PRN IV SBP>150 07/02/24 23:00 07/03/24 08:29 Family History: Cardiovascular disease 19 CHILD 19 CHILD Colon cancer 19 CHILD Diabetes mellitus 19 CHILD 19 CHILD Review of Systems per hpi H&P Exam Vital Signs/I&O Vital Sign Date Time Temp Pulse Resp B/P (MAP) Pulse Ox O2 Delivery O2 Flow Rate FiO2 07/03/24 13:10 159/70 07/03/24 12:49 97.7 77 20 98 97.7 07/03/24 12:11 Room Air* 0 21 Intake and Output 07/02/24 07/03/24 19:00 07:00 Intake Total 400 ml Balance 400 ml Intake Oral 400 ml # Voids 1 Physical Exam General-not in any distress HEENT-normocephalic, no icterus, no pallor, neck supple Respiratory-fair air entry bilateral, no rhonchi, no wheeze [id number] heard, no murmurs appreciated Abdominal-soft, nontender, nondistended Musculoskeletal-no pedal edema, no calf tenderness Genitourinary-deferred Neuro-awake alert oriented x3, Psychiatric-not agitated, cooperative, Labs/Diagnostic Data Labs/Diagnostic Data Laboratory Tests Test 07/03/24 06:37 07/02/24 12:52 Range/Units White Blood Count 5.0 4.5 4.4-10.8 10^3/uL Red Blood Count 3.30 L 3.21 L 4.0-5.20 10^6/uL Hemoglobin 11.5 L 11.1 L 12.2-16.2 g/dL Hematocrit 33.9 L 33.5 L 36.0-46.0 % Mean Corpuscular Volume 102.7 H 104.3 H 80.0-100.0 fL Mean Corpuscular Hemoglobin 34.9 H 34.4 H 28.0-32.0 pg Mean Corpuscular Hemoglobin Concent 34.0 33.0 32.0-36.0 g/dL Red Cell Distribution Width 16.1 H 15.8 H 11.8-14.3 % Platelet Count 164 144 140-450 10^3/uL Mean Platelet Volume 9.3 9.0 6.9-10.8 fL Neutrophils (%) (Auto) 55.9 69.6 37.0-80.0 % Lymphocytes (%) (Auto) 32.4 20.2 10.0-50.0 % Monocytes (%) (Auto) 7.6 7.6 0.0-12.0 % Eosinophils (%) (Auto) 3.5 2.0 0.0-7.0 % Basophils (%) (Auto) 0.6 0.6 0.0-2.0 % Neutrophils # (Auto) 2.8 3.1 1.6-8.6 10 ^3/uL Lymphocytes # (Auto) 1.6 0.9 0.4-5.4 10 ^3/uL Monocytes # (Auto) 0.4 0.3 0-1.3 10 ^3/uL Eosinophils # (Auto) 0.2 0.1 0-0.8 10 ^3/uL Basophils # (Auto) 0 0 0-0.2 10 ^3/uL Nucleated Red Blood Cells 0.1 0.1 % Sodium Level 142 142 136-145 mmol/L Potassium Level 4.3 4.5 3.5-5.1 mmol/L Chloride Level 107 106 98-107 mmol/L Carbon Dioxide Level 24 27 20-31 mmol/L Anion Gap 11 9 5-15 Blood Urea Nitrogen 49 #H 36 H 9-23 mg/dL Creatinine 4.43 H 3.64 H 0.550-1.02 mg/dL Glomerular Filtration Rate Calc 10 12 >90 mL/min BUN/Creatinine Ratio 11.1 9.9 L 10.0-20.0 Serum Glucose 73 L 82 74-106 mg/dL Calcium Level 9.7 9.2 8.7-10.4 mg/dL Total Bilirubin 0.4 0.2-1.0 mg/dL Aspartate Amino Transferase (AST) 20 13-40 U/L Alanine Aminotransferase (ALT) 16 7-40 U/L Alkaline Phosphatase 143 H 46-116 U/L Total Protein 6.4 5.7-8.2 g/dL Albumin 4.4 3.2-4.8 g/dL D-Dimer, Quantitative 1.31 H 0.0-0.49 mg/L FEU Magnesium Level 2.0 1.6-2.6 mg/dL Troponin I High Sensitivity 23 </=34 ng/L B-Type Natriuretic Peptide 893.19 0-100 pg/mL Thyroid Stimulating Hormone (TSH) 6.76 H 0.55-4.78 uIU/mL Assessment ESRD on hemodialysis Shortness of breath Hypertension Recommendations Patient on room air today on examination Dialysis will be tomorrow Has CVC we will check blood cultures cxr noted Plan discussed with: Patient DUSTY GAVLEZ MD July 03, 2024 14:12
[2024-07-03] MEDS: clonazePAM 0.5 MG TAB PO SCH (21:14)
[2024-07-04] VITALS (9 sets, daily range): BP systolic 125–182; BP diastolic 54–82; PULSE 64–84; RESP 16–20; TEMP 97.4–98.5; O2SAT 94–98
[2024-07-04 10:25] LABS: Free T4 (Free Thyroxine) 0.95 ng/dL (0.89-1.76)
[2024-07-04 10:26] LABS: Free T3 2.44 pg/mL (2.3-4.2)
--- NOTE | 2024-07-04 11:18 | DVHPN2 ---
Progress Note Date Seen: July 04, 2024 Medical Necessity Reason Pt with a Central, PICC or Fol: No Subjective Patient reports: Feels better Other Systems: Patient seen and examined by myself today in follow-up Patient examined hemodialysis, blood pressure stable Objective vital signs Vital Sign Date Time Temp Pulse Resp B/P (MAP) Pulse Ox O2 Delivery O2 Flow Rate FiO2 07/04/24 10:00 155/54 07/04/24 09:00 97.7 84 18 95 97.7 07/04/24 08:00 Room Air* 0 21 Total Intake and Output 07/03/24 07/03/24 07/04/24 15:00 23:00 07:00 Intake Total 1100 ml 240 ml Balance 1100 ml 240 ml medications Current Medications Medications Dose Ordered Sig/Abbey Route Start Time Stop Time Status Last Admin Dose Admin Acetaminophen 650 mg Q6HP PRN PO 07/02/24 17:45 07/03/24 13:11 650 MG Nitroglycerin 0.4 mg Q5MINP PRN SL 07/02/24 17:45 Morphine Sulfate 2 mg Q30M PRN IV 07/02/24 17:45 Albuterol 2.5 mg Q2HPRN PRN NEB 07/02/24 17:45 Cancel Heparin Sodium (Porcine) 5,000 units Q12HR SC 07/02/24 22:00 07/04/24 10:03 5,000 UNITS Atorvastatin Calcium 20 mg HS PO 07/02/24 22:00 07/03/24 21:14 20 MG Clonazepam 0.5 mg HS PO 07/03/24 22:00 07/03/24 21:14 0.5 MG Docusate Sodium 100 mg BID PRN PO 07/02/24 18:30 Levothyroxine Sodium 50 mcg QAM PO 07/03/24 07:00 07/04/24 06:01 50 MCG Losartan Potassium 25 mg DAILY PO 07/03/24 10:00 07/03/24 13:10 25 MG Pantoprazole Sodium 40 mg BID PO 07/02/24 22:00 07/04/24 10:01 40 MG Sucralfate 1 gm ACHS PO 07/02/24 22:00 07/04/24 06:01 1 GM Sevelamer HCl 800 mg TIDWM PO 07/03/24 08:00 07/04/24 10:01 800 MG Hydralazine HCl 10 mg Q6HP PRN IV 07/02/24 23:00 07/04/24 05:24 10 MG Examination: LUNGS:Normal, CVS:Normal, MSK:Normal laboratory and microbiology Laboratory Tests 07/03/24 06:37 Test 07/03/24 06:37 Range/Units Serum Glucose 73 L 74-106 mg/dL Microbiology Date/Time Source Procedure Growth Status 07/02/24 23:54 Nose MRSA Screen - Final Complete Problem List/Assessment/Plan Problem List/Assessment/Plan ESRD on hemodialysis Congestive heart failure exacerbation Hypertension Anemia of chronic kidney disease Recommendations Continue with UF to 3 L as tolerated Resume home medications Fluid restriction Renal diet Continue to follow Plan discussed with: Patient SHERRILL MENJIVAR MD July 04, 2024 11:18
--- NOTE | 2024-07-04 12:54 | DVHPN2 ---
Reviewed: Care Plan, H&P, Labs, Medications, Previous Orders, Radiology Changes from previous H/P or p: No Changes Respiratory: Shortness of breath Objective Vitals Vital Signs Date Time Temp Pulse Resp B/P (MAP) Pulse Ox O2 Delivery O2 Flow Rate FiO2 07/04/24 10:00 155/54 07/04/24 09:00 97.7 84 18 95 97.7 07/04/24 08:00 Room Air* 0 21 Intake/Output Intake and Output 07/04/24 07:00 Intake Total 1340 ml Balance 1340 ml Intake Oral 1340 ml # Voids 6 # Bowel Movements 1 Medications Current Medications Medications Dose Ordered Sig/Abbey Route Start Time Stop Time Status Last Admin Dose Admin Acetaminophen 650 mg Q6HP PRN PO 07/02/24 17:45 07/03/24 13:11 650 MG Nitroglycerin 0.4 mg Q5MINP PRN SL 07/02/24 17:45 Morphine Sulfate 2 mg Q30M PRN IV 07/02/24 17:45 Albuterol 2.5 mg Q2HPRN PRN NEB 07/02/24 17:45 Cancel Heparin Sodium (Porcine) 5,000 units Q12HR SC 07/02/24 22:00 07/04/24 10:03 5,000 UNITS Atorvastatin Calcium 20 mg HS PO 07/02/24 22:00 07/03/24 21:14 20 MG Clonazepam 0.5 mg HS PO 07/03/24 22:00 07/03/24 21:14 0.5 MG Docusate Sodium 100 mg BID PRN PO 07/02/24 18:30 Levothyroxine Sodium 50 mcg QAM PO 07/03/24 07:00 07/04/24 06:01 50 MCG Losartan Potassium 25 mg DAILY PO 07/03/24 10:00 07/03/24 13:10 25 MG Pantoprazole Sodium 40 mg BID PO 07/02/24 22:00 07/04/24 10:01 40 MG Sucralfate 1 gm ACHS PO 07/02/24 22:00 07/04/24 11:15 1 GM Sevelamer HCl 800 mg TIDWM PO 07/03/24 08:00 07/04/24 12:08 800 MG Hydralazine HCl 10 mg Q6HP PRN IV 07/02/24 23:00 07/04/24 05:24 10 MG Laboratory Results Laboratory Tests 07/03/24 06:37 Microbiology Microbiology Date/Time Source Procedure Growth Status 07/02/24 23:54 Nose MRSA Screen - Final Complete Labs and/or images reviewed: Labs reviewed by me, Image(s) reviewed by me Assessment/Plan Assessment/Plan Acute respiratory failure oxygen by nasal cannula: Chest x-ray negative: Consult for patient's transport aide Dr. Ellis ESRD on hemodialysis Hypertension Hypercholesterolemia: Lipitor Hypothyroidism: Synthroid Anxiety History of pacemaker History of PTCA Elevated D-dimer 1.31 : DVT ruled out, V/Q scan pending Plan discussed with: Patient My Orders Orders - SHAINA MCDOWELL MD Procedure Category Date Status Time *Consult Dr. Ellis CONS 07/03/24 Transmitted [place] 13:50 Date of Service: July 04, 2024 Billing Provider: SHAINA MCDOWELL MD Common Visit Codes: [id number] INP/OBS CARE(HIGH) SHAINA MCDOWELL MD July 04, 2024 12:54
--- NOTE | 2024-07-04 14:12 | DVHPN2 ---
Progress Note - Dictate Date Seen: July 03, 2024 Medical Necessity Reason Pt with a Central, PICC or Fol: No Subjective PT WITH SS COMPLEX OF HFpEF SSS S/P PPI CAD S/P PTCA STENT * Left main without any flow restrictive lesion. * Left anterior descending artery, mild diffuse disease without any flow restrictive lesion. * Circumflex, mild diffuse disease without any flow restrictive lesion. * Ramus had a concentric calcified lesion approximately 70% by intravascular ultrasound now to undergo angioplasty, underwent successful angioplasty with stent placement with a 3.0 x 15 mm Shane Resolute stent with less than 10% residual stenosis. * Right coronary artery is large, dominant vessel, mild diffuse disease without any flow restrictive lesion. * Left ventricular function shows mild global hypokinesis with an estimated EF around 40% with an LVEDP of 17 mmHg with left ventricular systolic pressure of 140, no gradient across the aortic valve. At this time, the patient underwent angioplasty with stent placement of the ramus with intravascular ultrasound and FFR was also performed. ESRD NOW WITH SOB MILD ELEVATION IN BNP TROPONIN NEGATIVE vital signs Vital Sign Date Time Temp Pulse Resp B/P (MAP) Pulse Ox O2 Delivery O2 Flow Rate FiO2 07/04/24 13:07 97.4 67 17 158/63 (94) 94 97.4 07/04/24 08:00 Room Air* 0 21 Total Intake and Output 07/03/24 07/03/24 07/04/24 15:00 23:00 07:00 Intake Total 1100 ml 240 ml Balance 1100 ml 240 ml medications Current Medications Medications Dose Ordered Sig/Abbey Route Start Time Stop Time Status Last Admin Dose Admin Acetaminophen 650 mg Q6HP PRN PO 07/02/24 17:45 07/03/24 13:11 650 MG Nitroglycerin 0.4 mg Q5MINP PRN SL 07/02/24 17:45 Morphine Sulfate 2 mg Q30M PRN IV 07/02/24 17:45 Albuterol 2.5 mg Q2HPRN PRN NEB 07/02/24 17:45 Cancel Heparin Sodium (Porcine) 5,000 units Q12HR SC 07/02/24 22:00 07/04/24 10:03 5,000 UNITS Atorvastatin Calcium 20 mg HS PO 07/02/24 22:00 07/03/24 21:14 20 MG Clonazepam 0.5 mg HS PO 07/03/24 22:00 07/03/24 21:14 0.5 MG Docusate Sodium 100 mg BID PRN PO 07/02/24 18:30 Levothyroxine Sodium 50 mcg QAM PO 07/03/24 07:00 07/04/24 06:01 50 MCG Losartan Potassium 25 mg DAILY PO 07/03/24 10:00 07/03/24 13:10 25 MG Pantoprazole Sodium 40 mg BID PO 07/02/24 22:00 07/04/24 10:01 40 MG Sucralfate 1 gm ACHS PO 07/02/24 22:00 07/04/24 11:15 1 GM Sevelamer HCl 800 mg TIDWM PO 07/03/24 08:00 07/04/24 12:08 800 MG Hydralazine HCl 10 mg Q6HP PRN IV 07/02/24 23:00 07/04/24 05:24 10 MG laboratory and microbiology Laboratory Tests 07/03/24 06:37 Test 07/03/24 06:37 Range/Units Serum Glucose 73 L 74-106 mg/dL Problem List SS COMPLEX OF HFpEF SSS S/P PPI CAD S/P PTCA STENT * Left main without any flow restrictive lesion. * Left anterior descending artery, mild diffuse disease without any flow restrictive lesion. * Circumflex, mild diffuse disease without any flow restrictive lesion. * Shawnus had a concentric calcified lesion approximately 70% by intravascular ultrasound now to undergo angioplasty, underwent successful angioplasty with stent placement with a 3.0 x 15 mm Shane Resolute stent with less than 10% residual stenosis. * Right coronary artery is large, dominant vessel, mild diffuse disease without any flow restrictive lesion. * Left ventricular function shows mild global hypokinesis with an estimated EF around 40% with an LVEDP of 17 mmHg with left ventricular systolic pressure of 140, no gradient across the aortic valve. At this time, the patient underwent angioplasty with stent placement of the ramus with intravascular ultrasound and FFR was also performed. ESRD NOW WITH SOB MILD ELEVATION IN BNP TROPONIN NEGATIVE Assessment/Plan NON CARDIAC WILL CHECK ECHO DIALYSIS CORRECT ANEMIA Plan discussed with: Patient ROSS SELLERS MD July 04, 2024 14:12
--- NOTE | 2024-07-04 16:58 | DVH ---
NUCLEAR MEDICINE VENTILATION/PERFUSION LUNG SCAN. INDICATION: PULMONARY EMBOLISM TECHNIQUE: Following intravenous demonstration of 6 millicuries of technetium 99m MAA, and inhalati on of 40 mCi of Tc 99m DTPA scintigrams were obtained in multiple projections of the lungs. FINDINGS: There is normal uptake of radionuclide on both the ventilation and perfusion portions of the examinat ion. No mismatched perfusion defects are demonstrated. Uptake is normally homogeneous. IMPRESSION: 1. Low probability for PE.
[2024-07-05] VITALS (8 sets, daily range): BP systolic 143–172; BP diastolic 55–71; PULSE 66–172; RESP 15–18; TEMP 97.9–98.7; O2SAT 93–99
--- NOTE | 2024-07-05 10:39 | DVHPN2 ---
Progress Note Date Seen: July 05, 2024 Medical Necessity Reason Pt with a Central, PICC or Fol: No Subjective Patient reports: No new complaints Other Systems: Patient seen and examined by myself today in follow-up Objective vital signs Vital Sign Date Time Temp Pulse Resp B/P (MAP) Pulse Ox O2 Delivery O2 Flow Rate FiO2 07/05/24 08:44 147/69 07/05/24 08:00 83 18 Room Air* 0 21 07/05/24 04:59 97.9 94 97.9 Total Intake and Output 07/04/24 07/04/24 07/05/24 15:00 23:00 07:00 Intake Total 480 ml 250 ml Balance 480 ml 250 ml medications Current Medications Medications Dose Ordered Sig/Abbey Route Start Time Stop Time Status Last Admin Dose Admin Acetaminophen 650 mg Q6HP PRN PO 07/02/24 17:45 07/03/24 13:11 650 MG Nitroglycerin 0.4 mg Q5MINP PRN SL 07/02/24 17:45 Morphine Sulfate 2 mg Q30M PRN IV 07/02/24 17:45 Albuterol 2.5 mg Q2HPRN PRN NEB 07/02/24 17:45 Cancel Heparin Sodium (Porcine) 5,000 units Q12HR SC 07/02/24 22:00 07/05/24 08:49 5,000 UNITS Atorvastatin Calcium 20 mg HS PO 07/02/24 22:00 07/04/24 21:58 20 MG Clonazepam 0.5 mg HS PO 07/03/24 22:00 07/04/24 21:58 0.5 MG Docusate Sodium 100 mg BID PRN PO 07/02/24 18:30 Levothyroxine Sodium 50 mcg QAM PO 07/03/24 07:00 07/05/24 06:06 50 MCG Losartan Potassium 25 mg DAILY PO 07/03/24 10:00 07/05/24 08:44 25 MG Pantoprazole Sodium 40 mg BID PO 07/02/24 22:00 07/05/24 08:43 40 MG Sucralfate 1 gm ACHS PO 07/02/24 22:00 07/05/24 06:06 1 GM Sevelamer HCl 800 mg TIDWM PO 07/03/24 08:00 07/05/24 08:43 800 MG Hydralazine HCl 10 mg Q6HP PRN IV 07/02/24 23:00 07/04/24 05:24 10 MG Patient Own Medication 1 mg HS PO 07/04/24 22:00 07/04/24 21:59 1 MG Examination: LUNGS:Normal, CVS:Normal, MSK:Normal laboratory and microbiology Laboratory Tests 07/03/24 06:37 Test 07/03/24 06:37 Range/Units Serum Glucose 73 L 74-106 mg/dL Microbiology Date/Time Source Procedure Growth Status 07/03/24 14:45 Blood Blood Culture - Preliminary NO GROWTH AFTER 24 HOURS OF INCUBATION. Resulted 07/02/24 23:54 Nose MRSA Screen - Final Complete Problem List/Assessment/Plan Problem List/Assessment/Plan ESRD on hemodialysis Congestive heart failure exacerbation Hypertension Anemia of chronic kidney disease Recommendations Hemodialysis tomorrow Resume home medications Fluid restriction Renal diet V/Q scan low probability for PE Continue to follow Plan discussed with: Patient SHERRILL MENJIVAR MD July 05, 2024 10:39
--- NOTE | 2024-07-05 13:15 | DVHPN2 ---
Progress Note - Dictate Date Seen: July 05, 2024 Medical Necessity Reason Pt with a Central, PICC or Fol: No Subjective PT WITH SS COMPLEX OF HFpEF SSS S/P PPI CAD S/P PTCA STENT * Left main without any flow restrictive lesion. * Left anterior descending artery, mild diffuse disease without any flow restrictive lesion. * Circumflex, mild diffuse disease without any flow restrictive lesion. * Ramus had a concentric calcified lesion approximately 70% by intravascular ultrasound now to undergo angioplasty, underwent successful angioplasty with stent placement with a 3.0 x 15 mm Shane Resolute stent with less than 10% residual stenosis. * Right coronary artery is large, dominant vessel, mild diffuse disease without any flow restrictive lesion. * Left ventricular function shows mild global hypokinesis with an estimated EF around 40% with an LVEDP of 17 mmHg with left ventricular systolic pressure of 140, no gradient across the aortic valve. At this time, the patient underwent angioplasty with stent placement of the ramus with intravascular ultrasound and FFR was also performed. ESRD NOW WITH SOB MILD ELEVATION IN BNP TROPONIN NEGATIVE vital signs Vital Sign Date Time Temp Pulse Resp B/P (MAP) Pulse Ox O2 Delivery O2 Flow Rate FiO2 07/05/24 09:00 97.9 83 16 147/69 (95) 94 97.9 07/05/24 08:00 Room Air* 0 21 Total Intake and Output 07/04/24 07/04/24 07/05/24 15:00 23:00 07:00 Intake Total 480 ml 250 ml Balance 480 ml 250 ml medications Current Medications Medications Dose Ordered Sig/Abbey Route Start Time Stop Time Status Last Admin Dose Admin Acetaminophen 650 mg Q6HP PRN PO 07/02/24 17:45 07/03/24 13:11 650 MG Nitroglycerin 0.4 mg Q5MINP PRN SL 07/02/24 17:45 Morphine Sulfate 2 mg Q30M PRN IV 07/02/24 17:45 Albuterol 2.5 mg Q2HPRN PRN NEB 07/02/24 17:45 Cancel Heparin Sodium (Porcine) 5,000 units Q12HR SC 07/02/24 22:00 07/05/24 08:49 5,000 UNITS Atorvastatin Calcium 20 mg HS PO 07/02/24 22:00 07/04/24 21:58 20 MG Clonazepam 0.5 mg HS PO 07/03/24 22:00 07/04/24 21:58 0.5 MG Docusate Sodium 100 mg BID PRN PO 07/02/24 18:30 Levothyroxine Sodium 50 mcg QAM PO 07/03/24 07:00 07/05/24 06:06 50 MCG Losartan Potassium 25 mg DAILY PO 07/03/24 10:00 07/05/24 08:44 25 MG Pantoprazole Sodium 40 mg BID PO 07/02/24 22:00 07/05/24 08:43 40 MG Sucralfate 1 gm ACHS PO 07/02/24 22:00 07/05/24 11:56 1 GM Sevelamer HCl 800 mg TIDWM PO 07/03/24 08:00 07/05/24 11:56 800 MG Hydralazine HCl 10 mg Q6HP PRN IV 07/02/24 23:00 07/04/24 05:24 10 MG Patient Own Medication 1 mg HS PO 07/04/24 22:00 07/04/24 21:59 1 MG laboratory and microbiology Laboratory Tests 07/03/24 06:37 Test 07/03/24 06:37 Range/Units Serum Glucose 73 L 74-106 mg/dL Problem List SS COMPLEX OF HFpEF SSS S/P PPI CAD S/P PTCA STENT * Left main without any flow restrictive lesion. * Left anterior descending artery, mild diffuse disease without any flow restrictive lesion. * Circumflex, mild diffuse disease without any flow restrictive lesion. * Ramus had a concentric calcified lesion approximately 70% by intravascular ultrasound now to undergo angioplasty, underwent successful angioplasty with stent placement with a 3.0 x 15 mm Shane Resolute stent with less than 10% residual stenosis. * Right coronary artery is large, dominant vessel, mild diffuse disease without any flow restrictive lesion. * Left ventricular function shows mild global hypokinesis with an estimated EF around 40% with an LVEDP of 17 mmHg with left ventricular systolic pressure of 140, no gradient across the aortic valve. At this time, the patient underwent angioplasty with stent placement of the ramus with intravascular ultrasound and FFR was also performed. ESRD NOW WITH SOB MILD ELEVATION IN BNP TROPONIN NEGATIVE Assessment/Plan NON CARDIAC WILL CHECK ECHO DIALYSIS CORRECT ANEMIA Plan discussed with: Patient ROSS SELLERS MD July 05, 2024 13:15
--- NOTE | 2024-07-05 13:31 | DVHPN2 ---
Reviewed: Care Plan, H&P, Labs, Medications, Previous Orders, Radiology Changes from previous H/P or p: No Changes Respiratory: Shortness of breath Objective Vitals Vital Signs Date Time Temp Pulse Resp B/P (MAP) Pulse Ox O2 Delivery O2 Flow Rate FiO2 07/05/24 09:00 97.9 83 16 147/69 (95) 94 97.9 07/05/24 08:00 Room Air* 0 21 Intake/Output Intake and Output 07/05/24 07:00 Intake Total 730 ml Balance 730 ml Intake Oral 730 ml # Voids 6 # Bowel Movements 1 Medications Current Medications Medications Dose Ordered Sig/Abbey Route Start Time Stop Time Status Last Admin Dose Admin Acetaminophen 650 mg Q6HP PRN PO 07/02/24 17:45 07/03/24 13:11 650 MG Nitroglycerin 0.4 mg Q5MINP PRN SL 07/02/24 17:45 Morphine Sulfate 2 mg Q30M PRN IV 07/02/24 17:45 Albuterol 2.5 mg Q2HPRN PRN NEB 07/02/24 17:45 Cancel Heparin Sodium (Porcine) 5,000 units Q12HR SC 07/02/24 22:00 07/05/24 08:49 5,000 UNITS Atorvastatin Calcium 20 mg HS PO 07/02/24 22:00 07/04/24 21:58 20 MG Clonazepam 0.5 mg HS PO 07/03/24 22:00 07/04/24 21:58 0.5 MG Docusate Sodium 100 mg BID PRN PO 07/02/24 18:30 Levothyroxine Sodium 50 mcg QAM PO 07/03/24 07:00 07/05/24 06:06 50 MCG Losartan Potassium 25 mg DAILY PO 07/03/24 10:00 07/05/24 08:44 25 MG Pantoprazole Sodium 40 mg BID PO 07/02/24 22:00 07/05/24 08:43 40 MG Sucralfate 1 gm ACHS PO 07/02/24 22:00 07/05/24 11:56 1 GM Sevelamer HCl 800 mg TIDWM PO 07/03/24 08:00 07/05/24 11:56 800 MG Hydralazine HCl 10 mg Q6HP PRN IV 07/02/24 23:00 07/04/24 05:24 10 MG Patient Own Medication 1 mg HS PO 07/04/24 22:00 07/04/24 21:59 1 MG Laboratory Results Laboratory Tests 07/03/24 06:37 Microbiology Microbiology Date/Time Source Procedure Growth Status 07/03/24 14:45 Blood Blood Culture - Preliminary NO GROWTH AFTER 24 HOURS OF INCUBATION. Resulted 07/02/24 23:54 Nose MRSA Screen - Final Complete Labs and/or images reviewed: Labs reviewed by me, Image(s) reviewed by me Assessment/Plan Assessment/Plan Acute respiratory failure oxygen by nasal cannula: Chest x-ray negative: Consult for patient's weekend receptionist Dr. Ellis appreciated ESRD on hemodialysis Hypertension Hypercholesterolemia: Lipitor Hypothyroidism: Synthroid Anxiety History of pacemaker History of PTCA Elevated D-dimer 1.31 : DVT ruled out PE ruled out Echocardiogram result pending Will DC tomorrow after the echo report and the dialysis Plan discussed with: Patient Date of Service: July 05, 2024 Billing Provider: SHAINA MCDOWELL MD Common Visit Codes: [id number] INP/OBS CARE(HIGH) SHAINA MCDOWELL MD July 05, 2024 13:30
[2024-07-06] VITALS (7 sets, daily range): BP systolic 138–154; BP diastolic 49–74; PULSE 69–92; RESP 15–20; TEMP 97.7–98.4; O2SAT 95–98
[2024-07-06] MEDS ORDERED: SODIUM CHL 0.9% 1000 ML BAG XX ONE (07:00)
--- NOTE | 2024-07-06 11:35 | DVHPN2 ---
Progress Note Date Seen: July 06, 2024 Medical Necessity Reason Pt with a Central, PICC or Fol: No Subjective Patient reports: No new complaints Other Systems: Patient seen and examined by myself today in follow-up Patient examined hemodialysis, blood pressure stable Objective vital signs Vital Sign Date Time Temp Pulse Resp B/P (MAP) Pulse Ox O2 Delivery O2 Flow Rate FiO2 07/06/24 09:00 98.1 74 18 146/59 (88) 96 98.1 07/06/24 08:00 Room Air* 0 21 Total Intake and Output 07/05/24 07/05/24 07/06/24 15:00 23:00 07:00 Intake Total 200 ml 500 ml Balance 200 ml 500 ml medications Current Medications Medications Dose Ordered Sig/Abbey Route Start Time Stop Time Status Last Admin Dose Admin Acetaminophen 650 mg Q6HP PRN PO 07/02/24 17:45 07/03/24 13:11 650 MG Nitroglycerin 0.4 mg Q5MINP PRN SL 07/02/24 17:45 Morphine Sulfate 2 mg Q30M PRN IV 07/02/24 17:45 Albuterol 2.5 mg Q2HPRN PRN NEB 07/02/24 17:45 Cancel Heparin Sodium (Porcine) 5,000 units Q12HR SC 07/02/24 22:00 07/05/24 22:20 5,000 UNITS Atorvastatin Calcium 20 mg HS PO 07/02/24 22:00 07/05/24 22:16 20 MG Clonazepam 0.5 mg HS PO 07/03/24 22:00 07/05/24 22:32 0.5 MG Docusate Sodium 100 mg BID PRN PO 07/02/24 18:30 Levothyroxine Sodium 50 mcg QAM PO 07/03/24 07:00 07/06/24 06:54 50 MCG Losartan Potassium 25 mg DAILY PO 07/03/24 10:00 07/05/24 08:44 25 MG Pantoprazole Sodium 40 mg BID PO 07/02/24 22:00 07/05/24 22:16 40 MG Sucralfate 1 gm ACHS PO 07/02/24 22:00 07/06/24 11:31 1 GM Sevelamer HCl 800 mg TIDWM PO 07/03/24 08:00 07/06/24 08:48 800 MG Hydralazine HCl 10 mg Q6HP PRN IV 07/02/24 23:00 07/04/24 05:24 10 MG Patient Own Medication 1 mg HS PO 07/04/24 22:00 07/05/24 22:18 1 MG Examination: LUNGS:Normal, CVS:Normal, MSK:Normal laboratory and microbiology Laboratory Tests 07/03/24 06:37 Test 07/03/24 06:37 Range/Units Serum Glucose 73 L 74-106 mg/dL Microbiology Date/Time Source Procedure Growth Status 07/03/24 14:45 Blood Blood Culture - Preliminary NO GROWTH AFTER 48 HOURS OF INCUBATION. Resulted 07/02/24 23:54 Nose MRSA Screen - Final Complete Problem List/Assessment/Plan Problem List/Assessment/Plan ESRD on hemodialysis Congestive heart failure exacerbation Hypertension Anemia of chronic kidney disease, well compensated Recommendations Continue with UF to 3 L as tolerated Resume home medications Fluid restriction Renal diet V/Q scan low probability for PE Continue to follow Plan discussed with: Patient SHERRILL MENJIVAR MD July 06, 2024 11:35
--- NOTE | 2024-07-06 12:31 | DVHSR ---
APPROVED REPORT EXAM: Two-dimensional and M-mode echocardiogram with Doppler and color Doppler. Blood Pressure: 171/75 mmHg INDICATION ? heart strain Surgery/Intervention Pacemaker: RISK FACTORS Height: 50, Weight: 160 DIMENSIONS LVDd5.4 (3.8-5.7cm)LA (2D)4.0 (1.9-4.0cm)Aortic Root3.4 (2.0-3.7cm) LVDs4.5 (2.5-4.0cm)LA (MM) (1.9-4.0cm)Aortic Cusp Exc1.5 (1.5-2.0cm) EF (%) 35.0 (55-70%)Rt. Atrium3.9 (1.9-4.0cm)Asc. Aorta cm IVSd1.5 (0.7-1.1cm)RV (D) (1.8-2.4cm) PWd1.3 (0.7-1.1cm) Mitral Valve MitralMitral Stenosis E wave1.17m/sMV Mean GR.4mmHg A wave1.01m/sMV Peak GR.104mmHg E/A ratio1.22D MVAcm2 DECEL [id number] 1/2 [id number] IVRTmsDop MVA3.37cm2 Aortic Valve Aortic ValveAortic Stenosis V10.81m/Lyle Mean GR.3mmHg V21.28m/Lyle Peak GR.7mmHg LVOT Diameter2.0 (1.8-2.4cm)Doppler AVA1.99cm2 Pulmonic Valve V20.97m/s Tricuspid Valve TR Velocity2.43m/s [id number] Conclusion MARKED CONC LVH EF <35% MOD MR
--- NOTE | 2024-07-06 13:05 | DVHPN2 ---
Progress Note - Dictate Date Seen: July 06, 2024 Medical Necessity Reason Pt with a Central, PICC or Fol: No Subjective PT WITH SS COMPLEX OF HFpEF SSS S/P PPI CAD S/P PTCA STENT * Left main without any flow restrictive lesion. * Left anterior descending artery, mild diffuse disease without any flow restrictive lesion. * Circumflex, mild diffuse disease without any flow restrictive lesion. * Ramus had a concentric calcified lesion approximately 70% by intravascular ultrasound now to undergo angioplasty, underwent successful angioplasty with stent placement with a 3.0 x 15 mm Shane Resolute stent with less than 10% residual stenosis. * Right coronary artery is large, dominant vessel, mild diffuse disease without any flow restrictive lesion. * Left ventricular function shows mild global hypokinesis with an estimated EF around 40% with an LVEDP of 17 mmHg with left ventricular systolic pressure of 140, no gradient across the aortic valve. At this time, the patient underwent angioplasty with stent placement of the ramus with intravascular ultrasound and FFR was also performed. ESRD NOW WITH SOB MILD ELEVATION IN BNP TROPONIN NEGATIVE vital signs Vital Sign Date Time Temp Pulse Resp B/P (MAP) Pulse Ox O2 Delivery O2 Flow Rate FiO2 07/06/24 09:00 98.1 74 18 146/59 (88) 96 98.1 07/06/24 08:00 Room Air* 0 21 Total Intake and Output 07/05/24 07/05/24 07/06/24 15:00 23:00 07:00 Intake Total 200 ml 500 ml Balance 200 ml 500 ml medications Current Medications Medications Dose Ordered Sig/Abbey Route Start Time Stop Time Status Last Admin Dose Admin Acetaminophen 650 mg Q6HP PRN PO 07/02/24 17:45 07/03/24 13:11 650 MG Nitroglycerin 0.4 mg Q5MINP PRN SL 07/02/24 17:45 Morphine Sulfate 2 mg Q30M PRN IV 07/02/24 17:45 Albuterol 2.5 mg Q2HPRN PRN NEB 07/02/24 17:45 Cancel Heparin Sodium (Porcine) 5,000 units Q12HR SC 07/02/24 22:00 07/05/24 22:20 5,000 UNITS Atorvastatin Calcium 20 mg HS PO 07/02/24 22:00 07/05/24 22:16 20 MG Clonazepam 0.5 mg HS PO 07/03/24 22:00 07/05/24 22:32 0.5 MG Docusate Sodium 100 mg BID PRN PO 07/02/24 18:30 Levothyroxine Sodium 50 mcg QAM PO 07/03/24 07:00 07/06/24 06:54 50 MCG Losartan Potassium 25 mg DAILY PO 07/03/24 10:00 07/05/24 08:44 25 MG Pantoprazole Sodium 40 mg BID PO 07/02/24 22:00 07/05/24 22:16 40 MG Sucralfate 1 gm ACHS PO 07/02/24 22:00 07/06/24 11:31 1 GM Sevelamer HCl 800 mg TIDWM PO 07/03/24 08:00 07/06/24 08:48 800 MG Hydralazine HCl 10 mg Q6HP PRN IV 07/02/24 23:00 07/04/24 05:24 10 MG Patient Own Medication 1 mg HS PO 07/04/24 22:00 07/05/24 22:18 1 MG laboratory and microbiology Laboratory Tests 07/03/24 06:37 Test 07/03/24 06:37 Range/Units Serum Glucose 73 L 74-106 mg/dL Problem List SS COMPLEX OF HFpEF SSS S/P PPI CAD S/P PTCA STENT * Left main without any flow restrictive lesion. * Left anterior descending artery, mild diffuse disease without any flow restrictive lesion. * Circumflex, mild diffuse disease without any flow restrictive lesion. * Ramus had a concentric calcified lesion approximately 70% by intravascular ultrasound now to undergo angioplasty, underwent successful angioplasty with stent placement with a 3.0 x 15 mm Shane Resolute stent with less than 10% residual stenosis. * Right coronary artery is large, dominant vessel, mild diffuse disease without any flow restrictive lesion. * Left ventricular function shows mild global hypokinesis with an estimated EF around 40% with an LVEDP of 17 mmHg with left ventricular systolic pressure of 140, no gradient across the aortic valve. At this time, the patient underwent angioplasty with stent placement of the ramus with intravascular ultrasound and FFR was also performed. ESRD NOW WITH SOB MILD ELEVATION IN BNP TROPONIN NEGATIVE Assessment/Plan NON CARDIAC WILL CHECK ECHO DIALYSIS CORRECT ANEMIA Plan discussed with: Patient ROSS SELLERS MD July 06, 2024 13:05
--- NOTE | 2024-07-06 13:41 | DVHPN2 ---
Reviewed: Care Plan, H&P, Labs, Medications, Previous Orders, Radiology Changes from previous H/P or p: No Changes Respiratory: Shortness of breath Objective Vitals Vital Signs Date Time Temp Pulse Resp B/P (MAP) Pulse Ox O2 Delivery O2 Flow Rate FiO2 07/06/24 13:00 97.7 84 20 154/68 (96) 97 97.7 07/06/24 08:00 Room Air* 0 21 Intake/Output Intake and Output 07/06/24 07:00 Intake Total 700 ml Balance 700 ml Intake Oral 700 ml # Voids 9 # Bowel Movements 2 Medications Current Medications Medications Dose Ordered Sig/Abbey Route Start Time Stop Time Status Last Admin Dose Admin Acetaminophen 650 mg Q6HP PRN PO 07/02/24 17:45 07/03/24 13:11 650 MG Nitroglycerin 0.4 mg Q5MINP PRN SL 07/02/24 17:45 Morphine Sulfate 2 mg Q30M PRN IV 07/02/24 17:45 Albuterol 2.5 mg Q2HPRN PRN NEB 07/02/24 17:45 Cancel Heparin Sodium (Porcine) 5,000 units Q12HR SC 07/02/24 22:00 07/05/24 22:20 5,000 UNITS Atorvastatin Calcium 20 mg HS PO 07/02/24 22:00 07/05/24 22:16 20 MG Clonazepam 0.5 mg HS PO 07/03/24 22:00 07/05/24 22:32 0.5 MG Docusate Sodium 100 mg BID PRN PO 07/02/24 18:30 Levothyroxine Sodium 50 mcg QAM PO 07/03/24 07:00 07/06/24 06:54 50 MCG Losartan Potassium 25 mg DAILY PO 07/03/24 10:00 07/05/24 08:44 25 MG Pantoprazole Sodium 40 mg BID PO 07/02/24 22:00 07/05/24 22:16 40 MG Sucralfate 1 gm ACHS PO 07/02/24 22:00 07/06/24 11:31 1 GM Sevelamer HCl 800 mg TIDWM PO 07/03/24 08:00 07/06/24 08:48 800 MG Hydralazine HCl 10 mg Q6HP PRN IV 07/02/24 23:00 07/04/24 05:24 10 MG Patient Own Medication 1 mg HS PO 07/04/24 22:00 07/05/24 22:18 1 MG Laboratory Results Laboratory Tests 07/03/24 06:37 Microbiology Microbiology Date/Time Source Procedure Growth Status 07/03/24 14:45 Blood Blood Culture - Preliminary NO GROWTH AFTER 48 HOURS OF INCUBATION. Resulted 07/02/24 23:54 Nose MRSA Screen - Final Complete Labs and/or images reviewed: Labs reviewed by me, Image(s) reviewed by me Assessment/Plan Assessment/Plan Acute hypoxic respiratory failure oxygen by nasal cannula: Chest x-ray negative: Consult for patient's researcher Dr. Ellis appreciated, noncardiac chest pain ESRD on hemodialysis Hypertension Hypercholesterolemia: Lipitor Hypothyroidism: Synthroid Anxiety History of pacemaker for sick sinus syndrome History of PTCA Elevated D-dimer 1.31 : DVT ruled out PE ruled out Echocardiogram 35 percent ejection fraction Patient on room air and feels better being discharged home Plan discussed with: Patient Date of Service: July 06, 2024 Billing Provider: SHAINA MCDOWELL MD Common Visit Codes: 03685-HCEQFESHAI INP/OBS CARE(HIGH) SHAINA MCDOWELL MD July 06, 2024 13:41
--- NOTE | 2024-07-06 13:47 | DVHDS2 ---
Discharge Summary Date of Admission July 02, 2024 at 17:33 Date of Discharge: July 06, 2024 Admitting Diagnosis Shortness of breath Wounds: None Labs/Diagnostic Data: Laboratory Results Test 07/03/24 06:37 07/02/24 12:52 White Blood Count 5.0 10^3/uL (4.4-10.8) Red Blood Count 3.30 10^6/uL (4.0-5.20) Hemoglobin 11.5 g/dL (12.2-16.2) Hematocrit 33.9 % (36.0-46.0) Mean Corpuscular Volume 102.7 fL (80.0-100.0) Mean Corpuscular Hemoglobin 34.9 pg (28.0-32.0) Mean Corpuscular Hemoglobin Concent 34.0 g/dL (32.0-36.0) Red Cell Distribution Width 16.1 % (11.8-14.3) Platelet Count 164 10^3/uL (140-450) Mean Platelet Volume 9.3 fL (6.9-10.8) Neutrophils (%) (Auto) 55.9 % (37.0-80.0) Lymphocytes (%) (Auto) 32.4 % (10.0-50.0) Monocytes (%) (Auto) 7.6 % (0.0-12.0) Eosinophils (%) (Auto) 3.5 % (0.0-7.0) Basophils (%) (Auto) 0.6 % (0.0-2.0) Neutrophils # (Auto) 2.8 10 ^3/uL (1.6-8.6) Lymphocytes # (Auto) 1.6 10 ^3/uL (0.4-5.4) Monocytes # (Auto) 0.4 10 ^3/uL (0-1.3) Eosinophils # (Auto) 0.2 10 ^3/uL (0-0.8) Basophils # (Auto) 0 10 ^3/uL (0-0.2) Nucleated Red Blood Cells 0.1 % Sodium Level 142 mmol/L (136-145) Potassium Level 4.3 mmol/L (3.5-5.1) Chloride Level 107 mmol/L (98-107) Carbon Dioxide Level 24 mmol/L (20-31) Anion Gap 11 (5-15) Blood Urea Nitrogen 49 mg/dL (9-23) Creatinine 4.43 mg/dL (0.550-1.02) Glomerular Filtration Rate Calc 10 mL/min (>90) BUN/Creatinine Ratio 11.1 (10.0-20.0) Serum Glucose 73 mg/dL (74-106) Calcium Level 9.7 mg/dL (8.7-10.4) Total Bilirubin 0.4 mg/dL (0.2-1.0) Aspartate Amino Transferase (AST) 20 U/L (13-40) Alanine Aminotransferase (ALT) 16 U/L (7-40) Alkaline Phosphatase 143 U/L (46-116) Total Protein 6.4 g/dL (5.7-8.2) Albumin 4.4 g/dL (3.2-4.8) D-Dimer, Quantitative 1.31 mg/L FEU (0.0-0.49) Magnesium Level 2.0 mg/dL (1.6-2.6) Troponin I High Sensitivity 23 ng/L (</=34) B-Type Natriuretic Peptide 893.19 pg/mL (0-100) Thyroid Stimulating Hormone (TSH) 6.76 uIU/mL (0.55-4.78) Free Thyroxine (T4) Calculated 0.95 ng/dL (0.89-1.76) Free Triiodothyronine (T3) pg/mL 2.44 pg/mL (2.3-4.2) Other Laboratory Tests 07/03/24 06:37 Brief Hx & Hospital Course: 78-year-old female with a history of hypertension hypercholesterolemia hypothyroidism anxiety history of sick sinus syndrome status post pacemaker history of PTCA with stents ESRD on hemodialysis came in for shortness of breaths. Chest x-ray was negative found to have fluid overload received hemodialysis cardiology consult by Dr. Ellis. Received hemodialysis by the learning manager home medications were continued D-dimer elevated 1.31 DVT ruled out PE ruled out echocardiogram 35 percent ejection fraction patient on room air with stable vital signs at the time of discharge patient is willing to go home discharged. He will follow up with Dr. Ellis her primary Dr and learning manager for dialysis. Consults/Reason for consult Cardiology Dr. Bhatt Nephrology Operations or Procedures Echocardiogram Venous ultrasound CT chest angiogram Condition at Discharge: Fair Final Diagnosis/Problems List Acute hypoxic respiratory failure oxygen by nasal cannula: Chest x-ray negative: Consult for patient's leading firefighter Dr. Ellis appreciated, noncardiac chest pain ESRD on hemodialysis Hypertension Hypercholesterolemia: Lipitor Hypothyroidism: Synthroid Anxiety History of pacemaker for sick sinus syndrome History of PTCA Elevated D-dimer 1.31 : DVT ruled out PE ruled out Echocardiogram 35 percent ejection fraction Discharge Disposition: Home Discharge Instruct/Medications Diet: Renal Activity: Light activity Follow Up/Referral: Follow up with your primary Dr Follow up with the leading firefighter Dr. Bhatt Follow up with the Nephrology for dialysis Resume all previous home medications Medications: none 39 (Time taken for discharge summary 39 minutes) Discharge Statement: "Patient was advised to return to the ER or call 911 if any headaches, dizziness, shortness of breath, chest pain, abdominal pain, bleeding, fevers, or worsening of medical condition. Patient was counseled about treatment plan, medications, possible side effects, patientverbalized understanding. All questions were answered to the best of my ability. This discharge took greater then 30 minutes in planning, reviewing documentation, counseling the patient, and discussing with other team members." ASSESSMENT ASSESSMENT Hospital Course Improved Assessment Acute hypoxic respiratory failure oxygen by nasal cannula: Chest x-ray negative: Consult for patient's leading firefighter Dr. Ellis appreciated, noncardiac chest pain ESRD on hemodialysis Hypertension Hypercholesterolemia: Lipitor Hypothyroidism: Synthroid Anxiety History of pacemaker for sick sinus syndrome History of PTCA Elevated D-dimer 1.31 : DVT ruled out PE ruled out Echocardiogram 35 percent ejection fraction Date of Service: July 06, 2024 Billing Provider: SHAINA MCDOWELL MD Common Visit Codes: 85498-MRT/OBS DISCH DAY >30min SHAINA MCDOWELL MD July 06, 2024 13:47
[2024-07-06 14:20] LABS: Basophils # (auto) 0.1 10 ^3/uL (0-0.2); Basophils % (auto) 1.2 % (0.0-2.0); Eosinophils # (auto) 0.1 10 ^3/uL (0-0.8); Eosinophils % (auto) 2.3 % (0.0-7.0); Hematocrit 34.8 % (36.0-46.0); Hemoglobin 11.4 g/dL (12.2-16.2); Lymphocytes # (auto) 1.3 10 ^3/uL (0.4-5.4); Lymphocytes % (auto) 26.3 % (10.0-50.0); Mean Corpuscular Hemoglobin 34.1 pg (28.0-32.0); Mean Corpuscular Hgb Conc. 32.8 g/dL (32.0-36.0); Monocytes # (auto) 0.5 10 ^3/uL (0-1.3); Monocytes % (auto) 9.5 % (0.0-12.0); Neutrophils # (auto) 2.9 10 ^3/uL (1.6-8.6); Neutrophils % (auto) 60.7 % (37.0-80.0); Nucleated Red Blood Cells % 0.1 %; Platelet Count (auto) 136 10^3/uL (140-450); Red Blood Cells 3.35 10^6/uL (4.0-5.20); White Blood Cell 4.8 10^3/uL (4.4-10.8)
[2024-07-06 14:36] LABS: Alanine Aminotransferase 13 U/L (7-40); Albumin 4.5 g/dL (3.2-4.8); Anion Gap 10 (5-15); Aspartate Aminotransferase 16 U/L (13-40); Calcium 9.3 mg/dL (8.7-10.4); Carbon Dioxide 24 mmol/L (20-31); Chloride 104 mmol/L (98-107); Glucose 102 mg/dL (74-106); Potassium 4.8 mmol/L (3.5-5.1); Sodium 138 mmol/L (136-145); Total Protein 6.5 g/dL (5.7-8.2)
[2024-07-06 14:37] LABS: Alkaline Phosphatase 138 U/L (46-116); Bilirubin, Total 0.4 mg/dL (0.2-1.0); Blood Urea Nitrogen 54 mg/dL (9-23)
== END 2024-07-06 20:27 | disposition home or self-care (01) | DRG 189 ==
LOC: ER 12:13 → OVERFLOW 17:33 → TELE-WESTW 22:21
PROVIDERS: ADMIT Family Medicine; ATTEND Family Medicine
PROC: 5A1D70Z Performance of Urinary Filtration, Intermittent, Less than 6 Hours Per Day (ICD-10-PCS; principal; 2024-07-04)
PROC: 5A1D70Z Performance of Urinary Filtration, Intermittent, Less than 6 Hours Per Day (ICD-10-PCS; 2024-07-06)
DX: J96.01 Acute respiratory failure with hypoxia (principal); N18.6 End stage renal disease; I13.2 Hypertensive heart and chronic kidney disease with heart failure and with stage 5 chronic kidney disease, or end stage renal disease; E03.9 Hypothyroidism, unspecified; I50.9 Heart failure, unspecified; E78.00 Pure hypercholesterolemia, unspecified; F41.9 Anxiety disorder, unspecified; I49.5 Sick sinus syndrome; D63.1 Anemia in chronic kidney disease; D75.89 Other specified diseases of blood and blood-forming organs; Z99.2 Dependence on renal dialysis; Z88.5 Allergy status to narcotic agent; Z95.0 Presence of cardiac pacemaker; Z83.3 Family history of diabetes mellitus; Z82.49 Family history of ischemic heart disease and other diseases of the circulatory system; Z80.0 Family history of malignant neoplasm of digestive organs; Z95.5 Presence of coronary angioplasty implant and graft
CPT/HCPCS: 36415; 71045; 78582; 80048; 80053; 83735; 83880; 84439; 84443; 84481; 84484; 85025; 85379; 87040; 87081; 87340; 90935; 93005; 93306; 93970; 96374; G0378; J1642

== ENCOUNTER 2024-08-02 09:47 | Outpatient (CLI) | payer OTHER ==
[~2024-08-02 09:47] MED LIST changes: -PANT40TA2 PO; +ROPI5TAB20 PO; -SUCR1SUS26 PO
[2024-08-02 10:20] LABS: Basophils # (auto) 0 10 ^3/uL (0-0.2); Eosinophils # (auto) 0.1 10 ^3/uL (0-0.8); Hemoglobin 10.3 g/dL (12.2-16.2); Lymphocytes # (auto) 1.1 10 ^3/uL (0.4-5.4); White Blood Cell 4.7 10^3/uL (4.4-10.8)
[2024-08-02 10:24] LABS: Basophils % (auto) 0.9 % (0.0-2.0); Eosinophils % (auto) 3.1 % (0.0-7.0); Hematocrit 30.9 % (36.0-46.0); Lymphocytes % (auto) 24.3 % (10.0-50.0); Mean Corpuscular Hemoglobin 34.3 pg (28.0-32.0); Mean Corpuscular Hgb Conc. 33.3 g/dL (32.0-36.0); Monocytes # (auto) 0.4 10 ^3/uL (0-1.3); Monocytes % (auto) 9.4 % (0.0-12.0); Neutrophils # (auto) 2.9 10 ^3/uL (1.6-8.6); Neutrophils % (auto) 62.3 % (37.0-80.0); Platelet Count (auto) 159 10^3/uL (140-450); Red Cell Distribution Width 15.6 % (11.8-14.3)
[2024-08-02 11:17] LABS: Alanine Aminotransferase 18 U/L (7-40); Anion Gap 12 (5-15); BUN/Creatinine Ratio 7.2 (10.0-20.0); Calcium 9.1 mg/dL (8.7-10.4); Carbon Dioxide 25 mmol/L (20-31); LDL Cholesterol 73 mg/dL (< 100); Total Protein 6.2 g/dL (5.7-8.2); Triglycerides 93 mg/dL (< 150)
[2024-08-02 11:18] LABS: Albumin 4.2 g/dL (3.2-4.8); Aspartate Aminotransferase 27 U/L (<34); Cholesterol 147 mg/dL (< 200); HDL Cholesterol 53 mg/dL (40-59)
[2024-08-02 11:19] LABS: Bilirubin, Total 0.6 mg/dL (0.2-1.0)
[2024-08-02 11:21] LABS: Alkaline Phosphatase 141 U/L (46-116); Blood Urea Nitrogen 27 mg/dL (9-23); Chloride 106 mmol/L (98-107); Glucose 72 mg/dL (74-106); Potassium 4.3 mmol/L (3.5-5.1); Sodium 143 mmol/L (136-145)
[2024-08-03 10:12] LABS: Urine Bacteria None Seen /hpf (None Seen)
[2024-08-03 10:43] LABS: Creatinine, Urine 36.09 mg/dL (30.0-125.0)
[2024-08-03 10:44] LABS: Urine Blood Negative /uL (Negative); Urine Clarity Clear (Clear); Urine Color Colorless (Yellow); Urine Protein, UAD TRACE (Negative); Urine Specific Gravity 1.007 (1.001-1.035); Urine Squamous Epithelial Cell FEW /hpf (<5); Urine Urobilinogen Normal (Negative); Urine WBC 1 /HPF (0-5)
== END 2024-08-02 17:00 | disposition home or self-care (01) ==
LOC: LAB 09:47
PROVIDERS: ATTEND Student in an Organized Health Care Education/Training Program
DX: I10 Essential (primary) hypertension (principal); E11.9 Type 2 diabetes mellitus without complications; E78.5 Hyperlipidemia, unspecified; E55.9 Vitamin D deficiency, unspecified
CPT/HCPCS: 36415; 80053; 80061; 81001; 82043; 82306; 82570; 83036; 84443; 85025

== ENCOUNTER 2024-09-20 16:10 | Inpatient (IN) | payer OTHER ==
[~2024-09-20] VITALS: Ht 149.9 cm; Wt 62.7 kg
--- NOTE | 2024-09-20 17:15 | ED.PDOC ---
History of Present Illness HPI Comments 78y F who presents to the ED for chief complaint of tube replacement. Pt has history of ERSD on dialysis and gets dialysis M, W, and F. Pt states she last got dialysis Thursday and states she was told afterwards, she dialysis catheter was clogged and told to come to local ED for replacement of dialysis port on L side of chest. Pt states she did not get dialysis M due to not feeling well and came today for further evaluation. Pt also states she is on blood thinner but states she has not taken it since Thursday as she states she had dialysis catheter clogged and pt has associated bleeding when prior attempt to remove catheter causing bleeding. Pt otherwise denies any other concerns or symptoms. Pt has noted stable vitals in the ED. Pt denies any other symptoms at this time. Chief Complaint: Tube Replacement Time Seen by MD: 17:15 Primary Care Provider: STEPHANIE Reviewed Notes: Nurses Notes, Medications, Allergies Allergies: Coded Allergies: Clonidine (Verified Allergy, Severe, drowsy, hallucination, 07/02/24) Methotrexate (Verified Allergy, Severe, rash, 07/03/24) Codeine (Verified Allergy, Unknown, 10/01/21) Home Meds Active Scripts Clonidine Hydrochloride (Clonidine Hcl) 0.1 Mg Tab, 1 TAB PO QPM for 5 Days, #5 TAB 2 Refills Prov:ERROL MONTES DE OCA MD 06/28/24 Alum & Mag Hydrox-Simethicone (Magic Mouthwash) 80 Ml Ss, 5 ML MT QID for 14 Days, #120 ML Prov:DEL BUNCH MD 05/01/24 Acetaminophen (Tylenol) 325 Mg Cap, 325 MG PO Q6HR for 10 Days, #20 CAP Prov:CHACE KING 03/02/24 Reported Medications Ropinirole Hydrochloride (Ropinirole Hcl) 0.25 Mg Tab, 0.25 MG PO, TAB 07/02/24 Atorvastatin Calcium (Lipitor) 20 Mg Tab, 1 TAB PO HS for HIGH CHOLESTEROL 08/18/23 Clonazepam (KlonoPIN TABLET) 0.5 Mg Tb, 1 TAB PO DAILY for SEIZURES 08/11/23 Sevelamer Carbonate (Sevelamer Carbonate) 800 Mg Tab, 1 TAB PO TID for RENAL SUPPLEMENT 04/07/23 Losartan Potassium (Losartan Potassium) 25 Mg Tab, 1 TAB PO DAILY for HYPERTENSION 04/07/23 Docusate Sodium (DOCQLACE) 100 Mg Cap, 1 CAP PO BID PRN for FOR CONSTIPATION 11/24/20 Levothyroxine Sodium (Euthyrox) 50 Mcg Tab, 1 TAB PO DAILY for HYPOTHYROIDISM 11/24/20 Information Source: Patient, Spouse Mode of Arrival: Ambulatory Severity: Moderate Timing: Days Duration: Intermittent Prehospital treatment: None Medication Refill: For: Other (catheter replacement) Past Medical History PAST MEDICAL HISTORY: Anxiety, CHF, CVA, ESRD, High Lipids, HTN Surgical History: Cholecystectomy, Hysterectomy, Pacemaker, PTCA, Tonsillectomy GRANT ADMINISTRATOR History: Denies all GRANT ADMINISTRATOR Hx Family History Family History: Family hx of DM, Family hx of heart naila Social History Smoker: Non-Smoker Alcohol: Denies ETOH Use Drugs: Denies Drug Use Lives In: Home Constitutional: denies: chills, diaphoresis, fatigue, fever, malaise, sweats, weakness, others EENTM: denies: blurred vision, double vision, ear bleeding, ear discharge, ear drainage, ear pain, ear ringing, eye pain, eye redness, hearing loss, mouth pain, mouth swelling, nasal discharge, nose bleeding, nose congestion, nose pain, photophobia, tearing, throat pain, throat swelling, voice changes, others Respiratory: denies: cough, hemoptysis, orthopnea, SOB at rest, shortness of breath, SOB with excertion, stridor, wheezing, others Cardiovascular: denies: chest pain, dizzy spells, diaphoresis, Dyspnea on exertion, edema, irregular heart beat, left arm pain, lightheadedness, palpitations, PND, syncope, others Gastrointestinal: denies: abdomen distended, abdominal pain, blood streaked bowels, constipated, diarrhea, dysphagia, difficulty swallowing, hematemesis, melena, nausea, poor appetite, poor fluid intake, rectal bleeding, rectal pain, vomiting, others Genitourinary: denies: abnormal vagina bleeding, burning, dyspareunia, dysuria, flank pain, frequency, hematuria, incontinence, pain, , vagina disch arge, urgency, others Neurological: denies: dizziness, fainting, headache, left sided numbness, left sided weakness, numbness, paresthesia, pre-existing deficit, right sided numbness, right sided weakness, seizure, speech problems, tingling, tremors, weakness, others Musculoskeletal: denies: back pain, gout, joint pain, joint swelling, muscle pain, muscle stiffness, neck pain, others Integumetry: denies: bruises, change in color, change in hair/nails, dryness, laceration, lesions, lumps, rash, wounds, others Allergic/Immunocompromised: denies: Difficulty Healing, Frequent Infections, Hives, Itching, others Hematologic/Lymphatic: denies: anemia, blood clots, easy bleeding, easy bruising, swollen glands, others Endocrine: denies: excessive hunger, excessive sweating, excessive thirst, excessive urination, flushing, intolerance to cold, intolerance to heat, unexplained weight gain, unexplained weight loss, others Psychiatric: denies: anxiety, bipolar disorder, depression, hopeless, panic disorder, schizophrenia, sleepless, suicidal, others All Other Systems: Reviewed and Negative Physical Exam General Appearance: Mild Distress HEENT: Normal ENT Inspection, Pharynx Normal, TMs Normal Neck: Full Range of Motion, Non-Tender, Normal, Normal Inspection Respiratory: Chest Non-Tender, Lungs Clear, No Accessory Muscle Use, No Respiratory Distress, Normal Breath Sounds Cardiovascular: No Edema, No JVD, No Murmur, No Gallop, Normal Peripheral Pulses, Regular Rate/Rhythm, Other (Patient has a Herberth catheter to the chest) Breast Exam: Deferred Gastrointestinal: No Organomegaly, Non Tender, No Pulsatile Mass, Normal Bowel Sounds, Soft Genitalia: Deferred Pelvic: Deferred Rectal: Deferred Extremities: No calf tenderness, Normal capillary refill, Normal inspection, Normal range of motion, Non-tender, No pedal edema Musculoskeletal : Apperance: Normal Neurologic: Alert, satellite dish installer II-XII nml as Tested, No Motor Deficits, Normal Affect, Normal Mood, No Sensory Deficits Cerebellar Function: Normal Reflexes: Normal Skin: Dry, Normal Color, Warm Lymphatic: No Adenopathy Was a procedure done? Was a procedure done?: No Differential Dx Considerations may include: dialysis cath dislodged, dialysis catcher replacement, cellulitis, X-Ray, Labs, Meds, VS Vital Signs Date Time Temp Pulse Resp B/P (MAP) Pulse Ox O2 Delivery O2 Flow Rate FiO2 09/20/24 16:19 98.2 75 20 132/53 95 98.2 Lab Test 09/20/24 17:35 Range/Units White Blood Count 6.4 4.4-10.8 10^3/uL Red Blood Count 3.23 L 4.0-5.20 10^6/uL Hemoglobin 11.5 L 12.2-16.2 g/dL Hematocrit 34.3 L 36.0-46.0 % Mean Corpuscular Volume 106.2 H 80.0-100.0 fL Mean Corpuscular Hemoglobin 35.5 H 28.0-32.0 pg Mean Corpuscular Hemoglobin Concent 33.5 32.0-36.0 g/dL Red Cell Distribution Width 17.0 H 11.8-14.3 % Platelet Count 207 140-450 10^3/uL Mean Platelet Volume 7.5 6.9-10.8 fL Neutrophils (%) (Auto) 75.4 37.0-80.0 % Lymphocytes (%) (Auto) 13.9 10.0-50.0 % Monocytes (%) (Auto) 8.9 0.0-12.0 % Eosinophils (%) (Auto) 1.2 0.0-7.0 % Basophils (%) (Auto) 0.6 0.0-2.0 % Neutrophils # (Auto) 4.8 1.6-8.6 10 ^3/uL Lymphocytes # (Auto) 0.9 0.4-5.4 10 ^3/uL Monocytes # (Auto) 0.6 0-1.3 10 ^3/uL Eosinophils # (Auto) 0.1 0-0.8 10 ^3/uL Basophils # (Auto) 0 0-0.2 10 ^3/uL Nucleated Red Blood Cells 0.1 % Prothrombin Time 12.8 H 9.3-11.8 sec Prothrombin Time INR 1.23 H 0.9-1.15 Activated Partial Thromboplast Time 42.4 H 24.5-34.5 SEC Sodium Level 137 136-145 mmol/L Potassium Level 6.0 *H 3.5-5.1 mmol/L Chloride Level 105 98-107 mmol/L Carbon Dioxide Level 21 20-31 mmol/L Anion Gap 11 5-15 Blood Urea Nitrogen 53 H 9-23 mg/dL Creatinine 6.96 H 0.550-1.02 mg/dL Glomerular Filtration Rate Calc 6 >90 mL/min BUN/Creatinine Ratio 7.6 L 10.0-20.0 Serum Glucose 110 H 74-106 mg/dL Calcium Level 8.1 L 8.7-10.4 mg/dL The patient's CBC shows a hemoglobin of 11.5 and hematocrit 34.2 The patient's chemistry panel shows a potassium 6.0 The BUN is 53 and the creatinine is 6.96 We did order calcium, dextrose, insulin and sodium bicarbonate to address the hyperkalemia The patient is being admitted at this time. An IV Hep-Lock has been established A nephrology consult will be obtained Time of 1ST Reevaluation: 20:19 Reevaluation 1ST: Unchanged Patient Education/Counseling: Diagnosis, Treatment, Prognosis Family Education/Counseling: No Family Present SEPSIS Sepsis Screen Date sepsis recognized/suspect: Sep 20, 2024 Time Sepsis recognized/suspect: 1621 Recent Procedure: No On Antibiotic Therapy: No Respiratory Rate >20: No Heart Rate >90: No Temp<36 C (96.8 F) or >38.3 C: No SBP <90 or MAP <65 mmHG: No New Acute Mental Status Change: No Is the patient on CPAP, BIPAP,: No Physician Orders Heplock Iv (09/20/24 18:38) Door To Door Fundraising Collector (09/20/24 18:38) Blood Pressure (09/20/24 18:38) Pulse Oximetry (09/20/24 18:38) Vital Signs Date Time Temp Pulse Resp B/P (MAP) Pulse Ox O2 Delivery O2 Flow Rate FiO2 09/20/24 16:19 98.2 75 20 132/53 95 98.2 Laboratory Tests Test 09/20/24 17:35 White Blood Count 6.4 10^3/uL (4.4-10.8) Departure 1 Departure Time of Disposition: 20:20 Impression: Primary Impression: End stage renal disease on dialysis Additional Impressions: Anemia of chronic disease Hyperkalemia Disposition: ADMITTED INPATIENT Admit to: Tele Condition: Fair Critical Care Note Critical Care Time?: Yes (45 min-critical care time only) Stability Stability form required: Yes Unstable for transfer: Telemetry monitoring (Telemetry monitoring required), ED Physician Assesment (Clinical assesment) Heart Score Heart Score: Heart Score Response (Comments) Value History N/A 0 EKG N/A 0 Age N/A 0 Risk Factors N/A 0 Troponin N/A 0 Total 0 I personally scribed for KARMEN,GEORGE B MD ([email or web address]) on 09/20/24 at 17:15. Electronically submitted by Dallin Stafford ([email or web address]). I personally scribed for GEORGE PERAZA MD ([email or web address]) on 09/20/24 at 17:20. Electronically submitted by Dallin Stafford ([email or web address]). GEORGE PERAZA MD Sep 20, 2024 17:15
[2024-09-20 18:12] LABS: Hematocrit 34.3 % (36.0-46.0); Hemoglobin 11.5 g/dL (12.2-16.2); Mean Corpuscular Hemoglobin 35.5 pg (28.0-32.0); Mean Corpuscular Volume 106.2 fL (80.0-100.0); Nucleated Red Blood Cells % 0.1 %
[2024-09-20 18:13] LABS: Chloride 105 mmol/L (98-107); Sodium 137 mmol/L (136-145)
[2024-09-20 18:14] LABS: Anion Gap 11 (5-15); Carbon Dioxide 21 mmol/L (20-31)
[2024-09-20 18:19] LABS: BUN/Creatinine Ratio 7.6 (10.0-20.0)
[2024-09-20 18:20] LABS: Blood Urea Nitrogen 53 mg/dL (9-23); Calcium 8.1 mg/dL (8.7-10.4); Glucose 110 mg/dL (74-106)
[2024-09-20 18:22] LABS: Potassium 6.0 mmol/L (3.5-5.1)
[2024-09-20 18:25] LABS: INR 1.23 (0.9-1.15); Partial Thromboplastin Time 42.4 SEC (24.5-34.5); Prothrombin Time 12.8 sec (9.3-11.8)
[2024-09-20] MEDS ORDERED: ONDANSETRON HCL 4 MG/2 ML VIAL IV PRN (20:30)
[2024-09-20 22:52] VITALS: PULSE 88; RESP 17; O2SAT 96
--- NOTE | 2024-09-20 23:10 | DVHHP2 ---
History of Present Illness Reason for Visit: Dialysis catheter malfunction History of Present Illness 78-year-old female presents for possible dialysis catheter replacement. Patient reports being told at the dialysis center to present to have her catheter exchanged as they believe it is not in the right place. Patient reports missing her dialysis session yesterday due to feeling fatigued and weak. Denies chest pain, shortness for breath or palpitations. Past Medical History CVA, end-stage renal disease, dyslipidemia, hypertension, CHF Past Surgical History Hysterectomy, pacemaker, PTCA, tonsillectomy, cholecystectomy Family History Heart disease and diabetes mellitus Smoke: No ALCOHOL: none Drugs: None Lives: with Family Review of Systems Review of Systems Review of systems are currently negative otherwise addressed in HPI. Allergies: Coded Allergies: Clonidine (Verified Allergy, Severe, drowsy, hallucination, 07/02/24) Methotrexate (Verified Allergy, Severe, rash, 07/03/24) Codeine (Verified Allergy, Unknown, 10/01/21) Medications Current Medications Medications Dose Ordered Sig/Abbey Route Start Time Stop Time Status Last Admin Dose Admin Atorvastatin Calcium 20 mg HS PO 09/20/24 22:00 Levothyroxine Sodium 50 mcg QAM@0600 PO 09/21/24 06:00 Losartan Potassium 25 mg DAILY PO 09/21/24 10:00 UNV Sevelamer HCl 800 mg TIDWM PO 09/21/24 08:00 Valsartan 160 mg DAILY PO 09/21/24 10:00 UNV Carvedilol 6.25 mg Q12HR PO 09/20/24 22:00 Clopidogrel Bisulfate 75 mg DAILY PO 09/21/24 10:00 Ondansetron HCl 4 mg Q4HP PRN IV 09/20/24 20:30 Acetaminophen 650 mg Q6HP PRN PO 09/20/24 20:30 Exam Vital Signs Vital Signs Date Time Temp Pulse Resp B/P (MAP) Pulse Ox O2 Delivery O2 Flow Rate FiO2 09/20/24 22:52 88 17 96 Room Air* 0 21 09/20/24 22:07 98.4 150/70 (96) 98.4 Exam Gen: 78-year-old female in no apparent distress Skin: Warm, dry, normal color and texture, no rash. HEENT: Normocephalic atraumatic, mucous membranes moist and pink. Neck: Cervical and supraclavicular nodes normal without enlargement, trachea is midline, thyroid gland is normal without masses. Pulmonary: Clear to auscultation and percussion bilaterally. Cardiac: Regular rate and rhythm. No murmur Abdomen: Soft, nontender, nondistended, bowel sounds present all 4 quadrants, no guarding, no rigidity, no organomegaly. Extremities: No cyanosis, clubbing, no edema Neuro: Cranial nerves II through XII grossly intact, normal affect and speech, no focal motor deficits. Labs/Xrays Labs Test 09/20/24 21:06 09/20/24 17:35 Range/Units Potassium Level 6.3 *H 3.5-5.1 mmol/L White Blood Count 6.4 4.4-10.8 10^3/uL Red Blood Count 3.23 L 4.0-5.20 10^6/uL Hemoglobin 11.5 L 12.2-16.2 g/dL Hematocrit 34.3 L 36.0-46.0 % Mean Corpuscular Volume 106.2 H 80.0-100.0 fL Mean Corpuscular Hemoglobin 35.5 H 28.0-32.0 pg Mean Corpuscular Hemoglobin Concent 33.5 32.0-36.0 g/dL Red Cell Distribution Width 17.0 H 11.8-14.3 % Platelet Count 207 140-450 10^3/uL Mean Platelet Volume 7.5 6.9-10.8 fL Neutrophils (%) (Auto) 75.4 37.0-80.0 % Lymphocytes (%) (Auto) 13.9 10.0-50.0 % Monocytes (%) (Auto) 8.9 0.0-12.0 % Eosinophils (%) (Auto) 1.2 0.0-7.0 % Basophils (%) (Auto) 0.6 0.0-2.0 % Neutrophils # (Auto) 4.8 1.6-8.6 10 ^3/uL Lymphocytes # (Auto) 0.9 0.4-5.4 10 ^3/uL Monocytes # (Auto) 0.6 0-1.3 10 ^3/uL Eosinophils # (Auto) 0.1 0-0.8 10 ^3/uL Basophils # (Auto) 0 0-0.2 10 ^3/uL Nucleated Red Blood Cells 0.1 % Prothrombin Time 12.8 H 9.3-11.8 sec Prothrombin Time INR 1.23 H 0.9-1.15 Activated Partial Thromboplast Time 42.4 H 24.5-34.5 SEC Sodium Level 137 136-145 mmol/L Chloride Level 105 98-107 mmol/L Carbon Dioxide Level 21 20-31 mmol/L Anion Gap 11 5-15 Blood Urea Nitrogen 53 H 9-23 mg/dL Creatinine 6.96 H 0.550-1.02 mg/dL Glomerular Filtration Rate Calc 6 >90 mL/min BUN/Creatinine Ratio 7.6 L 10.0-20.0 Serum Glucose 110 H 74-106 mg/dL Calcium Level 8.1 L 8.7-10.4 mg/dL SEPSIS Sepsis Screen Date sepsis recognized/suspect: Sep 20, 2024 Time Sepsis recognized/suspect: 2252 Recent Procedure: No On Antibiotic Therapy: No Respiratory Rate >20: No Heart Rate >90: No Temp<36 C (96.8 F) or >38.3 C: No SBP <90 or MAP <65 mmHG: No New Acute Mental Status Change: No Is the patient on CPAP, BIPAP,: No Physician Orders Heplock Iv (09/20/24 18:38) Voice Network Administrator (09/20/24 18:38) Blood Pressure (09/20/24 18:38) Pulse Oximetry (09/20/24 18:38) Admit (09/20/24 20:15) Atorvastatin (Lipitor) (09/20/24 22:00) Levothyroxine Tablet (Synthroid Tablet) (09/21/24 06:00) Losartan Tablet (Cozaar Tablet) (09/21/24 10:00) Sevelamer (Renagel) (09/21/24 08:00) Valsartan (Diovan) (09/21/24 10:00) Carvedilol Tablet (Coreg Tablet) (09/20/24 22:00) Clopidogrel Bisulfate (Plavix) (09/21/24 10:00) Basic Metabolic Panel (09/21/24 04:00) *Dr. Celestine Dexter [facility] (09/20/24 20:19) Renal Standard(2gna,3gk,Lopho) (09/21/24 Breakfast) Ondansetron Hcl (Zofran) (09/20/24 20:30) Condition: Fair (09/20/24 20:19) Acetaminophen Tablet (Tylenol Tablet) (09/20/24 20:30) Bedrest With Bathroom Privileg (09/20/24 20:19) * Radiologist Consult (09/20/24 23:05) Dextrose 50% Syringe (09/20/24 23:15) Insulin R (Human) (Insulin R) (09/20/24 23:15) Calcium Ivpb (09/20/24 23:15) Sodium Bicarb 50meq/50ml Vial (09/20/24 23:15) Albuterol Medneb (Ventolin Medneb) (09/20/24 23:15) Vital Signs Date Time Temp Pulse Resp B/P (MAP) Pulse Ox O2 Delivery O2 Flow Rate FiO2 09/20/24 22:52 88 17 96 Room Air* 0 21 09/20/24 22:07 98.4 88 17 150/70 (96) 96 98.4 09/20/24 16:19 98.2 75 20 132/53 95 98.2 Laboratory Tests Test 09/20/24 17:35 White Blood Count 6.4 10^3/uL (4.4-10.8) Assessment/Plan Assessment/Plan Assessment End-stage renal disease, dialysis dependent Dialysis catheter malfunction Hypertension Hypokalemia Plan Admit the patient to telemetry to the hospitalist Nephrology consult Radiology consult Chest x-ray pending Resume home medications Continue treatment per orders. Plan discussed with: Patient My Orders Orders - SULAIMAN MAK Procedure Category Date Status Time Admit ADMIT 09/20/24 Transmitted 20:15 Atorvastatin (Lipitor) PHA 09/20/24 In Process 22:00 Levothyroxine Tablet PHA 09/21/24 In Process (Synthroid Tablet) 06:00 Losartan Tablet PHA 09/21/24 Pending (Cozaar Tablet) 10:00 Sevelamer (Renagel) PHA 09/21/24 In Process 08:00 Valsartan (Diovan) PHA 09/21/24 Pending 10:00 Carvedilol Tablet PHA 09/20/24 In Process (Coreg Tablet) 22:00 Clopidogrel Bisulfate PHA 09/21/24 In Process (Plavix) 10:00 Basic Metabolic Panel LAB 09/21/24 Verified 04:00 *Dr. [facility] CONS 09/20/24 Transmitted -[place] 20:19 Renal DIET 09/21/24 Transmitted Standard(2gna,3gk,Lopho) Breakfast Ondansetron Hcl PHA 09/20/24 In Process (Zofran) 20:30 Condition: Fair LEFTY 09/20/24 In Process 20:19 Acetaminophen Tablet PHA 09/20/24 In Process (Tylenol Tablet) 20:30 Bedrest With Bathroom LEFTY 09/20/24 In Process Privileg 20:19 * Radiologist Consult CONS 09/20/24 Verified 23:05 Dextrose 50% Syringe PHA 09/20/24 Verified 23:15 Insulin R (Human) PHA 09/20/24 Verified (Insulin R) 23:15 Calcium Ivpb PHA 09/20/24 Verified 23:15 Sodium Bicarb PHA 09/20/24 Verified 50meq/50ml Vial 23:15 Albuterol Medneb PHA 09/20/24 Verified (Ventolin Medneb) 23:15 Date of Service: Sep 20, 2024 Billing Provider: SULAIMAN MAK Common Visit Codes: [id number] INP/OBS CARE (HIGH) SULAIMAN MAK Sep 20, 2024 23:10
[2024-09-20] MEDS: SODIUM BICARB 8.4% 50Meq/50ml SYR Vial IV ONE ×2 (23:15→23:31)
[2024-09-20] MEDS: CALCIUM GLUC 1,000mg/50ml-NS 50 ML IV ONE ×2 (23:15→23:30)
[2024-09-20] MEDS: InsuLIN REG 1unit/0.01ml Soln (100units/ml) IV ONE ×2 (23:15→23:33)
[2024-09-20] MEDS: DEXTROSE (50%) 50ML SYRG IV ONE ×2 (23:15→23:31)
[2024-09-20] MEDS: ATORVASTATIN 20 MG TAB PO SCH (23:31)
[2024-09-20] MEDS: CARVEDILOL 3.125 MG TAB PO SCH (23:32)
--- NOTE | 2024-09-20 23:44 | DVH ---
CHEST RADIOGRAPH Indication: Left chest dialysis catheter position Technique: Single frontal view of the chest was obtained COMPARISON: XY CHEST PORTABLE on DOS: 07/02/24, XY CHEST PORTABLE on DOS: 06/28/24, XY CHEST PORTABLE o n DOS: 10/26/23, XY CHEST PORTABLE on DOS: 10/08/23, XY CHEST TWO VIEWS ROUTINE on DOS: 08/11/23 FINDINGS: Lines and Tubes: Left-sided central venous catheter seen with tip in the cavoatrial junction. Pacemak er/ AICD is seen in the right upper chest with multiple cardiac leads. Lungs: Clear Pleura: No effusion. No pneumothorax. Cardiomediastinal contours: Unremarkable Bones: Unremarkable IMPRESSION: 1. No acute disease. 2. Left-sided central venous catheter is seen with tip in the cavoatrial junction.
[2024-09-20] MEDS: ALBUTEROL SULF 2.5 MG/0.5ML(0.5%) NEB SOLN NEB ONE (23:50)
[2024-09-21] VITALS (10 sets, daily range): BP systolic 129–151; BP diastolic 67–78; PULSE 63–87; RESP 14–18; TEMP 97.8–98; O2SAT 94–99
[2024-09-21 04:56] LABS: Chloride 105 mmol/L (98-107); Sodium 137 mmol/L (136-145)
[2024-09-21 04:58] LABS: Anion Gap 13 (5-15); Calcium 8.1 mg/dL (8.7-10.4); Carbon Dioxide 19 mmol/L (20-31); Potassium 6.2 mmol/L (3.5-5.1)
[2024-09-21 05:02] LABS: BUN/Creatinine Ratio 7.8 (10.0-20.0)
[2024-09-21 05:06] LABS: Blood Urea Nitrogen 55 mg/dL (9-23); Glucose 73 mg/dL (74-106)
[2024-09-21] MEDS: ALBUTEROL SULF 2.5 MG/0.5ML(0.5%) NEB SOLN ONE (05:19)
[2024-09-21] MEDS: ALBUTEROL SULF 2.5 MG/0.5ML(0.5%) NEB SOLN NEB ONE (05:24)
[2024-09-21] MEDS: LEVOTHYROXINE SODIUM 50 MCG TAB PO SCH (05:35)
[2024-09-21] MEDS: DEXTROSE (50%) 50ML SYRG IV ONE (05:36)
[2024-09-21] MEDS: SODIUM BICARB 8.4% 50Meq/50ml SYR INJ IV ONE (05:36)
[2024-09-21] MEDS: CALCIUM GLUC 1,000mg/50ml-NS 50 ML IV ONE (05:36)
[2024-09-21] MEDS: InsuLIN REG 1unit/0.01ml Soln (100units/ml) IV ONE (05:38)
[2024-09-21] MEDS: ceFAZolin 2 GM/D5W50ml 50 ML IV ONE (06:58)
[2024-09-21] MEDS: SEVELAMER 800 MG TAB PO SCH (08:25)
[2024-09-21] MEDS: LOSARTAN POTASSIUM 50 MG TAB PO SCH (10:00)
[2024-09-21] MEDS ORDERED: LOSARTAN POTASSIUM 25 MG TAB PO SCH (10:00)
[2024-09-21] MEDS: CLOPIDOGREL BISULFATE 75 MG TAB PO SCH (10:15)
[2024-09-21] MEDS: MIDAZOLAM HCL 2MG/2ML 2ml VIAL (1mg/ml) ONE (13:50)
[2024-09-21] MEDS: LIDOCAINE 2%HCL (LOCAL ANESTH.) INJ 20ML MDV ONE (13:50)
[2024-09-21] MEDS: fentaNYL CITRATE 100 MCG/2 ML VL ONE (13:50)
[2024-09-21] MEDS: ceFAZolin 1GM/50ML 50 ML IV ONE (14:23)
--- NOTE | 2024-09-21 15:02 | DVHPN2 ---
Subjective Patient doing well, Reviewed: H&P Changes from previous H/P or p: No Changes General: Per HPI Objective Vitals Vital Signs Date Time Temp Pulse Resp B/P (MAP) Pulse Ox O2 Delivery O2 Flow Rate FiO2 09/21/24 13:50 148/78 09/21/24 11:10 Room Air* 0 21 09/21/24 10:00 80 09/21/24 09:35 98.1 14 94 98.1 Exam GEN: Healthy appearing, well-developed, NAD. HEENT: NC/AT; MMM. CV: RRR, no m/r/g. LUNGS: CTAB, no w/r/c. ABD: Soft, NT/ND, NBS, no masses or organomegaly. EXT: skin Warm, well perfused. no rashes. No clubbing, cyanosis, or edema. NEURO: Ambulating with no limitations. No focal deficits. Medications Current Medications Medications Dose Ordered Sig/Abbey Route Start Time Stop Time Status Last Admin Dose Admin Atorvastatin Calcium 20 mg HS PO 09/20/24 22:00 09/20/24 23:31 20 MG Levothyroxine Sodium 50 mcg QAM@0600 PO 09/21/24 06:00 09/21/24 05:35 50 MCG Sevelamer HCl 800 mg TIDWM PO 09/21/24 08:00 09/21/24 08:25 800 MG Losartan Potassium 100 mg DAILY PO 09/21/24 10:00 Carvedilol 6.25 mg Q12HR PO 09/20/24 22:00 09/20/24 23:32 6.25 MG Clopidogrel Bisulfate 75 mg DAILY PO 09/21/24 10:00 09/21/24 10:15 75 MG Ondansetron HCl 4 mg Q4HP PRN IV 09/20/24 20:30 Acetaminophen 650 mg Q6HP PRN PO 09/20/24 20:30 Laboratory Results Laboratory Tests 09/20/24 17:35 09/21/24 04:24 09/21/24 08:48 Chemistry Test 09/20/24 17:35 09/21/24 04:24 Calcium Level 8.1 mg/dL (8.7-10.4) L 8.1 mg/dL (8.7-10.4) L Coagulation Test 09/20/24 17:35 Prothrombin Time 12.8 sec (9.3-11.8) H Prothrombin Time INR 1.23 (0.9-1.15) H Activated Partial Thromboplast Time 42.4 SEC (24.5-34.5) H Labs and/or images reviewed: Labs reviewed by me, Image(s) reviewed by me Assessment/Plan Assessment/Plan 78-year-old female with pmhx CVA, end-stage renal disease, dyslipidemia, hypertension, CHF. presents for possible dialysis catheter replacement. Patient reports being told at the dialysis center to present to have her catheter exchanged as they believe it is not in the right place. Patient reports missing her dialysis session yesterday due to feeling fatigued and weak. Denies chest pain, shortness for breath or palpitations. 09/21: We will communicate with Nephrology regarding plan for HD catheter and/or dialysis. Radiology consult was placed, there was x-ray done on admit showing left-sided central venous catheter in the tip cavoatrial junction. Getting dialysis after incision of HD cath and patient is getting HD for 3 hours. Can possibly decide tomorrow a.m.. Assessment: End-stage renal disease, dialysis dependent Dialysis catheter malfunction Volume overload Anemia, microcytic Hyperkalemia Azotemia, due to renal failure Hypertension Hypokalemia Plan: Nephrology consult Radiology consult Resume home medications Continue treatment per orders. Renal diet Med surge Full code Plan discussed with: Patient My Orders Orders - REJI BARBOSA MD Procedure Category Date Status Time Insertion Of Venous XY 09/21/24 Taken Cath 14:51 Date of Service: Sep 21, 2024 Billing Provider: REJI BARBOSA MD Common Visit Codes: [id number] INP/OBS CARE(HIGH) REJI BARBOSA MD Sep 21, 2024 15:01
--- NOTE | 2024-09-21 15:10 | DVH ---
XY Insertion of Venous Cath, HISTORY: HD CATH exchange due to infection/retracted out of skin. PROCEDURE: Informed consent was obtained. The patient was placed supine on the interventional table. Torpedo Shooter film was obtained. Time out was performed. IV sedation and 1 gram of Ancef was administered. Th e right neck base and upper chest were prepped with chlorhexidine which was allowed to dry and draped in the usual sterile fashion. The skin and the soft tissues of the right upper chest were infiltrate d with 1% Lidocaine. A stiff Glidewire was passed through the existing tunneled hemodialysis catheter into the IVC. The di alysis catheter was removed over the wire and manual pressure was held over the left internal jugula r vein. A new 14.5 Fr x 23 cm Hammond path hemodialysis catheter was advanced over the wire with tip in the right atrium. The wire was removed. The catheter tip position was confirmed with fluoroscopy. Th ere was satisfactory flow. The catheter lumen was flushed with saline heparin was left indwelling in the catheter. A post-procedure image of the chest was obtained. The catheter was sutured at the skin surface. No immediate complication was identified. DAP 72.1 FLUOROSCOPY TIME: 1.0 minutes . SEDATION: Dr. Ian Martinez was personally responsible for the administration of moderate sedation during the procedure performed, including the use of an independent trained observer who had no other duties during the procedure. The drugs utilized were IV fentanyl and versed (see nursing log for details). The total time of supervision by the attending physician was approximately 30 minutes. FINDINGS: Post procedure image demonstrates smooth course of the tunneled hemodialysis catheter in t he left upper chest, with the tip in the right atrium. IMPRESSION: Successful exchange and reposition of a left sided 14.5 Fr x [address] tunneled hemodialysis c atheter.
[2024-09-21] MEDS: SODIUM CHL 0.9% 1000 ML BAG XX ONE (15:33)
[2024-09-21] MEDS: HEPARIN SODIUM (PORCINE) 5000 UNITS/ML 1ML VIAL ONE (15:33)
--- NOTE | 2024-09-21 18:32 | DVHINCON2 ---
Date of service: Sep 21, 2024 Reason for Consultation esrd History of Present Illness 78 years old female end-stage renal disease on dialysis, hypertension, Congestive heart failure, presents with chief complaints non functioning dialysis catheter Past Medical History Per HPI Allergies: Coded Allergies: Clonidine (Verified Allergy, Severe, drowsy, hallucination, 07/02/24) Methotrexate (Verified Allergy, Severe, rash, 07/03/24) Codeine (Verified Allergy, Unknown, 10/01/21) Home Meds Active Scripts Alum & Mag Hydrox-Simethicone (Magic Mouthwash) 80 Ml Ss, 5 ML MT QID for 14 Days, #120 ML Prov:DEL BUNCH MD 05/01/24 Acetaminophen (Tylenol) 325 Mg Cap, 325 MG PO Q6HR for 10 Days, #20 CAP Prov:CHACE KING RESIDENT 03/02/24 Reported Medications Ropinirole Hydrochloride (Ropinirole Hcl) 0.25 Mg Tab, 0.25 MG PO, TAB 07/02/24 Atorvastatin Calcium (Lipitor) 20 Mg Tab, 1 TAB PO HS for HIGH CHOLESTEROL 08/18/23 Clonazepam (KlonoPIN TABLET) 0.5 Mg Tb, 1 TAB PO DAILY for SEIZURES 08/11/23 Sevelamer Carbonate (Sevelamer Carbonate) 800 Mg Tab, 1 TAB PO TID for RENAL SUPPLEMENT 04/07/23 Docusate Sodium (DOCQLACE) 100 Mg Cap, 1 CAP PO BID PRN for FOR CONSTIPATION 11/24/20 Levothyroxine Sodium (Euthyrox) 50 Mcg Tab, 1 TAB PO DAILY for HYPOTHYROIDISM 11/24/20 Current Medications Current Medications Medications (Trade) Dose Ordered Sig/Abbey Route PRN Reason Start Time Stop Time Status Last Admin Atorvastatin Calcium (Lipitor) 20 mg HS PO 09/20/24 22:00 09/20/24 23:31 Levothyroxine Sodium (Synthroid Tablet) 50 mcg QAM@0600 PO 09/21/24 06:00 09/21/24 05:35 Losartan Potassium (Cozaar Tablet) 25 mg DAILY PO 09/21/24 10:00 09/21/24 08:07 DC Sevelamer HCl (Renagel) 800 mg TIDWM PO 09/21/24 08:00 09/21/24 08:25 Losartan Potassium (Cozaar Tablet) 100 mg DAILY PO 09/21/24 10:00 Carvedilol (Coreg Tablet) 6.25 mg Q12HR PO 09/20/24 22:00 09/20/24 23:32 Clopidogrel Bisulfate (Plavix) 75 mg DAILY PO 09/21/24 10:00 09/21/24 10:15 Ondansetron HCl (Zofran) 4 mg Q4HP PRN IV NAUSEA / VOMITING 09/20/24 20:30 Acetaminophen (Tylenol Tablet) 650 mg Q6HP PRN PO PAIN SCALE 1-3 OR TEMP>100.4 09/20/24 20:30 Family History: Cardiovascular disease 19 CHILD 19 CHILD Colon cancer 19 CHILD Diabetes mellitus 19 CHILD 19 CHILD Review of Systems Negative ROS H&P Exam Vital Signs/I&O Vital Sign Date Time Temp Pulse Resp B/P (MAP) Pulse Ox O2 Delivery O2 Flow Rate FiO2 09/21/24 15:30 98.0 70 18 151/74 (99) 96 98.0 09/21/24 11:10 Room Air* 0 21 Labs/Diagnostic Data Labs/Diagnostic Data Laboratory Tests Test 09/21/24 11:44 09/21/24 08:48 09/21/24 04:24 09/20/24 23:04 Range/Units Hepatitis B Surface Antigen Negative Negative Potassium Level 5.0 6.2 *H 3.5-5.1 mmol/L Sodium Level 137 136-145 mmol/L Chloride Level 105 98-107 mmol/L Carbon Dioxide Level 19 L 20-31 mmol/L Anion Gap 13 5-15 Blood Urea Nitrogen 55 H 9-23 mg/dL Creatinine 7.09 H 0.550-1.02 mg/dL Glomerular Filtration Rate Calc 6 >90 mL/min BUN/Creatinine Ratio 7.8 L 10.0-20.0 Serum Glucose 73 L 74-106 mg/dL Calcium Level 8.1 L 8.7-10.4 mg/dL POC Glucose 87 70-106 mg/dl Test 09/20/24 21:06 09/20/24 17:35 Range/Units Potassium Level 6.3 *H 6.0 *H 3.5-5.1 mmol/L White Blood Count 6.4 4.4-10.8 10^3/uL Red Blood Count 3.23 L 4.0-5.20 10^6/uL Hemoglobin 11.5 L 12.2-16.2 g/dL Hematocrit 34.3 L 36.0-46.0 % Mean Corpuscular Volume 106.2 H 80.0-100.0 fL Mean Corpuscular Hemoglobin 35.5 H 28.0-32.0 pg Mean Corpuscular Hemoglobin Concent 33.5 32.0-36.0 g/dL Red Cell Distribution Width 17.0 H 11.8-14.3 % Platelet Count 207 140-450 10^3/uL Mean Platelet Volume 7.5 6.9-10.8 fL Neutrophils (%) (Auto) 75.4 37.0-80.0 % Lymphocytes (%) (Auto) 13.9 10.0-50.0 % Monocytes (%) (Auto) 8.9 0.0-12.0 % Eosinophils (%) (Auto) 1.2 0.0-7.0 % Basophils (%) (Auto) 0.6 0.0-2.0 % Neutrophils # (Auto) 4.8 1.6-8.6 10 ^3/uL Lymphocytes # (Auto) 0.9 0.4-5.4 10 ^3/uL Monocytes # (Auto) 0.6 0-1.3 10 ^3/uL Eosinophils # (Auto) 0.1 0-0.8 10 ^3/uL Basophils # (Auto) 0 0-0.2 10 ^3/uL Nucleated Red Blood Cells 0.1 % Prothrombin Time 12.8 H 9.3-11.8 sec Prothrombin Time INR 1.23 H 0.9-1.15 Activated Partial Thromboplast Time 42.4 H 24.5-34.5 SEC Sodium Level 137 136-145 mmol/L Chloride Level 105 98-107 mmol/L Carbon Dioxide Level 21 20-31 mmol/L Anion Gap 11 5-15 Blood Urea Nitrogen 53 H 9-23 mg/dL Creatinine 6.96 H 0.550-1.02 mg/dL Glomerular Filtration Rate Calc 6 >90 mL/min BUN/Creatinine Ratio 7.6 L 10.0-20.0 Serum Glucose 110 H 74-106 mg/dL Calcium Level 8.1 L 8.7-10.4 mg/dL Assessment ESRD on dialysis Hyperkalemia Malfunctioning dialysis catheter Recommendations IR guided new dialysis catheter placement HD today Okay to be discharged after HD from renal standpoint Plan discussed with: DUSTY Mai MD Sep 21, 2024 18:32
[2024-09-22 01:00] VITALS: BP 126/58; PULSE 61; RESP 16; TEMP 97.6; O2SAT 96
[2024-09-22] MEDS: ACETAMINOPHEN 325 MG TAB PO PRN (04:58)
[2024-09-22 05:00] VITALS: BP 115/58; PULSE 72; RESP 18; TEMP 97.5; O2SAT 98
[2024-09-22 08:00] VITALS: PULSE 72; RESP 18; O2SAT 96
[2024-09-22 09:00] VITALS: BP 92/51; PULSE 72; RESP 18; TEMP 97.9; O2SAT 96
[2024-09-22 13:00] VITALS: BP 120/80; PULSE 68; RESP 17; TEMP 97.4; O2SAT 97
[2024-09-22] MEDS ORDERED: methylPREDNISolone SOD SUCC 40 MG/ML VL IV ONE (14:30)
[2024-09-22] MEDS ORDERED: PROCHLORPERAZINE EDISYLATE 5 MG/ML 2ML VIAL IV ONE (14:30)
[2024-09-22] MEDS ORDERED: FAMOTIDINE (10MG/ML) 2ML VL IV ONE (14:30)
--- NOTE | 2024-09-22 15:34 | DVHDS2 ---
Discharge Summary Date of Admission Sep 20, 2024 at 20:15 Date of Discharge: Sep 22, 2024 Admitting Diagnosis Malfunctioning HD cath Labs/Diagnostic Data: Laboratory Results Test 09/21/24 11:44 09/21/24 08:48 09/21/24 04:24 09/20/24 23:04 Hepatitis B Surface Antigen Negative (Negative) Potassium Level 5.0 mmol/L (3.5-5.1) Sodium Level 137 mmol/L (136-145) Chloride Level 105 mmol/L (98-107) Carbon Dioxide Level 19 mmol/L (20-31) Anion Gap 13 (5-15) Blood Urea Nitrogen 55 mg/dL (9-23) Creatinine 7.09 mg/dL (0.550-1.02) Glomerular Filtration Rate Calc 6 mL/min (>90) BUN/Creatinine Ratio 7.8 (10.0-20.0) Serum Glucose 73 mg/dL (74-106) Calcium Level 8.1 mg/dL (8.7-10.4) POC Glucose 87 mg/dl (70-106) Test 09/20/24 17:35 White Blood Count 6.4 10^3/uL (4.4-10.8) Red Blood Count 3.23 10^6/uL (4.0-5.20) Hemoglobin 11.5 g/dL (12.2-16.2) Hematocrit 34.3 % (36.0-46.0) Mean Corpuscular Volume 106.2 fL (80.0-100.0) Mean Corpuscular Hemoglobin 35.5 pg (28.0-32.0) Mean Corpuscular Hemoglobin Concent 33.5 g/dL (32.0-36.0) Red Cell Distribution Width 17.0 % (11.8-14.3) Platelet Count 207 10^3/uL (140-450) Mean Platelet Volume 7.5 fL (6.9-10.8) Neutrophils (%) (Auto) 75.4 % (37.0-80.0) Lymphocytes (%) (Auto) 13.9 % (10.0-50.0) Monocytes (%) (Auto) 8.9 % (0.0-12.0) Eosinophils (%) (Auto) 1.2 % (0.0-7.0) Basophils (%) (Auto) 0.6 % (0.0-2.0) Neutrophils # (Auto) 4.8 10 ^3/uL (1.6-8.6) Lymphocytes # (Auto) 0.9 10 ^3/uL (0.4-5.4) Monocytes # (Auto) 0.6 10 ^3/uL (0-1.3) Eosinophils # (Auto) 0.1 10 ^3/uL (0-0.8) Basophils # (Auto) 0 10 ^3/uL (0-0.2) Nucleated Red Blood Cells 0.1 % Prothrombin Time 12.8 sec (9.3-11.8) Prothrombin Time INR 1.23 (0.9-1.15) Activated Partial Thromboplast Time 42.4 SEC (24.5-34.5) Other Laboratory Tests 09/21/24 08:48 09/21/24 04:24 09/20/24 17:35 Brief Hx & Hospital Course: 78-year-old female with pmhx CVA, end-stage renal disease, dyslipidemia, hypertension, CHF. presents for possible dialysis catheter replacement. Patient reports being told at the dialysis center to present to have her catheter exchanged as they believe it is not in the right place. Patient reports missing her dialysis session yesterday due to feeling fatigued and weak. Denies chest pain, shortness for breath or palpitations. 09/21: We will communicate with Nephrology regarding plan for HD catheter and/or dialysis. Radiology consult was placed, there was x-ray done on admit showing left-sided central venous catheter in the tip cavoatrial junction. Getting dialysis after incision of HD cath and patient is getting HD for 3 hours. Can possibly decide tomorrow a.m. 09/22: No concerning bleeds in the region of new HD catheter tunnel cath left shoulder. Patient had headache, we gave IV Compazine and Solu-Medrol 20 mg with Pepcid IV 20, patient is to continue Pepcid for 7 more days as gastric ulcer prophylaxis. Cleared by Nephrology. Stable for discharge as per plan below. Assessment: Hyperkalemia due to below, resolved Volume overload in a dialysis dependent state, due to below Dialysis catheter malfunction End-stage renal disease, dialysis dependent Anemia, microcytic Hyperkalemia Azotemia, due to renal failure Hypertension Discharge plan - take Pepcid 20 mg twice daily for 7 days - continue other home medications not mentioned above - No restrictions for ambulation, continue renal diet. - follow up with Nephrology as scheduled - follow up with PCP as scheduled Condition at Discharge: Fair Final Diagnosis/Problems List Hyperkalemia due to below, resolved Volume overload in a dialysis dependent state, due to below Dialysis catheter malfunction End-stage renal disease, dialysis dependent Anemia, microcytic Hyperkalemia Azotemia, due to renal failure Hypertension Discharge Disposition: Home Discharge Instruct/Medications Diet: Renal Activity: No Restrictions, As Tolerated Follow Up/Referral: As below Medications: As below Scheduled Acetaminophen (Tylenol), 325 MG PO Q6HR Alum & Mag Hydrox-Simethicone (Magic Mouthwash), 5 ML MT QID Atorvastatin Calcium (Lipitor), 1 TAB PO HS, (Reported) Clonazepam (KlonoPIN TABLET), 1 TAB PO DAILY, (Reported) Levothyroxine Sodium (Euthyrox), 1 TAB PO DAILY, (Reported) Sevelamer Carbonate (Sevelamer Carbonate), 1 TAB PO TID, (Reported) Scheduled PRN Docusate Sodium (Docqlace), 1 CAP PO BID PRN for FOR CONSTIPATION, (Reported) Miscellaneous Medications Ropinirole Hydrochloride (Ropinirole Hcl), 0.25 MG PO, (Reported) Discharge Statement: "Patient was advised to return to the ER or call 911 if any headaches, dizziness, shortness of breath, chest pain, abdominal pain, bleeding, fevers, or worsening of medical condition. Patient was counseled about treatment plan, medications, possible side effects, patientverbalized understanding. All questions were answered to the best of my ability. This discharge took greater then 30 minutes in planning, reviewing documentation, counseling the patient, and discussing with other team members." Date of Service: Sep 22, 2024 Billing Provider: REJI BARBOSA MD Common Visit Codes: 70490-UEJ/OBS DISCH DAY >30min REJI BARBOSA MD Sep 22, 2024 15:34
== END 2024-09-22 16:55 | disposition home or self-care (01) | DRG 698 ==
LOC: ER 16:10 → OVERFLOW 20:15 → WEST WING 09-21 10:30
PROVIDERS: ADMIT Student in an Organized Health Care Education/Training Program; ATTEND Student in an Organized Health Care Education/Training Program
PROC: 5A1D70Z Performance of Urinary Filtration, Intermittent, Less than 6 Hours Per Day (ICD-10-PCS; principal; 2024-09-21)
PROC: 0J2TXYZ Change Other Device in Trunk Subcutaneous Tissue and Fascia, External Approach (ICD-10-PCS; 2024-09-21)
DX: T82.41XA Breakdown (mechanical) of vascular dialysis catheter, initial encounter (principal); N18.6 End stage renal disease; I13.2 Hypertensive heart and chronic kidney disease with heart failure and with stage 5 chronic kidney disease, or end stage renal disease; D50.9 Iron deficiency anemia, unspecified; I50.9 Heart failure, unspecified; F41.9 Anxiety disorder, unspecified; E87.5 Hyperkalemia; D63.8 Anemia in other chronic diseases classified elsewhere; E78.5 Hyperlipidemia, unspecified; Z88.5 Allergy status to narcotic agent; Z88.8 Allergy status to other drugs, medicaments and biological substances; Z90.710 Acquired absence of both cervix and uterus; Z86.73 Personal history of transient ischemic attack (TIA), and cerebral infarction without residual deficits; Z83.3 Family history of diabetes mellitus; Z82.49 Family history of ischemic heart disease and other diseases of the circulatory system; Z90.49 Acquired absence of other specified parts of digestive tract; Z99.2 Dependence on renal dialysis; Z80.0 Family history of malignant neoplasm of digestive organs; E87.6 Hypokalemia; Z79.899 Other long term (current) drug therapy; Z90.89 Acquired absence of other organs; Y83.8 Other surgical procedures as the cause of abnormal reaction of the patient, or of later complication, without mention of misadventure at the time of the procedure; Y92.098 Other place in other non-institutional residence as the place of occurrence of the external cause
CPT/HCPCS: 36415; 36558; 71045; 80048; 82962; 84132; 85025; 85610; 85730; 87340; 90935; 94640; 99152; 99291; G0378; J1815; J2250

== ENCOUNTER 2024-12-18 11:17 | Inpatient (IN) | payer OTHER ==
[2024-12-18] VITALS (8 sets, daily range): BP systolic 133–195; BP diastolic 50–65; PULSE 70–83; RESP 16–18; TEMP 97.3–97.9; O2SAT 95–98
[~2024-12-18] VITALS: Ht 149.9 cm; Wt 62.8 kg
[~2024-12-18 11:17] MED LIST changes: -CLON0.1T PO; -LOS25T PO
--- NOTE | 2024-12-18 11:36 | ED.PDOC ---
SOB-HPI HPI Comments This is a 79 year old female presenting to the ED with chief complaint of SOB. Patient reports that she has been experiencing SOB with associated dry cough and nausea since 4am this morning, being unable to go back to sleep. Patient denies any chest pain, dizziness, headache, fever, chills, vomiting, or abdominal pain. Chief Complaint: Shortness of Breath Time Seen by MD: 11:35 Primary Care Provider: BROWN Reviewed notes: Nurses Notes, Medications, Allergies Information Source: Patient Mode of Arrival: Ambulatory Severity: Moderate Timing: Hours Duration: Since onset Context: At Rest PE Risk Factors: None History of: None Prehospital treatment: None Modifying Factors: Nothing Associated Signs and Symptoms: Cough If cough with SOB: Non-Productive Past Medical History PAST MEDICAL HISTORY: Anxiety, CHF, CVA, ESRD, High Lipids, HTN, Thyroid, TIA Surgical History: Cholecystectomy, Hysterectomy, Pacemaker, PTCA, Tonsillectomy 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 History: Denies all PROJECT FINANCIAL ANALYST Hx Family History Family History: Family hx of DM, Family hx of heart naila Social History Smoker: Non-Smoker Alcohol: Denies ETOH Use Drugs: Denies Drug Use Lives In: Home Constitutional: denies: chills, diaphoresis, fatigue, fever, malaise, sweats, weakness, others EENTM: denies: blurred vision, double vision, ear bleeding, ear discharge, ear drainage, ear pain, ear ringing, eye pain, eye redness, hearing loss, mouth pain, mouth swelling, nasal discharge, nose bleeding, nose congestion, nose pain, photophobia, tearing, throat pain, throat swelling, voice changes, others Respiratory: reports: cough, shortness of breath; denies: hemoptysis, orthopnea, SOB at rest, SOB with excertion, stridor, wheezing, others Cardiovascular: denies: chest pain, dizzy spells, diaphoresis, Dyspnea on exertion, edema, irregular heart beat, left arm pain, lightheadedness, palp itations, PND, syncope, others Gastrointestinal: reports: nausea; denies: abdomen distended, abdominal pain, blood streaked bowels, constipated, diarrhea, dysphagia, difficulty swallowing, hematemesis, melena, poor appetite, poor fluid intake, rectal bleeding, rectal pain, vomiting, others Genitourinary: denies: abnormal vagina bleeding, burning, dyspareunia, dysuria, flank pain, frequency, hematuria, incontinence, pain, , vagina disch arge, urgency, others Neurological: denies: dizziness, fainting, headache, left sided numbness, left sided weakness, numbness, paresthesia, pre-existing deficit, right sided numbness, right sided weakness, seizure, speech problems, tingling, tremors, weakness, others Musculoskeletal: denies: back pain, gout, joint pain, joint swelling, muscle pain, muscle stiffness, neck pain, others Integumetry: denies: bruises, change in color, change in hair/nails, dryness, laceration, lesions, lumps, rash, wounds, others Allergic/Immunocompromised: denies: Difficulty Healing, Frequent Infections, Hives, Itching, others Hematologic/Lymphatic: denies: anemia, blood clots, easy bleeding, easy bruising, swollen glands, others Endocrine: denies: excessive hunger, excessive sweating, excessive thirst, excessive urination, flushing, intolerance to cold, intolerance to heat, unexplained weight gain, unexplained weight loss, others Psychiatric: denies: anxiety, bipolar disorder, depression, hopeless, panic disorder, schizophrenia, sleepless, suicidal, others All Other Systems: Reviewed and Negative Physical Exam General Appearance: Moderate Distress HEENT: Normal ENT Inspection, Pharynx Normal, TMs Normal Neck: Full Range of Motion, Non-Tender, Normal, Normal Inspection Respiratory: Chest Non-Tender, Decreased Breath Sounds, No Accessory Muscle Use, Respiratory Distress Cardiovascular: No Edema, No JVD, No Murmur, No Gallop Breast Exam: Deferred Gastrointestinal: No Organomegaly, Non Tender, No Pulsatile Mass, Normal Bowel Sounds, Soft Genitalia: Deferred Pelvic: Deferred Rectal: Deferred Extremities: No calf tenderness, Normal capillary refill, Normal inspection, Normal range of motion, Non-tender, No pedal edema Musculoskeletal : Apperance: Normal Neurologic: Alert, supervisor alteration workroom II-XII nml as Tested, Motor Weakness, Normal Affect, Normal Mood, No Sensory Deficits Cerebellar Function: Normal Reflexes: Normal Skin: Dry, Normal Color, Warm Lymphatic: No Adenopathy EKG EKG : Pulse Rate (adult): [address] [place]: Normal Cardiac Rhythm: NSR Block: LBBB Hypertrophy: None ST: Normal Was a procedure done? Was a procedure done?: No Differential Dx Differential Diagnosis: Asthma, Bronchitis, CHF, COPD, Pneumonia X-Ray, Labs, Meds, VS Vital Signs Date Time Temp Pulse Resp B/P (MAP) Pulse Ox O2 Delivery O2 Flow Rate FiO2 12/18/24 12:26 67 18 97 Room Air 12/18/24 12:26 97.9 67 18 157/54 (88) 97 97.9 12/18/24 11:36 73 12/18/24 11:31 73 12/18/24 11:18 97.3 74 20 151/71 94 97.3 Lab Test 12/18/24 13:21 12/18/24 11:55 Range/Units Troponin I High Sensitivity Pending 21 </=34 ng/L White Blood Count 6.2 4.4-10.8 10^3/uL Red Blood Count 3.07 L 4.0-5.20 10^6/uL Hemoglobin 10.5 L 12.2-16.2 g/dL Hematocrit 32.6 L 36.0-46.0 % Mean Corpuscular Volume 106.2 H 80.0-100.0 fL Mean Corpuscular Hemoglobin 34.3 H 28.0-32.0 pg Mean Corpuscular Hemoglobin Concent 32.3 32.0-36.0 g/dL Red Cell Distribution Width 17.0 H 11.8-14.3 % Platelet Count 201 140-450 10^3/uL Mean Platelet Volume 7.4 6.9-10.8 fL Neutrophils (%) (Auto) 74.0 37.0-80.0 % Lymphocytes (%) (Auto) 16.9 10.0-50.0 % Monocytes (%) (Auto) 6.8 0.0-12.0 % Eosinophils (%) (Auto) 1.5 0.0-7.0 % Basophils (%) (Auto) 0.8 0.0-2.0 % Neutrophils # (Auto) 4.6 1.6-8.6 10 ^3/uL Lymphocytes # (Auto) 1.0 0.4-5.4 10 ^3/uL Monocytes # (Auto) 0.4 0-1.3 10 ^3/uL Eosinophils # (Auto) 0.1 0-0.8 10 ^3/uL Basophils # (Auto) 0 0-0.2 10 ^3/uL Nucleated Red Blood Cells 0.3 % Sodium Level 142 136-145 mmol/L Potassium Level 6.0 *H 3.5-5.1 mmol/L Chloride Level 103 98-107 mmol/L Carbon Dioxide Level 28 20-31 mmol/L Anion Gap 11 5-15 Blood Urea Nitrogen 35 H 9-23 mg/dL Creatinine 5.69 H 0.550-1.02 mg/dL Glomerular Filtration Rate Calc 7 >90 mL/min BUN/Creatinine Ratio 6.2 L 10.0-20.0 Serum Glucose 74 74-106 mg/dL Calcium Level 8.9 8.7-10.4 mg/dL B-Type Natriuretic Peptide 493.96 0-100 pg/mL Chest XR indicates: No acute intrathoracic abnormality. IV Hep-Lock was established. BNP is 493.96 The patient's potassium is 6.0 The BUN and the creatinine are also elevated The patient is CBC shows anemia with a hemoglobin of 10.5 and hematocrit of 32.6 The troponin level is negative At this time, the patient is being admitted to the hospitalist. The patient was given calcium, sodium bicarbonate and dextrose and insulin for the hyperkalemia The patient is admitted Images Reviewed?: Images reviewed and evaluated by me Time of 1ST Reevaluation: 13:44 Reevaluation 1ST: Unchanged Patient Education/Counseling: Diagnosis, Treatment, Prognosis Family Education/Counseling: No Family Present SEPSIS Sepsis Screen Date sepsis recognized/suspect: Dec 18, 2024 Time Sepsis recognized/suspect: 1121 Recent Procedure: No On Antibiotic Therapy: No Respiratory Rate >20: No Heart Rate >90: No Temp<36 C (96.8 F) or >38.3 C: No SBP <90 or MAP <65 mmHG: No New Acute Mental Status Change: No Is the patient on CPAP, BIPAP,: No Physician Orders Electrocardigram (12/18/24 12:36) Electrocardigram (12/18/24 14:36) Urinalysis (12/18/24 11:45) Heplock Iv (12/18/24 11:45) Pulse Oximetry (12/18/24 11:45) Senior Marketing Coordinator (12/18/24 11:45) Blood Pressure (12/18/24 11:45) Chest Two Views Routine (12/18/24 11:45) Troponin-I Hs (12/18/24 12:45) Troponin-I Hs (12/18/24 14:45) Vital Signs Date Time Temp Pulse Resp B/P (MAP) Pulse Ox O2 Delivery O2 Flow Rate FiO2 12/18/24 12:26 67 18 97 Room Air 12/18/24 12:26 97.9 67 18 157/54 (88) 97 97.9 12/18/24 11:36 73 12/18/24 11:31 73 12/18/24 11:18 97.3 74 20 151/71 94 97.3 Laboratory Tests Test 12/18/24 11:55 White Blood Count 6.2 10^3/uL (4.4-10.8) Departure 1 Departure Time of Disposition: 13:44 Impression: Primary Impression: Acute respiratory distress Additional Impression: Hyperkalemia Disposition: ADMITTED INPATIENT Admit to: [facility] Condition: Fair Critical Care Note Critical Care Time?: Yes (45 min-critical care time only) Stability Stability form required: Yes Unstable for transfer: Telemetry monitoring (Telemetry monitoring required), ED Physician Assesment (Clinical assesment) Heart Score Heart Score: Heart Score Response (Comments) Value History Highly Suspicious 2 EKG Normal 0 Age >65 2 Risk Factors >3 or Hx ASHD 2 Troponin Normal limit 0 Total 6 I personally scribed for GEORGE PERAZA MD ([employer]) on 12/18/24 at 11:36. Electronically submitted by Donavon Rust ([email or web address]). I personally scribed for GEORGE PERAZA MD ([email or web address]) on 12/18/24 at 12:43. Electronically submitted by Donavon Rust ([email or web address]). GEORGE PERAZA MD Dec 18, 2024 11:36
--- NOTE | 2024-12-18 11:37 | ECG ---
[facility] Test Date: 2024-12-18 Test Time: 11:31:28 Pat Name: LISA CLOUD Department: Room: 0288T Gender: F Practice Or Student Teacher: MAXX : 1945 Requested By: GEORGE PERAZA Order Number: [id number] Reading MD: Eren Cotton Measurements Intervals [place] Rate: 73 P: -37 AK: 133 QRS: -28 QRSD: 147 T: 142 QT: 463 QTc: 511 Interpretive Statements Sinus rhythm Left bundle branch block Electronically Signed On 12-20-2024 13:36:59 PST by Eren Cotton Please click the below link to view image of tracing.
[2024-12-18 12:12] LABS: Hematocrit 32.6 % (36.0-46.0); Hemoglobin 10.5 g/dL (12.2-16.2); Mean Corpuscular Hemoglobin 34.3 pg (28.0-32.0); Mean Corpuscular Volume 106.2 fL (80.0-100.0); Nucleated Red Blood Cells % 0.3 %
[2024-12-18 12:14] LABS: Chloride 103 mmol/L (98-107); Sodium 142 mmol/L (136-145)
[2024-12-18 12:15] LABS: Anion Gap 11 (5-15); Calcium 8.9 mg/dL (8.7-10.4); Carbon Dioxide 28 mmol/L (20-31)
[2024-12-18 12:20] LABS: BUN/Creatinine Ratio 6.2 (10.0-20.0); Blood Urea Nitrogen 35 mg/dL (9-23); Glucose 74 mg/dL (74-106)
[2024-12-18 12:21] LABS: Potassium 6.0 mmol/L (3.5-5.1)
--- NOTE | 2024-12-18 12:30 | DVH ---
XY CHEST TWO VIEWS ROUTINE, HISTORY: sob COMPARISON: XY CHEST XRAY 1 VIEW on DOS: 09/20/24, XY CHEST PORTABLE on DOS: 07/02/24, XY CHEST PORTABLE on DOS: 06/28/24 XY CHEST XRAY 1 VIEW on DOS: 09/20/24, XY CHEST PORTABLE on DOS: 07/02/24, XY CHEST PORTABLE on DOS: 06/16 05/10 TECHNICAL DATA: 2 view of the chest was obtained. FINDINGS: Lines and tubes: Stable cardiac pacer and tunneled HD catheter. Cardiomediastinal silhouette: normal Pulmonary vasculature: normal Lung expansion: normal Lung airspace: normal Lung interstitium: normal Pleura: normal Pneumothorax: no Bones: Unremarkable Other: no IMPRESSION: No acute intrathoracic abnormality.
[2024-12-18] MEDS: CALCIUM GLUC 1,000mg/50ml-NS 50 ML IV ONE (14:09)
[2024-12-18] MEDS: SODIUM BICARB 8.4% 50Meq/50ml SYR Vial IV ONE (14:32)
[2024-12-18] MEDS: DEXTROSE (50%) 50ML SYRG IV ONE (14:33)
[2024-12-18] MEDS: InsuLIN REG 1unit/0.01ml Soln (100units/ml) IV ONE (14:53)
--- NOTE | 2024-12-18 16:37 | DVHHP2 ---
History of Present Illness Reason for Visit: Shortness of breaths History of Present Illness This is a 78-year-old female with history of end-stage renal disease, CHF, CVA, anxiety, hyperlipidemia, hypertension, permanent pacemaker who presents to ED with chief complaint of shortness of breath associated with dry cough and nausea that started early this morning. Upon evaluation patient states compliant C in hemodialysis treatment being Thursday and Thursday. She states that she completed her session on Thursday and her packaging sales consultant is Dr. Martin. She is concerned about her shortness of breath and due to this would like to be further evaluated and treated. The patient's potassium level found to be 6.0, was given treatment per protocol by ER physician. The patient will be admitted under hospitalist care to the telemetry unit for continuous monitoring. The patient denies fever, chills, headache, dizziness, palpitation, chest pain, nausea, vomiting, abdominal pain, diarrhea, constipation and other associated symptoms. The plan has been discussed with the patient in which all questions concerns have been addressed. Cardiovascular: CHF, HTN, hyperipidemia BROOMMAKER: CVA Psych: Anxiety Renal/: Chronic renal failure Endocrine: Diabetes, Hypothyroidism Past Surgical History: Cholecystectomy, Hysterectomy, Tonsillectomy Past Surgical History PTCA Pacemaker Family History: DM, Other (Heart disease) Smoke: No ALCOHOL: none Drugs: None Lives: with Family Domestic Violence: Neg Review of Systems Respiratory: Shortness of breath Allergies: Coded Allergies: Clonidine (Verified Allergy, Severe, drowsy, hallucination, 07/02/24) Methotrexate (Verified Allergy, Severe, rash, 07/03/24) Codeine (Verified Allergy, Unknown, 10/01/21) Medications Current Medications Medications Dose Ordered Sig/Abbey Route Start Time Stop Time Status Last Admin Dose Admin Acetaminophen 650 mg Q6HP PRN PO 12/18/24 16:00 Exam Vital Signs Vital Signs Date Time Temp Pulse Resp B/P (MAP) Pulse Ox O2 Delivery O2 Flow Rate FiO2 12/18/24 16:03 83 25 195/61 (105) 98 12/18/24 14:14 Room Air* 0 21 12/18/24 12:26 97.9 97.9 General Appearance: Alert, Oriented X3, Cooperative, No acute distress HEENT: Atraumatic, PERRLA, Mucous membr. moist/pink Respiratory: Clear to auscultation, Normal air movement Cardiovascular: Normal S1, Normal S2, No murmurs Abdominal: Normal bowel sounds, Soft, No tenderness, No hepatospenomegaly, No masses Extremities: No cyanosis, No edema, Normal pulses, No tenderness/swelling Skin: No rashes, No breakdown Neuro: Normal speech, Strength at 5/5 X4 ext, Normal tone, Sensation intact Psych/Mental Status: Mental status NL, Mood NL Labs/Xrays Labs Test 12/18/24 15:03 12/18/24 14:50 12/18/24 11:55 Range/Units Troponin I High Sensitivity 20 </=34 ng/L POC Glucose 240 H 70-106 mg/dl White Blood Count 6.2 4.4-10.8 10^3/uL Red Blood Count 3.07 L 4.0-5.20 10^6/uL Hemoglobin 10.5 L 12.2-16.2 g/dL Hematocrit 32.6 L 36.0-46.0 % Mean Corpuscular Volume 106.2 H 80.0-100.0 fL Mean Corpuscular Hemoglobin 34.3 H 28.0-32.0 pg Mean Corpuscular Hemoglobin Concent 32.3 32.0-36.0 g/dL Red Cell Distribution Width 17.0 H 11.8-14.3 % Platelet Count 201 140-450 10^3/uL Mean Platelet Volume 7.4 6.9-10.8 fL Neutrophils (%) (Auto) 74.0 37.0-80.0 % Lymphocytes (%) (Auto) 16.9 10.0-50.0 % Monocytes (%) (Auto) 6.8 0.0-12.0 % Eosinophils (%) (Auto) 1.5 0.0-7.0 % Basophils (%) (Auto) 0.8 0.0-2.0 % Neutrophils # (Auto) 4.6 1.6-8.6 10 ^3/uL Lymphocytes # (Auto) 1.0 0.4-5.4 10 ^3/uL Monocytes # (Auto) 0.4 0-1.3 10 ^3/uL Eosinophils # (Auto) 0.1 0-0.8 10 ^3/uL Basophils # (Auto) 0 0-0.2 10 ^3/uL Nucleated Red Blood Cells 0.3 % Sodium Level 142 136-145 mmol/L Potassium Level 6.0 *H 3.5-5.1 mmol/L Chloride Level 103 98-107 mmol/L Carbon Dioxide Level 28 20-31 mmol/L Anion Gap 11 5-15 Blood Urea Nitrogen 35 H 9-23 mg/dL Creatinine 5.69 H 0.550-1.02 mg/dL Glomerular Filtration Rate Calc 7 >90 mL/min BUN/Creatinine Ratio 6.2 L 10.0-20.0 Serum Glucose 74 74-106 mg/dL Calcium Level 8.9 8.7-10.4 mg/dL B-Type Natriuretic Peptide 493.96 0-100 pg/mL ORDERING PHYSICIAN: GEORGE PERAZA MD PROCEDURE(s): CXR2 - CHEST TWO VIEWS ROUTINE REASON: sob ORDER NUMBER(s): [id number], ACCESSION NUMBER(s): [id number] XY CHEST TWO VIEWS ROUTINE, HISTORY: sob COMPARISON: XY CHEST XRAY 1 VIEW on DOS: 09/20/24, XY CHEST PORTABLE on DOS: 07/02/24, XY CHEST PORTABLE on DOS: 06/28/24 XY CHEST XRAY 1 VIEW on DOS: 09/20/24, XY CHEST PORTABLE on DOS: 07/02/24, XY CHEST PORTABLE on DOS: 06/28/24 TECHNICAL DATA: 2 view of the chest was obtained. FINDINGS: Lines and tubes: Stable cardiac pacer and tunneled HD catheter. Cardiomediastinal silhouette: normal Pulmonary vasculature: normal Lung expansion: normal Lung airspace: normal Lung interstitium: normal Pleura: normal Pneumothorax: no Bones: Unremarkable Other: no IMPRESSION: No acute intrathoracic abnormality. ATED BY: BILL MARTINEZ MD DICTATED DATE/TIME: 12/18/241227 SIGNED BY: BILL MARTINEZ MD SIGNED DATE/TIME: 12/18/241227 CC: SEPSIS Sepsis Screen Date sepsis recognized/suspect: Dec 18, 2024 Time Sepsis recognized/suspect: 1547 Recent Procedure: No On Antibiotic Therapy: No Respiratory Rate >20: No Heart Rate >90: No Temp<36 C (96.8 F) or >38.3 C: No SBP <90 or MAP <65 mmHG: No New Acute Mental Status Change: No Is the patient on CPAP, BIPAP,: No Physician Orders Electrocardigram (12/18/24 12:36) Electrocardigram (12/18/24 14:36) Urinalysis (12/18/24 11:45) Heplock Iv (12/18/24 11:45) Pulse Oximetry (12/18/24 11:45) Public Information Relations Manager (12/18/24 11:45) Blood Pressure (12/18/24 11:45) Chest Two Views Routine (12/18/24 11:45) *Dr. [facility] (12/18/24 15:50) Admit (12/18/24 15:50) Renal Standard(2gna,3gk,Lopho) (12/18/24 Dinner) Complete Blood Count (12/19/24 04:00) Comprehensive Metabolic Panel (12/19/24 04:00) Condition: Fair (12/18/24 15:50) Acetaminophen Tablet (Tylenol Tablet) (12/18/24 16:00) Bedrest With Bathroom Privileg (12/18/24 15:50) Communication Order (12/18/24 15:50) Vital Signs Date Time Temp Pulse Resp B/P (MAP) Pulse Ox O2 Delivery O2 Flow Rate FiO2 12/18/24 16:03 83 25 195/61 (105) 98 12/18/24 14:14 83 16 97 Room Air* 0 21 12/18/24 14:12 77 14 165/40 (81) 98 12/18/24 13:05 84 12/18/24 12:26 67 18 97 Room Air 12/18/24 12:26 97.9 67 18 157/54 (88) 97 97.9 12/18/24 11:36 73 12/18/24 11:31 73 12/18/24 11:18 97.3 74 20 151/71 94 97.3 Laboratory Tests Test 12/18/24 11:55 White Blood Count 6.2 10^3/uL (4.4-10.8) Medications Medications Dose Ordered Sig/Abbey Route Start Time Stop Time Status Last Admin Dose Admin Calcium Gluconate/ Sodium Chloride 50 ml @ 100 mls/hr ONCE ONCE IV 12/18/24 12:30 12/18/24 12:59 DC 12/18/24 14:09 100 MLS/HR Dextrose 50 ml ONCE ONCE IV 12/18/24 12:30 12/18/24 12:31 DC 12/18/24 14:33 50 ML Insulin Human Regular 5 units ONCE ONCE IV 12/18/24 12:30 12/18/24 12:31 DC 12/18/24 14:53 5 UNITS Sodium Bicarbonate 50 ml ONCE ONCE IV 12/18/24 12:30 12/18/24 12:31 DC 12/18/24 14:32 50 ML Assessment/Plan Assessment/Plan Shortness of breath-patient complaint of shortness of breath associated with dry cough and nausea that started early this morning Patient has history of end-stage renal disease on dialysis Thursday last treatment received on Thursday History of CHF, permanent pacemaker, CVA, hyperlipidemia, hypertension, hypothyroid, anxiety Admit to telemetry unit for continuous monitoring Reviewed CBC which is normal Reviewed BMP potassium 6.0-received hyperkalemia protocol by ER physician Cardiac enzyme negative x3 Reviewed chest x-ray which was normal Consult Dr. Britton for hemodialysis arrangement Albuterol q.2h p.r.n. shortness of breath Hypertension Continue to monitor Hyperlipidemia Continue Lipitor as prescribed Hypothyroidism Continue levothyroxine as prescribed CHF BNP 4 93.96 Echocardiogram pending Reconcile home medication DVT prophylaxis PUD prophylaxis not indicated no history of GERD Labs in a.m. Discussed plan of care with the patient in which all questions concerns have been addressed Plan discussed with: Patient My Orders Orders - ABRIL HAGAN Procedure Category Date Status Time *Dr. Celestine Dexter CONS 12/18/24 Transmitted -[place] 15:50 Admit ADMIT 12/18/24 Transmitted 15:50 Renal DIET 12/18/24 Transmitted Standard(2gna,3gk,Lopho) Dinner Complete Blood Count LAB 12/19/24 Verified 04:00 Comprehensive LAB 12/19/24 Verified Metabolic Panel 04:00 Condition: Fair LEFTY 12/18/24 In Process 15:50 Acetaminophen Tablet PHA 12/18/24 In Process (Tylenol Tablet) 16:00 Bedrest With Bathroom LEFTY 12/18/24 In Process Privileg 15:50 Communication Order ORDERS 12/18/24 Transmitted 15:50 Date of Service: Dec 18, 2024 Billing Provider: ABRIL HAGAN Common Visit Codes: [id number] INP/OBS CARE (HIGH) ABRIL HAGAN INSIDE SALES ACCOUNT MANAGER Dec 18, 2024 16:37
[2024-12-18] MEDS ORDERED: ALBUTEROL SULF 2.5 MG/0.5ML(0.5%) NEB SOLN NEB PRN (16:45)
--- NOTE | 2024-12-18 17:08 | DVHINCON2 ---
Date of service: Dec 18, 2024 Reason for Consultation ESRD History of Present Illness 79 year old sachi H ESRD, htn, chf ef 30% presents to hospital with SOB. He treatment day is thursday. In ER she is noted to have SOB, SBP > 190 and potassium 6.0. Nephrology called for [facility] HD Allergies: Coded Allergies: Clonidine (Verified Allergy, Severe, drowsy, hallucination, 07/02/24) Methotrexate (Verified Allergy, Severe, rash, 07/03/24) Codeine (Verified Allergy, Unknown, 10/01/21) Home Meds Active Scripts Alum & Mag Hydrox-Simethicone (Magic Mouthwash) 80 Ml Ss, 5 ML MT QID for 14 Days, #120 ML Prov:DEL BUNCH MD 05/01/24 Acetaminophen (Tylenol) 325 Mg Cap, 325 MG PO Q6HR for 10 Days, #20 CAP Prov:CHACE KING RESIDENT 03/02/24 Reported Medications Ropinirole Hydrochloride (Ropinirole Hcl) 0.25 Mg Tab, 0.25 MG PO, TAB 07/02/24 Atorvastatin Calcium (Lipitor) 20 Mg Tab, 1 TAB PO HS for HIGH CHOLESTEROL 08/18/23 Clonazepam (KlonoPIN TABLET) 0.5 Mg Tb, 1 TAB PO DAILY for SEIZURES 08/11/23 Sevelamer Carbonate (Sevelamer Carbonate) 800 Mg Tab, 1 TAB PO TID for RENAL SUPPLEMENT 04/07/23 Docusate Sodium (DOCQLACE) 100 Mg Cap, 1 CAP PO BID PRN for FOR CONSTIPATION 11/24/20 Levothyroxine Sodium (Euthyrox) 50 Mcg Tab, 1 TAB PO DAILY for HYPOTHYROIDISM 11/24/20 Current Medications Current Medications Medications (Trade) Dose Ordered Sig/Abbey Route PRN Reason Start Time Stop Time Status Last Admin Acetaminophen (Tylenol Tablet) 650 mg Q6HP PRN PO PAIN SCALE 1-3 OR TEMP>100.4 12/18/24 16:00 Al Hydrox/Mg Hydrox/Simethicone (Majic Mouthwash) 5 ml QID MT 12/18/24 18:00 Atorvastatin Calcium (Lipitor) 20 mg HS PO 12/18/24 22:00 Clonazepam (KlonoPIN TABLET) 0.5 mg DAILY PO 12/19/24 10:00 Docusate Sodium (Colace Capsule) 100 mg BID PRN PO FOR CONSTIPATION 12/18/24 16:45 Levothyroxine Sodium (Synthroid Tablet) 50 mcg DAILY PO 12/19/24 10:00 Patient Own Medication 325 mg Q6HR PO 12/18/24 18:00 UNV Sevelamer HCl (Renagel) 800 mg TIDWM PO 12/18/24 18:00 Albuterol (Ventolin Medneb) 2.5 mg Q2HPRN PRN NEB SHORTNESS OF BREATH 12/18/24 16:45 Family History: Cardiovascular disease 19 CHILD 19 CHILD Colon cancer 19 CHILD Diabetes mellitus 19 CHILD 19 CHILD Review of Systems sob H&P Exam Vital Signs/I&O Vital Sign Date Time Temp Pulse Resp B/P (MAP) Pulse Ox O2 Delivery O2 Flow Rate FiO2 12/18/24 16:48 97.9 83 16 195/61 96 97.9 12/18/24 16:43 Room Air 12/18/24 16:43 0 21 Physical Exam elderly female respiratory distress from sob tunnel hd catheter abd soft rrr Labs/Diagnostic Data Labs/Diagnostic Data Laboratory Tests Test 12/18/24 15:03 12/18/24 14:50 12/18/24 13:21 12/18/24 11:55 Range/Units Troponin I High Sensitivity 20 22 21 </=34 ng/L POC Glucose 240 H 70-106 mg/dl White Blood Count 6.2 4.4-10.8 10^3/uL Red Blood Count 3.07 L 4.0-5.20 10^6/uL Hemoglobin 10.5 L 12.2-16.2 g/dL Hematocrit 32.6 L 36.0-46.0 % Mean Corpuscular Volume 106.2 H 80.0-100.0 fL Mean Corpuscular Hemoglobin 34.3 H 28.0-32.0 pg Mean Corpuscular Hemoglobin Concent 32.3 32.0-36.0 g/dL Red Cell Distribution Width 17.0 H 11.8-14.3 % Platelet Count 201 140-450 10^3/uL Mean Platelet Volume 7.4 6.9-10.8 fL Neutrophils (%) (Auto) 74.0 37.0-80.0 % Lymphocytes (%) (Auto) 16.9 10.0-50.0 % Monocytes (%) (Auto) 6.8 0.0-12.0 % Eosinophils (%) (Auto) 1.5 0.0-7.0 % Basophils (%) (Auto) 0.8 0.0-2.0 % Neutrophils # (Auto) 4.6 1.6-8.6 10 ^3/uL Lymphocytes # (Auto) 1.0 0.4-5.4 10 ^3/uL Monocytes # (Auto) 0.4 0-1.3 10 ^3/uL Eosinophils # (Auto) 0.1 0-0.8 10 ^3/uL Basophils # (Auto) 0 0-0.2 10 ^3/uL Nucleated Red Blood Cells 0.3 % Sodium Level 142 136-145 mmol/L Potassium Level 6.0 *H 3.5-5.1 mmol/L Chloride Level 103 98-107 mmol/L Carbon Dioxide Level 28 20-31 mmol/L Anion Gap 11 5-15 Blood Urea Nitrogen 35 H 9-23 mg/dL Creatinine 5.69 H 0.550-1.02 mg/dL Glomerular Filtration Rate Calc 7 >90 mL/min BUN/Creatinine Ratio 6.2 L 10.0-20.0 Serum Glucose 74 74-106 mg/dL Calcium Level 8.9 8.7-10.4 mg/dL B-Type Natriuretic Peptide 493.96 0-100 pg/mL Assessment ESRD htn emergency hyperkalemia fluid overload, chf w/ low EF [facility] HD medical treatment elevated K prior to HD start renal diet resume BP meds post hd hd will be repeated tomorrow Plan discussed with: Patient ES READ MD Dec 18, 2024 17:08
[2024-12-18] MEDS ORDERED: ACETAMINOPHEN 325 MG PO SCH (18:00)
[2024-12-18] MEDS: ALBUMIN 25% 100 ML IV STA (20:49)
[2024-12-18] MEDS: ATORVASTATIN 20 MG TAB PO SCH (22:54)
[2024-12-18] MEDS: ONDANSETRON HCL 4 MG/2 ML VIAL IV PRN (22:54)
[2024-12-18] MEDS: clonazePAM 0.5 MG TAB PO SCH (22:54)
[2024-12-19] VITALS (12 sets, daily range): BP systolic 104–142; BP diastolic 57–83; PULSE 69–85; RESP 11–18; TEMP 97–98.4; O2SAT 95–99
[2024-12-19 05:48] LABS: Hematocrit 32.1 % (36.0-46.0); Hemoglobin 10.7 g/dL (12.2-16.2); Mean Corpuscular Hemoglobin 34.9 pg (28.0-32.0); Mean Corpuscular Volume 105.1 fL (80.0-100.0); Nucleated Red Blood Cells % 0.1 %
[2024-12-19 06:13] LABS: Albumin 4.3 g/dL (3.2-4.8); Anion Gap 11 (5-15); BUN/Creatinine Ratio 6.2 (10.0-20.0); Bilirubin, Total 0.6 mg/dL (0.2-1.0); Blood Urea Nitrogen 23 mg/dL (9-23); Calcium 8.7 mg/dL (8.7-10.4); Carbon Dioxide 28 mmol/L (20-31); Chloride 103 mmol/L (98-107); Potassium 4.9 mmol/L (3.5-5.1); Sodium 142 mmol/L (136-145); Total Protein 6.7 g/dL (5.7-8.2)
[2024-12-19 06:21] LABS: Alanine Aminotransferase < 9 U/L (7-40); Alkaline Phosphatase 120 U/L (46-116); Glucose 67 mg/dL (74-106)
[2024-12-19] MEDS: SEVELAMER 800 MG TAB PO SCH (08:00)
[2024-12-19 08:42] LABS: INR 1.16 (0.9-1.15); Partial Thromboplastin Time 38.4 SEC (24.5-34.5); Prothrombin Time 12.1 sec (9.3-11.8)
[2024-12-19] MEDS: LEVOTHYROXINE SODIUM 50 MCG TAB PO SCH (09:40)
[2024-12-19] MEDS ORDERED: clonazePAM 0.5 MG TAB PO SCH (10:00)
[2024-12-19] MEDS: PATIENTS OWN MEDICATION PO ONE (10:20)
[2024-12-19 10:47] LABS: Hepatitis B Surface Antigen Negative (Negative)
--- NOTE | 2024-12-19 10:50 | DVHPN2 ---
Progress Note Date Seen: Dec 19, 2024 Medical Necessity Reason Pt with a Central, PICC or Fol: No Objective vital signs Vital Sign Date Time Temp Pulse Resp B/P (MAP) Pulse Ox O2 Delivery O2 Flow Rate FiO2 12/19/24 08:30 97.8 70 17 142/76 (98) 97 97.8 12/19/24 08:00 Room Air* 0 21 Total Intake and Output 12/18/24 12/18/24 12/19/24 15:00 23:00 07:00 Intake Total 240 ml Balance 240 ml medications Current Medications Medications Dose Ordered Sig/Abbey Route Start Time Stop Time Status Last Admin Dose Admin Acetaminophen 650 mg Q6HP PRN PO 12/18/24 16:00 Al Hydrox/Mg Hydrox/Simethicone 5 ml QID MT 12/18/24 18:00 Atorvastatin Calcium 20 mg HS PO 12/18/24 22:00 12/18/24 22:54 20 MG Docusate Sodium 100 mg BID PRN PO 12/18/24 16:45 Levothyroxine Sodium 50 mcg DAILY PO 12/19/24 10:00 12/19/24 09:40 50 MCG Patient Own Medication 325 mg Q6HR PO 12/18/24 18:00 UNV Sevelamer HCl 800 mg TIDWM PO 12/18/24 18:00 Albuterol 2.5 mg Q2HPRN PRN NEB 12/18/24 16:45 Clonazepam 0.5 mg HS PO 12/18/24 21:45 12/18/24 22:54 0.5 MG Ondansetron HCl 4 mg Q4HPRN PRN IV 12/18/24 21:45 12/18/24 22:54 4 MG laboratory and microbiology Laboratory Tests 12/19/24 05:26 Test 12/19/24 05:26 Range/Units Serum Glucose 67 L 74-106 mg/dL Problem List/Assessment/Plan Problem List/Assessment/Plan ESRD on hemodialysis htn emergency hyperkalemia Congestive heart failure exacerbation Anemia of chronic Kidney disease Recommendations Continue with UF to 3 L as tolerated Epogen 85714 subQ 3 times weekly Resume home medication Strict I&Os Renal diet We will continue to follow up Plan discussed with: Patient SHERRILL MENJIVAR MD Dec 19, 2024 10:50
[2024-12-19 11:00] LABS: Hepatitis C Antibody Negative (Negative)
[2024-12-19] MEDS: ceFAZolin 1GM/50ML 50 ML IV ONE (12:29)
[2024-12-19] MEDS: MIDAZOLAM HCL 2MG/2ML 2ml VIAL (1mg/ml) ONE (12:29)
[2024-12-19] MEDS: fentaNYL CITRATE 100 MCG/2 ML VL ONE (12:29)
[2024-12-19] MEDS: HEPARIN SODIUM (PORCINE) 5000 UNITS/ML 1ML VIAL ONE (12:29)
[2024-12-19] MEDS: LIDOCAINE 2%HCL (LOCAL ANESTH.) INJ 20ML MDV ONE (12:30)
--- NOTE | 2024-12-19 12:40 | DVHPN2 ---
Reviewed: Care Plan, H&P, Labs, Medications, Previous Orders, Radiology Changes from previous H/P or p: No Changes Respiratory: Shortness of breath Objective Vitals Vital Signs Date Time Temp Pulse Resp B/P (MAP) Pulse Ox O2 Delivery O2 Flow Rate FiO2 12/19/24 08:30 97.8 70 17 142/76 (98) 97 97.8 12/19/24 08:00 Room Air* 0 21 Intake/Output Intake and Output 12/19/24 07:00 Intake Total 240 ml Balance 240 ml Intake Oral 240 ml # Voids 1 Medications Current Medications Medications Dose Ordered Sig/Abbey Route Start Time Stop Time Status Last Admin Dose Admin Acetaminophen 650 mg Q6HP PRN PO 12/18/24 16:00 Al Hydrox/Mg Hydrox/Simethicone 5 ml QID MT 12/18/24 18:00 Atorvastatin Calcium 20 mg HS PO 12/18/24 22:00 12/18/24 22:54 20 MG Docusate Sodium 100 mg BID PRN PO 12/18/24 16:45 Levothyroxine Sodium 50 mcg DAILY PO 12/19/24 10:00 12/19/24 09:40 50 MCG Patient Own Medication 325 mg Q6HR PO 12/18/24 18:00 UNV Sevelamer HCl 800 mg TIDWM PO 12/18/24 18:00 Albuterol 2.5 mg Q2HPRN PRN NEB 12/18/24 16:45 Clonazepam 0.5 mg HS PO 12/18/24 21:45 12/18/24 22:54 0.5 MG Ondansetron HCl 4 mg Q4HPRN PRN IV 12/18/24 21:45 12/18/24 22:54 4 MG Laboratory Results Laboratory Tests 12/19/24 05:26 Chemistry Test 12/19/24 05:26 Albumin 4.3 g/dL (3.2-4.8) Calcium Level 8.7 mg/dL (8.7-10.4) Total Protein 6.7 g/dL (5.7-8.2) Coagulation Test 12/19/24 05:26 Prothrombin Time 12.1 sec (9.3-11.8) H Prothrombin Time INR 1.16 (0.9-1.15) H Activated Partial Thromboplast Time 38.4 SEC (24.5-34.5) H LFT Test 12/19/24 05:26 Alanine Aminotransferase (ALT) < 9 U/L (7-40) Alkaline Phosphatase 120 U/L (46-116) H Aspartate Amino Transferase (AST) 16 U/L (13-40) Total Bilirubin 0.6 mg/dL (0.2-1.0) Labs and/or images reviewed: Labs reviewed by me, Image(s) reviewed by me Assessment/Plan Assessment/Plan ESRD on hemodialysis consult by Dr. Redmond appreciated, patient getting dialysis htn emergency hyperkalemia Congestive heart failure exacerbation Anemia of chronic Kidney disease CHF exacerbation History of permanent pacemaker Hypercholesterolemia History of CVA Hypothyroidism Anxiety Moderate malnutrition Patient getting tunneled dialysis cath placement by radiologist today Time spent 70 minutes Advanced care planning time 20 minutes Patient is full code Plan discussed with: Patient My Orders Orders - SHAINA MCDOWELL MD Procedure Category Date Status Time Insertion Of Venous XY 12/19/24 Taken Cath 12:26 Date of Service: Dec 19, 2024 Billing Provider: SHAINA MCDOWELL MD Common Visit Codes: [id number] CARE 30-74 MIN SHAINA MCDOWELL MD Dec 19, 2024 12:40
--- NOTE | 2024-12-19 12:57 | DVH ---
XY Insertion of Venous Cath, HISTORY: HD CATH INSERTION PROCEDURE: Informed consent was obtained. The patient was placed supine on the interventional table. 1 gram of Ancef was given IV. The right neck base and upper chest were prepped with chlorhexidine wh ich was allowed to dry and draped in the usual sterile fashion. Time out was performed. IV sedation w as administered. A glide wire was placed through the existing tunneled dialysis catheter and placed i nto the IVC. The old TD catheter was removed over the wire, and a new 14.5 Fr x 23 cm TD catheter crispin daniel with tip in the right atrium. The catheter tip position was confirmed with fluoroscopy. There wa s satisfactory flow in both lumens. The catheter lumens were flushed with saline and heparin was left indwelling in the catheter. A post-procedure image of the chest was obtained. The catheter was sutu red at the skin surface and exit site also dressed sterilely. No immediate complication was identifie d. DAP 79 FLUOROSCOPY TIME: 1.0 minutes. SEDATION: Dr. Ian Martinez was personally responsible for the administration of moderate sedation during the procedure performed, including the use of an independent trained observer who had no other duties during the procedure. The drugs utilized were IV fentanyl and versed (see nursing log for details). The total time of supervision by the attending physician was approximately 20 minutes. FINDINGS: Post procedure image demonstrates smooth course of the hemodialysis catheter with the tip in the right atrium. IMPRESSION: Exchange/replacement of 14.5 [address] [place] [address], 23 cm long hemodialysis catheter through left interna l jugular vein. Plan: Please contact IR for removal when no longer needed.
[2024-12-19] MEDS: MAGIC MOUTHWASH 55 ML SUSP MT SCH (18:00)
[2024-12-19] MEDS: ACETAMINOPHEN 325 MG TAB PO PRN (20:15)
--- NOTE | 2024-12-19 21:11 | DVHSR ---
APPROVED REPORT EXAM: Two-dimensional and M-mode echocardiogram with Doppler and color Doppler. Blood Pressure: 136/69 mmHg INDICATION CHF Surgery/Intervention Pacemaker: RISK FACTORS Obesity: Height: 4'11, Weight: 138 DIMENSIONS LVDd4.3 (3.8-5.7cm)LA (2D)4.0 (1.9-4.0cm)Aortic Root3.2 (2.0-3.7cm) LVDs3.8 (2.5-4.0cm)LA (MM) (1.9-4.0cm)Aortic Cusp Exc1.4 (1.5-2.0cm) EF (%) 28.0 (55-70%)Rt. Atrium2.9 (1.9-4.0cm)Asc. Aorta2.9 cm IVSd1.3 (0.7-1.1cm)RV (D)2.9 (1.8-2.4cm) PWd1.3 (0.7-1.1cm) Mitral Valve MitralMitral Stenosis E wavem/sMV Mean GR.2mmHg A wavem/sMV Peak GR.63mmHg E/A ratio0.02D MVAcm2 Aortic Valve Aortic ValveAortic Stenosis V10.60m/Lyle Mean GR.3mmHg V21.11m/Lyle Peak GR.5mmHg LVOT Diameter2.0 (1.8-2.4cm)Doppler AVA1.70cm2 Pulmonic Valve V20.66m/s Tricuspid Valve TR Velocity2.15m/s [id number] ATRIA There is a catheter/pacemaker lead seen in the right atrium. Conclusion SIGNIFICANTLY DILATED LV ENTIRE ANTERIOR AND APICAL WALL SEVERE HYPOKINESIS LV EF IN RANGE OF ONLY 20% VERY HEAVILY CALCIFIED POSTERIOR MITRAL LEAFLET AND ANNULUS LIKELY PACEMAKER IN RIGHT CARDIAC CHAMBER-CORRELATE CLINICALLY NO EFFUSION
[2024-12-19] MEDS: DOCUSATE SOD 100 MG CAP PO PRN (21:48)
[2024-12-20 05:00] VITALS: BP 115/56; PULSE 72; RESP 19; TEMP 98.4; O2SAT 96
[2024-12-20 07:24] LABS: Hematocrit 34.4 % (36.0-46.0); Hemoglobin 11.5 g/dL (12.2-16.2); Mean Corpuscular Hemoglobin 35.5 pg (28.0-32.0); Mean Corpuscular Volume 106.3 fL (80.0-100.0); Nucleated Red Blood Cells % 0.0 %
[2024-12-20] MEDS: SODIUM CHL 0.9% 1000 ML BAG XX ONE ×2 (07:30)
[2024-12-20 07:32] LABS: Anion Gap 12 (5-15); Calcium 8.8 mg/dL (8.7-10.4); Carbon Dioxide 29 mmol/L (20-31); Chloride 101 mmol/L (98-107); Potassium 4.7 mmol/L (3.5-5.1); Sodium 142 mmol/L (136-145)
[2024-12-20 07:38] LABS: BUN/Creatinine Ratio 4.8 (10.0-20.0); Blood Urea Nitrogen 17 mg/dL (9-23); Glucose 75 mg/dL (74-106)
[2024-12-20 08:00] VITALS: PULSE 80; PULSE 83; RESP 18
[2024-12-20 08:30] VITALS: BP 112/61; PULSE 69; RESP 18; TEMP 98.4; O2SAT 97
--- NOTE | 2024-12-20 10:39 | DVHPN2 ---
Reviewed: Care Plan, H&P, Labs, Medications, Previous Orders, Radiology Changes from previous H/P or p: No Changes Respiratory: Shortness of breath Objective Vitals Vital Signs Date Time Temp Pulse Resp B/P (MAP) Pulse Ox O2 Delivery O2 Flow Rate FiO2 12/20/24 08:30 98.4 69 18 112/61 (78) 97 98.4 12/20/24 08:00 Room Air* 0 21 Intake/Output Intake and Output 12/20/24 07:00 Intake Total 400 ml Balance 400 ml Intake Oral 400 ml # Voids 1 Medications Current Medications Medications Dose Ordered Sig/Abbey Route Start Time Stop Time Status Last Admin Dose Admin Acetaminophen 650 mg Q6HP PRN PO 12/18/24 16:00 12/19/24 20:15 650 MG Al Hydrox/Mg Hydrox/Simethicone 5 ml QID MT 12/18/24 18:00 12/19/24 21:43 5 ML Atorvastatin Calcium 20 mg HS PO 12/18/24 22:00 12/19/24 21:42 20 MG Docusate Sodium 100 mg BID PRN PO 12/18/24 16:45 12/20/24 08:39 100 MG Levothyroxine Sodium 50 mcg DAILY PO 12/19/24 10:00 12/20/24 08:38 50 MCG Patient Own Medication 325 mg Q6HR PO 12/18/24 18:00 UNV Sevelamer HCl 800 mg TIDWM PO 12/18/24 18:00 12/20/24 08:39 800 MG Albuterol 2.5 mg Q2HPRN PRN NEB 12/18/24 16:45 Cancel Clonazepam 0.5 mg HS PO 12/18/24 21:45 12/19/24 21:51 0.5 MG Ondansetron HCl 4 mg Q4HPRN PRN IV 12/18/24 21:45 12/18/24 22:54 4 MG Laboratory Results Laboratory Tests 12/20/24 05:47 Chemistry Test 12/20/24 05:47 Calcium Level 8.8 mg/dL (8.7-10.4) Labs and/or images reviewed: Labs reviewed by me, Image(s) reviewed by me Assessment/Plan Assessment/Plan ESRD on hemodialysis consult by Dr. Redmond appreciated, received dialysis after tunneled dialysis cath placement by radiologist htn emergency hyperkalemia Congestive heart failure exacerbation echo 20 percent ejection fraction Anemia of chronic Kidney disease CHF exacerbation History of permanent pacemaker Hypercholesterolemia History of CVA Hypothyroidism Anxiety Moderate malnutrition Time spent 70 minutes Advanced care planning time 20 minutes Patient is full code Plan discussed with: Patient My Orders Orders - SHAINA MCDOWELL MD Procedure Category Date Status Time Insertion Of Venous XY 12/19/24 Taken Cath 12:26 Insertion Of Venous XY 12/19/24 Resulted Cath 12:39 Complete Blood Count LAB 12/21/24 Verified 04:00 Complete Blood Count LAB 12/22/24 Verified 04:00 Basic Metabolic Panel LAB 12/21/24 Verified 04:00 Basic Metabolic Panel LAB 12/22/24 Verified 04:00 Date of Service: Dec 20, 2024 Billing Provider: SHAINA MCDOWELL MD Common Visit Codes: [id number] INP/OBS CARE(HIGH) SHAINA MCDOWELL MD Dec 20, 2024 10:39
--- NOTE | 2024-12-20 10:44 | DVHDS2 ---
Discharge Summary Date of Admission Dec 18, 2024 at 15:50 Date of Discharge: Dec 20, 2024 Admitting Diagnosis Shortness of breath Wounds: Hemodialysis Labs/Diagnostic Data: Laboratory Results Test 12/20/24 05:47 12/19/24 05:26 12/18/24 15:03 12/18/24 14:50 White Blood Count 7.0 10^3/uL (4.4-10.8) Red Blood Count 3.24 10^6/uL (4.0-5.20) Hemoglobin 11.5 g/dL (12.2-16.2) Hematocrit 34.4 % (36.0-46.0) Mean Corpuscular Volume 106.3 fL (80.0-100.0) Mean Corpuscular Hemoglobin 35.5 pg (28.0-32.0) Mean Corpuscular Hemoglobin Concent 33.4 g/dL (32.0-36.0) Red Cell Distribution Width 17.0 % (11.8-14.3) Platelet Count 140 10^3/uL (140-450) Mean Platelet Volume 7.6 fL (6.9-10.8) Neutrophils (%) (Auto) 75.6 % (37.0-80.0) Lymphocytes (%) (Auto) 15.2 % (10.0-50.0) Monocytes (%) (Auto) 8.2 % (0.0-12.0) Eosinophils (%) (Auto) 0.6 % (0.0-7.0) Basophils (%) (Auto) 0.4 % (0.0-2.0) Neutrophils # (Auto) 5.3 10 ^3/uL (1.6-8.6) Lymphocytes # (Auto) 1.1 10 ^3/uL (0.4-5.4) Monocytes # (Auto) 0.6 10 ^3/uL (0-1.3) Eosinophils # (Auto) 0 10 ^3/uL (0-0.8) Basophils # (Auto) 0 10 ^3/uL (0-0.2) Nucleated Red Blood Cells 0.0 % Sodium Level 142 mmol/L (136-145) Potassium Level 4.7 mmol/L (3.5-5.1) Chloride Level 101 mmol/L (98-107) Carbon Dioxide Level 29 mmol/L (20-31) Anion Gap 12 (5-15) Blood Urea Nitrogen 17 mg/dL (9-23) Creatinine 3.55 mg/dL (0.550-1.02) Glomerular Filtration Rate Calc 13 mL/min (>90) BUN/Creatinine Ratio 4.8 (10.0-20.0) Serum Glucose 75 mg/dL (74-106) Calcium Level 8.8 mg/dL (8.7-10.4) Prothrombin Time 12.1 sec (9.3-11.8) Prothrombin Time INR 1.16 (0.9-1.15) Activated Partial Thromboplast Time 38.4 SEC (24.5-34.5) Total Bilirubin 0.6 mg/dL (0.2-1.0) Aspartate Amino Transferase (AST) 16 U/L (13-40) Alanine Aminotransferase (ALT) < 9 U/L (7-40) Alkaline Phosphatase 120 U/L (46-116) Total Protein 6.7 g/dL (5.7-8.2) Albumin 4.3 g/dL (3.2-4.8) Troponin I High Sensitivity 20 ng/L (</=34) Hepatitis A IgM Antibody Negative Hepatitis B Surface Antigen Negative (Negative) Hepatitis B Core IgM Antibody Negative (Negative) Hepatitis C Antibody Negative (Negative) POC Glucose 240 mg/dl (70-106) Test 12/18/24 11:55 B-Type Natriuretic Peptide 493.96 pg/mL (0-100) Other Laboratory Tests 12/20/24 05:47 Brief Hx & Hospital Course: 79-year-old female with a CHF chronic anemia history of permanent pacemaker hypercholesterolemia CVA hypothyroidism anxiety ESRD on hemodialysis dialysis secondary to displaced hemodialysis cath. Came in for shortness of breaths. Received tunneled dialysis cath placed by radiologist. Subsequently received hemodialysis by Dr. Redmond. Patient feels better and ectopy discharged home. 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 Redmond Operations or Procedures Tunneled dialysis cath placement by radiologist Hemodialysis Condition at Discharge: Fair Final Diagnosis/Problems List ESRD on hemodialysis consult by Dr. Redmond appreciated, received dialysis after tunneled dialysis cath placement by radiologist htn emergency hyperkalemia Congestive heart failure exacerbation echo 20 percent ejection fraction Anemia of chronic Kidney disease CHF exacerbation History of permanent pacemaker Hypercholesterolemia History of CVA Hypothyroidism Anxiety Moderate malnutritio Discharge Disposition: Home Discharge Instruct/Medications Diet: Renal Activity: Light activity Follow Up/Referral: Follow up with the primary Dr in one week Follow up with [facility] Follow up with your cardiology DrRuthie Ellis Resume all previous home medications Medications: none Scheduled Acetaminophen (Tylenol), 325 MG PO Q6HR Alum & Mag Hydrox-Simethicone (Magic Mouthwash), 5 ML MT QID Atorvastatin Calcium (Lipitor), 1 TAB PO HS, (Reported) Clonazepam (KlonoPIN TABLET), 1 TAB PO DAILY, (Reported) Levothyroxine Sodium (Euthyrox), 1 TAB PO DAILY, (Reported) Sevelamer Carbonate (Sevelamer Carbonate), 1 TAB PO TID, (Reported) Scheduled PRN Docusate Sodium (Docqlace), 1 CAP PO BID PRN for FOR CONSTIPATION, (Reported) Miscellaneous Medications Ropinirole Hydrochloride (Ropinirole Hcl), 0.25 MG PO, (Reported) 39 (Time Taken for discharge summary 39 minutes) Discharge Statement: "Patient was advised to return to the ER or call 911 if any headaches, dizziness, shortness of breath, chest pain, abdominal pain, bleeding, fevers, or worsening of medical condition. Patient was counseled about treatment plan, medications, possible side effects, patientverbalized understanding. All questions were answered to the best of my ability. This discharge took greater then 30 minutes in planning, reviewing documentation, counseling the patient, and discussing with other team members." ASSESSMENT ASSESSMENT Hospital Course Improved Assessment ESRD on hemodialysis consult by Dr. Redmond appreciated, received dialysis after tunneled dialysis cath placement by radiologist htn emergency hyperkalemia Congestive heart failure exacerbation echo 20 percent ejection fraction Anemia of chronic Kidney disease CHF exacerbation History of permanent pacemaker Hypercholesterolemia History of CVA Hypothyroidism Anxiety Moderate malnutritio Date of Service: Dec 20, 2024 Billing Provider: SHAINA MCDOWELL MD Common Visit Codes: 66466-DTY/OBS DISCH DAY >30min SHAINA MCDOWELL MD Dec 20, 2024 10:44
--- NOTE | 2024-12-20 10:45 | DVHPN2 ---
Progress Note Date Seen: Dec 20, 2024 Medical Necessity Reason Pt with a Central, PICC or Fol: No Subjective Patient reports: No new complaints Other Systems: Patient seen and examined by myself today in follow-up Objective vital signs Vital Sign Date Time Temp Pulse Resp B/P (MAP) Pulse Ox O2 Delivery O2 Flow Rate FiO2 12/20/24 08:30 98.4 69 18 112/61 (78) 97 98.4 12/20/24 08:00 Room Air* 0 21 Total Intake and Output 12/19/24 12/19/24 12/20/24 14:59 22:59 06:59 Intake Total 200 ml 200 ml Balance 200 ml 200 ml medications Current Medications Medications Dose Ordered Sig/Abbey Route Start Time Stop Time Status Last Admin Dose Admin Acetaminophen 650 mg Q6HP PRN PO 12/18/24 16:00 12/19/24 20:15 650 MG Al Hydrox/Mg Hydrox/Simethicone 5 ml QID MT 12/18/24 18:00 12/19/24 21:43 5 ML Atorvastatin Calcium 20 mg HS PO 12/18/24 22:00 12/19/24 21:42 20 MG Docusate Sodium 100 mg BID PRN PO 12/18/24 16:45 12/20/24 08:39 100 MG Levothyroxine Sodium 50 mcg DAILY PO 12/19/24 10:00 12/20/24 08:38 50 MCG Patient Own Medication 325 mg Q6HR PO 12/18/24 18:00 UNV Sevelamer HCl 800 mg TIDWM PO 12/18/24 18:00 12/20/24 08:39 800 MG Albuterol 2.5 mg Q2HPRN PRN NEB 12/18/24 16:45 Cancel Clonazepam 0.5 mg HS PO 12/18/24 21:45 12/19/24 21:51 0.5 MG Ondansetron HCl 4 mg Q4HPRN PRN IV 12/18/24 21:45 12/18/24 22:54 4 MG Examination: LUNGS:Normal, CVS:Normal, MSK:Normal laboratory and microbiology Laboratory Tests 12/20/24 05:47 Test 12/20/24 05:47 Range/Units Serum Glucose 75 74-106 mg/dL Problem List/Assessment/Plan Problem List/Assessment/Plan ESRD on hemodialysis Hypertensive emergency hyperkalemia Congestive heart failure exacerbation Anemia of chronic Kidney disease Tunneled hemodialysis catheter is partially pulled out Recommendations Hemodialysis tomorrow Epogen 12440 subQ 3 times weekly Resume home medication Strict I&Os Renal diet Radiology to replace tunneled IJ hemodialysis catheter We will continue to follow up Plan discussed with: Patient SHERRILL MENJIVAR MD Dec 20, 2024 10:44
[2024-12-20 11:27] LABS: Magnesium 2.2 mg/dL (1.6-2.6)
[2024-12-21] MEDS ORDERED: SODIUM CHL 0.9% 1000 ML BAG XX ONE (07:00)
== END 2024-12-20 14:17 | disposition home or self-care (01) | DRG 640 ==
LOC: ER 11:17 → OVERFLOW 15:50 → TELE-WESTW 18:14
PROVIDERS: ADMIT Family Medicine; ATTEND Family Medicine
PROC: 5A1D70Z Performance of Urinary Filtration, Intermittent, Less than 6 Hours Per Day (ICD-10-PCS; principal; 2024-12-18)
PROC: 5A1D70Z Performance of Urinary Filtration, Intermittent, Less than 6 Hours Per Day (ICD-10-PCS; 2024-12-19)
PROC: 0J2TXYZ Change Other Device in Trunk Subcutaneous Tissue and Fascia, External Approach (ICD-10-PCS; 2024-12-19)
PROC: B5181ZA Fluoroscopy of Superior Vena Cava using Low Osmolar Contrast, Guidance (ICD-10-PCS; 2024-12-19)
DX: E87.5 Hyperkalemia (principal); I50.43 Acute on chronic combined systolic (congestive) and diastolic (congestive) heart failure; N18.6 End stage renal disease; E44.0 Moderate protein-calorie malnutrition; I13.2 Hypertensive heart and chronic kidney disease with heart failure and with stage 5 chronic kidney disease, or end stage renal disease; I16.1 Hypertensive emergency; Z99.2 Dependence on renal dialysis; D63.1 Anemia in chronic kidney disease; E03.9 Hypothyroidism, unspecified; E11.22 Type 2 diabetes mellitus with diabetic chronic kidney disease; F41.9 Anxiety disorder, unspecified; E78.00 Pure hypercholesterolemia, unspecified; Z90.49 Acquired absence of other specified parts of digestive tract; Z86.73 Personal history of transient ischemic attack (TIA), and cerebral infarction without residual deficits; Z90.710 Acquired absence of both cervix and uterus; Z95.0 Presence of cardiac pacemaker; Z82.49 Family history of ischemic heart disease and other diseases of the circulatory system; Z83.3 Family history of diabetes mellitus; Z88.5 Allergy status to narcotic agent; Z98.61 Coronary angioplasty status; Z88.1 Allergy status to other antibiotic agents; Z80.0 Family history of malignant neoplasm of digestive organs; Z68.28 Body mass index [BMI] 28.0-28.9, adult
CPT/HCPCS: 36415; 36558; 71046; 77001; 80048; 80053; 80074; 82962; 83735; 83880; 83970; 84100; 84484; 85025; 85610; 85730; 90935; 93005; 93306; 99152; 99291; G0378; J1642; J1815; J2250; J2405; P9047

== ENCOUNTER 2025-01-31 10:10 | Outpatient (CLI) | payer OTHER ==
[~2025-01-31] VITALS: Ht 149.9 cm; Wt 62.6 kg
[2025-01-31] MEDS ORDERED: ADENOSINE 90 MG/30 ML INJ IV ONE (10:49)
[2025-01-31] MEDS ORDERED: ADENOSINE 53 MG in GIVE UN-DILUTED 0 ML IV ONE (13:45)
== END 2025-01-31 17:00 | disposition home or self-care (01) ==
LOC: Rad HDHVI 10:10
PROVIDERS: ATTEND Internal Medicine Cardiovascular Disease
DX: I42.9 Cardiomyopathy, unspecified (principal); I49.5 Sick sinus syndrome; E78.00 Pure hypercholesterolemia, unspecified; N18.6 End stage renal disease; I13.2 Hypertensive heart and chronic kidney disease with heart failure and with stage 5 chronic kidney disease, or end stage renal disease; I50.32 Chronic diastolic (congestive) heart failure; J96.11 Chronic respiratory failure with hypoxia; Z95.0 Presence of cardiac pacemaker; Z82.49 Family history of ischemic heart disease and other diseases of the circulatory system
CPT/HCPCS: 78452; A9500; J0153; 93017